=== PATIENT | female | born 1955 | race Caucasian/White ===

== ENCOUNTER → 2019-07-12 16:22 | Outpatient (CLI) | payer BC, SELFPAY ==
--- NOTE | 2019-07-12 16:28 | XR_ITS ---
PROCEDURE: XR FOOT WT BEARING RT 3V CLINICAL INDICATION: pain COMPARISON: No exams were available for comparison FINDINGS: No fracture or dislocation. No lytic or blastic change. There is normal mineralization. There is mild pes planus. Mild osteoarthritic changes are present at the 2nd and 3rd metatarsal tarsal joint. There are mild hypertrophic changes at the distal aspect of the 1st metatarsal Other findings:None. IMPRESSION: Degenerative changes with pes planus Dictated by: Nicholas Lyman MD 07/12/2019 17:45 Signed by: <Electronically signed by Nicholas Lyman MD in [place]> 07/12/2019 17:45
== END ==
PROVIDERS: PCP Internal Medicine Adolescent Medicine; Visit Provider Podiatrist
DX: M79.671 Pain in right foot (principal); B35.1 Tinea unguium
CPT/HCPCS: 73630; 87102; 87206; 87220

== ENCOUNTER → 2019-07-28 09:23 | Outpatient (CLI) | payer BC, SELFPAY ==
--- NOTE | 2019-07-28 09:30 | XR_ITS ---
PROCEDURE: XR TIBIA FIBULA RT 2V CLINICAL INDICATION: PAIN IN LOWER LEG Posttraumatic pain with bruising COMPARISON: No exams were available for comparison FINDINGS: There is a nondisplaced fracture involving the neck of the fibula. Mid distal aspect of the tib fib have an unremarkable appearance. IMPRESSION: Nondisplaced fracture neck of the fibula otherwise negative Dictated by: Nicholas Lyman MD 07/28/2019 09:59 Electronically signed by Nicholas Lyman MD in [place] 07/28/2019 09:59
== END ==
PROVIDERS: PCP Internal Medicine Adolescent Medicine; Visit Provider Internal Medicine Adolescent Medicine
DX: M79.661 Pain in right lower leg (principal)
CPT/HCPCS: 73590

== ENCOUNTER 2019-12-21 13:07 | Outpatient (CLI) | payer BC, SELFPAY ==
[2019-12-21] VITALS (7 sets, daily range): BP systolic 104–129; BP diastolic 61–82; PULSE 80–95; RESP 16–18; TEMP 36.5–36.6; O2SAT 97–99; BMI 26.6
[2019-12-21 13:40] LABS: Basophils # 0.1 K/mm3 (0-0.2); Basophils % 0.8 % (0.1-2.0); Eosinophils # 0.1 K/mm3 (0.0-0.4); Eosinophils % 0.9 % (0.1-12.0); Hematocrit 43.1 % (37.0-47.0); Hemoglobin 13.9 g/dL (12.2-16.2); Lymphocytes # 1.1 K/mm3 (0.7-4.5); Lymphocytes % 16.8 % (10-50); Mean Corpuscular HGB Conc 32.2 g/dL (31.8-35.4); Mean Corpuscular Hemoglobin 36.6 pg (27.0-31.2); Mean Corpuscular Volume 113.5 fl (81-99); Mean Platelet Volume 8.1 fl (7.4-10.4); Monocytes # 0.5 K/mm3 (0.1-1.0); Monocytes % 8.1 % (1.7-9.3); Neutrophils # 4.9 K/mm3 (1.8-7.8); Neutrophils % 73.4 % (37.0-80.0); Platelet Count 248 K/mm3 (142-424); Red Blood Count 3.79 M/mm3 (4.20-5.40); Red Cell Distribution Width 15.6 % (11.5-17.5); White Blood Count 6.6 K/mm3 (4.8-10.8)
[2019-12-21 14:22] LABS: Anion Gap 14.7 mEq/L (5-15); Blood Urea Nitrogen 13 mg/dL (7-18); Carbon Dioxide 29 mmol/L (21.0-32.0); Chloride 95 mmol/L (98-107); Creatinine Clearance Estimated 49 mL/min (50-200); Creatinine,Serum 1.31 mg/dL (0.55-1.02); Estimated Glomerular Filt Rate 41 ml/min (>60); GFR (African American) 50 ML/MIN (>60); Sodium 137 mmol/L (136-145)
[2019-12-21 14:44] LABS: Glucose 113 mg/dL (74-106)
[2019-12-21 14:50] LABS: Potassium 1.7 mmoL/L (3.5-5.1)
[2019-12-21 15:09] LABS: Calcium 8.1 mg/dL (8.5-10.1)
== END 2019-12-21 17:00 | disposition home or self-care (01) ==
PROVIDERS: PCP Internal Medicine Adolescent Medicine; Visit Provider Internal Medicine Adolescent Medicine
DX: R42 Dizziness and giddiness (principal)
CPT/HCPCS: 36415; 80048; 85025; 96360; 96361; 96366; 96367

== ENCOUNTER → 2019-12-24 08:43 | Outpatient (CLI) | payer BC, SELFPAY ==
[2019-12-24 12:12] LABS: Alanine Aminotransferase 27 U/L (12-78); Albumin Level 2.7 gm/dL (3.4-5.0); Albumin/Globulin Ratio 0.6 (1.1-1.8); Alkaline Phosphatase 78 U/L (46-116); Anion Gap 17.8 mEq/L (5-15); Aspartate Amino Transferase 33 U/L (15-37); Bilirubin,Total 0.8 mg/dL (0.2-1.0); Blood Urea Nitrogen 7 mg/dL (7-18); Calcium 8.6 mg/dL (8.5-10.1); Carbon Dioxide 25 mmol/L (21.0-32.0); Chloride 97 mmol/L (98-107); Creatinine,Serum 1.09 mg/dL (0.55-1.02); Estimated Glomerular Filt Rate 51 ml/min (>60); GFR (African American) 62 ML/MIN (>60); Globulin 4.3 gm/dl (1.3-3.2); Glucose 103 mg/dL (74-106); Magnesium 1.3 mg/dL (1.4-2.2); Sodium 137 mmol/L (136-145)
[2019-12-24 12:27] LABS: Potassium 2.8 mmoL/L (3.5-5.1)
== END ==
PROVIDERS: Visit Provider Internal Medicine Adolescent Medicine
DX: I10 Essential (primary) hypertension (principal)
CPT/HCPCS: 36415; 80053; 83735

== ENCOUNTER 2020-02-29 14:22 | Emergency (ER) | payer BC, SELFPAY ==
--- NOTE | 2020-02-29 14:44 | HMH.EDUTC ---
[facility] [place] Clinical Impression: Compression fracture Pneumonia Qualifiers: Pneumonia type: due to unspecified organism Laterality: left Lung location: unspecified part of lung Qualified Code(s): J18.9 - Pneumonia, unspecified organism Disposition: Home, Self-Care Condition on Discharge: Fair Instructions: DI for Pneumonia -- Adult, DI for Vertebral Fracture Additional Instructions: Follow up with Dr Lee office Tuesday morning Prescriptions: Lidocaine [Lidoderm 5% transdermal patch] 1 each TP Q24H 30 Days #30 adh..patch Transmission Status: Pending to [facility] Ketorolac Tromethamine [Toradol 10mg tablet] 10 mg PO Q6H PRN 5 Days #20 tab PRN Reason: pain Transmission Status: Pending to [facility] Azithromycin [Z-Reece 250mg Tab*] 250 mg PO UD DOSE PK #6 tab Transmission Status: Pending to [facility] Referrals: Gomez Ferrara MD [Primary Care Provider] - Time of Disposition: 16:19 Medical Decision Making - Johnny Inquiry Pt receiving controlled substance: No Vital Signs: 02/29/20 14:50 Pulse Rate [Right Brachial] 115 H Respiratory Rate 20 Blood Pressure [Right Arm] 130/94 H Blood Pressure Mean [Right Arm] 106 Blood Pressure Source [Right Arm] Automatic Cuff Blood Pressure Position [Right Arm] Sitting 02 Sat by Pulse Oximetry 100 Oxygen Delivery Method Room Air Orders (Tests/Meds): ED MEDICATIONS Discontinued Medications Generic Name Dose Route Start Last Admin Trade Name Freq PRN Reason Stop Dose Admin Ketorolac Tromethamine 30 mg 02/29/20 15:20 02/29/20 15:39 Toradol 30mg/Ml Vial IM 02/29/20 15:21 30 mg ONCE ONE Administration - Radiology Data #1 Image(s): Chest Image Reviewed: Yes I have reviewed radiologist's interpretation Preliminary Findings: Abnormal (Left lingula infiltrate) #2 Image(s): L-Spine Image Reviewed: Yes I reviewed the patient's radiology image Preliminary Findings: Abnormal (Compression fracture) [facility] [place] - General Stated complaint: back pain swollen legs Time Seen by Provider: 02/29/20 14:44 - History of Present Illness Provider Complaint: Patient states that she has had back pain X 1 month. Started in right flank area 1 month ago while sleeping. No injury. Now has weakness in both legs. Has swelling in both legs. Has been laying in recliner with TENS unit and has been taking ibuprofen. Has very little relief. Denies SOA except when the pain is severe. Better when she is sitting very still. Worse with any activity. Had right kidney removed years ago for cancer. Onset (ago): month(s) (1) Location: back, right Relieving factors: none Exacerbating factors: none Associated symptoms: denies other symptoms Treatments prior to arrival: NSAID - Related Data Home Medications Medication Instructions Recorded Confirmed losartan 25 mg tablet 25 mg PO DAILY 07/12/19 02/29/20 Previous Rx's Medication Instructions Recorded Azithromycin [Z-Reece 250mg Tab*] 250 mg PO UD DOSE PK #6 tab 02/29/20 Ketorolac Tromethamine [Toradol 10 mg PO Q6H PRN 5 Days #20 tab 02/29/20 10mg tablet] Lidocaine [Lidoderm 5% transdermal 1 each TP Q24H 30 Days #30 02/29/20 patch] adh..patch Allergies Allergy/AdvReac Type Severity Reaction Status Date / Time amoxicillin Allergy Verified 02/29/20 14:56 ciprofloxacin [From Cipro] Allergy Verified 12/21/19 14:32 Iodinated Contrast Media Allergy Verified 12/21/19 14:32 [Iodinated Contrast Media - Oral and] Penicillins Allergy Verified 12/21/19 14:32 Sulfa (Sulfonamide Allergy Verified 12/21/19 14:32 Antibiotics) [facility] History - Hepatitis A Screen Attestation statement:: This patient has been screened for Hepatitis A risk factors. I have reviewed the patient's past medical history: Yes Medical History: Reports:: Cancer (R kidney 2006 with chemotherapy and R nephrectomy), Hypertension Denies:: Diabetes Mellitus Ty
[2020-02-29 14:50] VITALS: BP 130/94; PULSE 115; RESP 20; O2SAT 100; BMI 27.1
--- NOTE | 2020-02-29 14:56 | XR_ITS ---
PROCEDURE: XR CHEST 2V CLINICAL HISTORY: swelling Pain and swelling COMPARISON: CXR2 XR chest AP from 01/02/2019 FINDINGS: The cardiomediastinal silhouette and pulmonary vascularity are within normal limits. Calcified granuloma is present in the left lower lobe. There are atelectatic or fibrotic changes in the left lower lobe with mild blunting of the left CP angle. There is some opacification along the left major fissure in the lingula. No acute bony abnormalities. IMPRESSION: Atelectasis and/or infiltrate within the lingula with small left effusion Dictated by: Nicholas Lyman MD 02/29/2020 16:07 Electronically signed by Nicholas Lyman MD in [place] 02/29/2020 16:07
--- NOTE | 2020-02-29 15:20 | XR_ITS ---
PROCEDURE: XR LUMBAR SPINE MIN 4V CLINICAL INDICATION: back pain, radiating into RLE Low back pain COMPARISON: No exams were available for comparison FINDINGS: Is mild upper lumbar curvature convex left. Wedge compression fracture involves the anterior superior endplate of L1 with loss of height anteriorly of approximately 30 percent. There is also wedge compression changes involving the L5 vertebral body with loss of height of approximately 30 percent. These are age indeterminate. No obvious retropulsion at L5. There is 1-2 mm anterolisthesis of L4. IMPRESSION: Compression fracture involves L1 and L5 age indeterminate. Consider MRI for further evaluation to determine the age of the fractures and to evaluate for possible retropulsion at the L1 area. Dictated by: Nicholas Lyman MD 02/29/2020 16:04 Electronically signed by Nicholas Lyman MD in [place] 02/29/2020 16:04
[2020-02-29 16:23] VITALS: BP 130/94; PULSE 115; RESP 20; TEMP 36.7; O2SAT 100
== END 2020-02-29 16:28 | disposition home or self-care (01) ==
PROVIDERS: Emergency Provider Physician Assistant; PCP Internal Medicine Adolescent Medicine
DX: M48.56XA Collapsed vertebra, not elsewhere classified, lumbar region, initial encounter for fracture (principal); J18.9 Pneumonia, unspecified organism; I10 Essential (primary) hypertension; D64.9 Anemia, unspecified; Z88.0 Allergy status to penicillin; Z88.2 Allergy status to sulfonamides; Z90.49 Acquired absence of other specified parts of digestive tract; Z90.79 Acquired absence of other genital organ(s)
CPT/HCPCS: 71046; 72110; 96372; 99202

== ENCOUNTER → 2020-03-21 15:08 | Outpatient (CLI) | payer BC, SELFPAY ==
--- NOTE | 2020-03-21 15:14 | MR_ITS ---
PROCEDURE: MR LUMBAR SPINE WO CON CLINICAL INDICATION: CLOSED COMPRESSION FX OF 1ST LUMBAR VERTEBRA Low back pain and left leg pain COMPARISON: XR LUMBAR SPINE MIN 4V from 02/29/2020 TECHNIQUE: Standard multiplanar multiecho sequences are performed without contrast. 3-D MIP and myelographic images are also rendered and reviewed FINDINGS: There is normal alignment. The spinal cord ends at the L2 level. T11-T12: Unremarkable. T12-L1: There is acute compression fracture involving the superior endplate of L1 with loss of height anteriorly of approximately 20 percent with minimal retropulsion of the posterior superior aspect of the vertebral body at 3 mm without impingement. There is some edema involving the anterior aspect of the pedicle on the right at L1 but no obvious fracture line L2-L3: Unremarkable. L3-L4: Unremarkable. L4-5: There is mild wedging involving the superior endplate of L5. There is slight increase in T2 signal involving the anterior superior aspect of L5 with some spurring at this area. L5-S1: Mild facet hypertrophic change with mild bilateral foraminal narrowing Incidental note is made of nonvisualization of the right kidney. IMPRESSION: 1. There is acute compression fracture of involving the superior endplate of L1 with loss of height anteriorly of approximately 20 percent with minimal retropulsion of the posterior superior aspect of the vertebral body at 3 mm without impingement. There is some edema involving the anterior aspect of the pedicle on the right at L1 but no obvious fracture line 2. Mild wedging of the superior endplate of L5 which may be chronic with some associated type 1 endplate changes 3. Nonvisualization of the right kidney which could be due to absence of the kidney or abnormal localization Dictated by: Nicholas Lyman MD 03/21/2020 16:23 Electronically signed by Nicholas Lyman MD in [place] 03/21/2020 16:23
== END ==
PROVIDERS: PCP Internal Medicine Adolescent Medicine; Visit Provider Internal Medicine Adolescent Medicine
DX: S32.010A Wedge compression fracture of first lumbar vertebra, initial encounter for closed fracture (principal)
CPT/HCPCS: 72148; 76376

== ENCOUNTER 2020-05-14 08:59 | Observation (INO) | payer BC, SELFPAY ==
[2020-05-14] VITALS (11 sets, daily range): BP systolic 117–136; BP diastolic 73–96; PULSE 74–125; RESP 16–20; TEMP 36.6–37.1; O2SAT 94–100; BMI 27.4; BMI 25.1
--- NOTE | 2020-05-14 09:11 | ECG_ITS ---
APPROVED REPORT Exam: Resting ECG HR:107 bpm ECG Measurements Heart Rate 107 AXES VA 138 P -19 QRSd 78 QRS -11 QT 328 T 40 QTc 437 <Conclusion> Sinus tachycardia Incomplete RBBB Abnormal ECG Electronically signed by : Albaro Blackman, 05/14/2020 17:49:52
--- NOTE | 2020-05-14 09:13 | HMH.EDGENADL ---
ED Disposition Clinical Impression: Frequent falls, Generalized weakness Anemia Qualifiers: Anemia type: unspecified type Qualified Code(s): D64.9 - Anemia, unspecified UTI (urinary tract infection) Qualifiers: Urinary tract infection type: acute cystitis Hematuria presence: with hematuria Qualified Code(s): N30.01 - Acute cystitis with hematuria Altered mental status Qualifiers: Altered mental status type: disorientation Qualified Code(s): R41.0 - Disorientation, unspecified Disposition: Admitted as Observation Condition on Discharge: Fair - Critical Care Critical Care Time: No Attestation: On 05/14/20, the high probability of a clinically significant, sudden or life threatening deterioration of the following system(s) required my full and direct attention, intervention and personal management. The time I documented below is in addition to time spent performing reported procedures but includes the following listed in this critical care notation. Medical Decision Making - Medical Records Medical records reviewed: Yes: I reviewed the patient's medical records. - Johnny Inquiry Pt receiving controlled substance: No Vital Signs: 05/14/20 09:00 05/14/20 10:14 05/14/20 10:31 Temperature 98.4 F Temperature Source Oral Pulse Rate Pulse Rate [Right] 125 H 74 74 Respiratory Rate 20 18 Blood Pressure Blood Pressure [Right Arm] 119/91 H 128/96 H 117/83 Blood Pressure Mean [Right Arm] 100 106 94 Blood Pressure Source [Right Arm] Automatic Cuff Automatic Cuff Blood Pressure Position [Right Arm] Sitting Supine 02 Sat by Pulse Oximetry 99 100 99 Oxygen Delivery Method Room Air Room Air 05/14/20 11:18 05/14/20 11:39 05/14/20 12:13 Temperature Temperature Source Pulse Rate Pulse Rate [Right] 76 80 79 Respiratory Rate 18 Blood Pressure Blood Pressure [Right Arm] 125/88 124/96 H 122/92 H Blood Pressure Mean [Right Arm] 100 105 102 Blood Pressure Source [Right Arm] Automatic Cuff Automatic Cuff Automatic Cuff Blood Pressure Position [Right Arm] Sitting Sitting Sitting 02 Sat by Pulse Oximetry 94 L 94 L 99 Oxygen Delivery Method Room Air Room Air 05/14/20 12:36 05/14/20 12:58 Temperature 98.2 F Temperature Source Pulse Rate 77 Pulse Rate [Right] 86 Respiratory Rate 16 Blood Pressure 125/84 Blood Pressure [Right Arm] 121/88 Blood Pressure Mean [Right Arm] 99 Blood Pressure Source [Right Arm] Automatic Cuff Blood Pressure Position [Right Arm] Sitting 02 Sat by Pulse Oximetry 100 Oxygen Delivery Method Room Air - Lab Data Lab results reviewed: Yes: I reviewed the patient's lab results. Lab Results 05/14/20 09:35: Sodium 136, Potassium 4.1, Chloride 110 H, Carbon Dioxide 20 L, Anion Gap 10.1, BUN 6 L, Creatinine 0.70, Estimated Creat Clear 66, Estimated GFR 85, Est GFR ( Amer) 102, Glucose 89, Calcium 8.9, Total Bilirubin 0.8, AST 36, ALT 28, Alkaline Phosphatase 97, Total Creatine Kinase < 20 L, Troponin I < 0.01, Total Protein 6.3, Albumin 2.8 L, Globulin 3.5 H, Albumin/Globulin Ratio 0.8 L 05/14/20 09:35: Lactate 1.9 05/14/20 09:35: Plasma/Serum Alcohol < 10 05/14/20 09:35: Magnesium 1.9 05/14/20 09:40: Urine Color Yellow, Urine Appearance Clear, Urine pH 6.0, Ur Specific [place] 1.020, Urine Protein Negative, Urine Glucose (UA) Negative, Urine Ketones Negative, Urine Blood Negative, Urine Nitrate Negative, Urine Bilirubin Negative, Urine Urobilinogen 0.2, Ur Leukocyte Esterase Trace, Urine RBC 10-20, Urine WBC 20-50, Ur Squamous Epith Cells 5-10, Urine Bacteria 1+ 05/14/20 09:40: Urine Opiates Screen Negative, Urine Methadone Screen Negative, Ur Barbituates Screen Negative, Ur Phencyclidine Scrn Negative, Ur Amphetamines Screen Negative, U Benzodiazepines Scrn Negative, Urine Cocaine Screen Negative, U Marijuana (THC) Screen Negative 05/14/20 10:21: WBC 4.5 L, RBC 2.83 L, Hgb 8.9 L, Hct 29.0 L, MCV 102.4 H, MCH 31.6 H, MCHC 30.8 L, RDW 20.8 H, Plt Count 371, MP
--- NOTE | 2020-05-14 09:16 | XR_ITS ---
PROCEDURE: XR CHEST PORTABLE CLINICAL HISTORY: weakness COMPARISON: CXR2 XR chest AP from 01/02/2019 XR CHEST 2V from 02/29/2020 FINDINGS: The cardiomediastinal silhouette and pulmonary vascularity are within normal limits. The lungs are clear without infiltrates, suspicious nodules, or pleural effusions. No acute bony abnormalities. IMPRESSION: No acute findings. Dictated by: Meir Rodriguez 05/14/2020 11:01 Electronically signed by Meir Rodriguez in [place] 05/14/2020 11:01
--- NOTE | 2020-05-14 09:17 | CT_ITS ---
PROCEDURE: CT HEAD/BRAIN WO CON CLINICAL INDICATION: ams COMPARISON: HEADWO CT head/brain wo con from 01/02/2019 TECHNIQUE: Axial images obtained. All CT scans at the facility use one or more dose reduction, viz: automated exposure control, ma/kV adjustment per patient size (including targeted exams where dose is matched to indication, i.e. head), or iterative reconstruction technique. FINDINGS: No midline shift, mass effect, intracranial hemorrhage, hydrocephalus, or extra-axial fluid collection is evident. The calvarium has an unremarkable appearance. No mastoid effusion. No sinus air-fluid level. IMPRESSION: No acute intracranial finding Dictated by: Meir Rodriguez 05/14/2020 10:44 Electronically signed by Meir Rodriguez in [place] 05/14/2020 10:44
--- NOTE | 2020-05-14 09:51 | PC.NURSE ---
contacted pharmacy to ask them to mix Rally pack on pt, spoke with Debbie
--- NOTE | 2020-05-14 09:51 | PC.NURSE ---
pt to RAD
[2020-05-14 09:54] LABS: Chloride 110 mmol/L (98-107); Potassium 4.1 mmoL/L (3.5-5.1); Sodium 136 mmol/L (136-145)
[2020-05-14 09:57] LABS: Alanine Aminotransferase 28 U/L (12-78); Albumin Level 2.8 g/dl (3.5-5.0); Albumin/Globulin Ratio 0.8 (1.1-1.8); Alkaline Phosphatase 97 U/L (38-126); Anion Gap 10.1 mEq/L (5-15); Aspartate Amino Transferase 36 U/L (14-36); Bilirubin,Total 0.8 mg/dl (0.2-1.3); Blood Urea Nitrogen 6 mg/dl (7-17); Calcium 8.9 mg/dl (8.4-10.2); Carbon Dioxide 20 mmol/L (22.0-30.0); Creatinine Clearance Estimated 66 mL/min (50-200); Estimated Glomerular Filt Rate 85 ml/min (>60); GFR (African American) 102 ML/MIN (>60); Globulin 3.5 g/dL (1.3-3.2); Glucose 89 mg/dl (74-100); Total Protein,Serum 6.3 g/dl (6.3-8.2)
[2020-05-14 09:58] LABS: Lactic Acid 1.9 mmol/L (0.7-2.1); Magnesium 1.9 mg/dl (1.6-2.3)
[2020-05-14 10:01] LABS: Creatine Kinase < 20 U/L (30-135); Ethyl Alcohol < 10 mg/dl (0-10)
[2020-05-14 10:03] LABS: Microscopic, Urine URINE MICROSCOPIC (MICROSCOPIC)
[2020-05-14 10:07] LABS: Appearance,Urine CLEAR (Clear); Blood, Urine Negative (Negative); Color,Urine YELLOW (Yellow); Glucose,Urine (UA) Negative (Negative); Ketones,Urine Negative (Negative); Leukocyte Esterase,Urine TRACE (Negative); Nitrate,Urine Negative (Negative); Protein,Urine Negative (Negative); Urobilinogen,Urine 0.2 EU/dl (0.2)
[2020-05-14 10:10] LABS: Troponin I < 0.01 ng/ml (0.00-0.034)
[2020-05-14 10:12] LABS: Bilirubin,Urine Negative (Negative)
[2020-05-14 10:17] LABS: Bacteria,Urine 1+ /lpf; WBC,Urine 20-50 #/hpf (0-3)
[2020-05-14 10:18] LABS: Amphetamine/Metha Screen,Urine Negative ng/ml (<1000)
[2020-05-14 10:19] LABS: Barbiturates Screen,Urine Negative ng/ml (<200); Benzodiazepines Screen,Urine Negative ng/ml (<200)
[2020-05-14 10:20] LABS: Cannabinoid Screen,Urine Negative ng/ml (<50)
[2020-05-14 10:21] LABS: Cocaine Screen,Urine Negative ng/ml (<300); Methadone Screen,Urine Negative ng/ml (<300)
--- NOTE | 2020-05-14 10:21 | PC.NURSE ---
Lab aT bedside
[2020-05-14 10:22] LABS: Opiate Screen,Urine Negative ng/ml (<300); Phencyclidine Screen,Urine Negative ng/ml (<25)
[2020-05-14 10:29] LABS: Basophils # 0.1 K/mm3 (0-0.2); Eosinophils # 0.1 K/mm3 (0.0-0.4); Eosinophils % 1.1 % (0.1-12.0); Hemoglobin 8.9 g/dL (12.2-16.2); Lymphocytes % 21.2 % (10-50); Mean Corpuscular HGB Conc 30.8 g/dL (31.8-35.4); Mean Corpuscular Hemoglobin 31.6 pg (27.0-31.2); Mean Corpuscular Volume 102.4 fl (81-99); Mean Platelet Volume 8.1 fl (7.4-10.4); Monocytes # 0.3 K/mm3 (0.1-1.0); Monocytes % 5.9 % (1.7-9.3); Neutrophils # 3.2 K/mm3 (1.8-7.8); Neutrophils % 70.7 % (37.0-80.0); Platelet Count 371 K/mm3 (142-424); Red Blood Count 2.83 M/mm3 (4.20-5.40); Red Cell Distribution Width 20.8 % (11.5-17.5); White Blood Count 4.5 K/mm3 (4.8-10.8)
--- NOTE | 2020-05-14 11:24 | PC.NURSE ---
assisted MD in rectal exam
[2020-05-14 11:41] LABS: Occult Blood,Stool Negative (Negative)
--- NOTE | 2020-05-14 11:45 | PC.NURSE ---
PT dislodged IV on accident, new IV obtained
--- NOTE | 2020-05-14 12:12 | PC.NURSE ---
consulting with Dr Sagastume
--- NOTE | 2020-05-14 12:29 | PC.NURSE ---
Pt sitting up in bed drinking a sprite at this time.
--- NOTE | 2020-05-14 12:30 | PC.NURSE ---
Called CM, house and admissions to get pt admitted, pt going to room 204.
--- NOTE | 2020-05-14 13:01 | PC.NURSE ---
Pt finished oral contrast, notified radiology and admitting nurse
--- NOTE | 2020-05-14 13:02 | CT_ITS ---
PROCEDURE: CT ABDOMEN PELVIS WO CON CLINICAL INDICATION: low HH COMPARISON: No exams were available for comparison TECHNIQUE: Axial images obtained with sagittal and coronal reformats. All CT scans at the facility use one or more dose reduction, viz: automated exposure control, ma/kV adjustment per patient size (including targeted exams where dose is matched to indication, i.e. head), or iterative reconstruction technique. FINDINGS: Infiltrates within the posterior segment of the left upper lobe, left lung base, and small left pleural effusion is noted. There is a 14.5 millimeter calcified nodule in the medial left lung base. There are a few infiltrates within the right lung base. The liver is enlarged and displays diffuse steatosis. Patient is status post cholecystectomy. The patient is status post right nephrectomy. The bilateral adrenal glands, left kidney, pancreas, and spleen is unremarkable. There are a few splenic calcifications. There are surgical sutures which may be post Mario fundoplication within the distal thoracic esophagus and gastric fundus. The aorta is unremarkable. Large bowel is unremarkable. There is some mild dilatation and mucosal thickening of a segment of mid ileum. Soft tissues and bony structures are unremarkable. CT scan of the pelvis without contrast: There is an indwelling Ott catheter and some gas within the collapsed bladder lumen. The patient is status posthysterectomy. Soft tissues and bony structures are unremarkable. IMPRESSION: Hepatomegaly and hepatic steatosis, status post right nephrectomy and cholecystectomy, loop of mid ileum displaying mild dilatation and mucosal thickening. This could be secondary to a focal enteritis or ischemia. Dictated by: Meir Rodriguez 05/14/2020 15:41 Electronically signed by Meir Rodriguez in [place] 05/14/2020 15:41
--- NOTE | 2020-05-14 14:04 | HMH.PHAVTE ---
[facility] Pharmacy VTE Monitoring - Patient Demographics Admission date: 05/14/20 Report Date: 05/14/20 Time: 14:04 Allergies/Adverse Reactions: Patient Allergies amoxicillin Allergy (Verified 02/29/20 14:56) ciprofloxacin [From Cipro] Allergy (Verified 12/21/19 14:32) Iodinated Contrast Media [Iodinated Contrast Media - Oral and] Allergy (Verified 12/21/19 14:32) Penicillins Allergy (Verified 12/21/19 14:32) Sulfa (Sulfonamide Antibiotics) Allergy (Verified 12/21/19 14:32) Height: 1.63 m Weight: 66.423 kg Patient Problems: Current Active Problems Anemia (Acute) UTI (urinary tract infection) (Acute) Altered mental status (Acute) Frequent falls (Acute) Generalized weakness (Acute) - VTE Risk Labs: VTE Related Lab Results Hgb 8.9 g/dL (12.2-16.2) L 05/14/20 10:21 Hct 29.0 % (37.0-47.0) L 05/14/20 10:21 Plt Count 371 K/mm3 (142-424) 05/14/20 10:21 BUN 6 mg/dl (7-17) L 05/14/20 09:35 Creatinine 0.70 mg/dl (0.52-1.04) 05/14/20 09:35 Estimated Creat Clear 66 mL/min (50-200) 05/14/20 09:35 Was VTE Risk Assessment Performed: Yes VTE Score: 9 VTE Risk Level: Moderate Risk Clinical Trial Participant: No - Prophylaxis VTE Prophylaxis Ordered?: Yes Types of VTE Prophylaxis: TEDS Knee High
--- NOTE | 2020-05-14 14:06 | HMH.HP ---
*Admission Date: 05/14/20 *Chief complaint: Worsening weakness/Confusion/anemia *History of present illness: 65-year-old white female with some functional decline issues who over the past week has become progressively more confused, weak and has spent most of her time in bed. She is also had some frequent falls. Her brought her to the emergency department where work-up revealed significant range and hemoglobin, down from 14 g 6 weeks ago to 8 g today. She is also extremely weak, pale, was found to have new compression fractures in her back on examination and a urinary tract infection. Patient admitted to hospital for further evaluation, treatment of her UTI, physical therapy evaluation and evaluation by pain management for compression fracture issues. [facility] History I have reviewed the patient's past medical history: Yes Medical History: Reports:: Cancer (RIGHT KIDNEY CANCER), Hypertension Denies:: Diabetes Mellitus Type 1, Diabetes Mellitus Type 2, MRSA *Have you ever received a pneumonia vaccine?: No *Have you received a flu vaccine this season?: No Other Medical History: Reports: Anemia, Arthritis (hands), Chemotherapy, HypothyroidismComment Only: Thyroid Disease (parathyroidectomy 2004) Laterality Cases: Bilateral: Tonsillectomy Other Surgeries: Yes: Cancer Surgery, Cholecystectomy, Colonoscopy, , EGD, Hysterectomy-Total (1989), Thyroidectomy Amputation: No Fractures: Yes (R tibia fracture June 2019) - *Social History Educational Level: Completed College Smoking Status: Current some day smoker Tobacco Type: cigarettes # Packs/Day (cigarettes): 1 Alcohol Intake: former Alcohol Intake Frequency:: other *Occupational Status:: employed Housing: house Household Members: spouse *Travel in the last 8 weeks: None Family Hx:: Diabetes, Heart Attack, Hypertension Review of Systems - Review of Systems Review of systems:: unable to obtain Patient is somewhat confused, is disoriented to place and time, is able to say that her pain feels better and that she is eaten some lunch which is more than she is eaten in quite a few days. Her family is not in the room which limits review of systems accuracy. - *Neurologic Reports weakness Meds Home Medications Medication Instructions Recorded Confirmed Type Cyclobenzaprine HCl [Flexeril 10mg 5 mg PO Q6H PRN 05/14/20 05/14/20 History tablet] Losartan/Hydrochlorothiazide 1 each PO DAILY 05/14/20 05/14/20 History [Losartan-Hctz 50-12.5 mg Tab] Tramadol HCl [Tramadol 50mg 50 mg PO QIDP PRN 05/14/20 05/14/20 History Tab] Allergies Allergy/AdvReac Type Severity Reaction Status Date / Time amoxicillin Allergy Verified 02/29/20 14:56 ciprofloxacin [From Cipro] Allergy Verified 12/21/19 14:32 Iodinated Contrast Media Allergy Verified 12/21/19 14:32 [Iodinated Contrast Media - Oral and] Penicillins Allergy Verified 12/21/19 14:32 Sulfa (Sulfonamide Allergy Verified 12/21/19 14:32 Antibiotics) Exam Vital signs and Labs for Last 24 Hours: Temp Pulse Resp BP Pulse Ox 97.8 F 84 17 124/73 99 05/14/20 13:13 05/14/20 13:13 05/14/20 13:13 05/14/20 13:13 05/14/20 13:13 Laboratory Results - last 24 hr 05/14/20 09:35: Sodium 136, Potassium 4.1, Chloride 110 H, Carbon Dioxide 20 L, Anion Gap 10.1, BUN 6 L, Creatinine 0.70, Estimated Creat Clear 66, Estimated GFR 85, Est GFR ( Amer) 102, Glucose 89, Calcium 8.9, Total Bilirubin 0.8, AST 36, ALT 28, Alkaline Phosphatase 97, Total Creatine Kinase < 20 L, Troponin I < 0.01, Total Protein 6.3, Albumin 2.8 L, Globulin 3.5 H, Albumin/Globulin Ratio 0.8 L 05/14/20 09:35: Lactate 1.9 05/14/20 09:35: Plasma/Serum Alcohol < 10 05/14/20 09:35: Magnesium 1.9 05/14/20 09:40: Urine Color Yellow, Urine Appearance Clear, Urine pH 6.0, Ur Specific [place] 1.020, Urine Protein Negative, Urine Glucose (UA) Negative, Urine Ketones Negative, Urine Blood Negative, Urine Nitrate Negative,
--- NOTE | 2020-05-14 14:07 | HMH.PTEV ---
Physical Therapy Evaluation Rehab PT IP Evaluation Start: 05/14/20 13:33 Freq: ONCE Status: Active Protocol: Document 05/14/20 14:02 ELAINE (Rec: 05/14/20 14:07 ELAINE [id number]) Subjective/History History History History obtained primarily from the patient's , patient had some history. states she has been a heavy drinker for several years. Because of this she has had frequent falls. She fell about 6 weeks ago and cracked vertebrae in her back . She fell again about 5 weeks ago. She has had an MRI which shows a compression fracture. He says that she has not had a drink in about 4 weeks. Despite this, she is getting progressively weaker, more confused. She is shaky and weak when she stands, therefore continues to fall. She says she has hit her head. She has bruises on her lower legs. She sleeps 18 to 19 hours/day. She is on pain medication for her back. Subjective Subjective Pt reports anxiety issues from falling Rehab PT IP Eval Objective Appearance Patient Behavior Cooperative,Anxious Patient Orientation Person,Place,Time Difficulty following instructions none Speech Pattern Clear,Appropriate Ambulation Patient Able to Ambulate Yes Ambulation Observation IP General Gait Pattern Observation No Deviations/Normal Ambulation Distance (feet) 5 Ambulation Assistive Device Rolling Walker Ambulation Ability Supervision/Stand by Balance Ability to Arise Able, uses arms to help Sitting Balance Steady, safe Standing Balance Narrow stance w/o support Dynamic Sitting Balance Ability Good Dynamic Standing Balance Ability Fair Transfers Bed Transfer Ability Independent Chair Transfer Ability Independent Sit to Stand Bed Transfer Ability Supervision/Stand by Sit to Stand Chair Transfer Ability Supervision/Stand by ROM All Extremities PT ROM Status WFL MMT All Extremities PT MMT WFL Rehab
--- NOTE | 2020-05-14 14:36 | HMH.PHAINT ---
HOME MEDICATION RECONCILIATION COMPLETED. OBTAINED LIST FROM PRIMARY CARE PROVIDERS OFFICE (DR RODAS). PT ADAMANT SHE IS ONLY TAKING LOSARTAN/HCTZ 50/12.5MG, ULTRAM AND FLEXERIL CURRENTLY.
--- NOTE | 2020-05-14 18:01 | PC.NURSE ---
PATIENT ARRIVED ON FLOOR VIA STRETCHER. THIS RN WENT OVER MEDICATIONS WITH PATIENT. SPOUSE PROVIDED SEVERAL HOME MEDICATION BOTTLES, PER PATIENT, PATIENT ONLY TAKES THE 3 MEDICATIONS LISTED ON MEDICATION SUMMARY. PATIENT COMPLAINS OF PAIN WHEN BEING TOUCHED. SEVERAL BRUISES NOTED ON BODY. PATIENT ABLE TO STAND WITH 2X ASSIST FOR A SHORT TIME, WEAKNESS IN LEGS. APPETITE GOOD. A&O X4, LUNGS DIMINSHED, PULSES EQUAL. THIS RN RETURNED ALL HOME MEDICATIONS TO PATIENT'S SPOUSE, PATIENT'S SPOUSE ASKED IF HE SHOULD DISPOSE OF HER MEDICATIONS THAT SHE DOES NOT TAKE. THIS RN STATED THAT I CAN NOT TELL YOU WHAT TO DO WITH YOUR 'S MEDICATIONS. PATIENT'S SPOUSE STATED HE WILL SPEAK TO DR. HUTTON TO FIND OUT WHAT TO DO WITH THE MEDICATIONS. NO OTHER CONCERNS AT THIS TIME.
--- NOTE | 2020-05-14 19:07 | PC.NURSE ---
report given to yoselin
[2020-05-15] VITALS (8 sets, daily range): BP systolic 95–121; BP diastolic 48–81; PULSE 74–104; RESP 16–20; TEMP 36.6–37.2; O2SAT 97–99; BMI 25.9
--- NOTE | 2020-05-15 02:48 | PC.NURSE ---
A&OX4 T/O ENTIRE SHIFT. PT HAS TOLERATED RA WELL T/O SHIFT. PT HAS BEEN IN BED MAJORITY OF SHIFT. F/C IN PLACE, DRAINING BRIGHT YELLOW URINE. AT BEGINNING OF SHIFT, PT C/O RESTLESS LEG PAIN. PT STATED, IT FEELS LIKE I HAVE WORMS CRAWLING UP MY LEGS. PT SEEMED VERY ANXIOUS AT THIS TIME. THIS NURSE TALKED WITH PT, PT STATED THAT THE LAST TIME SHE DRANK WAS 2 DAYS AGO. THIS NURSE PROVIDED PT WITH WARM BLANKET, HOT TEA, AND DIMMED LIGHTING. PT STILL REQUESTED MEDS FOR LEGS, RATING PAIN OF 8 ON 1-10 SCALE. GAVE PT X1 DOSE OF TRAMADOL AND FLEXERIL PER ACCOUNT MANAGER MD MCKNIGHT. AFTER THESE INTERVENTIONS, PT STATES THAT HER LEGS ARE STILL BOTHERING HER, BUT NOT BAD. HER ANXIETY HAS ALSO GOTTEN MUCH BETTER. PT HAS HAD NO OTHER C/O T/O THE NIGHT. VSS WILL CONTINUE TO MONITOR.
[2020-05-15 06:36] LABS: Basophils % 0.8 % (0.1-2.0); Eosinophils # 0.1 K/mm3 (0.0-0.4); Eosinophils % 1.6 % (0.1-12.0); Hematocrit 27.9 % (37.0-47.0); Hemoglobin 8.6 g/dL (12.2-16.2); Lymphocytes # 1.7 K/mm3 (0.7-4.5); Lymphocytes % 36.1 % (10-50); Mean Corpuscular HGB Conc 30.8 g/dL (31.8-35.4); Mean Corpuscular Hemoglobin 31.5 pg (27.0-31.2); Mean Corpuscular Volume 102.2 fl (81-99); Mean Platelet Volume 7.8 fl (7.4-10.4); Monocytes # 0.3 K/mm3 (0.1-1.0); Monocytes % 6.5 % (1.7-9.3); Neutrophils # 2.5 K/mm3 (1.8-7.8); Platelet Count 344 K/mm3 (142-424); Red Blood Count 2.73 M/mm3 (4.20-5.40); Red Cell Distribution Width 20.3 % (11.5-17.5); White Blood Count 4.6 K/mm3 (4.8-10.8)
--- NOTE | 2020-05-15 09:12 | HMH.ACPN2 ---
Internal Medicine - PN: Subj *Date: 05/15/20 *Time: 08:55 Interval history: Patient did well overnight. Continues to complain of feeling weak and fatigued. Is alert and oriented this morning. No acute distress on room air. Tolerating breakfast. Symptoms appear to be improving somewhat since admission Denies shortness of breath, chest pain, nausea, vomiting. Afebrile. Further interview this morning, she admits to drinking alcohol nightly to help her sleep, states may be 8 ounces but reports that it would take at most 2 days to go through a bottle of wine also drinks liquor on occasion. Suspect she is drinking far more than she admits to given these conflicting answers. Exam Vital signs and Labs for Last 24 Hours: Temp Pulse Resp BP Pulse Ox 98.6 F 104 H 18 98/54 L 99 05/15/20 07:25 05/15/20 07:26 05/15/20 07:25 05/15/20 07:25 05/15/20 07:25 Laboratory Results - last 24 hr 05/14/20 09:35: Sodium 136, Potassium 4.1, Chloride 110 H, Carbon Dioxide 20 L, Anion Gap 10.1, BUN 6 L, Creatinine 0.70, Estimated Creat Clear 66, Estimated GFR 85, Est GFR ( Amer) 102, Glucose 89, Calcium 8.9, Total Bilirubin 0.8, AST 36, ALT 28, Alkaline Phosphatase 97, Total Creatine Kinase < 20 L, Troponin I < 0.01, Total Protein 6.3, Albumin 2.8 L, Globulin 3.5 H, Albumin/Globulin Ratio 0.8 L 05/14/20 09:35: Lactate 1.9 05/14/20 09:35: Plasma/Serum Alcohol < 10 05/14/20 09:35: Magnesium 1.9 05/14/20 09:40: Urine Color Yellow, Urine Appearance Clear, Urine pH 6.0, Ur Specific [place] 1.020, Urine Protein Negative, Urine Glucose (UA) Negative, Urine Ketones Negative, Urine Blood Negative, Urine Nitrate Negative, Urine Bilirubin Negative, Urine Urobilinogen 0.2, Ur Leukocyte Esterase Trace, Urine RBC 10-20, Urine WBC 20-50, Ur Squamous Epith Cells 5-10, Urine Bacteria 1+ 05/14/20 09:40: Urine Opiates Screen Negative, Urine Methadone Screen Negative, Ur Barbituates Screen Negative, Ur Phencyclidine Scrn Negative, Ur Amphetamines Screen Negative, U Benzodiazepines Scrn Negative, Urine Cocaine Screen Negative, U Marijuana (THC) Screen Negative 05/14/20 10:21: WBC 4.5 L, RBC 2.83 L, Hgb 8.9 L, Hct 29.0 L, MCV 102.4 H, MCH 31.6 H, MCHC 30.8 L, RDW 20.8 H, Plt Count 371, MPV 8.1, Neut % (Auto) 70.7, Lymph % (Auto) 21.2, [place] % (Auto) 5.9, Eos % (Auto) 1.1, Baso % (Auto) 1.0, Neut # (Auto) 3.2, Lymph # (Auto) 1.0, [place] # (Auto) 0.3, Eos # (Auto) 0.1, Baso # (Auto) 0.1 05/14/20 11:20: Stool Occult Blood Negative 05/15/20 06:03: WBC 4.6 L, RBC 2.73 L, Hgb 8.6 L, Hct 27.9 L, MCV 102.2 H, MCH 31.5 H, MCHC 30.8 L, RDW 20.3 H, Plt Count 344, MPV 7.8, Neut % (Auto) 55.0, Lymph % (Auto) 36.1, [place] % (Auto) 6.5, Eos % (Auto) 1.6, Baso % (Auto) 0.8, Neut # (Auto) 2.5, Lymph # (Auto) 1.7, [place] # (Auto) 0.3, Eos # (Auto) 0.1, Baso # (Auto) 0.0 I & O for Last 24 hours: Intake & Output 05/12/20 05/13/20 05/14/20 05/15/20 23:59 23:59 23:59 23:59 Intake Total 1360 / 1480 360 / 360 Output Total 475 / 975 600 / 600 Balance 885 / 505 -240 / -240 Weight 66.423 kg 69.088 kg - Constitutional no acute distress, average body habitus - *Routine HEENT Exam Head: Present: normocephalic Eye: Present: EOMI, PERRL ENT: Present: mucous membranes moist - *Routine Neck Exam Present: supple. Absent: lymphadenopathy - *Routine Respiratory Exam Present: CTA bilaterally - *Routine Cardiovascular Exam Present: RRR - *Routine Abdominal Exam Present: soft, normoactive bowel sounds. Absent: tenderness - *Routine Extremities Exam Absent: cyanosis, clubbing, edema - *Routine Skin Exam Present: pallor, warm. Absent: rash - *Routine Neurological Exam Present: alert, oriented X3, normal speech. Absent: tremors, asterixis Assessment and Plan (1) Altered mental status Current visit: Yes Status: Acute Qualifiers: Altered mental status type: disorientation Qualified Code(s): R41.0 - Disorientation, unspecified Category: Medical Code(s
[2020-05-15 09:20] LABS: Chloride 109 mmol/L (98-107); Potassium 4.1 mmoL/L (3.5-5.1); Sodium 135 mmol/L (136-145)
[2020-05-15 09:22] LABS: Blood Urea Nitrogen 8 mg/dl (7-17); Creatinine Clearance Estimated 63 mL/min (50-200); Estimated Glomerular Filt Rate 72 ml/min (>60); GFR (African American) 88 ML/MIN (>60)
[2020-05-15 09:23] LABS: Alanine Aminotransferase 20 U/L (12-78); Albumin Level 2.2 g/dl (3.5-5.0); Albumin/Globulin Ratio 0.7 (1.1-1.8); Alkaline Phosphatase 75 U/L (38-126); Anion Gap 9.1 mEq/L (5-15); Aspartate Amino Transferase 32 U/L (14-36); Bilirubin,Total 0.6 mg/dl (0.2-1.3); Carbon Dioxide 21 mmol/L (22.0-30.0); Globulin 3.1 g/dL (1.3-3.2); Glucose 75 mg/dl (74-100); Lactate Dehydrogenase 233 U/L (313-618); Total Protein,Serum 5.3 g/dl (6.3-8.2)
[2020-05-15 10:06] LABS: Basophils % 0.6 % (0.1-2.0); Eosinophils # 0.1 K/mm3 (0.0-0.4); Eosinophils % 1.8 % (0.1-12.0); Hematocrit 29.2 % (37.0-47.0); Hemoglobin 8.9 g/dL (12.2-16.2); Lymphocytes # 1.2 K/mm3 (0.7-4.5); Lymphocytes % 21.8 % (10-50); Mean Corpuscular HGB Conc 30.6 g/dL (31.8-35.4); Mean Corpuscular Hemoglobin 31.8 pg (27.0-31.2); Mean Corpuscular Volume 104.2 fl (81-99); Monocytes # 0.3 K/mm3 (0.1-1.0); Neutrophils % 70.9 % (37.0-80.0); Platelet Count 385 K/mm3 (142-424); Red Blood Count 2.81 M/mm3 (4.20-5.40); Red Cell Distribution Width 20.4 % (11.5-17.5); White Blood Count 5.6 K/mm3 (4.8-10.8)
[2020-05-15 10:13] LABS: Chloride 110 mmol/L (98-107)
[2020-05-15 10:14] LABS: Potassium 4.1 mmoL/L (3.5-5.1); Sodium 135 mmol/L (136-145)
[2020-05-15 10:16] LABS: Alanine Aminotransferase 29 U/L (12-78); Alkaline Phosphatase 87 U/L (38-126); Aspartate Amino Transferase 31 U/L (14-36); Bilirubin,Total 0.5 mg/dl (0.2-1.3); Blood Urea Nitrogen 7 mg/dl (7-17); Creatinine Clearance Estimated 63 mL/min (50-200); Estimated Glomerular Filt Rate 72 ml/min (>60); GFR (African American) 88 ML/MIN (>60)
[2020-05-15 10:17] LABS: Albumin Level 2.4 g/dl (3.5-5.0); Albumin/Globulin Ratio 0.7 (1.1-1.8); Anion Gap 11.1 mEq/L (5-15); Calcium 8.1 mg/dl (8.4-10.2); Carbon Dioxide 18 mmol/L (22.0-30.0); Globulin 3.4 g/dL (1.3-3.2); Glucose 82 mg/dl (74-100); Magnesium 2.4 mg/dl (1.6-2.3); Phosphorous 4.6 mg/dl (2.5-4.5); Total Protein,Serum 5.8 g/dl (6.3-8.2)
[2020-05-15 10:28] LABS: Calcium 7.9 mg/dl (8.4-10.2)
[2020-05-15 11:29] LABS: Activated Partial Thrombo Time 23.5 seconds (23.6-34.0); INR 1.09 (0.9-1.1); Prothrombin Time 11.1 seconds (9.4-11.8)
[2020-05-15 11:39] LABS: Barbiturates Screen,Urine Negative ng/ml (<200)
[2020-05-15 11:40] LABS: Benzodiazepines Screen,Urine Negative ng/ml (<200)
[2020-05-15 11:41] LABS: Amphetamine/Metha Screen,Urine Negative ng/ml (<1000); Cocaine Screen,Urine Negative ng/ml (<300)
[2020-05-15 11:42] LABS: Methadone Screen,Urine Negative ng/ml (<300)
[2020-05-15 11:43] LABS: Cannabinoid Screen,Urine Negative ng/ml (<50); Opiate Screen,Urine Negative ng/ml (<300)
[2020-05-15 11:44] LABS: Phencyclidine Screen,Urine Negative ng/ml (<25)
--- NOTE | 2020-05-15 15:14 | HMH.PAINSOAP ---
[facility] Pain Management SOAP Note Subjective:: Patient is a pleasant 65-year-old white female who is currently inpatient at [facility]. We are being consulted for new onset mid to low back pain. Patient says she has had frequent falls over the last few months and says that she is having worsening back pain. She does have imaging that shows an acute compression fracture at L1 area. Patient says that she is having frequent falls and is unsure what is causing her falls. She reports the pain to be worse with any type of movement. Patient says she does not have much pain with sitting, however. Patient does rate her pain an 8 out of 10 with any type of movement. The patient is currently taking muscle relaxers and tramadol for pain relief. This does give her up to 50% relief at this time. Review of Systems General: No recent weight changes, no fever, no sleep disturbances Respiratory: No cough, no shortness of air, no recurring pulmonary infections Cardiovascular/peripheral vascular: No chest pain, no palpitations, no edema, no shortness of breath Gastrointestinal: No new onset incontinence, normal bowel movements reported Genitourinary: No new onset incontinence Musculoskeletal: Mid to low back pain Psychiatric: Normal mood/affect Neurological: [Denies weakness in extremities], [denies balance issues] Objective:: Physical exam General: Alert and oriented x3, no acute distress, pleasant and cooperative, [on room air] Lungs: Respirations even and unlabored, symmetrical chest expansion Eyes: PERRL Musculoskeletal: Flexion and extension of lumbar spine somewhat guarded secondary to pain, deep tendon reflexes normal, strength in upper and lower extremities [5/5], [abnormal gait noted] Neurological: Speech clear, home care provider equal, no gross sensory deficit Assessment:: Compression fracture at L1 Plan:: Patient I did discuss kyphoplasty for her acute fracture. I did discuss the patient's imaging with Dr. Murphy. He is in agreement to proceed with the procedure. The patient is not currently on any anticoagulation therapy. The patient was also given a brace today to wear with any type of movement for stabilization. We will plan to contact the patient following discharge for scheduling of kyphoplasty at L1. Patient has been instructed to contact clinic if she has any concerns before her appointment. The patient and I specifically discussed risk factors for COVID19. These risks include, but are not limited to age greater than 60, heart or lung disease, diabetes, immunosuppression, and travel. We also discussed NSAIDs may worsen COVID19 infection or symptoms. Patient should not use NSAIDs to treat COVID19 signs or symptoms. Patient was also informed that any type of corticosteroid of any form (oral or injection) will decrease the patient's immune system response and may increase the likelihood of COVID19 infection [address] symptoms[address] Dr. Murphy has reviewed this note and agrees with this plan of care. This note was dictated using voice recognition software and make contain errors or omissions. [facility] History I have reviewed the patient's past medical history: Yes Medical History: Reports:: Cancer (RIGHT KIDNEY CANCER), Hypertension Denies:: Diabetes Mellitus Type 1, Diabetes Mellitus Type 2, MRSA *Have you ever received a pneumonia vaccine?: No *Have you received a flu vaccine this season?: No Other Medical History: Reports: Anemia, Arthritis (hands), Chemotherapy, HypothyroidismComment Only: Thyroid Disease (parathyroidectomy 2004) Laterality Cases: Bilateral: Tonsillectomy Other Surgeries: Yes: Cancer Surgery, Cholecystectomy, Colonoscopy, , EGD, Hysterectomy-Total (1989), Thyroidectomy Amputation: No Fractures: Yes (R tibia fracture June 2019) - *Social History Educational Level: Completed College Smoking Status: Current some day smoker Tobacco Type: cigarettes # Packs/Day (cigarettes): 1 Alcohol Intake: former [employer]
--- NOTE | 2020-05-15 17:32 | PC.NURSE ---
PATIENT IN RECLINER EATING DINNER. PATIENT ASSISTED TO BSC WITH 2 RN-PT HAD BM. NO C/O N,V,D OR PAIN. PATIENT YANCY TRANSFER FAIR, HAS SOME DEBILITY. SAFETY MEASURES IN PLACE. FAMILY HAS VISITED PATIENT TODAY, PT ALONE NOW. NO ISSUES AT THIS TIME. WILL CONT TO MONITOR
[2020-05-16 03:49] VITALS: BP 113/69; PULSE 71; RESP 16; TEMP 36.7; O2SAT 97
[2020-05-16 05:00] VITALS: BMI 24.6
--- NOTE | 2020-05-16 05:18 | PC.NURSE ---
A&OX4. PT HAS TOLERATED ROOM AIR WELL THROUGHOUT SHIFT. RESPIRATIONS CLEAR AND UNLABORED. LUNG SOUNDS BILATERALLY CLEAR. NO COUGH NOTED. NO EDEMA NOTED. TEDS ON BLE. HAND COMPRESSOR ENGINEER EQUAL. PT WAS ASSISTED TO THE RESTROOM AT BEGINNING OF SHIFT WITH STANDBY ASSISTANCE. STEADY GAIT. PT TOLERATED WELL. WILBURN IN PLACE WITH CLEAR YELLOW URINE NOTED IN COLLECTION BAG. NO KINKS NOTED. ABDOMEN SOFT AND NONTENDER. ACTIVE BOWEL SOUNDS HEARD IN ALL 4 QUADRANTS. CIWL SCORE OF 0 THROUGHOUT SHIFT. SEIZURE PADS IN PLACE THROUGHOUT SHIFT. BED IN LOWEST POSITION. CALL LIGHT WITHIN REACH. PT IS CURRENTLY RESTING IN BED. VSS. NO CONCERNS AT THIS TIME. WILL CONTINUE TO MONITOR.
[2020-05-16 07:37] LABS: Chloride 111 mmol/L (98-107)
[2020-05-16 07:38] LABS: Potassium 4.3 mmoL/L (3.5-5.1); Sodium 136 mmol/L (136-145)
[2020-05-16 07:40] LABS: Alanine Aminotransferase 18 U/L (12-78); Alkaline Phosphatase 80 U/L (38-126); Aspartate Amino Transferase 29 U/L (14-36); Bilirubin,Total 0.6 mg/dl (0.2-1.3); Blood Urea Nitrogen 7 mg/dl (7-17); Creatinine Clearance Estimated 60 mL/min (50-200); Estimated Glomerular Filt Rate 85 ml/min (>60); GFR (African American) 102 ML/MIN (>60)
[2020-05-16 07:41] LABS: Albumin Level 2.4 g/dl (3.5-5.0); Albumin/Globulin Ratio 0.7 (1.1-1.8); Anion Gap 7.3 mEq/L (5-15); Calcium 8.3 mg/dl (8.4-10.2); Carbon Dioxide 22 mmol/L (22.0-30.0); Globulin 3.3 g/dL (1.3-3.2); Glucose 83 mg/dl (74-100); Total Protein,Serum 5.7 g/dl (6.3-8.2)
[2020-05-16 07:44] LABS: Basophils % 0.9 % (0.1-2.0); Eosinophils # 0.1 K/mm3 (0.0-0.4); Eosinophils % 2.8 % (0.1-12.0); Hematocrit 30.7 % (37.0-47.0); Hemoglobin 9.3 g/dL (12.2-16.2); Lymphocytes # 1.1 K/mm3 (0.7-4.5); Mean Corpuscular HGB Conc 30.4 g/dL (31.8-35.4); Mean Corpuscular Hemoglobin 31.2 pg (27.0-31.2); Mean Corpuscular Volume 102.7 fl (81-99); Mean Platelet Volume 8.3 fl (7.4-10.4); Monocytes # 0.2 K/mm3 (0.1-1.0); Monocytes % 5.7 % (1.7-9.3); Neutrophils # 2.4 K/mm3 (1.8-7.8); Neutrophils % 61.6 % (37.0-80.0); Platelet Count 375 K/mm3 (142-424); Red Blood Count 2.99 M/mm3 (4.20-5.40); White Blood Count 3.9 K/mm3 (4.8-10.8)
[2020-05-16 07:45] LABS: Reticulocyte % (Auto) 3.7 % (0.9-3.2)
[2020-05-16 08:00] VITALS: BP 118/79; PULSE 109; RESP 16; TEMP 36.8; O2SAT 98
--- NOTE | 2020-05-16 09:07 | HMH.DCSUM ---
General - General Admission date:: 05/14/20 Discharge date: 05/16/20 HPI HPI: 65-year-old white female with some functional decline issues who over the past week has become progressively more confused, weak and has spent most of her time in bed. She is also had some frequent falls. Her brought her to the emergency department where work-up revealed significant range and hemoglobin, down from 14 g 6 weeks ago to 8 g today. She is also extremely weak, pale, was found to have new compression fractures in her back on examination and a urinary tract infection. Patient admitted to hospital for further evaluation, treatment of her UTI, physical therapy evaluation and evaluation by pain management for compression fracture issues. Hospital Course Hospital Course: 65-year-old female admitted for confusion, weakness, anemia, metabolic disturbances. Treated with IV vitamins, fluids. Adjusted medications. Stopped blood pressure treatment. During course of hospitalization, she had gradual improvement in her mentation. Was assessed by physical therapy and found to be independent with assistive devices such as a walker but not in need of more aggressive physical therapy such as placement. Recommendation for home health PT or PT as an outpatient. Extensive discussion with patient and her about her increased alcohol consumption over the past several months to years. It was determined that this likely is the underlying etiology for her nutritional deficiencies, confusion, anemia. Plan for discontinuing all home medications. Initiating supplements as prescribed. In physical therapy to gain improved mobility and strength. Her course has been additionally complicated by her persistent back pain from compression fractures for which she has seen neurosurgery at . Pain stable during admission. Pain management was consulted, gave patient a brace. Planning for kyphoplasty in the outpatient setting. No further acute needs. Patient responded well to nutritional supplementation and vitamin therapy in the hospital. Meeting criteria for going home as she is mentating well, ambulating independently, has stable hemodynamics, afebrile, no acute needs. Discharged home in the care of her . Extensive discussion, he is comfortable with this plan. Nutrition consult during admission, recommended protein supplementation and multivitamins Day of discharge, patient had no shortness of breath, chest pain, nausea, vomiting, diarrhea, confusion, syncope. Objective Vital signs: Temp Pulse Resp BP Pulse Ox 98.3 F 109 H 16 118/79 98 05/16/20 08:00 05/16/20 08:00 05/16/20 08:00 05/16/20 08:00 05/16/20 08:00 Narrative: - Constitutional no acute distress, average body habitus - *Routine HEENT Exam Head: Present: normocephalic Eye: Present: EOMI, PERRL ENT: Present: mucous membranes moist - *Routine Neck Exam Present: supple. Absent: lymphadenopathy - *Routine Respiratory Exam Present: CTA bilaterally - *Routine Cardiovascular Exam Present: RRR - *Routine Abdominal Exam Present: soft, normoactive bowel sounds. Absent: tenderness - *Routine Extremities Exam Absent: cyanosis, clubbing, edema - *Routine Skin Exam Present: pallor, warm. Absent: rash - *Routine Neurological Exam Present: alert, oriented X3, normal speech. Absent: tremors, asterixis Results Labs on day of discharge: Labs from last 24 hours 05/16/20 05/16/20 05/16/20 07:00 07:00 07:00 WBC 3.9 L D RBC 2.99 L Hgb 9.3 L Hct 30.7 L MCV 102.7 H MCH 31.2 MCHC 30.4 L RDW 20.0 H Plt Count 375 MPV 8.3 Neut % (Auto) 61.6 Lymph % (Auto) 29.0 [place] % (Auto) 5.7 Eos % (Auto) 2.8 Baso % (Auto) 0.9 Neut # (Auto) 2.4 Lymph # (Auto) 1.1 [place] # (Auto) 0.2 Eos # (Auto) 0.1 Baso # (Auto) 0.0 Retic Count (auto) 3.7 H PT INR APTT Sodium 136 Potassium
[2020-05-16 10:12] LABS: Haptoglobin 17 mg/dL (37-355)
[2020-05-16 10:25] LABS: Ferritin 225 ng/ml (11.1-264)
[2020-05-16 10:52] LABS: Total Iron Binding Capacity 137 ug/dL (265-497)
[2020-05-16 12:34] VITALS: BMI 24.8
--- NOTE | 2020-05-16 14:18 | SW/DCPLANNER ---
Addendum entered by Ila Gan 05/16/20 15:45: Yajaira with [facility] has stated that they are not in network with this patients insurance but did verify that patient has met her deductible and has all 130 yearly visits available for home health services. [facility] I will follow up with Gilma on Tuesday regarding this patient. Patient will discharge home today. I did inform Leland with [facility] regarding patient referral. Original Note: I have received an order for home health services for this patient. Patient is agreeable to home health services at this time and has stated she does NOT have a preference as to which agency. I did speak with patients (Jose Enrique) as well and is also agreeable to services. Patient information will be faxed to Narendra at [facility]. If patient does have an out of pocket expense for services both patient and agree to return back to [facility] for outpatient PT services. I will follow up with Narnedra and patient.
--- NOTE | 2020-05-16 14:37 | DIET.NUTRFU ---
Nutritional assessment completed and counseling given. Pt with moderate protein calorie malnutrition related to ETOH abuse/inadequate intake, see note for full assessment. Protein supplements added to diet order and pt encouraged to increase intakes with small frequent meals, ask for snacks prn.
--- NOTE | 2020-05-16 14:51 | PC.NURSE ---
PT'S CALLED AND STATED HE RECEIVED NOTICE THAT PT WAS GOING TO BE DISCHARGED HOME TODAY. STATED THAT HE FEELS THAT THERE IS STILL SOMETHING OFF WITH HIS . STATED HE HAS GOT NUMEROUS MESSAGES FROM HER TODAY THAT HAS NOT MADE ANY SENSE AT ALL. PT'S STATED HE WAS NOT SURE IT WOULD BE SAFE IF PT WAS TO GO HOME AND HE STILL HAD SEVERAL QUESTIONS AND CONCERNS. CALLED OFFICE TO NOTIFY (MESSAGE LEFT.)
[2020-05-16 16:00] VITALS: BP 119/88; PULSE 92; RESP 16; TEMP 36.7; O2SAT 100
[2020-05-17 10:04] LABS: Peripheral Smear Review Scanned Result
== END 2020-05-16 18:37 | disposition home health service (06) ==
LOC: ER 09:28 → 2ND 12:32
PROVIDERS: Admitting Provider Internal Medicine Adolescent Medicine; Emergency Provider Emergency Medicine; PCP Internal Medicine Adolescent Medicine; Visit Provider Internal Medicine Adolescent Medicine
DX: N39.0 Urinary tract infection, site not specified (principal); D64.9 Anemia, unspecified; Z72.0 Tobacco use; R29.6 Repeated falls; E88.09 Other disorders of plasma-protein metabolism, not elsewhere classified; I10 Essential (primary) hypertension; Z12.11 Encounter for screening for malignant neoplasm of colon; F10.10 Alcohol abuse, uncomplicated; Y90.0 Blood alcohol level of less than 20 mg/100 ml; E46 Unspecified protein-calorie malnutrition; Z68.24 Body mass index [BMI] 24.0-24.9, adult; Z85.528 Personal history of other malignant neoplasm of kidney; S32.019A Unspecified fracture of first lumbar vertebra, initial encounter for closed fracture
CPT/HCPCS: 36415; 70450; 71045; 74176; 80053; 80305; 81001; 82272; 82550; 82728; 83010; 83550; 83605; 83615; 83735; 84100; 84484; 85025; 85044; 85610; 85730; 87040; 87086; 93005; 96365; 97116; 97162; 97530; 99285; G0328; G0378

== ENCOUNTER → 2020-05-27 11:19 | Outpatient (CLI) | payer BC, SELFPAY ==
[2020-05-27 11:37] LABS: Basophils # 0.1 K/mm3 (0-0.2); Basophils % 0.8 % (0.1-2.0); Eosinophils # 0.1 K/mm3 (0.0-0.4); Eosinophils % 1.1 % (0.1-12.0); Hematocrit 32.9 % (37.0-47.0); Hemoglobin 10.3 g/dL (12.2-16.2); Lymphocytes # 1.6 K/mm3 (0.7-4.5); Lymphocytes % 23.7 % (10-50); Mean Corpuscular HGB Conc 31.4 g/dL (31.8-35.4); Mean Corpuscular Hemoglobin 30.5 pg (27.0-31.2); Mean Platelet Volume 7.8 fl (7.4-10.4); Monocytes # 0.3 K/mm3 (0.1-1.0); Monocytes % 3.9 % (1.7-9.3); Neutrophils # 4.7 K/mm3 (1.8-7.8); Neutrophils % 70.4 % (37.0-80.0); Platelet Count 530 K/mm3 (142-424); Red Blood Count 3.39 M/mm3 (4.20-5.40); Red Cell Distribution Width 18.7 % (11.5-17.5); White Blood Count 6.6 K/mm3 (4.8-10.8)
[2020-05-27 12:40] LABS: Alanine Aminotransferase 21 U/L (12-78); Albumin Level 3.1 g/dl (3.5-5.0); Albumin/Globulin Ratio 0.8 (1.1-1.8); Alkaline Phosphatase 84 U/L (38-126); Anion Gap 13.7 mEq/L (5-15); Aspartate Amino Transferase 31 U/L (14-36); Bilirubin,Total 0.4 mg/dl (0.2-1.3); Blood Urea Nitrogen 7 mg/dl (7-17); Calcium 9.6 mg/dl (8.4-10.2); Carbon Dioxide 20 mmol/L (22.0-30.0); Chloride 107 mmol/L (98-107); Estimated Glomerular Filt Rate 85 ml/min (>60); GFR (African American) 102 ML/MIN (>60); Globulin 3.8 g/dL (1.3-3.2); Glucose 94 mg/dl (74-100); Potassium 4.7 mmoL/L (3.5-5.1); Sodium 136 mmol/L (136-145); Total Protein,Serum 6.9 g/dl (6.3-8.2)
[2020-05-28 18:29] LABS: Thyroid Stimulating Hormone 3.35 uIU/mL (0.465-4.68)
== END ==
PROVIDERS: Visit Provider Internal Medicine Adolescent Medicine
DX: D64.9 Anemia, unspecified (principal)
CPT/HCPCS: 36415; 80053; 84443; 85025

== ENCOUNTER → 2020-09-30 11:40 | Outpatient (CLI) | payer BC, SELFPAY ==
--- NOTE | 2020-09-30 11:46 | XR_ITS ---
PROCEDURE: XR LUMBAR SPINE 2-3V CLINICAL INDICATION: FX OF L1 COMPARISON: CR XR LUMBAR SPINE MIN 4V from 02/29/[address] ABDOMEN PELVIS WO CON from 05/14/2020 FINDINGS: There is generalized osteopenia. There is normal curvature and alignment. Previous CT scan abdomen and pelvis from 05/14/2020 showed mild and likely non recent compression fractures of L1 and L5. L1-L5 appear to be stable on the current study both showing approximately 20-30 percent loss of height. However there now are mild compression fractures of L2 and L3 both showing 15-20 percent loss of height. The generalized osteopenia and overlying stool bowel gas make evaluation somewhat difficult. If the patient is having significant pain or increase in pain and probably a CT scan lumbar spine would be helpful to better evaluate for possible retropulsion of 1 of the compression fractures though I would tendon doubt it based on the plain films. The SI joints appear normal. IMPRESSION: Generalized osteopenia multiple mild compression fractures lumbar spine, L2 and L3 apparently have occurred since the previous CT scan 05/14/2020 Dictated by: Dr. Riaz Marin MD 09/30/2020 12:33 Dr. Riaz Marin MD in [place] 09/30/2020 12:33
== END ==
PROVIDERS: PCP Internal Medicine Adolescent Medicine; Visit Provider Internal Medicine Adolescent Medicine
DX: S32.010A Wedge compression fracture of first lumbar vertebra, initial encounter for closed fracture (principal)
CPT/HCPCS: 72100

== ENCOUNTER → 2020-10-09 09:23 | Outpatient (POV) | payer BC, SELFPAY ==
[2020-10-09 09:55] VITALS: BP 137/95; PULSE 85; RESP 18; TEMP 36.8; O2SAT 98; BMI 24.1
--- NOTE | 2020-10-09 13:15 | HMH.PMCON ---
Assessment and Plan (1) Mid back pain Status: Chronic Category: Medical Code(s): M54.9 - Dorsalgia, unspecified (2) Low back pain Status: Chronic Category: Medical Code(s): M54.5 - Low back pain (3) Compression fracture Status: Chronic Category: Medical - Assessment and plan all Dx Assessment and Plan for all problems:: Patient I had a discussion concerning her CT scan she does have acute fractures noted to L2 and L3. Her previous fractures were at L1 and L5. Patient says she is not interested in any type of injections or surgical intervention for her fractures at this time. She says she plans to leave the state for the next month and does not want any interventional therapies. She would like to try a low-dose of medication to see if this helps. She was given oral medications prior to leaving the hospital, however, she is outside of the medication. She denied I discussed that we will give her tramadol 50 mg 1 tablet p.o. twice daily for 1 month only. She will need to return to the clinic when she is back in town following the holidays to discuss a further plan of care. I have advised her to continue using the brace that she was given upon the hospital. Patient says it causes her to have pain and she will likely not wear it. We will follow-up with her in a month to reevaluate her systems. The patient and I specifically discussed risk factors for COVID19. These risks include, but are not limited to age greater than 60, heart or lung disease, diabetes, immunosuppression, and travel. We also discussed NSAIDs may worsen COVID19 infection or symptoms. Patient should not use NSAIDs to treat COVID19 signs or symptoms. Patient was also informed that any type of corticosteroid of any form (oral or injection) will decrease the patient's immune system response and may increase the likelihood of COVID19 [address] Murphy has reviewed this note and agrees with this plan of care. This note was dictated using voice recognition software and make contain errors or omissions. HPI - Data of Consult Patient: new to practice Consult date: 10/09/20 Requesting Physician: Evelia Tristan APRN Primary Care Provider: Gomez Ferrara MD - Consult Narrative Reason for consult: Mid to low back pain History of present illness: Ms. Aiken is a 65 year old female who presents today for consultation for mid to low back pain. Patient was previously seen while she was inpatient at [facility] for a compression fracture. She was not considered a surgical candidate at that time. As a result, the patient was given a brace. She is here today with worsening low back pain. She did undergo CT scan of her lumbar spine. She is here to discuss the results and discuss a further plan of care. Patient says her pain is worse with any type of movement. She rates her pain a 10 out of 10. She says that she is not sure what has happened that her pain has gotten much worse since leaving the hospital. She says that she has not had any recent falls or any trauma that would cause her pain to worsen. She does have a history of falls, however. She had more than 3 falls over the last 6 months for which she was noted to have the L1 and L5 compression fracture with. That occurred in February 2020. Patient had been taking muscle relaxers she says that these were not beneficial for pain. She says that she is currently taking [id number] medications. She is scheduled to leave out of town and visit her family for Thanksgiving and is not interested in injective therapy at this time. Patient says she has not been wearing the brace because it causes her to have pain. CC: Evelia Tristan APRN [facility] History I have reviewed the patient's past medical history: Yes Medical History: Reports:: Hypertension Denies:: Cancer, Diabetes Mellitus Type 1, Diabetes Mellitus Type 2, MRSA *Have you ever received a pneumonia vaccine?: Yes *Have y
== END ==
PROVIDERS: PCP Internal Medicine Adolescent Medicine; Visit Provider Clinical Nurse Specialist Family Health
DX: M54.5 Low back pain (principal)
CPT/HCPCS: 99202

== ENCOUNTER → 2021-02-23 13:52 | Outpatient (CLI) | payer BC, SELFPAY ==
--- NOTE | 2021-02-23 13:57 | MM_ITS ---
PROCEDURE: MM DIG MAMM BI DX W/CAD Digital Breast Tomosynthesis Included CLINICAL INDICATION: RT BREAST LUMP There is no personal or family history breast cancer. The patient complains of a palpable lump axillary region right breast for past 2 weeks COMPARISON: MG [facility] SCREENING from 05/22/2014, outside films TECHNIQUE: Standard CC and MLO images and 3D Tomosynthesis was obtained. R2 CAD reviewed. FINDINGS: Moderate diffuse fibroglandular densities are seen in both breasts and findings are fairly symmetrical and bilateral. There is enlarged somewhat lobulated node in the right axilla the site of skin marker. However a similar appearing node was seen on the previous outside mammograms in 2013. There are no CAD markings. There is a similar appearing enlarged node or couple of matted nodes in the left axilla on the previous exam in 2013, not definitely seen on today's study but not as much of the axilla is included on the MLO image. The breasts look slightly smaller on the current exam than on the previous exam, has the patient had interval weight loss? This could possibly explain the patient noticing a ?new lump? prior to the the current exam. IMPRESSION: Fibrofatty parenchyma with no suspicious lesions seen, slightly enlarged but otherwise normal appearing node right axilla at the site of the patient's complaint, ultrasound of the right axilla could be offered though the lack of any significant change in the appearance of the noted the past 7 years would be somewhat against significant pathology. BI-RAD Category: 2 Benign Finding(s) FOLLOW-UP: 1YR 1 Year Follow-up (A letter has been sent to the patient regarding results of the study.) Dictated by: Dr. Riaz Marin MD 02/27/2021 09:14 Dr. Riaz Marin MD in [place] 02/27/2021 09:14
--- NOTE | 2021-02-23 13:59 | US_ITS ---
PROCEDURE: US BREAST RT COMPLETE CLINICAL INDICATION: RT BREAST LUMP COMPARISON: MG MM DIG MAMM BI DX W/CAD from 02/23/2021 FINDINGS: There is a smoothly marginated oval slightly hyperechoic nodule right axilla at the site of the palpable complaint. There is fine homogeneous internal echoes and well-defined interface between the lesion and the surrounding breast parenchyma. There is a 2nd smaller similar appearing oval nodule in the right axilla as well. In addition there are at least 3 normal appearing nodes. The 2 dominant hyperechoic lesions with homogeneous internal echogenicity likely represent fatty replaced nodes, there is no normal appearing internal architecture. As mention in the mammogram report the lack of significant interval change since the previous mammogram and 2014 certainly is in favor of a benign process. IMPRESSION: Probable fatty replaced nodes in addition to normal appearing nodes right axilla with no suspicious findings in the right breast on the recent mammogram of the same date, consider a six-month follow-up ultrasound right axillary region to evaluate for interval stability. Dictated by: Dr. Riaz Marin MD 03/04/2021 08:36 Dr. Riaz Marin MD in [place] 03/04/2021 08:36
== END ==
PROVIDERS: PCP Internal Medicine Adolescent Medicine; Visit Provider Internal Medicine Adolescent Medicine
DX: N63.10 Unspecified lump in the right breast, unspecified quadrant (principal)
CPT/HCPCS: 76641; 77062; 77066; G0279

== ENCOUNTER 2021-07-20 10:00 | Outpatient (RCR) | payer BC, SELFPAY ==
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
== END 2021-07-20 10:05 | disposition home or self-care (01) ==
LOC: PT 10:00
PROVIDERS: PCP Internal Medicine Adolescent Medicine; Visit Provider Internal Medicine Adolescent Medicine
DX: S32.010A Wedge compression fracture of first lumbar vertebra, initial encounter for closed fracture (principal); M79.601 Pain in right arm; M54.5 Low back pain
CPT/HCPCS: 97014; 97110; 97163; G0283

== ENCOUNTER → 2021-10-13 08:00 | Outpatient (CLI) | payer BC, SELFPAY ==
--- NOTE | 2021-10-13 08:04 | CT_ITS ---
PROCEDURE: CT MASTOID W/O CLINICAL HISTORY: poss acoustic neuroma COMPARISON: No exams were available for comparison TECHNIQUE: Axial images obtained with sagittal and coronal reformats. All CT scans at the facility use one or more dose reduction, viz: automated exposure control, ma/kV adjustment per patient size (including targeted exams where dose is matched to indication, i.e. head), or iterative reconstruction technique. FINDINGS: There is complete opacification of the left mastoid sinus with near complete opacification of the right mastoid sinus. There is bilateral middle ear opacification. No scutal erosion evident. The acoustic foramina are symmetric. Small intracanicular lesions may not be seen with this technique. MRI would be more sensitive for small acoustic neuromas.. No large CP angle mass evident. The lack mole glands are enlarged bilaterally. There are few scattered small lymph nodes in the neck on both sides. There is moderate to severe leftward nasal septal deviation with narrowing of the left nasal canal. The adenoids are prominent. There are scattered small bilateral parotid nodules which are along the peripheral aspect of the parotid glands possibly due to small nodes. IMPRESSION: 1. Symmetric acoustic foramen without obvious mass. More definitive evaluation could be obtained with MRI without and with contrast. Small lesions and intra canalicular lesions may not be seen with unenhanced CT technique. 2. Opacified bilateral mastoid sinuses and middle ears consistent with underlying infectious or inflammatory changes. 3. Prominent bilateral lacrimal glands. Differential diagnosis would include lymphoid hyperplasia, lymphoma, sarcoidosis, Sjogren's syndrome or other inflammatory changes. Ophthalmology consult may be in order. 4. Prominent adenoids. 5. Small bilateral parotid nodules which could be due to small lymph nodes. Scattered small nodes are present in the neck. Dictated by: Nicholas Lyman MD 10/14/2021 08:57 Nicholas Lyman MD in [place] 10/14/2021 08:57
== END ==
PROVIDERS: PCP Internal Medicine Adolescent Medicine; Visit Provider Otolaryngology
DX: R51.9 Headache, unspecified (principal); H91.93 Unspecified hearing loss, bilateral
CPT/HCPCS: 70480; 70486

== ENCOUNTER → 2021-10-22 08:10 | Outpatient (CLI) | payer BC, SELFPAY ==
[2021-10-22 09:51] LABS: Blood Urea Nitrogen 15 mg/dl (7-17); Estimated Glomerular Filt Rate 63 ml/min (>60); GFR (African American) 76 ML/MIN (>60)
== END ==
PROVIDERS: Visit Provider Otolaryngology
DX: Z01.812 Encounter for preprocedural laboratory examination (principal)
CPT/HCPCS: 36415; 82565; 84520

== ENCOUNTER → 2021-10-23 08:07 | Outpatient (CLI) | payer BC, SELFPAY ==
--- NOTE | 2021-10-23 08:08 | MR_ITS ---
PROCEDURE: MR HEAD/BRAIN WO/W CON CLINICAL INDICATION: hearing loss Recent dental surgery COMPARISON: No exams were available for comparison TECHNIQUE: Routine multiplanar multi echo sequences are performed without and with gadolinium enhancement. FINDINGS: No midline shift, mass effect, intracranial hemorrhage, or hydrocephalus. The cerebellopontine angles, cerebellum, brainstem and mid brain have an unremarkable appearance. No evidence of acute infarction. Small T2 white matter hyperintensity in the right temporal lobe superiorly nonspecific. This could even represent partial volume averaging from the lowe-white matter junction not reproduced on the coronal FLAIR images. No enhancement. Thin section images are obtained through the cerebellopontine angle and are unremarkable. Axial and coronal thin section pre and post enhanced images also obtained through the CP angle showing no evidence of CP angle mass mass. There is a questionable small area of enhancement involving the inferior aspect of the suad on the right best detected on the coronal post enhanced image 8 series 13 and axial image 7 series 14.. No other abnormal areas of enhancement detected. The pituitary, optic chiasm, corpus callosum, and craniocervical junction have an unremarkable appearance. There is complete opacification of the mastoid sinuses on both sides as well as opacification of the middle ear canals on both sides. There is mild mucosal thickening of the ethmoid sinuses and moderate leftward nasal septal deviation. IMPRESSION: 1. Complete bilateral mastoid and middle ear opacification. 2. Small area of contrast enhancement involving the inferior aspect of the suad on the right at approximately 3 mm. This is of uncertain clinical significance. Three month follow-up exam with same protocol as today's exam suggested. Dictated by: Nicholas Lyman MD 10/26/2021 08:22 Nicholas Lyman MD in [place] 10/26/2021 08:22
== END ==
PROVIDERS: PCP Internal Medicine Adolescent Medicine; Visit Provider Otolaryngology
DX: H91.93 Unspecified hearing loss, bilateral (principal)
CPT/HCPCS: 70553; A9576

== ENCOUNTER → 2022-01-30 08:13 | Outpatient (CLI) | payer BC, SELFPAY ==
[2022-01-30 08:57] LABS: Basophils # 0.1 K/mm3 (0-0.2); Basophils % 1.2 % (0.1-2.0); Eosinophils # 0.2 K/mm3 (0.0-0.4); Eosinophils % 2.2 % (0.1-12.0); Hematocrit 33.7 % (37.0-47.0); Hemoglobin 10.6 g/dL (12.2-16.2); Lymphocytes # 3.2 K/mm3 (0.7-4.5); Mean Corpuscular HGB Conc 31.4 g/dL (31.8-35.4); Mean Corpuscular Hemoglobin 22.5 pg (27.0-31.2); Mean Corpuscular Volume 71.5 fl (81-99); Mean Platelet Volume 7.9 fl (7.4-10.4); Monocytes # 0.3 K/mm3 (0.1-1.0); Monocytes % 4.7 % (1.7-9.3); Neutrophils # 3.5 K/mm3 (1.8-7.8); Neutrophils % 47.9 % (37.0-80.0); Platelet Count 452 K/mm3 (142-424); Red Blood Count 4.72 M/mm3 (4.20-5.40); Red Cell Distribution Width 18.1 % (11.5-17.5); White Blood Count 7.2 K/mm3 (4.8-10.8)
[2022-01-30 09:02] LABS: INR 0.93 (0.9-1.1); Prothrombin Time 10.6 seconds (10.1-12.5)
[2022-01-30 09:25] LABS: Anion Gap 13.2 mEq/L (5-15); Blood Urea Nitrogen 17 mg/dl (7-17); Calcium 9.6 mg/dl (8.4-10.2); Carbon Dioxide 25 mmol/L (22.0-30.0); Chloride 103 mmol/L (98-107); Estimated Glomerular Filt Rate 72 ml/min (>60); GFR (African American) 87 ML/MIN (>60); Glucose 92 mg/dl (74-100); Potassium 5.2 mmoL/L (3.5-5.1); Sodium 136 mmol/L (136-145)
== END ==
PROVIDERS: Visit Provider Otolaryngology
DX: Z01.812 Encounter for preprocedural laboratory examination (principal); Z11.52 Encounter for screening for COVID-19
CPT/HCPCS: 36415; 80048; 85025; 85610; C9803; U0003; U0005

== ENCOUNTER 2022-02-02 07:55 | Day surgery (SDC) | payer BC, SELFPAY ==
[2022-01-28 14:00] VITALS: BMI 28.3
[2022-02-02] VITALS (10 sets, daily range): BP systolic 108–139; BP diastolic 65–94; PULSE 64–86; RESP 16–20; TEMP 36.3–37.1; O2SAT 94–98
--- NOTE | 2022-02-02 08:21 | ECG_ITS ---
APPROVED REPORT Exam: Resting ECG HR:87 bpm ECG Measurements Heart Rate 87 AXES WI 172 P -4 QRSd 94 QRS -25 QT 358 T 38 QTc 402 Conclusion SINUS RHYTHM POSSIBLE ANTERIOR MYOCARDIAL INFARCTION , OF INDETERMINATE AGE [30 ms Q WAVE IN V3/V4, OR R < 0.2 mV IN V4] ABNORMAL ECG UNCONFIRMED REPORT Electronically signed by : Saarn Sagastume MD 02/02/2022 14:03:40
--- NOTE | 2022-02-02 09:06 | P.PN_ITS ---
[facility] Anesthesia Checklist - Patient Identification Patient Identification: Arm Band, Verbal (Name & ) - Structural Data Admitted From: Home Planned Operative Procedure/s: BMT Consent for Planned Operative Procedure(s) Verified: Yes Verified Documents: Surgical Consent - NPO Status Verified Time NPO: 17:00 - Chart Verification Results Verified: CBC, BMP - Additional verifications Anesthesia Reactions: No Hx Blood Transfusions: No Blood Transfusion Reaction: No - Airway Assessment C-Spine Mobility Assessed: Yes TMJ Mobility Assessed: Yes Dentition: Good Dentition - Neurological Assessment Level of Consciousness: Awake, Alert, Appropriate - Anesthesia Plan Anesthesia Risk discussed: Yes ASA Class: II Anesthesia Type: General w/block [facility] History I have reviewed the patient's past medical history: Yes Medical History: Reports:: Cancer (kidney cancer), Hypertension Denies:: Diabetes Mellitus Type 1, Diabetes Mellitus Type 2, Internal Pacemaker, MRSA, Seizures *Have you ever received a pneumonia vaccine?: No *Have you received a flu vaccine this season?: No Other Medical History: Reports: Anemia, Arthritis, Chemotherapy, Hypothyroidism. Denies: Blood Transfusion Reaction. Comment Only: Thyroid Disease (parathyroidectomy 2004) Anesthesia experience/problems:: none Laterality Cases: Bilateral: Tonsillectomy Other Surgeries: Yes: Cancer Surgery, Cholecystectomy, Colonoscopy, , EGD, Hysterectomy-Total, Thyroidectomy. No: Pacemaker Amputation: No Fractures: Yes (R tibia fracture June 2019) - *Social History Last grade of school completed: Advanced degree Smoking Status: Former smoker Tobacco Type: cigarettes # Packs/Day (cigarettes): 1 #Yrs smoked (if former smoker): 10 Smoking End Date: 2004 Alcohol Intake: never Alcohol Intake Frequency:: other Substance Use Type: denies use *Occupational Status:: retired Housing: house Household Members: spouse *Travel in the last 8 weeks: None Family Hx:: Diabetes, Other
--- NOTE | 2022-02-02 09:21 | SUR.PREOP ---
Anesthesia made aware of pt's potassium. EKG @ bedside, anesthesia did review.
--- NOTE | 2022-02-02 11:26 | P.PN_ITS ---
[facility] Anesthesia Record Part I Intake, IV Amount: 1,300 Estimated blood loss (mL): 5 Urine output (mL): 0 Blood Pressure: 139/88 SaO2: 94 Pulse Rate: 86 Respiratory Rate: 16 Temperature: 98.2 F Patient is:: Drowsy, Stable Stable to PACU at:: 11:25
--- NOTE | 2022-02-02 11:28 | HMH.OPNOTE ---
Date of procedure: 02/02/22 Pre-op Diagnosis:: Chronic serous otitis media, nasopharynx mass Post-op Diagnosis:: Serous otitis media, nasopharynx mass Procedure performed:: Bilateral tympanostomy and tube placement, adenoidectomy Surgeon:: Rizwan Robertson MD MEDICAL RECORDS ADMINISTRATOR:: Mikey Bush Anesthesia: GETDar Estimated blood loss (mL): 25 Operative findings:: Mucoid middle ear effusion bilaterally, benign adenoid hypertrophy Operative note:: P The patient was brought to the operating room and after adequate general anesthesia the ears were draped in the usual sterile fashion and operating microscope employed to visualize tympanic membranes anterior inferior quadrant tympanostomies were made and suction employed to clear the middle ear space effusion and this was done bilaterally and then Rosen T tubes placed bilaterally and Ciprodex drops applied. The mouth was then draped in the usual sterile fashion and a McIvor mouthgag placed. The soft palate was inspected and no anatomic abnormalities were seen. The soft palate was retracted and the nasopharynx was visualized with a mirror. The soft tissue mass was consistent with adenoid hypertrophy. Adenoidectomy was performed using a microdebrider and then hemostasis established with suction Bovie and the procedure concluded. All counts correct and blood loss was less than 25 mL and patient was sent recovery in stable condition Condition: stable Disposition: PACU Complications:: none Condition: stable Disposition: PACU Complications:: none
--- NOTE | 2022-02-02 11:59 | SUR.PHASEI ---
1154- detailed report called to emir guerrero in post op. 1156- pt left in stable condition with emir guerrero in post op at this time.
--- NOTE | 2022-02-02 12:41 | P.PN_ITS ---
[facility] Anesthesia Record Part II Discharge Time: 11:55 Destination: Surgical Day Care (OP Surgery) PACU nurse assessment reviewed?: Yes Patient Condition:: Good Anesthesia Complications:: None Swallowing reflex intact?: Yes Cyanosis?: No Blood Pressure: 123/65 Pulse Rate: 73 Temperature: 98 F Mental Status: Alert & Oriented Pain level:: 0 Nausea and/or vomitting:: None Intake, IV Amount: 0
== END 2022-02-02 12:26 | disposition home or self-care (01) ==
LOC: OR 07:56
PROVIDERS: PCP Internal Medicine Adolescent Medicine; Visit Provider Otolaryngology
PROC: (CPT 69436; principal; 2022-02-02 09:45)
DX: H65.93 Unspecified nonsuppurative otitis media, bilateral (principal); J35.2 Hypertrophy of adenoids; I10 Essential (primary) hypertension; Z85.528 Personal history of other malignant neoplasm of kidney; Z87.891 Personal history of nicotine dependence; Z83.3 Family history of diabetes mellitus; Z88.2 Allergy status to sulfonamides; Z91.041 Radiographic dye allergy status; Z79.899 Other long term (current) drug therapy
CPT/HCPCS: 69436; 42831; 93005; J2405; J2710

== ENCOUNTER → 2022-02-25 08:32 | Outpatient (CLI) | payer BC, SELFPAY ==
--- NOTE | 2022-02-25 08:35 | CT_ITS ---
FINAL REPORT TECHNIQUE: Axial images were obtained from the lung apex to the mid abdomen by computed tomography. Coronal reformatted images were obtained. This study was performed with techniques to keep radiation doses as low as reasonably achievable, (ALARA). Individualized dose reduction techniques using automated exposure control or adjustment of mA and/or kV according to the patient''s size were employed. CLINICAL HISTORY: DYSPNEA FINDINGS: There is bilateral axillary adenopathy with the largest lymph node on the right measuring 18 mm and the largest on the left measuring 29 mm. There is mediastinal and hilar adenopathy. Soft tissue surrounds the left and right main bronchi and the bronchi involving the medial thorax bilaterally. Heart size is normal. There is no pericardial or pleural effusion. Limited images of the upper abdomen demonstrate postoperative changes in the stomach and postoperative changes from cholecystectomy. There is a left adrenal nodule which is likely an adenoma. There is splenomegaly with the spleen measuring about 13 cm. No suspicious infiltrate or nodule is identified. There are postoperative changes in the right humerus. IMPRESSION: Soft tissue surrounds the left and right main bronchi and the bronchi involving the medial thorax bilaterally. Differential diagnosis includes sarcoidosis or other inflammatory process. Neoplasm is less likely but not excluded. Reviewed, Interpreted and Dictated by Lance Francois III, MD Transcribed by yKra Farmer Authenticated by Lance Francois III, MD on 02/25/2022 10:26:18 AM [facility]
--- NOTE | 2022-02-25 08:35 | CT_ITS ---
FINAL REPORT CLINICAL HISTORY: DRY EYE,SWELLING OF LACRIMAL DUCT COMPARISON: 10/13/2021 FINDINGS: Axial images through the orbits were obtained by computed tomography. Sagittal coronal reformatted images were obtained and reviewed. Low-dose technique was performed. Bilateral exophthalmos is noted. The globes are intact. The external ocular muscles are intact. The optic nerves are normal. There is marked enlargement of the bilateral lacrimal glands measuring approximately 30 mm in AP dimension. This appears visually stable. Differential diagnosis would include Sjogren's syndrome, sarcoidosis, or less likely lymphoma. IMPRESSION: Stable enlargement of the bilateral lacrimal glands with differential diagnosis as above. Reviewed, Interpreted and Dictated by Lance Francois III, MD Transcribed by Nelli Melo Authenticated by Lance Francois III, MD on 02/25/2022 09:50:52 AM [facility]
== END ==
PROVIDERS: PCP Internal Medicine Adolescent Medicine; Visit Provider Internal Medicine Adolescent Medicine
DX: R06.09 Other forms of dyspnea (principal); H04.129 Dry eye syndrome of unspecified lacrimal gland; H04.89 Other disorders of lacrimal system
CPT/HCPCS: 70480; 71250

== ENCOUNTER → 2022-03-25 15:38 | Outpatient (CLI) | payer BC, SELFPAY ==
[2022-03-25 16:07] LABS: Basophils # 0.1 K/mm3 (0-0.2); Basophils % 0.9 % (0.1-2.0); Eosinophils % 0.3 % (0.1-12.0); Hemoglobin 10.9 g/dL (12.2-16.2); Lymphocytes # 2.3 K/mm3 (0.7-4.5); Lymphocytes % 23.4 % (10-50); Mean Corpuscular HGB Conc 31.2 g/dL (31.8-35.4); Mean Corpuscular Hemoglobin 21.9 pg (27.0-31.2); Mean Corpuscular Volume 70.2 fl (81-99); Mean Platelet Volume 7.5 fl (7.4-10.4); Monocytes # 0.3 K/mm3 (0.1-1.0); Monocytes % 2.7 % (1.7-9.3); Neutrophils # 7.2 K/mm3 (1.8-7.8); Neutrophils % 72.8 % (37.0-80.0); Platelet Count 481 K/mm3 (142-424); Red Blood Count 4.99 M/mm3 (4.20-5.40); Red Cell Distribution Width 18.4 % (11.5-17.5); White Blood Count 9.9 K/mm3 (4.8-10.8)
[2022-03-25 16:15] LABS: INR 0.92 (0.9-1.1); Prothrombin Time 10.5 seconds (10.1-12.5)
[2022-03-25 17:29] LABS: Lactate Dehydrogenase 150 U/L (313-618)
[2022-03-29 15:45] LABS: Angiotensin Converting Enzyme 32 U/L (14-82)
[2022-03-30 16:14] LABS: Histoplasma Gal'mannan Ag Ur <0.5 (<0.5 ng/mL)
[2022-04-01 12:17] LABS: Fungitell(Beta D-Glucan) Serum <31 pg/mL (<80)
[2022-04-01 20:10] LABS: Aspergillus flavus Negative (Neg:<1:1); Aspergillus fumigatus Negative (Neg:<1:1); Aspergillus niger Negative (Neg:<1:1); Blastomyces Antibody Negative (Neg:<1:1)
[2022-04-09 02:09] LABS: D001-IgE D pteronyssinus <0.10 kU/L (Class 0); D002-IgE D farinae <0.10 kU/L (Class 0); E001-IgE Cat Dander <0.10 kU/L (Class 0); E005-IgE Dog Dander <0.10 kU/L (Class 0); E072-IgE Mouse Urine <0.10 kU/L (Class 0); G002-IgE Bermuda Grass <0.10 kU/L (Class 0); G006-IgE Timothy Grass <0.10 kU/L (Class 0); I006-IgE Cockroach, German <0.10 kU/L (Class 0); Immunoglobulin E, Total 16 IU/mL (6-495); M001-IgE Penicillium chrysogen <0.10 kU/L (Class 0); M002-IgE Cladosporium herbarum <0.10 kU/L (Class 0); M003-IgE Aspergillus fumigatus <0.10 kU/L (Class 0); M006-IgE Alternaria alternata <0.10 kU/L (Class 0); T001-IgE Maple/Box Elder <0.10 kU/L (Class 0); T003-IgE Common Silver Birch <0.10 kU/L (Class 0); T006-IgE Cedar, Mountain <0.10 kU/L (Class 0); T007-IgE Oak, White <0.10 kU/L (Class 0); T008-IgE Elm, American <0.10 kU/L (Class 0); T010-IgE Walnut <0.10 kU/L (Class 0); T011-IgE Maple Leaf Sycamore <0.10 kU/L (Class 0); T014-IgE Cottonwood <0.10 kU/L (Class 0); T015-IgE Ash, White <0.10 kU/L (Class 0); T022-IgE Pecan, Hickory <0.10 kU/L (Class 0); T070-IgE White Mulberry <0.10 kU/L (Class 0); W001-IgE Ragweed, Short <0.10 kU/L (Class 0); W011-IgE Thistle, Russian <0.10 kU/L (Class 0); W014-IgE Pigweed, Common <0.10 kU/L (Class 0); W018-IgE Sheep Sorrel <0.10 kU/L (Class 0)
== END ==
PROVIDERS: Visit Provider Internal Medicine Pulmonary Disease
DX: R06.00 Dyspnea, unspecified (principal); J84.10 Pulmonary fibrosis, unspecified; J45.909 Unspecified asthma, uncomplicated; Z79.52 Long term (current) use of systemic steroids
CPT/HCPCS: 82164; 82785; 83615; 85025; 85610; 86003; 86140; 86606; 86612; 87385; 87449

== ENCOUNTER 2022-04-09 10:13 | Day surgery (SDC) | payer BC, MEDICARE, SELFPAY ==
[2022-04-07 14:00] VITALS: BMI 26.6
[2022-04-09] VITALS (8 sets, daily range): BP systolic 110–127; BP diastolic 51–94; PULSE 72–95; RESP 12–18; TEMP 36.6–37.1; O2SAT 92–98
[2022-04-09 12:23] LABS: Coronavirus 19, PCR Not Detected (NotDetected); Influenza A, PCR Not Detected (NotDetected); Influenza B, PCR Not Detected (NotDetected)
--- NOTE | 2022-04-09 13:08 | HMH.ANESCL ---
[facility] Anesthesia Checklist - Structural Data Admitted From: Home Planned Operative Procedure/s: bronchoscopy Consent for Planned Operative Procedure(s) Verified: Yes - Additional verifications Anesthesia Reactions: No Hx Blood Transfusions: No Blood Transfusion Reaction: No - Airway Assessment C-Spine Mobility Assessed: Yes TMJ Mobility Assessed: Yes Dentition: Good Dentition - Neurological Assessment Level of Consciousness: Awake, Alert, Appropriate - Anesthesia Plan Anesthesia Risk discussed: Yes Anesthesia Plan: Verified ASA Class: III Anesthesia Type: General [facility] History I have reviewed the patient's past medical history: Yes Medical History: Reports:: Hypertension Denies:: Cancer, Diabetes Mellitus Type 1, Diabetes Mellitus Type 2, Internal Pacemaker, MRSA, Seizures *Have you ever received a pneumonia vaccine?: No *Have you received a flu vaccine this season?: No Other Medical History: Reports: Anemia, Arthritis, Chemotherapy, Hypothyroidism. Denies: Blood Transfusion Reaction. Comment Only: Thyroid Disease (parathyroidectomy 2004) Anesthesia experience/problems:: none Laterality Cases: Bilateral: Tonsillectomy Other Surgeries: Yes: Cancer Surgery, Cholecystectomy, Colonoscopy, , EGD, Hysterectomy-Total, Thyroidectomy. No: Pacemaker Amputation: No Fractures: Yes (R tibia fracture June 2019) - *Social History Last grade of school completed: Advanced degree Smoking Status: Former smoker Tobacco Type: cigarettes # Packs/Day (cigarettes): 1 #Yrs smoked (if former smoker): 10 Alcohol Intake: never Alcohol Intake Frequency:: other Substance Use Type: denies use *Occupational Status:: retired Housing: house Household Members: spouse *Travel in the last 8 weeks: None Family Hx:: Diabetes
--- NOTE | 2022-04-09 14:33 | XR_ITS ---
FINAL REPORT CLINICAL HISTORY: BRONCH IN OR FT: 1:24 FINDINGS: FLUOROSCOPY IN THE OR HISTORY: Bronchoscopy. FINDINGS: Fluoroscopic assistance was provided by the radiology department to Dr. Carrillo. A single intraoperative spot image was obtained during bronchoscopy. FLUOROSCOPY TIME: 1 minute 24 seconds. IMPRESSION: Fluoroscopic assistance provided as detailed above. Please see the report of Dr. Carrillo for full details of the findings. Reviewed, Interpreted and Dictated by Monique Shelton MD Transcribed by Janee Driver PA-C Authenticated by Monique Shelton MD on 04/12/2022 12:10:44 PM [facility]
--- NOTE | 2022-04-09 14:34 | HMH.BRONCH ---
- Procedure: Date: 04/09/22 Patient Date of :: 1955 Procedure Performed:: Bronchoscopy with airway examination, endobronchial biopsy, transbronchial biopsy, bronchoalveolar lavage and endobronchial ultrasound guided fine-needle aspiration Indications:: Lymphadenopathy Performing Provider:: Delvis Carrillo MD Referring Provider:: Dr. Jamey Rios Sedation:: General anesthesia Procedure:: Bronchoscopy with airway examination, endobronchial biopsy, transbronchial biopsy, bronchoalveolar lavage and endobronchial ultrasound guided fine-needle aspiration: Clean Diagnostic bronchoscopy advanced the ET tube and airways were examined up to subsegmental bronchi. Diffuse right upper lobe airway edema with more than 50% luminal narrowing noted. Multiple man pedunculated endobronchial regions noted predominantly in the main trachea and in left mainstem extending into the left lower lobe bronchi. No obvious evidence of hemoptysis or mucous plugging noted. Diagnostic bronchoscopy was retracted and EBUS bronchoscopy was advanced Lymph node surveillance was performed and FNA was performed at stations 10 L, 7 and 10R. Fine-needle aspiration samples along with CytoLyt, were also sent in RPMI for flow cytometry along with normal saline specimens cups for bacterial AFB fungal stain and cultures. Special request was made to evaluate for granulomatous organisms as concerning for sarcoid along with other differentials include malignancy, Squamous papillamatous disease and SCLC at this point. EBUS bronchoscopy was retracted and diagnostic bronchoscopy was advanced. Bronchoalveolar lavage was performed in the right upper lobe anterior segment with a total of instillation of 60 cc. None 30 cc back. Alveolar lavage specimen was sent for bacterial AFB fungal stains along with culture. Transbronchial biopsy was also performed the right upper lobe anterior segment with a total of 7 biopsies performed. 5 biopsies were sent in formalin for cytopathological examination. Remaining 2 biopsies, one each were sent in each in normal saline specimen cups for bacterial AFB fungal stain along with culture. Endobronchial biopsies were also performed in the left lower lobe bronchi and a total of 5 biopsy specimens were sent in formalin for cytological examination Patient tolerated the procedure well. No immediate complications noted. Follow in clinic in 7 days. Findings:: See the procedure note Recommendations:: Please see the procedure note. Follow in pulmonary clinic in 7 days. Next Complications:: None Estimated blood obtained (mL): 10
--- NOTE | 2022-04-09 14:37 | HMH.ANESI ---
[facility] Anesthesia Record Part I Intake, IV Amount: 1,200 Estimated blood loss (mL): 0 Urine output (mL): 0 Blood Pressure: 118/67 SaO2: 96 Pulse Rate: 91 Respiratory Rate: 12 Temperature: 97.8 F Patient is:: Awake, Stable Stable to PACU at:: 14:35
--- NOTE | 2022-04-12 12:56 | HMH.ANESII ---
[facility] Anesthesia Record Part II Discharge Time: 15:05 Destination: [facility] PACU nurse assessment reviewed?: Yes Patient Condition:: Good Anesthesia Complications:: None Swallowing reflex intact?: Yes Cyanosis?: No Blood Pressure: 119/62 Pulse Rate: 78 Temperature: 98.4 F Mental Status: Alert & Oriented Pain level:: 0 Nausea and/or vomitting:: None Intake, IV Amount: 1,000
[2022-04-12 12:57] VITALS: BP 119/62; PULSE 78; TEMP 36.9
== END 2022-04-09 15:35 | disposition home or self-care (01) ==
LOC: OR 10:17
PROVIDERS: PCP Internal Medicine Adolescent Medicine; Visit Provider Internal Medicine Pulmonary Disease
PROC: (CPT 31653; principal; 2022-04-09 12:00)
DX: C85.22 Mediastinal (thymic) large B-cell lymphoma, intrathoracic lymph nodes (principal); R59.0 Localized enlarged lymph nodes; C85.12 Unspecified B-cell lymphoma, intrathoracic lymph nodes; Z20.822 Contact with and (suspected) exposure to COVID-19
CPT/HCPCS: 31653; 31624; 71045; 87070; 87102; 87116; 87186; 87205; 87206; 89051; C9803; J2405; J2710; U0003; U0005

== ENCOUNTER → 2022-04-16 13:05 | Outpatient (CLI) | payer BC, MEDICARE, SELFPAY ==
[2022-04-16 13:37] LABS: Basophils # 0.2 K/mm3 (0-0.2); Basophils % 2.3 % (0.1-2.0); Eosinophils # 0.1 K/mm3 (0.0-0.4); Eosinophils % 1.6 % (0.1-12.0); Hematocrit 32.4 % (37.0-47.0); Hemoglobin 10.6 g/dL (12.2-16.2); Lymphocytes # 2.9 K/mm3 (0.7-4.5); Lymphocytes % 36.9 % (10-50); Mean Corpuscular HGB Conc 32.9 g/dL (31.8-35.4); Mean Corpuscular Volume 69.9 fl (81-99); Monocytes # 0.4 K/mm3 (0.1-1.0); Monocytes % 4.9 % (1.7-9.3); Neutrophils # 4.2 K/mm3 (1.8-7.8); Neutrophils % 54.3 % (37.0-80.0); Platelet Count 442 K/mm3 (142-424); Red Blood Count 4.63 M/mm3 (4.20-5.40); Red Cell Distribution Width 18.8 % (11.5-17.5); White Blood Count 7.8 K/mm3 (4.8-10.8)
[2022-04-16 14:18] LABS: Alanine Aminotransferase 15 U/L (12-78); Albumin Level 4.1 g/dl (3.5-5.0); Albumin/Globulin Ratio 0.7 (1.1-1.8); Alkaline Phosphatase 87 U/L (38-126); Anion Gap 13.3 mEq/L (5-15); Aspartate Amino Transferase 19 U/L (14-36); Blood Urea Nitrogen 17 mg/dl (7-17); Carbon Dioxide 26 mmol/L (22.0-30.0); Chloride 103 mmol/L (98-107); Estimated Glomerular Filt Rate 72 ml/min (>60); GFR (African American) 87 ML/MIN (>60); Globulin 5.7 g/dL (1.3-3.2); Glucose 103 mg/dl (74-100); Lactate Dehydrogenase 197 U/L (313-618); Potassium 4.3 mmoL/L (3.5-5.1); Sodium 138 mmol/L (136-145); Total Protein,Serum 9.8 g/dl (6.3-8.2); Uric Acid 4.9 mg/dl (2.5-6.2)
[2022-04-16 14:19] LABS: Bilirubin,Total < 0.1 mg/dl (0.2-1.3)
[2022-04-16 15:01] LABS: Iron 27 ug/dL (37-170)
[2022-04-16 15:11] LABS: Total Iron Binding Capacity 397 ug/dL (265-497)
[2022-04-16 15:38] LABS: Ferritin 5.79 ng/ml (11.1-264)
[2022-04-18 10:17] LABS: Immunoglobulin A, Qn 107 mg/dL (87-352); Immunoglobulin G, Qn 737 mg/dL (586-1602); Immunoglobulin M, Qn 4084 mg/dL (26-217)
[2022-04-20 12:11] LABS: Immunoglobulin A, Qn 112 mg/dL (87-352); Immunoglobulin G, Qn 749 mg/dL (586-1602); Immunoglobulin M, Qn 4141 mg/dL (26-217)
[2022-04-20 13:17] LABS: Albumin 3.4 g/dL (2.9-4.4); Alpha-1-Globulin 0.3 g/dL (0.0-0.4); Alpha-2-Globulin 0.8 g/dL (0.4-1.0); Gamma Globulin 3.4 g/dL (0.4-1.8); Protein, Total 9.1 g/dL (6.0-8.5)
[2022-04-24 20:49] LABS: Free Kappa Lt Chains 26.9; Hep A Ab, IgM NEGATIVE; Hepatitis B Core Antibody IgM NEGATIVE; Hepatitis B Surface Antigen NEGATIVE; Hepatitis C Antibody <0.1
[2022-04-24 20:50] LABS: Free Lambda Lt Chains 16.2
== END ==
PROVIDERS: Visit Provider Internal Medicine Medical Oncology
DX: C85.10 Unspecified B-cell lymphoma, unspecified site (principal); R53.1 Weakness
CPT/HCPCS: 36415; 80053; 80074; 82728; 82784; 83540; 83550; 83615; 83883; 84155; 84165; 84550; 85025; 86334

== ENCOUNTER → 2022-04-24 08:43 | Outpatient (CLI) | payer BC, MEDICARE, SELFPAY ==
[2022-04-24 09:26] LABS: Basophils # 0.1 K/mm3 (0-0.2); Basophils % 1.3 % (0.1-2.0); Eosinophils # 0.1 K/mm3 (0.0-0.4); Eosinophils % 1.6 % (0.1-12.0); Hematocrit 33.9 % (37.0-47.0); Hemoglobin 10.9 g/dL (12.2-16.2); Lymphocytes # 2.4 K/mm3 (0.7-4.5); Lymphocytes % 37.5 % (10-50); Mean Corpuscular HGB Conc 32.2 g/dL (31.8-35.4); Mean Corpuscular Hemoglobin 22.8 pg (27.0-31.2); Mean Corpuscular Volume 70.8 fl (81-99); Monocytes # 0.3 K/mm3 (0.1-1.0); Monocytes % 5.3 % (1.7-9.3); Neutrophils # 3.4 K/mm3 (1.8-7.8); Neutrophils % 54.3 % (37.0-80.0); Platelet Count 429 K/mm3 (142-424); Red Blood Count 4.79 M/mm3 (4.20-5.40); Red Cell Distribution Width 18.8 % (11.5-17.5); White Blood Count 6.3 K/mm3 (4.8-10.8)
[2022-04-24 10:11] LABS: Chloride 105 mmol/L (98-107); Potassium 4.7 mmoL/L (3.5-5.1); Sodium 138 mmol/L (136-145)
[2022-04-24 10:14] LABS: Anion Gap 14.7 mEq/L (5-15); Blood Urea Nitrogen 15 mg/dl (7-17); Calcium 10.3 mg/dl (8.4-10.2); Carbon Dioxide 23 mmol/L (22.0-30.0); Estimated Glomerular Filt Rate 72 ml/min (>60); GFR (African American) 87 ML/MIN (>60); Glucose 98 mg/dl (74-100)
== END ==
PROVIDERS: PCP Internal Medicine Adolescent Medicine; Visit Provider Surgery
DX: Z01.812 Encounter for preprocedural laboratory examination (principal); Z20.822 Contact with and (suspected) exposure to COVID-19; C85.90 Non-Hodgkin lymphoma, unspecified, unspecified site; F07.81 Postconcussional syndrome
CPT/HCPCS: 36415; 80048; 85025; C9803; U0003; U0005

== ENCOUNTER 2022-04-26 08:40 | Day surgery (SDC) | payer BC, MEDICARE, SELFPAY ==
[2022-04-23 11:57] VITALS: BMI 28.3
[2022-04-26 08:53] VITALS: BP 136/82; PULSE 96; RESP 18; TEMP 36.3; O2SAT 95
--- NOTE | 2022-04-26 10:03 | FL_ITS ---
FINAL REPORT CLINICAL HISTORY: portacath placement FINDINGS: FLUORO TIME PROCEDURE: Port-A-Cath placement. FINDINGS: Fluoroscopy time was provided by the radiology department for the clinical service. Two films were obtained. Fluoroscopy exposure time: 0:24 minute IMPRESSION: See above Reviewed, Interpreted and Dictated by Lance Francois III, MD Transcribed by Kyra Farmer Authenticated and [facility]
[2022-04-26 10:05] VITALS: BP 110/55; PULSE 90; RESP 18; TEMP 36.1; O2SAT 91
--- NOTE | 2022-04-26 10:05 | P.OP_ITS ---
Date of procedure: 04/26/22 Pre-op Diagnosis:: Lymphoma, need for semipermanent venous access Post-op Diagnosis:: Same Procedure performed:: Placement of 8 Indonesian open-ended catheter venous access device and left subclavian vein with implantable venous access port (PowerPort) Surgeon:: Lance Burks MD CATH LAB MANAGER:: Other Anesthesia: MAC, local Estimated blood loss (mL): 15 Clinical Note:: Patient is a pleasant 67-year-old female referred by Dr. Romano for port placement. Patient has recently had some periorbital swelling for several months. She had undergone CT scan of the chest in February which revealed bilateral axillary adenopathy with mediastinal and hilar adenopathy. She had been on steroids but reportedly did not tolerate this well. She had undergone endoscopic bronchoscopy with ultrasound on 04/09/2022. 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 Patient has had some night sweats. She has had some shortness of breath. Of note, she has a prior history of renal cell cancer status post nephrectomy. She has a PET scan ordered for radiographic staging. Apprently plan is to initiate treatment with bendamustine/rituxan later this week. Operative findings:: Seemingly normal venous anatomy Operative note:: Patient was taken to the operating room. She was given preoperative intravenous antibiotics. In the operating room she was placed in a supine position. Ad equate intravenous sedation was achieved. Bilateral upper chest and neck were prepped and draped in the standard surgical fashion. Patient was positioned in Trendelenburg position. Local anesthetic was infiltrated inferior to the left clavicle near the deltopectoral groove. 18-gauge needles inserted and left subclavian vein was cannulated. Guidewire was inserted. Fluoroscopy was used to confirm appropriate cannulation of vein and position. Subcutaneous tissues were dilated with the dilator with breakaway sheath. Guidewire and dilator were removed. Open-ended catheter was inserted through the breakaway sheath. Sheath was then removed. Fluoroscopy was used to confirm appropriate position of the tip of the catheter near the atriocaval junction. Skin was then marked with a skin marker for planned tunneling and subcutaneous pocket. Local anesthetic was infiltrated. Skin incision was made for subcutaneous pocket and inferior subcutaneous pocket was created with electrocautery. Catheter was tunneled. It was cut to the appropriate length. The catheter was secured to the reservoir port. Port was then secured into the pocket with a couple of 2-0 PDS sutures. Port aspirated and flushed without difficulty and was flushed with injectable saline. There was good hemostasis. Subdermal tissues were then closed with a running 2-0 Vicryl. Incisions were closed with 4-0 Monocryl in a subcuticular fashion. Clean dry sterile dressing was applied. The completion the port was accessed and able to be flushed with heparinized saline. Condition: stable Disposition: PACU Complications:: None immediately apparent
[2022-04-26 10:15] VITALS: BP 110/68; PULSE 85; RESP 18; O2SAT 93
[2022-04-26 10:25] VITALS: BP 98/72; PULSE 83; RESP 18; O2SAT 94
--- NOTE | 2022-04-26 10:28 | XR_ITS ---
FINAL REPORT TECHNIQUE: Single view chest CLINICAL HISTORY: port a cath placement COMPARISON: Exam performed earlier today FINDINGS: A single view of the chest was obtained. There has been interval placement of a left subclavian chest port the tip in the mid SVC. The heart and mediastinum are within normal limits. There is mild pulmonary vascular congestion. Mild atelectasis is seen. There is no pneumothorax. Osseous structures are unremarkable. IMPRESSION: Left subclavian chest port with the tip in the mid SVC. Mild atelectasis. No pneumothorax. Reviewed, Interpreted and Dictated by Lance Francois III, MD Transcribed by Sayra Lang Authenticated and [facility]
[2022-04-26 10:35] VITALS: BP 109/68; BP 112/72; PULSE 81; RESP 18; O2SAT 94; O2SAT 95
--- NOTE | 2022-04-26 12:00 | SUR.PHASEII ---
Pt waited in post op for results of CXR.Port in correct location, no pnuemothorax.
== END 2022-04-26 12:00 | disposition home or self-care (01) ==
LOC: OR 08:41
PROVIDERS: PCP Internal Medicine Adolescent Medicine; Visit Provider Surgery
PROC: (CPT 36561; principal; 2022-04-26 10:15)
DX: C85.90 Non-Hodgkin lymphoma, unspecified, unspecified site (principal); I10 Essential (primary) hypertension; D64.9 Anemia, unspecified; E03.9 Hypothyroidism, unspecified; Z88.2 Allergy status to sulfonamides; Z88.8 Allergy status to other drugs, medicaments and biological substances; Z79.899 Other long term (current) drug therapy
CPT/HCPCS: 36561; 71045; 76000; 96374; C1788; J1642; J2405

== ENCOUNTER 2022-04-29 08:16 | Outpatient (CLI) | payer BC, MEDICARE, SELFPAY ==
[2022-04-29 10:15] VITALS: BP 142/85; PULSE 61; RESP 18; O2SAT 99
[2022-04-29 10:56] VITALS: BP 139/84; PULSE 62; RESP 18; O2SAT 99
[2022-04-29 11:26] VITALS: BP 134/83; PULSE 65; RESP 18; O2SAT 98
[2022-04-29 11:56] VITALS: BP 135/79; PULSE 67; RESP 18; O2SAT 98
[2022-04-29 12:15] VITALS: BP 132/77; PULSE 68; RESP 18; O2SAT 99
== END 2022-04-29 12:15 | disposition home or self-care (01) ==
LOC: INF 08:19
PROVIDERS: PCP Internal Medicine Adolescent Medicine; Visit Provider Internal Medicine Medical Oncology
DX: Z51.11 Encounter for antineoplastic chemotherapy (principal); C85.90 Non-Hodgkin lymphoma, unspecified, unspecified site
CPT/HCPCS: 96413; J1642; J2469; J9034

== ENCOUNTER 2022-04-30 08:31 | Outpatient (CLI) | payer BC, MEDICARE, SELFPAY ==
[2022-04-30 09:35] VITALS: BP 130/86; PULSE 76; RESP 18; TEMP 36.4; O2SAT 100
[2022-04-30 10:00] VITALS: BP 143/80; PULSE 67; RESP 17; TEMP 36.3; O2SAT 99
[2022-04-30 10:30] VITALS: BP 157/92; PULSE 67; RESP 17; TEMP 36.3; O2SAT 99
[2022-04-30 10:40] VITALS: BP 156/91; PULSE 63; RESP 18; TEMP 36.4; O2SAT 100
[2022-04-30 10:47] VITALS: BP 169/98; PULSE 71; RESP 18; TEMP 36.4; O2SAT 100
== END 2022-04-30 10:47 | disposition home or self-care (01) ==
LOC: INF 08:35
PROVIDERS: PCP Internal Medicine Adolescent Medicine; Visit Provider Internal Medicine Medical Oncology
DX: C83.00 Small cell B-cell lymphoma, unspecified site (principal); Z51.11 Encounter for antineoplastic chemotherapy
CPT/HCPCS: 96413; J1642; J9034

== ENCOUNTER 2022-05-03 10:11 | Outpatient (CLI) | payer BC, MEDICARE, SELFPAY ==
[2022-05-03 10:18] VITALS: BMI 26.6
[2022-05-03 10:55] LABS: Chloride 105 mmol/L (98-107); Potassium 3.8 mmoL/L (3.5-5.1); Sodium 138 mmol/L (136-145)
[2022-05-03 10:57] LABS: Blood Urea Nitrogen 14 mg/dl (7-17); Creatinine Clearance Estimated 64 mL/min (50-200); Estimated Glomerular Filt Rate 56 ml/min (>60); GFR (African American) 67 ML/MIN (>60)
[2022-05-03 10:58] LABS: Alanine Aminotransferase 17 U/L (12-78); Albumin Level 4.1 g/dl (3.5-5.0); Albumin/Globulin Ratio 0.8 (1.1-1.8); Alkaline Phosphatase 78 U/L (38-126); Anion Gap 11.8 mEq/L (5-15); Aspartate Amino Transferase 24 U/L (14-36); Bilirubin,Total 0.4 mg/dl (0.2-1.3); Calcium 9.6 mg/dl (8.4-10.2); Carbon Dioxide 25 mmol/L (22.0-30.0); Globulin 5.1 g/dL (1.3-3.2); Glucose 113 mg/dl (74-100); Lactate Dehydrogenase 172 U/L (313-618); Total Protein,Serum 9.2 g/dl (6.3-8.2)
[2022-05-03 11:01] LABS: Basophils % 0.7 % (0.1-2.0); Eosinophils # 0.4 K/mm3 (0.0-0.4); Hematocrit 30.6 % (37.0-47.0); Hemoglobin 9.9 g/dL (12.2-16.2); Lymphocytes # 0.4 K/mm3 (0.7-4.5); Lymphocytes % 8.2 % (10-50); Mean Corpuscular HGB Conc 32.2 g/dL (31.8-35.4); Mean Corpuscular Hemoglobin 22.3 pg (27.0-31.2); Mean Platelet Volume 6.6 fl (7.4-10.4); Monocytes # 0.3 K/mm3 (0.1-1.0); Monocytes % 6.5 % (1.7-9.3); Neutrophils # 3.6 K/mm3 (1.8-7.8); Neutrophils % 75.7 % (37.0-80.0); Platelet Count 342 K/mm3 (142-424); Red Blood Count 4.43 M/mm3 (4.20-5.40); Red Cell Distribution Width 16.9 % (11.5-17.5); White Blood Count 4.8 K/mm3 (4.8-10.8)
[2022-05-03 11:07] LABS: Uric Acid 4.3 mg/dl (2.5-6.2)
[2022-05-03 11:29] VITALS: BP 111/57; PULSE 77; RESP 16; TEMP 36.6; O2SAT 97
== END 2022-05-03 12:27 | disposition home health service (06) ==
LOC: INF 10:14
PROVIDERS: PCP Internal Medicine Adolescent Medicine; Visit Provider Internal Medicine Medical Oncology
DX: C83.00 Small cell B-cell lymphoma, unspecified site (principal); Z45.2 Encounter for adjustment and management of vascular access device
CPT/HCPCS: 36591; 80053; 83615; 84550; 85025; 96360; J1642

== ENCOUNTER 2022-05-06 09:37 | Outpatient (CLI) | payer BC, MEDICARE, SELFPAY ==
[2022-05-06 09:38] VITALS: BMI 30.2
[2022-05-06 09:50] VITALS: BP 131/82; PULSE 75; RESP 18; O2SAT 97
[2022-05-06 09:58] LABS: Basophils % 0.6 % (0.1-2.0); Eosinophils # 0.7 K/mm3 (0.0-0.4); Eosinophils % 11.1 % (0.1-12.0); Hemoglobin 10.1 g/dL (12.2-16.2); Lymphocytes # 0.4 K/mm3 (0.7-4.5); Lymphocytes % 6.1 % (10-50); Mean Corpuscular HGB Conc 33.8 g/dL (31.8-35.4); Mean Corpuscular Volume 68.1 fl (81-99); Mean Platelet Volume 7.2 fl (7.4-10.4); Monocytes # 0.4 K/mm3 (0.1-1.0); Monocytes % 5.6 % (1.7-9.3); Neutrophils # 4.7 K/mm3 (1.8-7.8); Neutrophils % 76.6 % (37.0-80.0); Platelet Count 313 K/mm3 (142-424); Red Cell Distribution Width 19.2 % (11.5-17.5); White Blood Count 6.2 K/mm3 (4.8-10.8)
[2022-05-06 10:01] LABS: Chloride 106 mmol/L (98-107); Sodium 136 mmol/L (136-145)
[2022-05-06 10:03] LABS: Alanine Aminotransferase 15 U/L (12-78); Aspartate Amino Transferase 21 U/L (14-36); Blood Urea Nitrogen 10 mg/dl (7-17); Creatinine Clearance Estimated 73 mL/min (50-200); Estimated Glomerular Filt Rate 72 ml/min (>60); GFR (African American) 87 ML/MIN (>60)
[2022-05-06 10:04] LABS: Albumin Level 4.1 g/dl (3.5-5.0); Albumin/Globulin Ratio 0.8 (1.1-1.8); Alkaline Phosphatase 76 U/L (38-126); Bilirubin,Total 0.4 mg/dl (0.2-1.3); Calcium 9.6 mg/dl (8.4-10.2); Carbon Dioxide 24 mmol/L (22.0-30.0); Glucose 112 mg/dl (74-100); Lactate Dehydrogenase 171 U/L (313-618); Total Protein,Serum 9.1 g/dl (6.3-8.2)
[2022-05-06 10:11] LABS: Uric Acid 4.3 mg/dl (2.5-6.2)
[2022-05-06 10:53] VITALS: BP 152/79; PULSE 66; RESP 18
--- NOTE | 2022-05-12 10:56 | DIET.NUTRFU ---
left message with contact information for any dietary concerns during chemo tx
== END 2022-05-06 10:53 | disposition home or self-care (01) ==
LOC: INF 09:37
PROVIDERS: PCP Internal Medicine Adolescent Medicine; Visit Provider Internal Medicine Medical Oncology
DX: C83.00 Small cell B-cell lymphoma, unspecified site (principal); E86.0 Dehydration
CPT/HCPCS: 80053; 83615; 84550; 85025; 96360; J1642

== ENCOUNTER 2022-05-13 10:50 | Outpatient (CLI) | payer BC, MEDICARE, SELFPAY ==
[2022-05-13 10:56] VITALS: BMI 29.9
[2022-05-13 11:20] LABS: Basophils % 0.5 % (0.1-2.0); Eosinophils # 0.3 K/mm3 (0.0-0.4); Eosinophils % 4.2 % (0.1-12.0); Hematocrit 30.1 % (37.0-47.0); Hemoglobin 9.8 g/dL (12.2-16.2); Lymphocytes # 0.9 K/mm3 (0.7-4.5); Lymphocytes % 14.1 % (10-50); Mean Corpuscular HGB Conc 32.5 g/dL (31.8-35.4); Mean Corpuscular Hemoglobin 22.1 pg (27.0-31.2); Mean Corpuscular Volume 68.2 fl (81-99); Mean Platelet Volume 6.9 fl (7.4-10.4); Monocytes # 0.3 K/mm3 (0.1-1.0); Monocytes % 5.3 % (1.7-9.3); Neutrophils # 4.6 K/mm3 (1.8-7.8); Neutrophils % 75.9 % (37.0-80.0); Platelet Count 380 K/mm3 (142-424); Red Blood Count 4.41 M/mm3 (4.20-5.40); White Blood Count 6.1 K/mm3 (4.8-10.8)
[2022-05-13 11:29] LABS: Alanine Aminotransferase 19 U/L (12-78); Albumin Level 3.9 g/dl (3.5-5.0); Albumin/Globulin Ratio 0.8 (1.1-1.8); Alkaline Phosphatase 68 U/L (38-126); Anion Gap 8.5 mEq/L (5-15); Aspartate Amino Transferase 22 U/L (14-36); Blood Urea Nitrogen 16 mg/dl (7-17); Calcium 9.6 mg/dl (8.4-10.2); Carbon Dioxide 25 mmol/L (22.0-30.0); Chloride 105 mmol/L (98-107); Creatinine Clearance Estimated 72 mL/min (50-200); Estimated Glomerular Filt Rate 72 ml/min (>60); GFR (African American) 87 ML/MIN (>60); Globulin 4.8 g/dL (1.3-3.2); Glucose 105 mg/dl (74-100); Lactate Dehydrogenase 164 U/L (313-618); Potassium 4.5 mmoL/L (3.5-5.1); Sodium 134 mmol/L (136-145); Total Protein,Serum 8.7 g/dl (6.3-8.2)
[2022-05-13 11:31] LABS: Bilirubin,Total < 0.1 mg/dl (0.2-1.3)
[2022-05-13 13:15] VITALS: BP 129/101; PULSE 82; RESP 18; O2SAT 99
[2022-05-13 13:45] VITALS: BP 145/99; PULSE 82; RESP 18; TEMP 36.6; O2SAT 100
== END 2022-05-13 13:45 | disposition home or self-care (01) ==
LOC: INF 10:51
PROVIDERS: PCP Internal Medicine Adolescent Medicine; Visit Provider Internal Medicine Medical Oncology
DX: E86.0 Dehydration (principal)
CPT/HCPCS: 80053; 83615; 84550; 85025; 96365; J1439; J1642

== ENCOUNTER 2022-05-20 09:46 | Outpatient (CLI) | payer BC, MEDICARE, SELFPAY ==
[2022-05-20 10:11] VITALS: BP 147/90; PULSE 75; RESP 18; TEMP 36.3; O2SAT 99
[2022-05-20 10:35] VITALS: BP 140/79; PULSE 78; RESP 16; O2SAT 98
[2022-05-20 11:04] VITALS: BP 135/82; PULSE 82; RESP 16; TEMP 36.4; O2SAT 99
== END 2022-05-20 11:10 | disposition home or self-care (01) ==
LOC: INF 09:48
PROVIDERS: PCP Internal Medicine Adolescent Medicine; Visit Provider Internal Medicine Medical Oncology
DX: C91.10 Chronic lymphocytic leukemia of B-cell type not having achieved remission (principal)
CPT/HCPCS: 96365; J1439; J1642

== ENCOUNTER 2022-05-27 08:45 | Outpatient (CLI) | payer BC, MEDICARE, SELFPAY ==
[2022-05-27] VITALS (14 sets, daily range): BP systolic 116–142; BP diastolic 64–94; PULSE 70–90; RESP 18–19; TEMP 36.6–37.1; O2SAT 93–97; BMI 28.3
[2022-05-27 09:11] LABS: Chloride 108 mmol/L (98-107)
[2022-05-27 09:12] LABS: Basophils # 0.1 K/mm3 (0-0.2); Basophils % 1.1 % (0.1-2.0); Eosinophils # 0.4 K/mm3 (0.0-0.4); Hematocrit 33.3 % (37.0-47.0); Hemoglobin 10.9 g/dL (12.2-16.2); Lymphocytes # 0.8 K/mm3 (0.7-4.5); Lymphocytes % 18.4 % (10-50); Mean Corpuscular HGB Conc 32.8 g/dL (31.8-35.4); Mean Corpuscular Hemoglobin 24.2 pg (27.0-31.2); Mean Corpuscular Volume 73.7 fl (81-99); Mean Platelet Volume 7.2 fl (7.4-10.4); Monocytes # 0.3 K/mm3 (0.1-1.0); Monocytes % 8.2 % (1.7-9.3); Neutrophils # 2.6 K/mm3 (1.8-7.8); Neutrophils % 62.3 % (37.0-80.0); Platelet Count 202 K/mm3 (142-424); Potassium 4.5 mmoL/L (3.5-5.1); Red Blood Count 4.52 M/mm3 (4.20-5.40); Red Cell Distribution Width 23.8 % (11.5-17.5); Sodium 138 mmol/L (136-145); White Blood Count 4.2 K/mm3 (4.8-10.8)
[2022-05-27 09:14] LABS: Alanine Aminotransferase 19 U/L (12-78); Aspartate Amino Transferase 31 U/L (14-36); Blood Urea Nitrogen 10 mg/dl (7-17); Creatinine Clearance Estimated 68 mL/min (50-200); Estimated Glomerular Filt Rate 84 ml/min (>60); GFR (African American) 102 ML/MIN (>60)
[2022-05-27 09:15] LABS: Albumin Level 4.1 g/dl (3.5-5.0); Alkaline Phosphatase 64 U/L (38-126); Bilirubin,Total 0.5 mg/dl (0.2-1.3); Calcium 9.4 mg/dl (8.4-10.2); Globulin 4.2 g/dL (1.3-3.2); Glucose 99 mg/dl (74-100); Total Protein,Serum 8.3 g/dl (6.3-8.2)
[2022-05-27 09:31] LABS: Anion Gap 10.5 mEq/L (5-15); Carbon Dioxide 24 mmol/L (22.0-30.0)
== END 2022-05-27 16:08 | disposition home or self-care (01) ==
LOC: INF 08:48
PROVIDERS: PCP Internal Medicine Adolescent Medicine; Visit Provider Internal Medicine Medical Oncology
DX: Z51.11 Encounter for antineoplastic chemotherapy (principal); C83.00 Small cell B-cell lymphoma, unspecified site
CPT/HCPCS: 80053; 85025; 96413; 96415; 96417; J1642; J2469; J9034; J9312

== ENCOUNTER 2022-05-28 09:10 | Outpatient (CLI) | payer BC, MEDICARE, SELFPAY | END 2022-05-28 09:15 | disposition home or self-care (01) | LOC: INF 09:11 | PROVIDERS: PCP Internal Medicine Adolescent Medicine; Visit Provider Internal Medicine Medical Oncology | DX: Z45.2 Encounter for adjustment and management of vascular access device (principal); C83.30 Diffuse large B-cell lymphoma, unspecified site | CPT/HCPCS: 96523; J1642 ==

== ENCOUNTER → 2022-06-03 10:08 | Outpatient (CLI) | payer BC, MEDICARE, SELFPAY ==
[2022-06-03 10:40] LABS: Basophils % 0.8 % (0.1-2.0); Eosinophils % 19.4 % (0.1-12.0); Hematocrit 42.5 % (37.0-47.0); Hemoglobin 13.1 g/dL (12.2-16.2); Lymphocytes # 0.4 K/mm3 (0.7-4.5); Lymphocytes % 8.5 % (10-50); Mean Corpuscular HGB Conc 30.9 g/dL (31.8-35.4); Mean Corpuscular Hemoglobin 25.4 pg (27.0-31.2); Monocytes # 0.4 K/mm3 (0.1-1.0); Monocytes % 7.2 % (1.7-9.3); Neutrophils # 3.3 K/mm3 (1.8-7.8); Neutrophils % 64.1 % (37.0-80.0); Platelet Count 252 K/mm3 (142-424); Red Blood Count 5.18 M/mm3 (4.20-5.40); White Blood Count 5.2 K/mm3 (4.8-10.8)
[2022-06-03 10:42] LABS: Red Cell Distribution Width 27.5 % (11.5-17.5)
[2022-06-03 10:52] LABS: Alanine Aminotransferase 70 U/L (12-78); Albumin Level 4.1 g/dl (3.5-5.0); Alkaline Phosphatase 74 U/L (38-126); Anion Gap 12.4 mEq/L (5-15); Aspartate Amino Transferase 38 U/L (14-36); Bilirubin,Total 0.2 mg/dl (0.2-1.3); Blood Urea Nitrogen 12 mg/dl (7-17); Calcium 9.7 mg/dl (8.4-10.2); Carbon Dioxide 25 mmol/L (22.0-30.0); Chloride 106 mmol/L (98-107); Estimated Glomerular Filt Rate 72 ml/min (>60); GFR (African American) 87 ML/MIN (>60); Glucose 106 mg/dl (74-100); Lactate Dehydrogenase 174 U/L (313-618); Potassium 4.4 mmoL/L (3.5-5.1); Sodium 139 mmol/L (136-145); Total Protein,Serum 8.1 g/dl (6.3-8.2); Uric Acid 3.8 mg/dl (2.5-6.2)
== END ==
PROVIDERS: PCP Internal Medicine Adolescent Medicine; Visit Provider Internal Medicine Medical Oncology
DX: C85.90 Non-Hodgkin lymphoma, unspecified, unspecified site (principal)
CPT/HCPCS: 36415; 80053; 83615; 84550; 85025

== ENCOUNTER 2022-06-24 09:00 | Outpatient (CLI) | payer BC, MEDICARE, SELFPAY ==
[2022-06-24] VITALS (8 sets, daily range): BP systolic 120–147; BP diastolic 74–93; PULSE 56–86; RESP 18–21; TEMP 36.1–36.5; O2SAT 100; BMI 29.9
[2022-06-24 10:17] LABS: Basophils # 0.1 K/mm3 (0-0.2); Basophils % 1.5 % (0.1-2.0); Eosinophils # 0.4 K/mm3 (0.0-0.4); Eosinophils % 10.5 % (0.1-12.0); Hematocrit 41.5 % (37.0-47.0); Hemoglobin 13.1 g/dL (12.2-16.2); Lymphocytes # 0.4 K/mm3 (0.7-4.5); Lymphocytes % 10.4 % (10-50); Mean Corpuscular HGB Conc 31.7 g/dL (31.8-35.4); Mean Corpuscular Hemoglobin 27.3 pg (27.0-31.2); Mean Corpuscular Volume 86.3 fl (81-99); Mean Platelet Volume 8.1 fl (7.4-10.4); Monocytes # 0.3 K/mm3 (0.1-1.0); Monocytes % 8.6 % (1.7-9.3); Neutrophils # 2.7 K/mm3 (1.8-7.8); Platelet Count 316 K/mm3 (142-424); Red Blood Count 4.81 M/mm3 (4.20-5.40); White Blood Count 3.9 K/mm3 (4.8-10.8)
[2022-06-24 10:21] LABS: Chloride 109 mmol/L (98-107)
[2022-06-24 10:22] LABS: Potassium 4.3 mmoL/L (3.5-5.1); Sodium 138 mmol/L (136-145)
[2022-06-24 10:24] LABS: Alanine Aminotransferase 22 U/L (12-78); Alkaline Phosphatase 106 U/L (38-126); Anion Gap 9.3 mEq/L (5-15); Aspartate Amino Transferase 24 U/L (14-36); Bilirubin,Total 0.2 mg/dl (0.2-1.3); Blood Urea Nitrogen 14 mg/dl (7-17); Carbon Dioxide 24 mmol/L (22.0-30.0); Creatinine Clearance Estimated 72 mL/min (50-200); Estimated Glomerular Filt Rate 72 ml/min (>60); GFR (African American) 87 ML/MIN (>60)
[2022-06-24 10:25] LABS: Albumin Level 4.3 g/dl (3.5-5.0); Albumin/Globulin Ratio 1.3 (1.1-1.8); Calcium 9.9 mg/dl (8.4-10.2); Globulin 3.4 g/dL (1.3-3.2); Glucose 105 mg/dl (74-100); Total Protein,Serum 7.7 g/dl (6.3-8.2)
[2022-06-24 10:42] LABS: Microscopic, Urine URINE MICROSCOPIC (MICROSCOPIC)
[2022-06-24 10:54] LABS: Appearance,Urine CLEAR (Clear); Bilirubin,Urine Negative (Negative); Blood, Urine Negative (Negative); Color,Urine YELLOW (Yellow); Glucose,Urine (UA) Negative (Negative); Ketones,Urine Negative (Negative); Leukocyte Esterase,Urine Negative (Negative); Nitrate,Urine Negative (Negative); PH,Urine 5.5 (5.0-8.5); Protein,Urine Negative (Negative); Specific Gravity, Urine >= 1.030 (1.005-1.030); Urobilinogen,Urine 0.2 EU/dl (0.2)
[2022-06-24 11:17] LABS: WBC,Urine Occasional #/hpf (0-3)
[2022-06-24 13:52] LABS: Lactate Dehydrogenase 154 U/L (313-618); Uric Acid 3.4 mg/dl (2.5-6.2)
== END 2022-06-24 14:22 | disposition home or self-care (01) ==
LOC: INF 09:02
PROVIDERS: PCP Internal Medicine Adolescent Medicine; Visit Provider Internal Medicine Medical Oncology
DX: Z51.11 Encounter for antineoplastic chemotherapy (principal); C85.94 Non-Hodgkin lymphoma, unspecified, lymph nodes of axilla and upper limb
CPT/HCPCS: 80053; 81001; 83615; 84550; 85025; 87086; 96413; 96415; J1642; J9312

== ENCOUNTER 2022-07-01 08:35 | Outpatient (CLI) | payer BC, MEDICARE, SELFPAY ==
[2022-07-01] VITALS (8 sets, daily range): BP systolic 128–152; BP diastolic 75–96; PULSE 62–69; RESP 18–19; TEMP 36.4; O2SAT 99–100; BMI 29.9
[2022-07-01 09:09] LABS: Basophils # 0.1 K/mm3 (0-0.2); Basophils % 1.7 % (0.1-2.0); Eosinophils # 0.3 K/mm3 (0.0-0.4); Eosinophils % 7.7 % (0.1-12.0); Hematocrit 42.5 % (37.0-47.0); Hemoglobin 13.4 g/dL (12.2-16.2); Lymphocytes # 0.5 K/mm3 (0.7-4.5); Lymphocytes % 12.1 % (10-50); Mean Corpuscular HGB Conc 31.6 g/dL (31.8-35.4); Mean Corpuscular Hemoglobin 27.8 pg (27.0-31.2); Monocytes # 0.4 K/mm3 (0.1-1.0); Monocytes % 8.8 % (1.7-9.3); Neutrophils # 3.1 K/mm3 (1.8-7.8); Neutrophils % 69.7 % (37.0-80.0); Platelet Count 283 K/mm3 (142-424); Red Blood Count 4.83 M/mm3 (4.20-5.40); Red Cell Distribution Width 25.8 % (11.5-17.5); White Blood Count 4.4 K/mm3 (4.8-10.8)
[2022-07-01 09:13] LABS: Chloride 112 mmol/L (98-107); Potassium 4.2 mmoL/L (3.5-5.1); Sodium 139 mmol/L (136-145)
[2022-07-01 09:15] LABS: Alanine Aminotransferase 16 U/L (12-78); Aspartate Amino Transferase 24 U/L (14-36); Blood Urea Nitrogen 13 mg/dl (7-17); Creatinine Clearance Estimated 72 mL/min (50-200); Estimated Glomerular Filt Rate 84 ml/min (>60); GFR (African American) 102 ML/MIN (>60)
[2022-07-01 09:16] LABS: Albumin Level 4.1 g/dl (3.5-5.0); Albumin/Globulin Ratio 1.2 (1.1-1.8); Alkaline Phosphatase 93 U/L (38-126); Anion Gap 7.2 mEq/L (5-15); Carbon Dioxide 24 mmol/L (22.0-30.0); Globulin 3.4 g/dL (1.3-3.2); Glucose 92 mg/dl (74-100); Total Protein,Serum 7.5 g/dl (6.3-8.2)
[2022-07-01 09:17] LABS: Bilirubin,Total < 0.1 mg/dl (0.2-1.3)
[2022-07-01 09:56] LABS: Lactate Dehydrogenase 135 U/L (313-618)
== END 2022-07-01 13:12 | disposition home or self-care (01) ==
LOC: INF 08:36
PROVIDERS: PCP Internal Medicine Adolescent Medicine; Visit Provider Internal Medicine Medical Oncology
DX: Z51.11 Encounter for antineoplastic chemotherapy (principal); C85.94 Non-Hodgkin lymphoma, unspecified, lymph nodes of axilla and upper limb; C83.00 Small cell B-cell lymphoma, unspecified site
CPT/HCPCS: 80053; 83615; 84550; 85025; 96413; 96415; J1642; J9312

== ENCOUNTER 2022-07-08 08:40 | Outpatient (CLI) | payer BC, MEDICARE, SELFPAY ==
[2022-07-08] VITALS (9 sets, daily range): BP systolic 108–122; BP diastolic 67–78; PULSE 58–70; RESP 17–19; TEMP 36.3–36.4; O2SAT 97–99; BMI 29.7
[2022-07-08 09:16] LABS: Basophils # 0.1 K/mm3 (0-0.2); Basophils % 1.2 % (0.1-2.0); Eosinophils # 0.3 K/mm3 (0.0-0.4); Eosinophils % 5.3 % (0.1-12.0); Hematocrit 42.6 % (37.0-47.0); Hemoglobin 13.6 g/dL (12.2-16.2); Lymphocytes # 0.4 K/mm3 (0.7-4.5); Mean Corpuscular Hemoglobin 28.6 pg (27.0-31.2); Mean Corpuscular Volume 89.4 fl (81-99); Mean Platelet Volume 8.6 fl (7.4-10.4); Monocytes # 0.4 K/mm3 (0.1-1.0); Monocytes % 6.6 % (1.7-9.3); Neutrophils # 4.5 K/mm3 (1.8-7.8); Neutrophils % 79.8 % (37.0-80.0); Platelet Count 285 K/mm3 (142-424); Red Blood Count 4.77 M/mm3 (4.20-5.40); White Blood Count 5.7 K/mm3 (4.8-10.8)
[2022-07-08 09:17] LABS: Red Cell Distribution Width 25.2 % (11.5-17.5)
[2022-07-08 09:18] LABS: Chloride 110 mmol/L (98-107); Sodium 139 mmol/L (136-145)
[2022-07-08 09:19] LABS: Potassium 4.2 mmoL/L (3.5-5.1)
[2022-07-08 09:21] LABS: Alanine Aminotransferase 17 U/L (12-78); Albumin Level 4.1 g/dl (3.5-5.0); Albumin/Globulin Ratio 1.3 (1.1-1.8); Alkaline Phosphatase 84 U/L (38-126); Anion Gap 10.2 mEq/L (5-15); Aspartate Amino Transferase 21 U/L (14-36); Blood Urea Nitrogen 11 mg/dl (7-17); Carbon Dioxide 23 mmol/L (22.0-30.0); Creatinine Clearance Estimated 72 mL/min (50-200); Estimated Glomerular Filt Rate 56 ml/min (>60); GFR (African American) 67 ML/MIN (>60); Globulin 3.1 g/dL (1.3-3.2); Total Protein,Serum 7.2 g/dl (6.3-8.2)
[2022-07-08 09:22] LABS: Bilirubin,Total < 0.1 mg/dl (0.2-1.3); Calcium 10.1 mg/dl (8.4-10.2); Glucose 99 mg/dl (74-100)
== END 2022-07-08 13:47 | disposition home or self-care (01) ==
LOC: INF 08:44
PROVIDERS: PCP Internal Medicine Adolescent Medicine; Visit Provider Internal Medicine Medical Oncology
DX: Z51.11 Encounter for antineoplastic chemotherapy (principal); C85.94 Non-Hodgkin lymphoma, unspecified, lymph nodes of axilla and upper limb
CPT/HCPCS: 80053; 85025; 96413; 96415; J1642; J9312

== ENCOUNTER 2022-07-15 07:56 | Outpatient (CLI) | payer BC, MEDICARE, SELFPAY ==
[2022-07-15 08:13] VITALS: BMI 29.7
[2022-07-15 08:31] LABS: Basophils # 0.1 K/mm3 (0-0.2); Basophils % 1.4 % (0.1-2.0); Eosinophils # 0.4 K/mm3 (0.0-0.4); Eosinophils % 7.8 % (0.1-12.0); Hemoglobin 13.3 g/dL (12.2-16.2); Lymphocytes # 0.3 K/mm3 (0.7-4.5); Lymphocytes % 6.8 % (10-50); Mean Corpuscular HGB Conc 31.7 g/dL (31.8-35.4); Mean Corpuscular Hemoglobin 28.5 pg (27.0-31.2); Mean Platelet Volume 8.2 fl (7.4-10.4); Monocytes # 0.3 K/mm3 (0.1-1.0); Monocytes % 6.8 % (1.7-9.3); Neutrophils # 3.8 K/mm3 (1.8-7.8); Platelet Count 325 K/mm3 (142-424); Red Blood Count 4.66 M/mm3 (4.20-5.40); Red Cell Distribution Width 24.6 % (11.5-17.5); White Blood Count 4.9 K/mm3 (4.8-10.8)
[2022-07-15 08:39] LABS: Alanine Aminotransferase 18 U/L (12-78); Albumin Level 3.8 g/dl (3.5-5.0); Albumin/Globulin Ratio 1.3 (1.1-1.8); Alkaline Phosphatase 100 U/L (38-126); Anion Gap 8.9 mEq/L (5-15); Aspartate Amino Transferase 20 U/L (14-36); Blood Urea Nitrogen 12 mg/dl (7-17); Calcium 9.5 mg/dl (8.4-10.2); Carbon Dioxide 25 mmol/L (22.0-30.0); Chloride 110 mmol/L (98-107); Creatinine Clearance Estimated 72 mL/min (50-200); Estimated Glomerular Filt Rate 84 ml/min (>60); GFR (African American) 102 ML/MIN (>60); Glucose 94 mg/dl (74-100); Potassium 3.9 mmoL/L (3.5-5.1); Sodium 140 mmol/L (136-145); Total Protein,Serum 6.8 g/dl (6.3-8.2); Uric Acid 3.4 mg/dl (2.5-6.2)
[2022-07-15 08:40] LABS: Bilirubin,Total 0.1 mg/dl (0.2-1.3)
[2022-07-15 08:53] LABS: Lactate Dehydrogenase 142 U/L (313-618)
== END 2022-07-15 09:23 | disposition home or self-care (01) ==
LOC: INF 07:59
PROVIDERS: PCP Internal Medicine Adolescent Medicine; Visit Provider Internal Medicine Medical Oncology
DX: C85.94 Non-Hodgkin lymphoma, unspecified, lymph nodes of axilla and upper limb (principal); C83.00 Small cell B-cell lymphoma, unspecified site
CPT/HCPCS: 36592; 80053; 83615; 84550; 85025; J1642

== ENCOUNTER → 2022-07-27 09:09 | Outpatient (CLI) | payer BC, MEDICARE, SELFPAY ==
--- NOTE | 2022-07-27 09:20 | CT_ITS ---
FINAL REPORT CLINICAL HISTORY: LYMPHOMA h/o renal cancer COMPARISON: May 14, 2020 FINDINGS: Axial CT images of the abdomen and pelvis were obtained without intravenous contrast. Oral contrast was administered. Coronal reformatted images were also obtained.This study was performed with techniques to keep radiation doses as low as reasonably achievable (ALARA). Individualized dose reduction techniques using automated exposure control or adjustment of mA and/or kV according to the patient's size were employed. Abdomen: There are postoperative changes of the stomach, from cholecystectomy and from right nephrectomy. There is no evidence of renal stone or hydronephrosis. There is mild left adrenal gland enlargement favoring an adenoma. There has been interval improvement in the fatty liver. The spleen and pancreas have an unremarkable, unenhanced appearance. There is a 14 mm para aortic lymph node at the level of left renal hilum which was 15 mm. Pelvis: The appendix is normal. There are postoperative changes from hysterectomy. Images of the pelvis reveal no evidence of ureteral dilation or ureteral stone.No mass or abnormal fluid collection is identified. There is a lower para-aortic lymph node at the iliac crest measuring 10 mm and was 13 mm. There is a partially improved medial external iliac lymph nodes. There is partially improved inguinal adenopathy. There is a persistent left inguinal lymph node measuring 20 mm and was 20 mm. There are multiple chronic lumbar spine compression fractures which are worse since the prior exam. There are interval changes of kyphoplasty of L3 and L5. IMPRESSION: Interval improvement in the fatty liver. Improved para-aortic lymph nodes. Partially improved medial external iliac lymph nodes and partially improved inguinal adenopathy. Persistent left inguinal lymph node. Reviewed, Interpreted and Dictated by Lance Francois III, MD Transcribed by Kyra Farmer Authenticated and [facility]
--- NOTE | 2022-07-27 09:20 | CT_ITS ---
FINAL REPORT TECHNIQUE: Thin section axial CT images with coronal and sagittal reformats were performed through the neck. This study was performed with techniques to keep radiation doses as low as reasonably achievable (ALARA). Individualized dose reduction techniques using automated exposure control or adjustment of mA and/or kV according to the patient's size were employed. CLINICAL HISTORY: LYMPHOMA h/o renal cancer COMPARISON: January 02, 2019 FINDINGS: The nasopharynx, oropharynx, hypopharynx and larynx are unremarkable. The thyroid is unremarkable. There are multiple small bilateral neck lymph nodes but without evidence of adenopathy. No soft tissue mass or abnormal fluid collection is seen. Postoperative change is noted at the right base of the neck. IMPRESSION: Multiple small bilateral neck lymph nodes without evidence of adenopathy. No soft tissue mass or abnormal fluid collection is seen. Reviewed, Interpreted and Dictated by Lance Francois III, MD Transcribed by Kyra Farmer Authenticated and [facility]
--- NOTE | 2022-07-27 09:20 | CT_ITS ---
FINAL REPORT TECHNIQUE: Axial images were obtained from the lung apex to the mid abdomen by computed tomography. Coronal reformatted images were obtained. This study was performed with techniques to keep radiation doses as low as reasonably achievable, (ALARA). Individualized dose reduction techniques using automated exposure control or adjustment of mA and/or kV according to the patient''s size were employed. CLINICAL HISTORY: LYMPHOMA COMPARISON: February 25, 2022 FINDINGS: There has been interval improvement in bilateral hilar adenopathy. The largest left axillary lymph node is 14 mm and was 29 mm. The other axillary lymph nodes are similarly improved. There as been interval improvement in the multiple mildly enlarged mediastinal lymph nodes. A right paratracheal left on measures 7 mm and was 14 mm, stable. There is no hilar adenopathy. Heart size is normal. There is 4.5 cm ascending aortic aneurysm which is stable. The soft tissue surrounding the main bronchi bilaterally has resolved. There is no pericardial or pleural effusion. There is a large calcified granuloma in the left lower lobe. There is mild pulmonary scarring. There is a 2 mm medial right upper lobe nodule which is stable. No new mass or nodule is identified. IMPRESSION: Stable 4.5 cm ascending aortic aneurysm. Soft tissue surrounding the main bronchi bilaterally has resolved. Interval improvement in bilateral hilar adenopathy and in multiple mildly enlarged mediastinal lymph nodes. No new mass or nodule is identified. Reviewed, Interpreted and Dictated by Lance Francois III, MD Transcribed by Kyra Farmer Authenticated and [facility]
== END ==
PROVIDERS: PCP Internal Medicine Adolescent Medicine; Visit Provider Internal Medicine Medical Oncology
DX: Z03.89 Encounter for observation for other suspected diseases and conditions ruled out (principal); C85.90 Non-Hodgkin lymphoma, unspecified, unspecified site
CPT/HCPCS: 70490; 71250; 74176

== ENCOUNTER 2022-07-29 09:05 | Outpatient (CLI) | payer BC, MEDICARE, SELFPAY ==
[2022-07-29 09:10] VITALS: BMI 32.1
[2022-07-29 09:39] LABS: Chloride 109 mmol/L (98-107); Potassium 4.5 mmoL/L (3.5-5.1); Sodium 141 mmol/L (136-145)
[2022-07-29 09:41] LABS: Alanine Aminotransferase 14 U/L (12-78); Aspartate Amino Transferase 21 U/L (14-36); Blood Urea Nitrogen 14 mg/dl (7-17); Creatinine Clearance Estimated 78 mL/min (50-200); Estimated Glomerular Filt Rate 72 ml/min (>60); GFR (African American) 87 ML/MIN (>60)
[2022-07-29 09:42] LABS: Albumin Level 4.3 g/dl (3.5-5.0); Albumin/Globulin Ratio 1.4 (1.1-1.8); Alkaline Phosphatase 78 U/L (38-126); Anion Gap 13.5 mEq/L (5-15); Bilirubin,Total 0.2 mg/dl (0.2-1.3); Calcium 8.8 mg/dl (8.4-10.2); Carbon Dioxide 23 mmol/L (22.0-30.0); Globulin 3.1 g/dL (1.3-3.2); Glucose 90 mg/dl (74-100); Total Protein,Serum 7.4 g/dl (6.3-8.2)
[2022-07-29 09:45] LABS: Basophils # 0.1 K/mm3 (0-0.2); Basophils % 1.5 % (0.1-2.0); Eosinophils # 0.4 K/mm3 (0.0-0.4); Eosinophils % 8.1 % (0.1-12.0); Hematocrit 43.2 % (37.0-47.0); Hemoglobin 13.6 g/dL (12.2-16.2); Lymphocytes # 0.7 K/mm3 (0.7-4.5); Lymphocytes % 13.9 % (10-50); Mean Corpuscular HGB Conc 31.4 g/dL (31.8-35.4); Mean Corpuscular Hemoglobin 28.7 pg (27.0-31.2); Mean Corpuscular Volume 91.2 fl (81-99); Monocytes # 0.6 K/mm3 (0.1-1.0); Monocytes % 11.6 % (1.7-9.3); Neutrophils # 3.1 K/mm3 (1.8-7.8); Neutrophils % 64.9 % (37.0-80.0); Platelet Count 251 K/mm3 (142-424); Red Blood Count 4.74 M/mm3 (4.20-5.40); White Blood Count 4.7 K/mm3 (4.8-10.8)
== END 2022-07-29 09:25 | disposition home or self-care (01) ==
LOC: INF 09:06
PROVIDERS: PCP Internal Medicine Adolescent Medicine; Visit Provider Internal Medicine Medical Oncology
DX: C83.00 Small cell B-cell lymphoma, unspecified site (principal); Z45.2 Encounter for adjustment and management of vascular access device
CPT/HCPCS: 36415; 80053; 85025

== ENCOUNTER 2022-08-13 09:04 | Outpatient (CLI) | payer BC, MEDICARE, SELFPAY ==
[2022-08-13 09:07] VITALS: BMI 30.2
[2022-08-13 09:29] LABS: Basophils # 0.1 K/mm3 (0-0.2); Basophils % 2.3 % (0.1-2.0); Eosinophils # 0.3 K/mm3 (0.0-0.4); Eosinophils % 4.4 % (0.1-12.0); Hematocrit 44.9 % (37.0-47.0); Hemoglobin 14.3 g/dL (12.2-16.2); Lymphocytes # 0.8 K/mm3 (0.7-4.5); Lymphocytes % 14.1 % (10-50); Mean Corpuscular Hemoglobin 29.7 pg (27.0-31.2); Mean Corpuscular Volume 92.9 fl (81-99); Mean Platelet Volume 8.6 fl (7.4-10.4); Monocytes # 0.5 K/mm3 (0.1-1.0); Monocytes % 8.9 % (1.7-9.3); Neutrophils % 70.3 % (37.0-80.0); Platelet Count 351 K/mm3 (142-424); Red Blood Count 4.83 M/mm3 (4.20-5.40); Red Cell Distribution Width 21.2 % (11.5-17.5); White Blood Count 5.6 K/mm3 (4.8-10.8)
[2022-08-13 09:38] LABS: Chloride 107 mmol/L (98-107); Potassium 4.3 mmoL/L (3.5-5.1); Sodium 142 mmol/L (136-145)
[2022-08-13 09:41] LABS: Alanine Aminotransferase 18 U/L (12-78); Albumin Level 4.5 g/dl (3.5-5.0); Albumin/Globulin Ratio 1.5 (1.1-1.8); Alkaline Phosphatase 92 U/L (38-126); Anion Gap 16.3 mEq/L (5-15); Aspartate Amino Transferase 24 U/L (14-36); Bilirubin,Total 0.4 mg/dl (0.2-1.3); Blood Urea Nitrogen 16 mg/dl (7-17); Carbon Dioxide 23 mmol/L (22.0-30.0); Creatinine Clearance Estimated 73 mL/min (50-200); Estimated Glomerular Filt Rate 72 ml/min (>60); GFR (African American) 87 ML/MIN (>60); Globulin 3.1 g/dL (1.3-3.2); Glucose 95 mg/dl (74-100); Total Protein,Serum 7.6 g/dl (6.3-8.2)
--- NOTE | 2022-08-13 09:46 | PC.NURSE ---
0915 - BLOOD DRAWN WITH BUTTERFLY NEEDLE TO CHECK LABS PRIOR TO DR ABDALLA APPT.
[2022-08-13 09:54] LABS: Uric Acid 3.4 mg/dl (2.5-6.2)
[2022-08-14 10:12] LABS: Immunoglobulin M, Qn 1025 mg/dL (26-217)
== END 2022-08-13 09:20 | disposition home or self-care (01) ==
LOC: INF 09:06
PROVIDERS: PCP Internal Medicine Adolescent Medicine; Visit Provider Internal Medicine Medical Oncology
DX: C83.00 Small cell B-cell lymphoma, unspecified site (principal)
CPT/HCPCS: 36415; 80053; 82784; 84550; 85025

== ENCOUNTER 2022-08-19 11:52 | Outpatient (CLI) | payer BC, MEDICARE, SELFPAY ==
[2022-08-19 11:55] VITALS: BMI 29.9
--- NOTE | 2022-08-19 11:55 | PC.NURSE ---
1155-pt here to give urine sample for blood in urine; ua sent to lab;pt to hold [employer] until further notice;will notify with ua results.
[2022-08-19 12:05] LABS: Microscopic, Urine URINE MICROSCOPIC (MICROSCOPIC)
[2022-08-19 12:06] LABS: Appearance,Urine TURBID (Clear); Bilirubin,Urine Negative (Negative); Blood, Urine 3+ (Negative); Color,Urine DK YELLOW (Yellow); Glucose,Urine (UA) Negative (Negative); Ketones,Urine Negative (Negative); Leukocyte Esterase,Urine 2+ (Negative); Nitrate,Urine POSITIVE (Negative); Protein,Urine 2+ (Negative); Specific Gravity, Urine >= 1.030 (1.005-1.030); Urobilinogen,Urine 0.2 EU/dl (0.2)
[2022-08-19 12:20] LABS: Bacteria,Urine Trace /lpf; RBC,Urine TNTC #/hpf (0-3); WBC,Urine TNTC #/hpf (0-3)
== END 2022-08-19 12:00 | disposition home or self-care (01) ==
LOC: INF 11:53
PROVIDERS: PCP Internal Medicine Adolescent Medicine; Visit Provider Internal Medicine Medical Oncology
DX: C83.00 Small cell B-cell lymphoma, unspecified site (principal); B96.29 Other Escherichia coli [E. coli] as the cause of diseases classified elsewhere
CPT/HCPCS: 81001; 87086; 87088; 87186; G0463

== ENCOUNTER 2022-09-02 09:52 | Outpatient (CLI) | payer BC, MEDICARE, SELFPAY ==
[2022-09-02 09:57] VITALS: BMI 29.4
--- NOTE | 2022-09-02 10:08 | PC.NURSE ---
pt here prior to md appt with dr. kessler, pt to have blood drawn for labs as ordered. pt requests venipuncture for blood draw. venipuncture performed per Shanthi Fuchs RN using butterfly needle x 1 stick. site secured with 2x2 gauze and coban.
[2022-09-02 10:12] LABS: Basophils # 0.1 K/mm3 (0-0.2); Basophils % 1.2 % (0.1-2.0); Eosinophils # 0.3 K/mm3 (0.0-0.4); Eosinophils % 4.2 % (0.1-12.0); Hematocrit 41.3 % (37.0-47.0); Lymphocytes # 0.6 K/mm3 (0.7-4.5); Lymphocytes % 8.8 % (10-50); Mean Corpuscular HGB Conc 31.6 g/dL (31.8-35.4); Mean Corpuscular Hemoglobin 30.9 pg (27.0-31.2); Mean Corpuscular Volume 97.8 fl (81-99); Mean Platelet Volume 8.1 fl (7.4-10.4); Monocytes # 0.3 K/mm3 (0.1-1.0); Monocytes % 4.9 % (1.7-9.3); Neutrophils # 5.1 K/mm3 (1.8-7.8); Neutrophils % 80.9 % (37.0-80.0); Platelet Count 266 K/mm3 (142-424); Red Blood Count 4.22 M/mm3 (4.20-5.40); Red Cell Distribution Width 18.1 % (11.5-17.5); White Blood Count 6.3 K/mm3 (4.8-10.8)
[2022-09-02 10:19] LABS: Chloride 103 mmol/L (98-107); Potassium 4.6 mmoL/L (3.5-5.1); Sodium 141 mmol/L (136-145)
[2022-09-02 10:22] LABS: Alanine Aminotransferase 17 U/L (12-78); Albumin Level 4.2 g/dl (3.5-5.0); Albumin/Globulin Ratio 1.4 (1.1-1.8); Alkaline Phosphatase 82 U/L (38-126); Anion Gap 14.6 mEq/L (5-15); Aspartate Amino Transferase 23 U/L (14-36); Bilirubin,Total 0.4 mg/dl (0.2-1.3); Blood Urea Nitrogen 17 mg/dl (7-17); Calcium 9.5 mg/dl (8.4-10.2); Carbon Dioxide 28 mmol/L (22.0-30.0); Creatinine Clearance Estimated 71 mL/min (50-200); Estimated Glomerular Filt Rate 63 ml/min (>60); GFR (African American) 76 ML/MIN (>60); Globulin 2.9 g/dL (1.3-3.2); Glucose 92 mg/dl (74-100); Total Protein,Serum 7.1 g/dl (6.3-8.2)
== END 2022-09-02 10:34 | disposition home or self-care (01) ==
LOC: INF 09:52
PROVIDERS: PCP Internal Medicine Adolescent Medicine; Visit Provider Internal Medicine Medical Oncology
DX: C83.00 Small cell B-cell lymphoma, unspecified site (principal)
CPT/HCPCS: 36415; 80053; 85025

== ENCOUNTER 2022-09-20 12:03 | Outpatient (CLI) | payer BC, MEDICARE, SELFPAY ==
[2022-09-20 12:13] VITALS: BMI 29.9
--- NOTE | 2022-09-20 12:15 | PC.NURSE ---
1215-collected labs via peripheral stick pt will wait for results
[2022-09-20 12:24] LABS: Basophils % 0.7 % (0.1-2.0); Eosinophils # 0.2 K/mm3 (0.0-0.4); Eosinophils % 4.4 % (0.1-12.0); Hemoglobin 12.8 g/dL (12.2-16.2); Lymphocytes # 0.5 K/mm3 (0.7-4.5); Lymphocytes % 9.2 % (10-50); Mean Corpuscular HGB Conc 32.8 g/dL (31.8-35.4); Mean Corpuscular Hemoglobin 33.6 pg (27.0-31.2); Mean Corpuscular Volume 102.5 fl (81-99); Mean Platelet Volume 7.9 fl (7.4-10.4); Monocytes # 0.4 K/mm3 (0.1-1.0); Monocytes % 7.8 % (1.7-9.3); Neutrophils # 4.2 K/mm3 (1.8-7.8); Platelet Count 274 K/mm3 (142-424); Red Cell Distribution Width 16.3 % (11.5-17.5); White Blood Count 5.4 K/mm3 (4.8-10.8)
--- NOTE | 2022-09-20 12:35 | PC.NURSE ---
1235-notified with plt 274 level, pt ok to go home just notify if bruising gets worse.
== END 2022-09-20 12:38 | disposition home or self-care (01) ==
LOC: INF 12:06
PROVIDERS: PCP Internal Medicine Adolescent Medicine; Visit Provider Internal Medicine Medical Oncology
DX: R23.3 Spontaneous ecchymoses (principal)
CPT/HCPCS: 36415; 85025

== ENCOUNTER 2022-10-08 08:31 | Outpatient (CLI) | payer BC, MEDICARE, SELFPAY ==
[2022-10-08] VITALS (10 sets, daily range): BP systolic 123–148; BP diastolic 72–84; PULSE 61–79; RESP 18; TEMP 36.3; O2SAT 97–100; BMI 30.4
[2022-10-08 09:04] LABS: Basophils # 0.1 K/mm3 (0-0.2); Basophils % 1.3 % (0.1-2.0); Eosinophils # 0.2 K/mm3 (0.0-0.4); Eosinophils % 4.5 % (0.1-12.0); Hemoglobin 13.2 g/dL (12.2-16.2); Lymphocytes # 0.5 K/mm3 (0.7-4.5); Mean Corpuscular HGB Conc 31.5 g/dL (31.8-35.4); Mean Corpuscular Hemoglobin 33.1 pg (27.0-31.2); Mean Corpuscular Volume 105.1 fl (81-99); Mean Platelet Volume 8.3 fl (7.4-10.4); Monocytes # 0.3 K/mm3 (0.1-1.0); Monocytes % 7.4 % (1.7-9.3); Neutrophils # 3.4 K/mm3 (1.8-7.8); Neutrophils % 75.8 % (37.0-80.0); Platelet Count 298 K/mm3 (142-424); Red Cell Distribution Width 15.3 % (11.5-17.5); White Blood Count 4.5 K/mm3 (4.8-10.8)
[2022-10-08 09:09] LABS: Alanine Aminotransferase 14 U/L (12-78); Albumin Level 4.2 g/dl (3.5-5.0); Albumin/Globulin Ratio 1.4 (1.1-1.8); Alkaline Phosphatase 114 U/L (38-126); Anion Gap 14.3 mEq/L (5-15); Aspartate Amino Transferase 20 U/L (14-36); Bilirubin,Total 0.5 mg/dl (0.2-1.3); Blood Urea Nitrogen 16 mg/dl (7-17); Calcium 9.8 mg/dl (8.4-10.2); Carbon Dioxide 27 mmol/L (22.0-30.0); Chloride 102 mmol/L (98-107); Creatinine Clearance Estimated 76 mL/min (50-200); Estimated Glomerular Filt Rate 63 ml/min (>60); GFR (African American) 76 ML/MIN (>60); Globulin 2.9 g/dL (1.3-3.2); Glucose 85 mg/dl (74-100); Potassium 4.3 mmoL/L (3.5-5.1); Sodium 139 mmol/L (136-145); Total Protein,Serum 7.1 g/dl (6.3-8.2)
== END 2022-10-08 13:40 | disposition home or self-care (01) ==
LOC: INF 08:33
PROVIDERS: PCP Internal Medicine Adolescent Medicine; Visit Provider Internal Medicine Medical Oncology
DX: Z51.12 Encounter for antineoplastic immunotherapy (principal); C85.94 Non-Hodgkin lymphoma, unspecified, lymph nodes of axilla and upper limb; C83.00 Small cell B-cell lymphoma, unspecified site; L27.0 Generalized skin eruption due to drugs and medicaments taken internally; T45.1X5A Adverse effect of antineoplastic and immunosuppressive drugs, initial encounter
CPT/HCPCS: 80053; 85025; 96413; 96415; J1642; J9312

== ENCOUNTER → 2022-10-21 08:33 | Outpatient (CLI) | payer BC, MEDICARE, SELFPAY ==
[2022-10-21] VITALS (9 sets, daily range): BP systolic 89–155; BP diastolic 65–92; PULSE 61–80; RESP 18; TEMP 36.3; O2SAT 97–99; BMI 29.9
[2022-10-21 09:01] LABS: Basophils # 0.1 K/mm3 (0-0.2); Basophils % 1.2 % (0.1-2.0); Eosinophils # 0.2 K/mm3 (0.0-0.4); Eosinophils % 3.6 % (0.1-12.0); Hematocrit 45.4 % (37.0-47.0); Lymphocytes # 0.6 K/mm3 (0.7-4.5); Lymphocytes % 10.7 % (10-50); Mean Corpuscular HGB Conc 30.9 g/dL (31.8-35.4); Mean Corpuscular Hemoglobin 33.3 pg (27.0-31.2); Mean Corpuscular Volume 107.8 fl (81-99); Mean Platelet Volume 9.4 fl (7.4-10.4); Monocytes # 0.4 K/mm3 (0.1-1.0); Monocytes % 6.8 % (1.7-9.3); Neutrophils # 4.2 K/mm3 (1.8-7.8); Neutrophils % 77.6 % (37.0-80.0); Platelet Count 277 K/mm3 (142-424); Red Blood Count 4.21 M/mm3 (4.20-5.40); Red Cell Distribution Width 14.4 % (11.5-17.5); White Blood Count 5.4 K/mm3 (4.8-10.8)
[2022-10-21 09:04] LABS: Chloride 108 mmol/L (98-107); Potassium 3.8 mmoL/L (3.5-5.1); Sodium 138 mmol/L (136-145)
[2022-10-21 09:07] LABS: Alanine Aminotransferase 16 U/L (12-78); Albumin Level 4.2 g/dl (3.5-5.0); Albumin/Globulin Ratio 1.6 (1.1-1.8); Alkaline Phosphatase 100 U/L (38-126); Anion Gap 9.8 mEq/L (5-15); Aspartate Amino Transferase 22 U/L (14-36); Bilirubin,Total 0.5 mg/dl (0.2-1.3); Blood Urea Nitrogen 15 mg/dl (7-17); Carbon Dioxide 24 mmol/L (22.0-30.0); Creatinine Clearance Estimated 72 mL/min (50-200); Estimated Glomerular Filt Rate 72 ml/min (>60); GFR (African American) 87 ML/MIN (>60); Globulin 2.7 g/dL (1.3-3.2); Glucose 89 mg/dl (74-100); Total Protein,Serum 6.9 g/dl (6.3-8.2)
[2022-10-21 09:47] LABS: Uric Acid 5.4 mg/dl (2.5-6.2)
== END ==
PROVIDERS: PCP Internal Medicine Adolescent Medicine; Visit Provider Internal Medicine Medical Oncology
DX: C83.00 Small cell B-cell lymphoma, unspecified site (principal)
CPT/HCPCS: 80053; 84550; 85025; 96413; 96415; J1642; J9312

== ENCOUNTER 2022-10-28 09:46 | Outpatient (CLI) | payer BC, MEDICARE, SELFPAY ==
[2022-10-28] VITALS (12 sets, daily range): BP systolic 117–158; BP diastolic 60–93; PULSE 59–76; RESP 18; TEMP 35.9–36; O2SAT 99; BMI 30.1
[2022-10-28 10:08] LABS: Basophils # 0.1 K/mm3 (0-0.2); Basophils % 1.1 % (0.1-2.0); Eosinophils # 0.3 K/mm3 (0.0-0.4); Hematocrit 43.5 % (37.0-47.0); Hemoglobin 13.7 g/dL (12.2-16.2); Lymphocytes # 0.7 K/mm3 (0.7-4.5); Lymphocytes % 11.2 % (10-50); Mean Corpuscular HGB Conc 31.5 g/dL (31.8-35.4); Mean Corpuscular Hemoglobin 32.8 pg (27.0-31.2); Mean Corpuscular Volume 104.1 fl (81-99); Mean Platelet Volume 9.1 fl (7.4-10.4); Monocytes # 0.6 K/mm3 (0.1-1.0); Monocytes % 9.6 % (1.7-9.3); Neutrophils # 4.7 K/mm3 (1.8-7.8); Neutrophils % 74.1 % (37.0-80.0); Platelet Count 254 K/mm3 (142-424); Red Blood Count 4.18 M/mm3 (4.20-5.40); Red Cell Distribution Width 13.9 % (11.5-17.5); White Blood Count 6.4 K/mm3 (4.8-10.8)
[2022-10-28 10:16] LABS: Chloride 108 mmol/L (98-107); Potassium 3.8 mmoL/L (3.5-5.1); Sodium 139 mmol/L (136-145)
[2022-10-28 10:18] LABS: Blood Urea Nitrogen 15 mg/dl (7-17); Creatinine Clearance Estimated 73 mL/min (50-200); Estimated Glomerular Filt Rate 72 ml/min (>60); GFR (African American) 87 ML/MIN (>60)
[2022-10-28 10:19] LABS: Alanine Aminotransferase 19 U/L (12-78); Albumin Level 3.9 g/dl (3.5-5.0); Albumin/Globulin Ratio 1.5 (1.1-1.8); Alkaline Phosphatase 81 U/L (38-126); Anion Gap 10.8 mEq/L (5-15); Aspartate Amino Transferase 23 U/L (14-36); Bilirubin,Total 0.4 mg/dl (0.2-1.3); Calcium 9.8 mg/dl (8.4-10.2); Carbon Dioxide 24 mmol/L (22.0-30.0); Globulin 2.6 g/dL (1.3-3.2); Glucose 67 mg/dl (74-100); Total Protein,Serum 6.5 g/dl (6.3-8.2)
== END 2022-10-28 15:00 | disposition home or self-care (01) ==
LOC: INF 09:47
PROVIDERS: PCP Internal Medicine Adolescent Medicine; Visit Provider Internal Medicine Medical Oncology
DX: Z51.11 Encounter for antineoplastic chemotherapy (principal); C83.00 Small cell B-cell lymphoma, unspecified site
CPT/HCPCS: 80053; 85025; 96413; 96415; J1642; J9312

== ENCOUNTER 2022-11-04 08:49 | Outpatient (CLI) | payer BC, MEDICARE, SELFPAY ==
[2022-11-04] VITALS (11 sets, daily range): BP systolic 126–162; BP diastolic 76–96; PULSE 64–88; RESP 18; TEMP 35.9–36; O2SAT 99
== END 2022-11-04 12:37 | disposition home or self-care (01) ==
LOC: INF 08:50
PROVIDERS: PCP Internal Medicine Adolescent Medicine; Visit Provider Internal Medicine Medical Oncology
DX: C83.00 Small cell B-cell lymphoma, unspecified site (principal); Z51.11 Encounter for antineoplastic chemotherapy; C85.94 Non-Hodgkin lymphoma, unspecified, lymph nodes of axilla and upper limb
CPT/HCPCS: 96413; 96415; J1642; J9312

== ENCOUNTER → 2022-12-01 11:38 | Outpatient (CLI) | payer BC, MEDICARE, SELFPAY ==
[2022-12-01 14:01] LABS: Blood Urea Nitrogen 19 mg/dl (7-17); Estimated Glomerular Filt Rate 72 ml/min (>60); GFR (African American) 87 ML/MIN (>60)
== END ==
PROVIDERS: PCP Nurse Practitioner Family; Visit Provider Internal Medicine Medical Oncology
DX: Z01.812 Encounter for preprocedural laboratory examination (principal)
CPT/HCPCS: 36415; 82565; 84520

== ENCOUNTER → 2022-12-02 09:04 | Outpatient (CLI) | payer BC, MEDICARE, SELFPAY ==
--- NOTE | 2022-12-02 09:25 | CT_ITS ---
FINAL REPORT CLINICAL HISTORY: LYMPHOMA follow-up COMPARISON: July 27, 2022 FINDINGS: Axial CT images of the abdomen and pelvis were obtained without intravenous contrast. Coronal reformatted images were also obtained.This study was performed with techniques to keep radiation doses as low as reasonably achievable (ALARA). Individualized dose reduction techniques using automated exposure control or adjustment of mA and/or kV according to the patient's size were employed. Abdomen: There is no evidence of renal stone or hydronephrosis. There are postoperative changes from right nephrectomy. There are postoperative changes from cholecystectomy. The liver, spleen and pancreas have an unremarkable, unenhanced appearance. There is a left adrenal nodule which is stable and likely an adenoma. There are postoperative changes of the stomach. No inflammatory process is identified. There are mild vascular calcifications. There are postoperative changes from kyphoplasty at several levels in the lumbar spine. Pelvis: The appendix is normal. There is no evidence of ureteral dilation or ureteral stone.No mass or abnormal fluid collection is identified. There are postoperative changes from hysterectomy. There is a slightly improved mildly enlarged left inguinal lymph node measuring 25 mm and was 28 mm. Several other borderline size inguinal lymph nodes are stable. Borderline external iliac lymph nodes are stable. No new mass or adenopathy is identified. IMPRESSION: No new mass or adenopathy identified. Slightly improved left inguinal lymph node with other stable borderline size inguinal lymph nodes and external iliac lymph nodes. Reviewed, Interpreted and Dictated by Lance Francois III, MD Transcribed by Kyra Farmer Authenticated and [facility]
--- NOTE | 2022-12-02 09:25 | CT_ITS ---
FINAL REPORT TECHNIQUE: Thin section axial CT images with coronal and sagittal reformats were performed through the neck. This study was performed with techniques to keep radiation doses as low as reasonably achievable (ALARA). Individualized dose reduction techniques using automated exposure control or adjustment of mA and/or kV according to the patient''s size were employed. CLINICAL HISTORY: LYMPHOMA follow-up COMPARISON: 07/27/2022 FINDINGS: There are postoperative changes at the base of the right neck. Again seen are multiple small bilateral neck lymph nodes. No mass or adenopathy is present. A left subclavian port is in place.. Salivary glands are normal. Larynx is unremarkable. Thyroid gland is unremarkable. IMPRESSION: Stable, small bilateral neck lymph nodes. Reviewed, Interpreted and Dictated by Lance Francois III, MD Transcribed by Sayra Lang Authenticated and [facility]
--- NOTE | 2022-12-02 09:25 | CT_ITS ---
FINAL REPORT TECHNIQUE: Axial images were obtained from the lung apex to the mid abdomen by computed tomography. Coronal reformatted images were obtained. This study was performed with techniques to keep radiation doses as low as reasonably achievable, (ALARA). Individualized dose reduction techniques using automated exposure control or adjustment of mA and/or kV according to the patient''s size were employed. CLINICAL HISTORY: LYMPHOMA follow-up COMPARISON: July 27, 2022 FINDINGS: There are small axillary lymph nodes. There are small mediastinal lymph nodes, stable. There is no hilar adenopathy. Heart size is normal. There is no pericardial or pleural effusion. There is a stable 4.5 cm ascending aortic aneurysm. There is mild pulmonary scarring. There is a calcified granuloma in the left lower lobe. No new nodule or adenopathy is identified. IMPRESSION: Stable 4.5 cm ascending aortic aneurysm. No new mass or adenopathy identified. Reviewed, Interpreted and Dictated by Lance Francois III, MD Transcribed by Kyra Farmer Authenticated and [facility]
== END ==
PROVIDERS: PCP Nurse Practitioner Family; Visit Provider Internal Medicine Medical Oncology
DX: C83.00 Small cell B-cell lymphoma, unspecified site (principal)
CPT/HCPCS: 70490; 71250; 74176

== ENCOUNTER 2022-12-13 10:20 | Outpatient (CLI) | payer BC, MEDICARE, SELFPAY ==
[2022-12-13 10:43] VITALS: BMI 31.1
[2022-12-13 10:49] LABS: Basophils # 0.1 K/mm3 (0-0.2); Basophils % 1.7 % (0.1-2.0); Eosinophils # 0.2 K/mm3 (0.0-0.4); Eosinophils % 3.8 % (0.1-12.0); Hematocrit 41.5 % (37.0-47.0); Hemoglobin 13.7 g/dL (12.2-16.2); Lymphocytes # 0.6 K/mm3 (0.7-4.5); Lymphocytes % 11.4 % (10-50); Mean Corpuscular Hemoglobin 32.7 pg (27.0-31.2); Mean Platelet Volume 9.1 fl (7.4-10.4); Monocytes # 0.3 K/mm3 (0.1-1.0); Monocytes % 5.9 % (1.7-9.3); Neutrophils # 4.4 K/mm3 (1.8-7.8); Neutrophils % 77.1 % (37.0-80.0); Platelet Count 300 K/mm3 (142-424); Red Blood Count 4.19 M/mm3 (4.20-5.40); Red Cell Distribution Width 14.1 % (11.5-17.5); White Blood Count 5.7 K/mm3 (4.8-10.8)
[2022-12-13 10:53] LABS: Chloride 108 mmol/L (98-107); Sodium 138 mmol/L (136-145)
[2022-12-13 10:54] LABS: Potassium 4.4 mmoL/L (3.5-5.1)
[2022-12-13 10:56] LABS: Alanine Aminotransferase 17 U/L (12-78); Alkaline Phosphatase 75 U/L (38-126); Anion Gap 9.4 mEq/L (5-15); Aspartate Amino Transferase 21 U/L (14-36); Bilirubin,Total 0.9 mg/dl (0.2-1.3); Blood Urea Nitrogen 14 mg/dl (7-17); Carbon Dioxide 25 mmol/L (22.0-30.0); Creatinine Clearance Estimated 75 mL/min (50-200); Estimated Glomerular Filt Rate 72 ml/min (>60); GFR (African American) 87 ML/MIN (>60)
[2022-12-13 10:57] LABS: Albumin Level 3.9 g/dl (3.5-5.0); Albumin/Globulin Ratio 1.4 (1.1-1.8); Calcium 8.6 mg/dl (8.4-10.2); Globulin 2.8 g/dL (1.3-3.2); Glucose 95 mg/dl (74-100); Total Protein,Serum 6.7 g/dl (6.3-8.2)
== END 2022-12-13 10:36 | disposition home or self-care (01) ==
LOC: INF 10:21
PROVIDERS: PCP Internal Medicine Adolescent Medicine; Visit Provider Internal Medicine Medical Oncology
DX: C83.00 Small cell B-cell lymphoma, unspecified site (principal); Z45.2 Encounter for adjustment and management of vascular access device
CPT/HCPCS: 36591; 80053; 85025; J1642

== ENCOUNTER 2023-01-27 09:02 | Outpatient (CLI) | payer BC, MEDICARE, SELFPAY ==
[2023-01-27 09:08] VITALS: BMI 31.1
[2023-01-27 09:26] LABS: Basophils # 0.1 K/mm3 (0-0.2); Eosinophils # 0.2 K/mm3 (0.0-0.4); Eosinophils % 4.1 % (0.1-12.0); Hematocrit 44.2 % (37.0-47.0); Hemoglobin 14.4 g/dL (12.2-16.2); Lymphocytes # 0.6 K/mm3 (0.7-4.5); Lymphocytes % 13.5 % (10-50); Mean Corpuscular HGB Conc 32.5 g/dL (31.8-35.4); Mean Corpuscular Hemoglobin 31.5 pg (27.0-31.2); Mean Corpuscular Volume 96.9 fl (81-99); Mean Platelet Volume 8.9 fl (7.4-10.4); Monocytes # 0.3 K/mm3 (0.1-1.0); Monocytes % 8.3 % (1.7-9.3); Neutrophils # 2.9 K/mm3 (1.8-7.8); Neutrophils % 72.1 % (37.0-80.0); Platelet Count 261 K/mm3 (142-424); Red Blood Count 4.56 M/mm3 (4.20-5.40); Red Cell Distribution Width 13.7 % (11.5-17.5); White Blood Count 4.1 K/mm3 (4.8-10.8)
[2023-01-27 09:35] LABS: Alanine Aminotransferase 17 U/L (12-78); Albumin Level 4.1 g/dl (3.5-5.0); Albumin/Globulin Ratio 1.6 (1.1-1.8); Alkaline Phosphatase 55 U/L (38-126); Anion Gap 10.2 mEq/L (5-15); Aspartate Amino Transferase 19 U/L (14-36); Bilirubin,Total 0.3 mg/dl (0.2-1.3); Blood Urea Nitrogen 10 mg/dl (7-17); Calcium 8.7 mg/dl (8.4-10.2); Carbon Dioxide 26 mmol/L (22.0-30.0); Chloride 108 mmol/L (98-107); Creatinine Clearance Estimated 75 mL/min (50-200); Estimated Glomerular Filt Rate 72 ml/min (>60); GFR (African American) 87 ML/MIN (>60); Globulin 2.6 g/dL (1.3-3.2); Glucose 63 mg/dl (74-100); Potassium 4.2 mmoL/L (3.5-5.1); Sodium 140 mmol/L (136-145); Total Protein,Serum 6.7 g/dl (6.3-8.2)
== END 2023-01-27 09:15 | disposition home or self-care (01) ==
LOC: INF 09:03
PROVIDERS: PCP Internal Medicine Adolescent Medicine; Visit Provider Internal Medicine Medical Oncology
DX: C83.00 Small cell B-cell lymphoma, unspecified site (principal); Z45.2 Encounter for adjustment and management of vascular access device
CPT/HCPCS: 36591; 80053; 85025; J1642

== ENCOUNTER → 2023-03-02 12:02 | Outpatient (CLI) | payer BC, MEDICARE, SELFPAY ==
[2023-03-02 12:37] LABS: Basophils # 0.1 K/mm3 (0-0.2); Eosinophils # 0.2 K/mm3 (0.0-0.4); Eosinophils % 2.5 % (0.1-12.0); Hematocrit 47.7 % (37.0-47.0); Hemoglobin 15.2 g/dL (12.2-16.2); Lymphocytes # 0.9 K/mm3 (0.7-4.5); Mean Corpuscular HGB Conc 31.9 g/dL (31.8-35.4); Mean Corpuscular Volume 94.1 fl (81-99); Mean Platelet Volume 9.2 fl (7.4-10.4); Monocytes # 0.4 K/mm3 (0.1-1.0); Monocytes % 6.8 % (1.7-9.3); Neutrophils # 4.7 K/mm3 (1.8-7.8); Neutrophils % 75.6 % (37.0-80.0); Platelet Count 265 K/mm3 (142-424); Red Blood Count 5.07 M/mm3 (4.20-5.40); Red Cell Distribution Width 13.1 % (11.5-17.5); White Blood Count 6.2 K/mm3 (4.8-10.8)
[2023-03-02 13:37] LABS: Alanine Aminotransferase 12 U/L (12-78); Albumin Level 4.2 g/dl (3.5-5.0); Albumin/Globulin Ratio 1.6 (1.1-1.8); Alkaline Phosphatase 65 U/L (38-126); Anion Gap 9.1 mEq/L (5-15); Aspartate Amino Transferase 17 U/L (14-36); Bilirubin,Total 0.7 mg/dl (0.2-1.3); Blood Urea Nitrogen 12 mg/dl (7-17); Calcium 9.5 mg/dl (8.4-10.2); Carbon Dioxide 24 mmol/L (22.0-30.0); Chloride 105 mmol/L (98-107); Estimated Glomerular Filt Rate 72 ml/min (>60); GFR (African American) 87 ML/MIN (>60); Globulin 2.7 g/dL (1.3-3.2); Glucose 84 mg/dl (74-100); Potassium 4.1 mmoL/L (3.5-5.1); Sodium 134 mmol/L (136-145); Total Protein,Serum 6.9 g/dl (6.3-8.2)
== END ==
PROVIDERS: PCP Internal Medicine Adolescent Medicine; Visit Provider Internal Medicine Medical Oncology
DX: C83.00 Small cell B-cell lymphoma, unspecified site (principal)
CPT/HCPCS: 36415; 80053; 85025

== ENCOUNTER → 2023-03-03 08:07 | Outpatient (CLI) | payer BC, MEDICARE, SELFPAY ==
--- NOTE | 2023-03-03 08:17 | CT_ITS ---
FINAL REPORT TECHNIQUE: Thin section axial CT images were obtained through the neck after intravenous contrast administration. Coronal and sagittal reformats were also obtained. This study was performed with techniques to keep radiation doses as low as reasonably achievable (ALARA). Individualized dose reduction techniques using automated exposure control or adjustment of mA and/or kV according to the patient''s size were employed. CLINICAL HISTORY: Lymphoma follow-up COMPARISON: 12/02/2022 FINDINGS: The nasopharynx, oropharynx, hypopharynx and larynx are unremarkable. The thyroid gland is unremarkable. There is mild mucoperiosteal thickening in the maxillary sinuses. There are postoperative changes at the right base of the neck. There are multiple small bilateral neck nodes which are stable. No new mass or adenopathy. Left subclavian deep line is noted. No acute osseous abnormalities. IMPRESSION: Stable small bilateral neck nodes. Reviewed, Interpreted and Dictated by Lance Francois III, MD Transcribed by Yajaira Bridges Authenticated and [facility]
--- NOTE | 2023-03-03 08:17 | CT_ITS ---
FINAL REPORT CLINICAL HISTORY: LYMPHOMA COMPARISON: 12/02/2022 FINDINGS: CT CHEST W/CONTRAST Axial CT images of the chest were obtained with contrast. Coronal reformatted images were also obtained. This study was performed with techniques to keep radiation doses as low as reasonably achievable, (ALARA). Individualized dose reduction techniques using automated exposure control or adjustment of mA and/or KV according to the patient's size were employed. There is no evidence of hilar mass or adenopathy. No axillary mass or adenopathy is identified. Small mediastinal lymph nodes are stable. On lung window images, no pulmonary mass or dominant pulmonary nodule is identified. There is mild pulmonary scarring. There is a calcified granuloma in the left lung base. No dissection is identified. No localized pulmonary inflammatory process is identified. There is stable 4.5 cm ascending aortic aneurysm. There are postoperative changes of the right humerus. IMPRESSION: Stable 4.5 cm ascending aortic aneurysm. Small mediastinal lymph nodes, stable. No new pulmonary mass or adenopathy is identified. Reviewed, Interpreted and Dictated by Lance Francois III, MD Transcribed by Kyra Farmer Authenticated and [facility]
--- NOTE | 2023-03-03 08:17 | CT_ITS ---
FINAL REPORT CLINICAL HISTORY: LYMPHOMA COMPARISON: 12/02/2022 FINDINGS: Technique: The patient was injected with intravenous contrast. Oral contrast was administered. Axial images through the abdomen and pelvis were performed. This study was performed with techniques to keep radiation doses as low as reasonably achievable (ALARA). Individualized dose reduction techniques using automated exposure control or adjustment of mA and/or kV according to the patient's size were employed. Abdomen: There are postoperative changes the GE junction. The liver is normal in size and attenuation. The gallbladder is surgically absent. The spleen is unremarkable. The adrenals are normal. The pancreas is unremarkable. There are postoperative changes from right nephrectomy. There are small left renal cysts. The aorta is normal in caliber. There are mild vascular calcifications. There is no new mass or adenopathy identified. Pelvis: The appendix is normal. There are postoperative changes from hysterectomy. The urinary bladder is unremarkable. There is a 20 mm left inguinal node which is stable. There are several other borderline size inguinal nodes which are stable. No new mass or adenopathy is identified. There are postoperative changes from kyphoplasty at L3 and L5, stable. There are multiple chronic compression fractures. IMPRESSION: Stable 20 mm left inguinal node with several other borderline size inguinal nodes, stable. No new mass or adenopathy identified. Postoperative changes as detailed above. Reviewed, Interpreted and Dictated by Lance Francois III, MD Transcribed by Kyra Farmer Authenticated and . [facility]
== END ==
PROVIDERS: PCP Internal Medicine Adolescent Medicine; Visit Provider Internal Medicine Medical Oncology
DX: C83.01 Small cell B-cell lymphoma, lymph nodes of head, face, and neck (principal)
CPT/HCPCS: 70491; 71260; 74177; Q9967

== ENCOUNTER 2023-03-29 18:03 | Emergency (ER) | payer BC, MEDICARE, SELFPAY ==
[2023-03-29 18:03] VITALS: BP 125/62; PULSE 77; RESP 20; TEMP 36.9; O2SAT 97; BMI 28.3
--- NOTE | 2023-03-29 18:04 | ECG_ITS ---
APPROVED REPORT Exam: Resting ECG HR:77 bpm ECG Measurements Heart Rate 77 AXES PA 140 P -30 QRSd 98 QRS 18 QT 401 T 206 QTc 433 Conclusion SINUS RHYTHM INDETERMINATE AXIS INFERIOR MYOCARDIAL INFARCTION , OF INDETERMINATE AGE [40+ ms Q WAVE AND/OR ST/T ABNORMALITY IN II/aVF] ABNORMAL ECG UNCONFIRMED REPORT Electronically signed by : Saran Sagastume MD 03/30/2023 21:17:20
--- NOTE | 2023-03-29 18:09 | XR_ITS ---
PROCEDURE INFORMATION: Exam: XR Chest Exam date and time: 03/29/2023 7:09 PM Age: 68 years old Clinical indication: Pain; Other: Chest tightness TECHNIQUE: Imaging protocol: Radiologic exam of the chest. Views: 1 view. COMPARISON: CT CHEST W CON 03/03/2023 8:32 AM FINDINGS: Tubes, catheters and devices: Left-sided MediPort is present. Lungs: No consolidation. Pleural spaces: No pneumothorax. Heart/Mediastinum: Borderline cardiomegaly. Bones/joints: Postsurgical changes to the right shoulder. IMPRESSION: Chronic changes without acute process.
--- NOTE | 2023-03-29 18:18 | CT_ITS ---
PROCEDURE INFORMATION: Exam: CT Cervical Spine Without Contrast Exam date and time: 03/29/2023 7:01 PM Age: 68 years old Clinical indication: Neck pain; Additional info: H/o lymphoma, new severe chest, back pain down leg TECHNIQUE: Imaging protocol: Computed tomography of the cervical spine without contrast. Radiation optimization: All CT scans at this facility use at least one of these dose optimization techniques: automated exposure control; mA and/or kV adjustment per patient size (includes targeted exams where dose is matched to clinical indication); or iterative reconstruction. REPORTING DATA: Count of CT and Cardiac NM exams in prior 12 months: This patient has received 9 known CTs and 0 known cardiac nuclear medicine studies in the 12 months prior to the current study. COMPARISON: [facility] CT cervical spine wo con 01/02/2019 8:58 PM FINDINGS: Bones/joints: Mild degenerative changes most prominent at C5-C6. Mild curvature on AP projection No acute fracture. Lungs: Lung apices are normal. Soft tissues: No soft tissue swelling. IMPRESSION: No acute findings.
--- NOTE | 2023-03-29 18:18 | CT_ITS ---
PROCEDURE INFORMATION: Exam: CTA Abdomen and Pelvis With Contrast Exam date and time: 03/29/2023 7:15 PM Age: 68 years old Clinical indication: Abdominal pain; Generalized; Additional info: H/o lymphoma, new severe chest, back pain down leg TECHNIQUE: Imaging protocol: Computed tomographic angiography of the abdomen and pelvis with contrast. 3D rendering (Not supervised by radiologist): MIP and/or 3D reconstructed images were created by the technologist. Radiation optimization: All CT scans at this facility use at least one of these dose optimization techniques: automated exposure control; mA and/or kV adjustment per patient size (includes targeted exams where dose is matched to clinical indication); or iterative reconstruction. Contrast material: ISOVUE 370; Contrast volume: 100 ml; Contrast route: INTRAVENOUS (IV); REPORTING DATA: Count of CT and Cardiac NM exams in prior 12 months: This patient has received 9 known CTs and 0 known cardiac nuclear medicine studies in the 12 months prior to the current study. COMPARISON: CT ABDOMEN PELVIS W CON 03/03/2023 8:32 AM FINDINGS: Aorta: Aortic dissection extending from the thoracic to abdominal aorta to the aortic bifurcation where there is occlusion of the left common iliac artery. Celiac trunk and mesenteric arteries: No occlusion or significant stenosis. Renal arteries: Absent right kidney. High-grade stenosis at the origin of the left renal artery with normal flow distally. Right iliac arteries: No occlusion or significant stenosis. Left iliac arteries: Absent flow within the left common iliac artery. See above. Liver: No mass. Gallbladder and bile ducts: Status post cholecystectomy. Pancreas: Unremarkable. No mass. No ductal dilation. Spleen: Unremarkable. No splenomegaly. Adrenal glands: Unremarkable. No mass. Kidneys and ureters: Absent right kidney. Normal left kidney. Stomach and bowel: Postsurgical changes to the stomach. Appendix: No evidence of appendicitis. Intraperitoneal space: Unremarkable. No free air. No significant fluid collection. Lymph nodes: Unremarkable. No enlarged lymph nodes. Urinary bladder: Unremarkable. No mass. Reproductive: Unremarkable as visualized. Bones/joints: No acute fracture. Soft tissues: Unremarkable. IMPRESSION: Aortic dissection extending from the thoracic to abdominal aorta to the aortic bifurcation with high-grade stenosis at the origin of the left renal artery occlusion of the left common iliac artery. CTA chest dictated separately. THIS REPORT CONTAINS FINDINGS THAT MAY BE CRITICAL TO PATIENT CARE. Conference call was conducted with Roxanna Mansfield at 8:22 PM EDT on 03/29/2023. The findings were acknowledged and understood.
--- NOTE | 2023-03-29 18:18 | CT_ITS ---
PROCEDURE INFORMATION: Exam: CTA Chest With Contrast Exam date and time: 03/29/2023 7:15 PM Age: 68 years old Clinical indication: Pain; Chest pressure; Additional info: H/o lymphoma, new severe chest, back pain down leg TECHNIQUE: Imaging protocol: Computed tomographic angiography of the chest with contrast. 3D rendering (Not supervised by radiologist): MIP and/or 3D reconstructed images were created by the technologist. Radiation optimization: All CT scans at this facility use at least one of these dose optimization techniques: automated exposure control; mA and/or kV adjustment per patient size (includes targeted exams where dose is matched to clinical indication); or iterative reconstruction. Contrast material: ISOVUE 370; Contrast volume: 100 ml; Contrast route: INTRAVENOUS (IV); REPORTING DATA: Count of CT and Cardiac NM exams in prior 12 months: This patient has received 9 known CTs and 0 known cardiac nuclear medicine studies in the 12 months prior to the current study. COMPARISON: CT CHEST W CON 03/03/2023 8:32 AM FINDINGS: Tubes, catheters and devices: Left-sided MediPort. Pulmonary arteries: Normal. No pulmonary emboli. Aorta: Aortic dissection beginning at the aortic root and extending throughout the thoracic aorta into the abdomen and pelvis. Lungs: 16 mm calcified granuloma within the left lower lobe. Pleural spaces: No pneumothorax. No pleural effusion. Heart: No cardiomegaly. No pericardial effusion. Lymph nodes: No enlarged lymph nodes. Bones/joints: No acute fracture. Soft tissues: No significant swelling. IMPRESSION: Aortic dissection beginning at the aortic root and extending throughout the thoracic aorta into the abdomen and pelvis. CTA abdomen and pelvis dictated separately. THIS REPORT CONTAINS FINDINGS THAT MAY BE CRITICAL TO PATIENT CARE. Conference call was conducted with Roxanna Mansfield at 8:22 PM EDT on 03/29/2023. The findings were acknowledged and understood.
--- NOTE | 2023-03-29 18:18 | CT_ITS ---
PROCEDURE INFORMATION: Exam: CT Thoracic Spine Without Contrast Exam date and time: 03/29/2023 7:06 PM Age: 68 years old Clinical indication: Pain in thoracic spine; Other: Back pain; Additional info: H/o lymphoma, new severe chest, back pain down leg TECHNIQUE: Imaging protocol: Computed tomography of the thoracic spine without contrast. Radiation optimization: All CT scans at this facility use at least one of these dose optimization techniques: automated exposure control; mA and/or kV adjustment per patient size (includes targeted exams where dose is matched to clinical indication); or iterative reconstruction. REPORTING DATA: Count of CT and Cardiac NM exams in prior 12 months: This patient has received 9 known CTs and 0 known cardiac nuclear medicine studies in the 12 months prior to the current study. COMPARISON: CT abdomen and pelvis 03/03/2023 FINDINGS: Tubes, catheters and devices: Partially visualized left subclavian central venous catheter. Bones/joints: Moderate vertebral body height loss at L1 and L2 which appear stable compared to prior examination scoliosis. 5 mm sclerotic focus within the posteroinferior aspect of T6 with well-defined margins. No acute fracture or dislocation. Soft tissues: 16 mm calcified granuloma within the medial left lower lobe. Aortic calcifications which are displaced within the lumen. IMPRESSION: 1. Aortic calcifications which are displaced within the lumen which are not well evaluated however raise concern for aortic dissection. 2. Vertebral compression deformities which appears stable compared to prior examination
--- NOTE | 2023-03-29 18:18 | CT_ITS ---
PROCEDURE INFORMATION: Exam: CT Lumbar Spine Without Contrast Exam date and time: 03/29/2023 7:10 PM Age: 68 years old Clinical indication: Low back pain; Additional info: H/o lymphoma, new severe chest, back pain down leg TECHNIQUE: Imaging protocol: Computed tomography of the lumbar spine without contrast. Radiation optimization: All CT scans at this facility use at least one of these dose optimization techniques: automated exposure control; mA and/or kV adjustment per patient size (includes targeted exams where dose is matched to clinical indication); or iterative reconstruction. REPORTING DATA: Count of CT and Cardiac NM exams in prior 12 months: This patient has received 9 known CTs and 0 known cardiac nuclear medicine studies in the 12 months prior to the current study. COMPARISON: MR LUMBAR SPINE WO CON 03/21/2020 3:27 PM FINDINGS: Bones/joints: Compression deformities which are mild at L2, L3, and L4 and moderately severe at L1 and L5. Post kyphoplasty change at L3 and L5. Stomach and bowel: Postsurgical changes to the stomach. Vasculature: Aortic calcifications which are displaced within the medial lumen. Soft tissues: Unremarkable. IMPRESSION: 1. Aortic calcifications which are displaced within the medial lumen which is nonspecific but raises concern for potential aortic dissection. 2. Compression deformities with post kyphoplasty change which are age indeterminate but potentially chronic. Correlation with point tenderness is recommended.
[2023-03-29 18:22] LABS: Chloride 102 mmol/L (98-107); Potassium 3.9 mmoL/L (3.5-5.1); Sodium 136 mmol/L (136-145)
[2023-03-29 18:25] LABS: Alanine Aminotransferase 29 U/L (12-78); Albumin Level 4.1 g/dl (3.5-5.0); Albumin/Globulin Ratio 1.6 (1.1-1.8); Alkaline Phosphatase 68 U/L (38-126); Anion Gap 17.9 mEq/L (5-15); Aspartate Amino Transferase 29 U/L (14-36); Bilirubin,Total 0.5 mg/dl (0.2-1.3); Blood Urea Nitrogen 17 mg/dl (7-17); Carbon Dioxide 20 mmol/L (22.0-30.0); Creatinine Clearance Estimated 61 mL/min (50-200); Estimated Glomerular Filt Rate 50 ml/min (>60); GFR (African American) 60 ML/MIN (>60); Globulin 2.5 g/dL (1.3-3.2); Total Protein,Serum 6.6 g/dl (6.3-8.2)
[2023-03-29 18:26] LABS: Calcium 8.8 mg/dl (8.4-10.2); Glucose 116 mg/dl (74-100)
[2023-03-29 18:28] LABS: Basophils # 0.1 K/mm3 (0-0.2); Basophils % 0.4 % (0.1-2.0); Eosinophils # 0.2 K/mm3 (0.0-0.4); Eosinophils % 1.6 % (0.1-12.0); Hematocrit 43.1 % (37.0-47.0); Hemoglobin 13.6 g/dL (12.2-16.2); Lymphocytes # 1.2 K/mm3 (0.7-4.5); Lymphocytes % 10.2 % (10-50); Mean Corpuscular HGB Conc 31.7 g/dL (31.8-35.4); Mean Corpuscular Hemoglobin 29.9 pg (27.0-31.2); Mean Corpuscular Volume 94.5 fl (81-99); Mean Platelet Volume 9.5 fl (7.4-10.4); Monocytes # 0.7 K/mm3 (0.1-1.0); Monocytes % 5.8 % (1.7-9.3); Neutrophils # 9.5 K/mm3 (1.8-7.8); Platelet Count 270 K/mm3 (142-424); Red Blood Count 4.56 M/mm3 (4.20-5.40); Red Cell Distribution Width 13.6 % (11.5-17.5); White Blood Count 11.6 K/mm3 (4.8-10.8)
[2023-03-29 18:31] VITALS: BP 92/60; PULSE 75; O2SAT 100
[2023-03-29 18:39] LABS: Troponin I < 0.01 ng/ml (0.00-0.034)
--- NOTE | 2023-03-29 19:16 | HMH.EDGENADL ---
Discharge Plan Disposition Patient Disposition: Xfer Short-Term Hosp Condition: Fair Prescriptions Prescriptions: No Action duloxetine 60 mg capsule,delayed release(DR/EC) 60 mg PO DAILY losartan 25 mg tablet 25 mg PO DAILY venlafaxine 37.5 mg capsule,extended release 24hr 37.5 mg PO DAILY valacyclovir 500 mg tablet 500 mg PO DAILY lidocaine-prilocaine 2.5-2.5 % cream 2.5 gm TP ONCE PRN (Reason: Port access) Imbruvica 420 mg tablet 420 mg PO DAILY ergocalciferol (vitamin D2) 1,250 MCG capsule 1,250 mcg PO DAILY multivitamin with folic acid 1 EACH tablet 1 each PO DAILY ondansetron 4 MG tablet,disintegrating 4 mg PO BIDP PRN (Reason: Nausea And Vomiting) 3 Days Qty: 6 0RF albuterol sulfate [Ventolin HFA] 90 mcg/actuation HFA aerosol inhaler 2 inh INHALATION Q6H PRN (Reason: Breathing Problems) Referrals Follow up/Referrals: Saran Sagastume MD [Primary Care Provider] - See instructions Clinical Impressions Clinical Impression: Ascending aortic dissection, Left renal artery stenosis, Iliac artery occlusion, left, ANCELMO (acute kidney injury) Stand Alone Forms Stand Alone Forms: Transfer Record - ED Discharge ED Provider: Roxanna Mansfield General Adult HPI General Chief complaint: PAIN Stated complaint: leg pain causing chest tightness Time Seen by Provider: 03/29/23 18:17 Mode of Arrival: EMS Source of Information: Patient and EMS Limitations: No Limitations Description of Symptoms (Recalled from ER Triage Doc. by RN): 68 F coming from home via EMS for severe right leg pain that radiates up to her low back. This pain has been so severe that she is having chest tightness. Patient is on long-term PO chemotherapy medication for non-hodgkins lymphoma. Patient reports several surgeries in the past on her back with cement placed. Patient 12-lead in route was negative without ectopy. History of Present Illness HPI narrative: This patient is a 68-year-old female with a history of non-Hodgkin's lymphoma currently on chemotherapy presented to the emergency department for evaluation with concern for severe chest pain, back pain, and right leg pain. She feels like the pain starts in her right leg and radiates up to her back. She denies experiencing anything like this in the past. No recent traumatic injuries. She denies any numbness, tingling, saddle anesthesia, or other concerns. Related Data Home Medications Medication Instructions Recorded Confirmed duloxetine 60 mg capsule,delayed 60 mg PO DAILY Depression 10/01/21 03/29/23 release losartan 25 mg tablet 25 mg PO DAILY High blood pressure 10/01/21 03/29/23 ergocalciferol (vitamin D2) 1,250 1,250 mcg PO DAILY Supplement 01/28/22 03/29/23 mcg (50,000 unit) capsule multivitamin with folic acid 400 1 each PO DAILY Supplement 01/28/22 03/29/23 mcg tablet venlafaxine 37.5 mg 37.5 mg PO DAILY Depression 03/04/22 03/29/23 capsule,extended release 24 hr lidocaine-prilocaine 2.5 %-2.5 % 2.5 gm topical ONCE PRN Port access 05/27/22 03/29/23 topical cream valacyclovir 500 mg tablet 500 mg PO DAILY Nonhodgkins 05/27/22 03/29/23 lymphoma ibrutinib 420 mg tablet (Imbruvica) 420 mg PO DAILY Nonhodgkins 06/24/22 03/29/23 lymphoma albuterol sulfate 90 mcg/actuation 2 inh inhalation Q6H PRN Breathing 03/29/23 03/29/23 aerosol inhaler (Ventolin HFA) Problems Previous Rx's Medication Instructions Recorded ondansetron 4 mg disintegrating 4 mg PO BIDP PRN Nausea And 02/02/22 tablet Vomiting 3 days #6 tabs Allergies Allergy/AdvReac Type Severity Reaction Status Date / Time Iodinated Contrast Media Allergy Unknown Verified 03/10/23 10:14 [Iodinated Contrast Media - allergy Oral and] reaction Sulfa (Sulfonamide Allergy Unknown Verified 03/10/23 10:14 Antibiotics) allergy reaction PFSH [facility] Disclaimer: The information contained in this section may have been updated after
[2023-03-29 19:30] VITALS: BP 96/56; PULSE 68; RESP 15; O2SAT 97
[2023-03-29 20:00] VITALS: BP 88/51; PULSE 72; RESP 11; O2SAT 96
--- NOTE | 2023-03-29 20:26 | PC.NURSE ---
on the phone with [facility] MD's at this time.
--- NOTE | 2023-03-29 20:27 | PC.NURSE ---
on phone with pt's giving pt updated
--- NOTE | 2023-03-29 20:30 | PC.NURSE ---
on the phone with at this time.
--- NOTE | 2023-03-29 20:51 | PC.NURSE ---
Called . is being paged at this time.
--- NOTE | 2023-03-29 21:00 | PC.NURSE ---
on the phone with at this time.
--- NOTE | 2023-03-29 21:04 | PC.NURSE ---
Called [facility] and about power shared images. they still have not received them as of this time.
--- NOTE | 2023-03-29 21:17 | PC.NURSE ---
Attempted to call report. Nurse not available to take report. Call back number left.
--- NOTE | 2023-03-29 21:22 | PC.NURSE ---
[facility] accepts transfer. ETA 19 min
--- NOTE | 2023-03-29 21:34 | PC.NURSE ---
Report to HAYDEN Garcia at [facility]
[2023-03-29 22:03] VITALS: BP 105/61; PULSE 68; RESP 17; TEMP 36.8; O2SAT 96
== END 2023-03-29 22:03 | disposition short-term general hospital (02) ==
PROVIDERS: Emergency Provider Emergency Medicine; PCP Internal Medicine Adolescent Medicine
DX: I71.010 Dissection of ascending aorta (principal); I70.1 Atherosclerosis of renal artery; N17.9 Acute kidney failure, unspecified
CPT/HCPCS: 71045; 71275; 72125; 72128; 72131; 74174; 80053; 84484; 85025; 86850; 93005; 96361; 96374; 96375; 99291; J2405; Q9967

== ENCOUNTER 2023-04-12 05:28 | Emergency (ER) | payer BC, MEDICARE, SELFPAY ==
[2023-04-12] VITALS (9 sets, daily range): BP systolic 143–174; BP diastolic 66–89; PULSE 71–85; RESP 20–22; TEMP 36.8; O2SAT 92–97; BMI 32.5; BMI 33.5
[2023-04-12 05:46] LABS: Basophils % 0.4 % (0.1-2.0); Eosinophils # 0.7 K/mm3 (0.0-0.4); Eosinophils % 7.4 % (0.1-12.0); Hematocrit 34.1 % (37.0-47.0); Hemoglobin 11.1 g/dL (12.2-16.2); Lymphocytes # 0.5 K/mm3 (0.7-4.5); Lymphocytes % 4.7 % (10-50); Mean Corpuscular HGB Conc 32.5 g/dL (31.8-35.4); Mean Corpuscular Hemoglobin 29.6 pg (27.0-31.2); Monocytes # 0.4 K/mm3 (0.1-1.0); Monocytes % 3.8 % (1.7-9.3); Neutrophils # 7.9 K/mm3 (1.8-7.8); Neutrophils % 83.6 % (37.0-80.0); Platelet Count 546 K/mm3 (142-424); Red Blood Count 3.75 M/mm3 (4.20-5.40); Red Cell Distribution Width 15.2 % (11.5-17.5); White Blood Count 9.5 K/mm3 (4.8-10.8)
[2023-04-12 05:59] LABS: Alanine Aminotransferase 18 U/L (12-78); Albumin Level 3.7 g/dl (3.5-5.0); Albumin/Globulin Ratio 1.4 (1.1-1.8); Alkaline Phosphatase 60 U/L (38-126); Anion Gap 18.7 mEq/L (5-15); Aspartate Amino Transferase 22 U/L (14-36); Bilirubin,Total 0.7 mg/dl (0.2-1.3); Blood Urea Nitrogen 11 mg/dl (7-17); Carbon Dioxide 28 mmol/L (22.0-30.0); Chloride 99 mmol/L (98-107); Creatinine Clearance Estimated 77 mL/min (50-200); Estimated Glomerular Filt Rate 84 ml/min (>60); GFR (African American) 101 ML/MIN (>60); Globulin 2.7 g/dL (1.3-3.2); Glucose 91 mg/dl (74-100); Potassium 3.7 mmoL/L (3.5-5.1); Sodium 142 mmol/L (136-145); Total Protein,Serum 6.4 g/dl (6.3-8.2)
--- NOTE | 2023-04-12 06:01 | PC.NURSE ---
called [facility] and s/w Arely to confirm Benadryl dosing, as pt took 50 mg PO @ approx 0345. States ok to give Benadryl 25 mg IVP.
--- NOTE | 2023-04-12 06:03 | PC.NURSE ---
Pt is reporting a decrease in her SOA and feeling a little better .
[2023-04-12 06:04] LABS: C-Reactive Protein 59.6 mg/L (0-4)
--- NOTE | 2023-04-12 06:05 | PC.NURSE ---
Placed pt on 2LPM NC d/t sat consistently staying 91%.
[2023-04-12 06:11] LABS: Erythrocyte Sedimentation Rate 43 mm/hr (0-30)
[2023-04-12 06:18] LABS: Procalcitonin 0.054 ng/mL (0.0-2.0)
--- NOTE | 2023-04-12 06:19 | PC.NURSE ---
pt assisted to the bathroom and tolerated well
--- NOTE | 2023-04-12 06:42 | XR_ITS ---
FINAL REPORT CLINICAL HISTORY: ALLERGIC REACTION COMPARISON: 03/29/2023 FINDINGS: TWO-VIEW CHEST Cardiomegaly is present. There has been an interval median sternotomy. A left subclavian port is present. There are worsening bibasilar opacities, may represent atelectasis or pneumonia. Small pleural effusions are present. Mild pulmonary vascular congestion is present. Postoperative changes remain present in the right humerus. There is no pneumothorax. IMPRESSION: Worsening bibasilar atelectasis or pneumonia with small pleural effusions. Reviewed, Interpreted and Dictated by Lance Francois III, MD Transcribed by Nelli Melo Authenticated and . [facility]
--- NOTE | 2023-04-12 07:03 | PC.NURSE ---
shift report given to Dar Eckert RN, Yolie Streeter RN, and Mariela Castro RN.
--- NOTE | 2023-04-12 07:09 | HMH.EDALLER ---
Discharge Plan Disposition Patient Disposition: Home, Self-Care Prescriptions Prescriptions: New prednisone [prednisone] 20 mg tablet 20 mg PO BID Qty: 10 0RF No Action duloxetine 60 mg capsule,delayed release(DR/EC) 60 mg PO DAILY ergocalciferol (vitamin D2) 1,250 MCG capsule 1,250 mcg PO DAILY multivitamin with folic acid 1 EACH tablet 1 each PO DAILY atorvastatin 40 mg Tablet 40 mg PO DAILY hydrocodone-acetaminophen 5-325 mg Tablet 2 tab PO DAILY aspirin [Aspirin Childrens] 81 mg Tablet,Chewable 81 mg PO DAILY cholecalciferol (vitamin D3) 25 mcg (1,000 unit) Capsule 25 mcg PO DAILY metoprolol tartrate 25 mg Tablet 12.5 mg PO DAILY Referrals Follow up/Referrals: Saran Sagastume MD [Primary Care Provider] - See instructions Clinical Impressions Clinical Impression: Allergic reaction, Urticaria Instructions Patient Instructions: DI for General Allergic Reactions Discharge ED Provider: Keven (ED)Eulalio Allergic React/Insect Bite HPI General Chief complaint: Allergic Reaction Stated complaint: Alergic reaction to something, hives,eyes swollen Time Seen by Provider: 04/12/23 07:00 Mode of Arrival - ED Triage: Family Vehicle Source of Information: Patient and Medical Record Limitations: No Limitations History of Present Illness HPI narrative: upper ext hives yesterday and now swollen face - MD complaint: hives and facial swelling Onset (ago): hour(s) Exposure: unknown Symptoms: rash, itching and facial swelling Treatment prior to arrival: benadryl Allergies Allergy/AdvReac Type Severity Reaction Status Date / Time Iodinated Contrast Media Allergy Unknown Verified 03/10/23 10:14 [Iodinated Contrast Media - allergy Oral and] reaction Sulfa (Sulfonamide Allergy Unknown Verified 03/10/23 10:14 Antibiotics) allergy reaction Previous Allergic Reaction History: none Severity: moderate Related Data Home Medications Medication Instructions Recorded Confirmed duloxetine 60 mg capsule,delayed 60 mg PO DAILY Depression 10/01/21 04/12/23 release ergocalciferol (vitamin D2) 1,250 1,250 mcg PO DAILY Supplement 01/28/22 04/12/23 mcg (50,000 unit) capsule multivitamin with folic acid 400 1 each PO DAILY Supplement 01/28/22 04/12/23 mcg tablet aspirin 81 mg chewable tablet 81 mg PO DAILY . 04/12/23 04/12/23 (Aspirin Childrens) atorvastatin 40 mg tablet 40 mg PO DAILY . 04/12/23 04/12/23 cholecalciferol (vitamin D3) 25 25 mcg PO DAILY . 04/12/23 04/12/23 mcg (1,000 unit) capsule hydrocodone 5 mg-acetaminophen 325 2 tab PO DAILY Pain 04/12/23 04/12/23 mg tablet metoprolol tartrate 25 mg tablet 12.5 mg PO DAILY . 04/12/23 04/12/23 Previous Rx's Medication Instructions Recorded prednisone 20 mg tablet 20 mg PO BID #10 tabs 04/12/23 [facility] Disclaimer: The information contained in this section may have been updated after the patient was seen, as this information can be updated by other users. Medical History Anemia Arthritis History of chemotherapy History of hypothyroidism History of thyroid disease Hypertension Lymphoma Surgical History History of tonsillectomy Family History Other Diabetes Social History Smoking Status: Unknown if ever smoked second hand exposure: Yes alcohol intake: current substance use type: denies use current occupational status: retired Travel in the last 8 weeks: None household members: spouse housing: house current occupational exposures/hazards: No caffeine: No ROS Obtained: Yes All systems reviewed & no additional complaints except as documented Physical Exam General General appearance: alert Head Head exam: normocep
--- NOTE | 2023-04-12 07:26 | PC.NURSE ---
at the bedside
--- NOTE | 2023-04-12 07:31 | PC.NURSE ---
pt sitting in wheelchair watching TV, pt states that it feels better to sit in the wheelchair than the bed, at bs
--- NOTE | 2023-04-12 07:55 | PC.NURSE ---
dr watkins speaking with dr obregon
== END 2023-04-12 08:28 | disposition home or self-care (01) ==
PROVIDERS: Emergency Provider Emergency Medicine; PCP Internal Medicine Adolescent Medicine
DX: R22.0 Localized swelling, mass and lump, head (principal); L50.9 Urticaria, unspecified; T78.40XA Allergy, unspecified, initial encounter
CPT/HCPCS: 71046; 80053; 84145; 85025; 85651; 86140; 96361; 96374; 96375; 99284; 99285

== ENCOUNTER 2023-04-14 10:24 | Outpatient (CLI) | payer BC, MEDICARE, SELFPAY ==
[2023-04-14 10:30] VITALS: BMI 30.4
[2023-04-14 10:49] LABS: Basophils % 0.1 % (0.1-2.0); Eosinophils % 0.2 % (0.1-12.0); Hematocrit 32.4 % (37.0-47.0); Hemoglobin 10.2 g/dL (12.2-16.2); Lymphocytes # 0.2 K/mm3 (0.7-4.5); Lymphocytes % 1.5 % (10-50); Mean Corpuscular HGB Conc 31.4 g/dL (31.8-35.4); Mean Corpuscular Hemoglobin 29.1 pg (27.0-31.2); Mean Corpuscular Volume 92.5 fl (81-99); Mean Platelet Volume 7.9 fl (7.4-10.4); Monocytes # 0.4 K/mm3 (0.1-1.0); Monocytes % 2.5 % (1.7-9.3); Neutrophils # 13.1 K/mm3 (1.8-7.8); Neutrophils % 95.7 % (37.0-80.0); Platelet Count 544 K/mm3 (142-424); Red Blood Count 3.51 M/mm3 (4.20-5.40); Red Cell Distribution Width 15.5 % (11.5-17.5); White Blood Count 13.7 K/mm3 (4.8-10.8)
[2023-04-14 10:53] LABS: Chloride 101 mmol/L (98-107); Potassium 3.8 mmoL/L (3.5-5.1); Sodium 138 mmol/L (136-145)
[2023-04-14 10:55] LABS: Blood Urea Nitrogen 18 mg/dl (7-17); Creatinine Clearance Estimated 75 mL/min (50-200); Estimated Glomerular Filt Rate 72 ml/min (>60); GFR (African American) 87 ML/MIN (>60)
[2023-04-14 10:56] LABS: Alanine Aminotransferase 21 U/L (12-78); Albumin Level 3.7 g/dl (3.5-5.0); Albumin/Globulin Ratio 1.5 (1.1-1.8); Alkaline Phosphatase 57 U/L (38-126); Anion Gap 13.8 mEq/L (5-15); Aspartate Amino Transferase 23 U/L (14-36); Bilirubin,Total 0.5 mg/dl (0.2-1.3); Calcium 9.6 mg/dl (8.4-10.2); Carbon Dioxide 27 mmol/L (22.0-30.0); Globulin 2.5 g/dL (1.3-3.2); Glucose 101 mg/dl (74-100); MANUAL DIFFERENTIAL MANUAL DIFFERENTIAL (MANUAL DIFF); Total Protein,Serum 6.2 g/dl (6.3-8.2)
[2023-04-14 12:37] LABS: Lymphocytes % 3 % (10-50); Monocytes % 1 % (2-9); Neutrophils % 96 % (42-76); Platelet Estimate Moderate Increase; RBC Morphology Normal; Total Cells Counted 100
== END 2023-04-14 10:40 | disposition home or self-care (01) ==
LOC: INF 10:25
PROVIDERS: PCP Internal Medicine Adolescent Medicine; Visit Provider Internal Medicine Medical Oncology
DX: Z45.2 Encounter for adjustment and management of vascular access device (principal); C83.00 Small cell B-cell lymphoma, unspecified site
CPT/HCPCS: 36591; 80053; 85007; 85025; J1642

== ENCOUNTER 2023-05-13 09:05 | Outpatient (CLI) | payer BC, MEDICARE, SELFPAY ==
[2023-05-13 09:10] VITALS: BMI 26.6
--- NOTE | 2023-05-13 09:28 | PC.NURSE ---
0918 Patient here for labs prior to appointment this am with Dr. Romano. CBC/CMP obtained via R AC x1 stick with butterfly needle.
[2023-05-13 09:39] LABS: Basophils % 0.3 % (0.1-2.0); Eosinophils # 0.3 K/mm3 (0.0-0.4); Eosinophils % 4.6 % (0.1-12.0); Hematocrit 39.6 % (37.0-47.0); Hemoglobin 12.4 g/dL (12.2-16.2); Lymphocytes # 0.5 K/mm3 (0.7-4.5); Lymphocytes % 9.2 % (10-50); Mean Corpuscular HGB Conc 31.3 g/dL (31.8-35.4); Mean Corpuscular Hemoglobin 26.4 pg (27.0-31.2); Mean Corpuscular Volume 84.4 fl (81-99); Mean Platelet Volume 8.3 fl (7.4-10.4); Monocytes # 0.5 K/mm3 (0.1-1.0); Monocytes % 7.9 % (1.7-9.3); Neutrophils # 4.5 K/mm3 (1.8-7.8); Neutrophils % 77.9 % (37.0-80.0); Platelet Count 365 K/mm3 (142-424); Red Blood Count 4.69 M/mm3 (4.20-5.40); Red Cell Distribution Width 15.9 % (11.5-17.5); White Blood Count 5.8 K/mm3 (4.8-10.8)
[2023-05-13 09:48] LABS: Alanine Aminotransferase 18 U/L (12-78); Albumin Level 4.1 g/dl (3.5-5.0); Albumin/Globulin Ratio 1.4 (1.1-1.8); Alkaline Phosphatase 117 U/L (38-126); Anion Gap 16.4 mEq/L (5-15); Aspartate Amino Transferase 21 U/L (14-36); Bilirubin,Total 0.7 mg/dl (0.2-1.3); Blood Urea Nitrogen 7 mg/dl (7-17); Calcium 9.6 mg/dl (8.4-10.2); Carbon Dioxide 26 mmol/L (22.0-30.0); Chloride 102 mmol/L (98-107); Creatinine Clearance Estimated 63 mL/min (50-200); Estimated Glomerular Filt Rate 84 ml/min (>60); GFR (African American) 101 ML/MIN (>60); Glucose 107 mg/dl (74-100); Potassium 4.4 mmoL/L (3.5-5.1); Sodium 140 mmol/L (136-145); Total Protein,Serum 7.1 g/dl (6.3-8.2)
--- NOTE | 2023-05-13 11:19 | CT_ITS ---
FINAL REPORT TECHNIQUE: The patient was injected with IV contrast. Axial images were obtained through the chest in a PE protocol. 3-D reconstruction images were also performed. Individualized dose reduction techniques using automated exposure control or adjustment of the MA and/or KV according to patient's size were employed. CLINICAL HISTORY: EMBOLISM HX OF OPEN HEART SURG 2 WEEKS AGO FOR ANEURYSM COMPARISON: CT chest 03/29/2023 FINDINGS: There is slightly suboptimal opacification of the pulmonary artery, however no definite filling defects are identified in the pulmonary vasculature. Since the prior CT of the chest in March there has been interval repair of an ascending aortic aneurysm. An intimal flap remains present in the aortic arch extending into the abdominal aorta. There is marked compression of the true lumen in the descending thoracic aorta which significantly compromised, unchanged since the prior exam. There is a new moderate sized right pleural effusion and right lower lobe consolidation since the prior chest CT. There is no axillary adenopathy. There is no hilar or mediastinal adenopathy. The heart size is normal. Limited images of the upper abdomen are unremarkable other than absence of the gallbladder noted on the previous exam. IMPRESSION: Suboptimal opacification of the pulmonary artery, however no filling defects are identified in the pulmonary vasculature to suggest pulmonary embolus. The patient is status post repair of an ascending aortic aneurysm noted on the previous CT of 03/29/2023. The marked compression of the true lumen in the descending thoracic aorta remains present. The dissection extends into the abdominal aorta, also unchanged. New moderate right size pleural effusion and right lower lobe consolidation since the CT examination of March 2023. Reviewed, Interpreted and Dictated by Asa Conley MD Transcribed by Kelsi Parrish Authenticated and [facility]
[2023-05-13 13:05] VITALS: BP 132/71; PULSE 76; RESP 16; TEMP 36.4; O2SAT 96
--- NOTE | 2023-05-13 15:36 | PC.NURSE ---
1305 Patient was instructed per HAYDEN Quesada for Dr. Romano to present to [facility] ER care of Dr. Luz for evaluation of R pleural effusion/lung consolidation shown on CTA today 05/13/23 performed for patient complaints of right sided chest/right side pain. Patient and patient's verbalize understanding of all instruction. Left port flushed with NS 10ml/Heparin 500 units prior to deaccessing for discharge.
--- NOTE | 2023-05-13 15:42 | PC.NURSE ---
1055 Patient premedicated for CTA with Benadryl 50mg IV and Dexamethasone 20mg IV. Patient tolerated well
== END 2023-05-13 13:15 | disposition home or self-care (01) ==
PROVIDERS: PCP Internal Medicine Adolescent Medicine; Visit Provider Internal Medicine Medical Oncology
DX: C83.01 Small cell B-cell lymphoma, lymph nodes of head, face, and neck (principal); I26.01 Septic pulmonary embolism with acute cor pulmonale
CPT/HCPCS: 36415; 71275; 80053; 85025; 96375; J1642; Q9967

== ENCOUNTER 2023-05-26 09:49 | Outpatient (RCR) | payer BC, MEDICARE, SELFPAY | END 2023-07-15 14:00 | disposition home or self-care (01) | LOC: PT 09:49 | PROVIDERS: Visit Provider Thoracic Surgery (Cardiothoracic Vascular Surgery) | DX: I25.10 Atherosclerotic heart disease of native coronary artery without angina pectoris (principal); Z95.4 Presence of other heart-valve replacement | CPT/HCPCS: 93798 ==

== ENCOUNTER → 2023-06-13 11:54 | Outpatient (CLI) | payer BC, MEDICARE, SELFPAY ==
[2023-06-13 12:15] LABS: Basophils # 0.1 K/mm3 (0-0.2); Basophils % 0.9 % (0.1-2.0); Eosinophils # 0.3 K/mm3 (0.0-0.4); Eosinophils % 5.7 % (0.1-12.0); Hematocrit 41.8 % (37.0-47.0); Hemoglobin 13.1 g/dL (12.2-16.2); Lymphocytes # 0.8 K/mm3 (0.7-4.5); Lymphocytes % 13.7 % (10-50); Mean Corpuscular HGB Conc 31.4 g/dL (31.8-35.4); Mean Corpuscular Hemoglobin 27.5 pg (27.0-31.2); Mean Corpuscular Volume 87.5 fl (81-99); Mean Platelet Volume 8.3 fl (7.4-10.4); Monocytes # 0.3 K/mm3 (0.1-1.0); Monocytes % 5.5 % (1.7-9.3); Neutrophils # 4.1 K/mm3 (1.8-7.8); Neutrophils % 74.2 % (37.0-80.0); Platelet Count 304 K/mm3 (142-424); Red Blood Count 4.78 M/mm3 (4.20-5.40); Red Cell Distribution Width 20.3 % (11.5-17.5); White Blood Count 5.5 K/mm3 (4.8-10.8)
[2023-06-13 12:41] LABS: Chloride 103 mmol/L (98-107); Potassium 4.6 mmoL/L (3.5-5.1); Sodium 137 mmol/L (136-145)
[2023-06-13 12:44] LABS: Alanine Aminotransferase 26 U/L (12-78); Albumin Level 4.3 g/dl (3.5-5.0); Alkaline Phosphatase 106 U/L (38-126); Anion Gap 10.6 mEq/L (5-15); Aspartate Amino Transferase 23 U/L (14-36); Bilirubin,Direct 0.2 mg/dl (0.0-0.4); Bilirubin,Indirect 0.5 mg/dL (0.0-0.9); Bilirubin,Total 0.7 mg/dl (0.2-1.3); Bilirubin,Unconjugated 0.5 mg/dL (0.0-1.1); Blood Urea Nitrogen 16 mg/dl (7-17); Calcium 9.9 mg/dl (8.4-10.2); Carbon Dioxide 28 mmol/L (22.0-30.0); Cholesterol 166 mg/dl (140-200); Estimated Glomerular Filt Rate 84 ml/min (>60); GFR (African American) 101 ML/MIN (>60); Glucose 104 mg/dl (74-100); Total Protein,Serum 6.9 g/dl (6.3-8.2); Triglycerides 124 mg/dl (30-150); VLDL Cholesterol 25 mg/dL (0-40)
[2023-06-13 12:45] LABS: Chol/HDL Ratio 2.2 (1-3.5); HDL Cholesterol 77 mg/dl (40-60); Magnesium 1.9 mg/dl (1.6-2.3)
[2023-06-13 12:56] LABS: Direct LDL Cholesterol 69.95 mg/dL (100-129)
== END ==
PROVIDERS: PCP Internal Medicine Adolescent Medicine; Visit Provider Nurse Practitioner
DX: I25.10 Atherosclerotic heart disease of native coronary artery without angina pectoris (principal); I10 Essential (primary) hypertension; I70.1 Atherosclerosis of renal artery; I71.010 Dissection of ascending aorta; E78.5 Hyperlipidemia, unspecified
CPT/HCPCS: 36415; 80048; 80061; 80076; 83735; 85025

== ENCOUNTER 2023-06-16 08:48 | Outpatient (CLI) | payer BC, MEDICARE, SELFPAY ==
[2023-06-16 08:55] VITALS: BMI 26.6
[2023-06-16 09:15] LABS: Eosinophils # 0.2 K/mm3 (0.0-0.4); Eosinophils % 5.1 % (0.1-12.0); Hemoglobin 12.8 g/dL (12.2-16.2); Lymphocytes # 0.9 K/mm3 (0.7-4.5); Lymphocytes % 21.3 % (10-50); Mean Corpuscular HGB Conc 31.3 g/dL (31.8-35.4); Mean Corpuscular Hemoglobin 27.5 pg (27.0-31.2); Mean Platelet Volume 7.9 fl (7.4-10.4); Monocytes # 0.3 K/mm3 (0.1-1.0); Neutrophils # 2.8 K/mm3 (1.8-7.8); Neutrophils % 64.7 % (37.0-80.0); Platelet Count 283 K/mm3 (142-424); Red Blood Count 4.66 M/mm3 (4.20-5.40); Red Cell Distribution Width 20.6 % (11.5-17.5); White Blood Count 4.3 K/mm3 (4.8-10.8)
[2023-06-16 09:23] LABS: Alanine Aminotransferase 21 U/L (12-78); Albumin Level 4.2 g/dl (3.5-5.0); Albumin/Globulin Ratio 1.5 (1.1-1.8); Alkaline Phosphatase 91 U/L (38-126); Anion Gap 11.4 mEq/L (5-15); Aspartate Amino Transferase 24 U/L (14-36); Bilirubin,Total 0.6 mg/dl (0.2-1.3); Blood Urea Nitrogen 17 mg/dl (7-17); Calcium 9.2 mg/dl (8.4-10.2); Carbon Dioxide 26 mmol/L (22.0-30.0); Chloride 105 mmol/L (98-107); Creatinine Clearance Estimated 63 mL/min (50-200); Estimated Glomerular Filt Rate 72 ml/min (>60); GFR (African American) 87 ML/MIN (>60); Globulin 2.8 g/dL (1.3-3.2); Glucose 104 mg/dl (74-100); Potassium 4.4 mmoL/L (3.5-5.1); Sodium 138 mmol/L (136-145)
== END 2023-06-16 09:05 | disposition home or self-care (01) ==
LOC: INF 08:49
PROVIDERS: PCP Internal Medicine Adolescent Medicine; Visit Provider Internal Medicine Medical Oncology
DX: I26.01 Septic pulmonary embolism with acute cor pulmonale (principal)
CPT/HCPCS: 36591; 80053; 85025; J1642

== ENCOUNTER → 2023-06-30 07:58 | Outpatient (CLI) | payer BC, MEDICARE, SELFPAY ==
--- NOTE | 2023-06-30 08:01 | CA_ITS ---
FINAL REPORT TECHNIQUE: Grayscale, color Doppler and duplex Doppler ultrasound of the kidneys, aorta and renal arteries was performed. Multiple velocities were measured. CLINICAL HISTORY: renal artery stenosis per CTA 03/29/23 @ [facility], 8 weeks post op ascending aortic dissection repair & CABG. Ex smoker with solitary lt kidney due to Right RCC post removal of rgiht kidney. FINDINGS: Aorta velocity: 152 cm/sec An aortic dissection is noted. The right kidney is absent. Left Kidney: 11.4 cm. No evidence of hydronephrosis or mass. Left intrarenal RI: 0.67 Left renal artery velocity: 242 cm/sec. Left RAR (Renal Artery-Aortic Ratio): 1.6 IMPRESSION: Less than 60% left renal artery stenosis. CT angiogram or postcontrast MR angiogram would be more sensitive for evaluation of possible renal artery stenosis. Reviewed, Interpreted and Dictated by Lance Francois III, MD Transcribed by Nelli Melo Authenticated and [facility]
--- NOTE | 2023-06-30 08:02 | US_ITS ---
FINAL REPORT CLINICAL HISTORY: REST PAIN,CLAUDICATION,EXSMOKER,HTN,S/P AORTIC DISSECTION WITH REPAIR 8 WEEKS AGO FINDINGS: ANKLE-BRACHIAL PRESSURE INDICES Pressure indices are as follows: RIGHT LOWER EXTREMITY: Ankle-brachial pressure index: 1.09 Comments: Normal LEFT LOWER EXTREMITY: Ankle-brachial pressure index: 1.16 Comments: Normal IMPRESSION: No evidence of significant obstructive peripheral vascular disease of the lower extremities Reviewed, Interpreted and Dictated by Lance Francois III, MD Transcribed by Sayra Lang Authenticated and [facility]
--- NOTE | 2023-06-30 09:01 | US_ITS ---
FINAL REPORT TECHNIQUE: Ultrasound images of the kidneys and bladder were obtained. CLINICAL HISTORY: .rt kidney absent due to renal cell FINDINGS: The right kidney is absent. The left kidney measures 10.8 cm in length. It is normal in echogenicity. There is no hydronephrosis. The spleen is unremarkable. IMPRESSION: Status post right nephrectomy, otherwise unremarkable exam. Reviewed, Interpreted and Dictated by Lance Francois III, MD Transcribed by Nelli Melo Authenticated and . [facility]
== END ==
PROVIDERS: PCP Internal Medicine Adolescent Medicine; Visit Provider Nurse Practitioner
DX: I70.1 Atherosclerosis of renal artery (principal); I74.5 Embolism and thrombosis of iliac artery; N17.9 Acute kidney failure, unspecified
CPT/HCPCS: 76770; 93923; 93976

== ENCOUNTER 2023-07-12 12:25 | Outpatient (CLI) | payer BC, MEDICARE, SELFPAY ==
[2023-07-12 12:32] VITALS: BMI 28.4
[2023-07-12 12:59] LABS: Eosinophils # 0.2 K/mm3 (0.0-0.4); Eosinophils % 4.9 % (0.1-12.0); Hematocrit 43.7 % (37.0-47.0); Hemoglobin 14.3 g/dL (12.2-16.2); Lymphocytes # 0.8 K/mm3 (0.7-4.5); Lymphocytes % 19.2 % (10-50); Mean Corpuscular HGB Conc 32.6 g/dL (31.8-35.4); Mean Corpuscular Hemoglobin 29.2 pg (27.0-31.2); Mean Corpuscular Volume 89.5 fl (81-99); Mean Platelet Volume 8.2 fl (7.4-10.4); Monocytes # 0.2 K/mm3 (0.1-1.0); Monocytes % 5.6 % (1.7-9.3); Neutrophils # 2.7 K/mm3 (1.8-7.8); Neutrophils % 69.3 % (37.0-80.0); Platelet Count 207 K/mm3 (142-424); Red Blood Count 4.88 M/mm3 (4.20-5.40); Red Cell Distribution Width 20.7 % (11.5-17.5); White Blood Count 3.9 K/mm3 (4.8-10.8)
[2023-07-12 13:14] LABS: Alanine Aminotransferase 31 U/L (12-78); Albumin Level 4.4 g/dl (3.5-5.0); Albumin/Globulin Ratio 1.4 (1.1-1.8); Alkaline Phosphatase 124 U/L (38-126); Anion Gap 17.2 mEq/L (5-15); Aspartate Amino Transferase 24 U/L (14-36); Bilirubin,Total 0.7 mg/dl (0.2-1.3); Blood Urea Nitrogen 16 mg/dl (7-17); Calcium 9.5 mg/dl (8.4-10.2); Carbon Dioxide 24 mmol/L (22.0-30.0); Chloride 102 mmol/L (98-107); Creatinine Clearance Estimated 68 mL/min (50-200); Estimated Glomerular Filt Rate 72 ml/min (>60); GFR (African American) 87 ML/MIN (>60); Globulin 3.1 g/dL (1.3-3.2); Glucose 115 mg/dl (74-100); Potassium 4.2 mmoL/L (3.5-5.1); Sodium 139 mmol/L (136-145); Total Protein,Serum 7.5 g/dl (6.3-8.2)
[2023-07-13 08:20] LABS: Immunoglobulin M, Qn 764 mg/dL (26-217)
== END 2023-07-12 12:59 | disposition home or self-care (01) ==
LOC: INF 12:26
PROVIDERS: PCP Internal Medicine Adolescent Medicine; Visit Provider Internal Medicine Medical Oncology
DX: C83.00 Small cell B-cell lymphoma, unspecified site (principal); Z45.2 Encounter for adjustment and management of vascular access device
CPT/HCPCS: 36591; 80053; 82784; 85025; J1642

== ENCOUNTER → 2023-08-02 08:50 | Outpatient (CLI) | payer BC, MEDICARE, SELFPAY ==
--- NOTE | 2023-08-02 08:56 | CT_ITS ---
FINAL REPORT TECHNIQUE: Thin section axial CT images with coronal and sagittal reformats were performed through the neck. This study was performed with techniques to keep radiation doses as low as reasonably achievable (ALARA). Individualized dose reduction techniques using automated exposure control or adjustment of mA and/or kV according to the patient's size were employed. CLINICAL HISTORY: CANCER COMPARISON: 03/03/2023 FINDINGS: The hypopharynx, nasopharynx, and oropharynx are unremarkable in appearance. Salivary glands are normal. Larynx is unremarkable. Thyroid gland is unremarkable. There are a few small bilateral cervical nodes which have been noted on previous exams that are unchanged since that time. Overall the appearance is stable since the prior CT of February. IMPRESSION: No acute process, appearance is stable since the prior CT of February 2023. Reviewed, Interpreted and Dictated by Lance Francois III, MD Transcribed by Kelsi Parrish Authenticated and . [facility]
--- NOTE | 2023-08-02 08:57 | CT_ITS ---
FINAL REPORT CLINICAL HISTORY: CANCER COMPARISON: 03/03/2023 FINDINGS: Axial CT images of the abdomen and pelvis were obtained without intravenous contrast. Coronal and sagittal reformatted images were also obtained.This study was performed with techniques to keep radiation doses as low as reasonably achievable (ALARA). Individualized dose reduction techniques using automated exposure control or adjustment of mA and/or kV according to the patient's size were employed. Abdomen:The lung bases are clear. The patient has undergone a previous gastric bypass, cholecystectomy, and right nephrectomy. There are displaced internal calcifications in the abdominal aorta, consistent with a history of an aortic dissection. There is stable enlargement of the left adrenal gland again noted, favor adenoma. There is no evidence of renal stone or hydronephrosis.The liver, spleen and pancreas have an unremarkable, unenhanced appearance. No mass or adenopathy is seen. No inflammatory process is identified. Pelvis: Images of the pelvis reveal no evidence of ureteral dilation or ureteral stone.No mass or abnormal fluid collection is identified. The uterus has been surgically removed, and there has been kyphoplasty performed at several levels in the thoracolumbar spine. There are mildly enlarged bilateral inguinal nodes, stable, favor reactive. IMPRESSION: Displaced internal calcifications in the abdominal aorta, consistent with the history of dissection. Prior nephrectomy on the right, cholecystectomy, gastric bypass, and hysterectomy. No mass or adenopathy are noted. Reviewed, Interpreted and Dictated by Lance Francois III, MD Transcribed by Kelsi Parrish Authenticated and [facility]
--- NOTE | 2023-08-02 08:57 | CT_ITS ---
FINAL REPORT TECHNIQUE: Axial images were obtained from the lung apex to the mid abdomen by computed tomography. Coronal and sagittal reformatted images were obtained. This study was performed with techniques to keep radiation doses as low as reasonably achievable, (ALARA). Individualized dose reduction techniques using automated exposure control or adjustment of mA and/or kV according to the patient's size were employed. CLINICAL HISTORY: CANCER COMPARISON: 05/13/2023 FINDINGS: The patient has undergone a median sternotomy and has postoperative change involving the ascending aorta. A left subclavian port is once again identified. The ascending and descending thoracic aorta cannot be adequately evaluated for dissection without intravenous contrast, but there are displaced calcifications in the thoracic aorta consistent with a dissection as seen on the prior CT of April. There is no axillary adenopathy. There is no hilar or mediastinal adenopathy. Heart size is normal. There has been interval resolution of the right pleural effusion and right lower lobe atelectasis since the prior exam. There are multiple subacute right lateral rib fractures present, and a calcified granuloma is once again identified in the left lower lung field. IMPRESSION: There are postoperative changes in the ascending aorta, not accurately evaluated for dissection without use of intravenous contrast but there are displaced calcifications in the descending thoracic aorta, consistent with dissection as seen on the prior CT of April 2023. There has been interval resolution of the right lower lobe atelectasis and/or infiltrate and right pleural effusion since the prior CT. Reviewed, Interpreted and Dictated by Lance Francois III, MD Transcribed by Kelsi Parrish Authenticated and [facility]
== END ==
PROVIDERS: PCP Internal Medicine Adolescent Medicine; Visit Provider Internal Medicine Medical Oncology
DX: C83.01 Small cell B-cell lymphoma, lymph nodes of head, face, and neck (principal)
CPT/HCPCS: 70490; 71250; 74176

== ENCOUNTER 2023-08-09 10:02 | Outpatient (CLI) | payer BC, MEDICARE, SELFPAY ==
[2023-08-09 10:06] VITALS: BMI 28.1
[2023-08-09 10:22] LABS: Basophils # 0.1 K/mm3 (0-0.2); Basophils % 1.5 % (0.1-2.0); Eosinophils # 0.2 K/mm3 (0.0-0.4); Eosinophils % 5.8 % (0.1-12.0); Hematocrit 44.4 % (37.0-47.0); Hemoglobin 13.9 g/dL (12.2-16.2); Lymphocytes # 0.5 K/mm3 (0.7-4.5); Lymphocytes % 16.7 % (10-50); Mean Corpuscular HGB Conc 31.4 g/dL (31.8-35.4); Mean Corpuscular Hemoglobin 29.5 pg (27.0-31.2); Mean Platelet Volume 8.4 fl (7.4-10.4); Monocytes # 0.2 K/mm3 (0.1-1.0); Monocytes % 6.7 % (1.7-9.3); Neutrophils # 2.2 K/mm3 (1.8-7.8); Neutrophils % 69.3 % (37.0-80.0); Platelet Count 275 K/mm3 (142-424); Red Blood Count 4.72 M/mm3 (4.20-5.40); Red Cell Distribution Width 19.6 % (11.5-17.5); White Blood Count 3.2 K/mm3 (4.8-10.8)
[2023-08-09 10:37] LABS: Alanine Aminotransferase 22 U/L (12-78); Albumin Level 4.3 g/dl (3.5-5.0); Albumin/Globulin Ratio 1.4 (1.1-1.8); Alkaline Phosphatase 80 U/L (38-126); Anion Gap 14.3 mEq/L (5-15); Aspartate Amino Transferase 22 U/L (14-36); Bilirubin,Total 0.2 mg/dl (0.2-1.3); Blood Urea Nitrogen 13 mg/dl (7-17); Calcium 9.3 mg/dl (8.4-10.2); Carbon Dioxide 23 mmol/L (22.0-30.0); Chloride 108 mmol/L (98-107); Creatinine Clearance Estimated 67 mL/min (50-200); Estimated Glomerular Filt Rate 72 ml/min (>60); GFR (African American) 87 ML/MIN (>60); Glucose 81 mg/dl (74-100); Potassium 4.3 mmoL/L (3.5-5.1); Sodium 141 mmol/L (136-145); Total Protein,Serum 7.3 g/dl (6.3-8.2)
== END 2023-08-09 10:27 | disposition home or self-care (01) ==
LOC: INF 10:04
PROVIDERS: PCP Internal Medicine Adolescent Medicine; Visit Provider Internal Medicine Medical Oncology
DX: C83.00 Small cell B-cell lymphoma, unspecified site (principal); Z45.2 Encounter for adjustment and management of vascular access device
CPT/HCPCS: 36591; 80053; 85025; J1642

== ENCOUNTER → 2023-09-22 09:39 | Outpatient (CLI) | payer BC, MEDICARE, SELFPAY ==
[2023-09-22 09:45] VITALS: BMI 27.8
[2023-09-22 14:50] LABS: Basophils % 0.7 % (0.1-2.0); Eosinophils # 0.2 K/mm3 (0.0-0.4); Eosinophils % 4.5 % (0.1-12.0); Hematocrit 40.1 % (37.0-47.0); Hemoglobin 13.9 g/dL (12.2-16.2); Lymphocytes # 0.9 K/mm3 (0.7-4.5); Lymphocytes % 26.2 % (10-50); Mean Corpuscular HGB Conc 34.6 g/dL (31.8-35.4); Mean Corpuscular Volume 98.2 fl (81-99); Mean Platelet Volume 8.3 fl (7.4-10.4); Monocytes # 0.2 K/mm3 (0.1-1.0); Monocytes % 6.9 % (1.7-9.3); Neutrophils # 2.1 K/mm3 (1.8-7.8); Neutrophils % 61.7 % (37.0-80.0); Platelet Count 221 K/mm3 (142-424); Red Blood Count 4.08 M/mm3 (4.20-5.40); Red Cell Distribution Width 16.2 % (11.5-17.5); White Blood Count 3.4 K/mm3 (4.8-10.8)
[2023-09-22 15:02] LABS: Chloride 103 mmol/L (98-107); Potassium 4.8 mmoL/L (3.5-5.1); Sodium 135 mmol/L (136-145)
[2023-09-22 15:05] LABS: Alanine Aminotransferase 27 U/L (12-78); Albumin Level 4.2 g/dl (3.5-5.0); Albumin/Globulin Ratio 1.6 (1.1-1.8); Alkaline Phosphatase 80 U/L (38-126); Anion Gap 11.8 mEq/L (5-15); Aspartate Amino Transferase 37 U/L (14-36); Bilirubin,Total 0.5 mg/dl (0.2-1.3); Blood Urea Nitrogen 18 mg/dl (7-17); Carbon Dioxide 25 mmol/L (22.0-30.0); Creatinine Clearance Estimated 66 mL/min (50-200); Estimated Glomerular Filt Rate 55 ml/min (>60); GFR (African American) 67 ML/MIN (>60); Globulin 2.7 g/dL (1.3-3.2); Total Protein,Serum 6.9 g/dl (6.3-8.2)
[2023-09-22 15:06] LABS: Calcium 8.7 mg/dl (8.4-10.2); Glucose 91 mg/dl (74-100)
[2023-09-22 15:47] LABS: Lactate Dehydrogenase 176 U/L (313-618)
[2023-09-24 08:22] LABS: Immunoglobulin M, Qn 716 mg/dL (26-217)
[2023-09-26 13:09] LABS: Immunoglobulin A, Qn 78 mg/dL (87-352); Immunoglobulin G, Qn 700 mg/dL (586-1602); Immunoglobulin M, Qn 706 mg/dL (26-217)
[2023-09-26 14:10] LABS: Albumin 3.6 g/dL (2.9-4.4); Alpha-1-Globulin 0.2 g/dL (0.0-0.4); Alpha-2-Globulin 0.7 g/dL (0.4-1.0); Gamma Globulin 1.2 g/dL (0.4-1.8); Protein, Total 6.5 g/dL (6.0-8.5)
== END ==
LOC: LAB 09:40 → INF 09:48
PROVIDERS: PCP Internal Medicine Adolescent Medicine; Visit Provider Internal Medicine Medical Oncology
DX: C83.00 Small cell B-cell lymphoma, unspecified site; I25.10 Atherosclerotic heart disease of native coronary artery without angina pectoris; Z45.2 Encounter for adjustment and management of vascular access device
CPT/HCPCS: 36591; 80053; 82784; 83615; 84155; 84165; 85025; 86334; J1642

== ENCOUNTER → 2023-11-01 12:20 | Outpatient (CLI) | payer BC, MEDICARE, SELFPAY ==
--- NOTE | 2023-11-01 12:45 | CA_ITS ---
APPROVED REPORT EXAM: Comprehensive 2D, Doppler, and color-flow Echocardiogram Video Production Specialist: Giovana Hernandez RT(R) Ht: 5 ft 5 in Wt: 175lbs BSA: 1.87 BP: 126/65 mmHg Indications: HTN, fatigue, hyperlipidemia, hx of chemo, CAD, CABG, AAA reoair 03/2023. 2D Dimensions EF AP4 45.80 % GL Strain -13.7 % M-Mode Dimensions RVDd 3.26 cm (0.9-2.6) LA Diam 4.56 cm (1.9-4.0) LVDd 3.98 cm (3.5-5.7) LVDs 3.01 cm (3.5-5.7) IVSd 1.06 cm (0.6-1.1) PWd 0.76 cm (0.6-1.1) EF (Teich) 49.00% FS 24.40% EDV (Teich) 69.20 mL ESV (Teich) 35.30 mL LV Diastology E Decel Time 233 (160-240 msec) E/A Ratio 0.8 Mitral Valve MV E Max Don. 75.0 (40-130 cm/s) MV A Velocity 95.0 (40-130 cm/s) E/A Ratio 0.79 MV PHT 68.0 ms Tricuspid Valve TR P. Velocity 245.00 cm/s RAP Estimate 10.00 mmHg RVSP 34.10 mmHg Left Ventricle The left ventricle is normal size. The left ventricular systolic function is normal. The left ventricular ejection fraction is within the normal range. There is increased LV wall thickness. There is normal LV segmental wall motion. Transmitral Doppler flow pattern suggests impaired LV relaxation. LVEF is 60%. Right Ventricle The right ventricle is normal size. The right ventricular systolic function is normal. Atria The left atrium size is normal. The right atrium size is normal. There is no Doppler evidence of interatrial shunt. Aortic Valve The aortic valve is mildly thickened. There is no aortic valvular stenosis. Mild aortic regurgitation. Mitral Valve The mitral valve is mildly thickened. No evidence of mitral valve stenosis. Trace mitral regurgitation. Tricuspid Valve The tricuspid valve leaflets are not well-visualized. Mild tricuspid regurgitation. RVSP is 24 mmHg + RA pressure. Pulmonic Valve The pulmonic valve is not well-visualized. Great Vessels The aortic root is normal in size. The ascending aorta is not well-visualized. The IVC is not well-visualized. Pericardium There is no pericardial effusion. Other Information Study Quality: Technically Difficult Conclusion Technically difficult study due to poor acoustic windows. Normal biventricular systolic function. Mild AI. Mild TR. Electronically signed by : Jenny Membreno MD 11/07/2023 10:13:19
== END ==
PROVIDERS: PCP Internal Medicine Adolescent Medicine; Visit Provider Nurse Practitioner
DX: I11.9 Hypertensive heart disease without heart failure (principal); I25.10 Atherosclerotic heart disease of native coronary artery without angina pectoris; I70.1 Atherosclerosis of renal artery; I71.010 Dissection of ascending aorta; I74.5 Embolism and thrombosis of iliac artery; E78.5 Hyperlipidemia, unspecified; H53.9 Unspecified visual disturbance; C83.00 Small cell B-cell lymphoma, unspecified site; N17.9 Acute kidney failure, unspecified; Z92.21 Personal history of antineoplastic chemotherapy
CPT/HCPCS: 93306

== ENCOUNTER 2023-11-07 06:30 | Outpatient (CLI) | payer BC, MEDICARE, SELFPAY ==
--- NOTE | 2023-11-07 08:04 | CT_ITS ---
FINAL REPORT TECHNIQUE: thin section axial CT with and without IV contrast supplemented with multiplanar 3-D reconstruction of the head. This study was performed with techniques to keep radiation doses as low as reasonably achievable, (ALARA)individualized dose reduction techniques using automated exposure control or adjustment of mA and/or kV according to the patient's size were employed. CLINICAL HISTORY: HTN, hx of non hodgkin's lymphoma COMPARISON: None FINDINGS: HEAD CT: The ventricles are normal in size. There is no evidence of hemorrhage. No masses are identified. No extra-axial fluid is seen. The sinuses are normal. There is lobular mucoperiosteal thickening present in the paranasal sinuses consistent with chronic sinusitis. CTA: The cranial circulation is unremarkable. There is no significant stenosis, aneurysm or occlusion. IMPRESSION: No acute process. Reviewed, Interpreted and Dictated by Asa Conley MD Transcribed by Kelsi Parrish Authenticated and [facility]
--- NOTE | 2023-11-07 08:04 | CT_ITS ---
FINAL REPORT TECHNIQUE: NASCET technique utilized for stenosis evaluation. CLINICAL HISTORY: HTN, hx of non hodgkin's lymphoma COMPARISON: CT chest 03/29/2023 FINDINGS: Since the prior chest CT of March 2023 the patient has undergone a midline sternotomy. The patient has a known aortic dissection involving the ascending aorta, aortic arch, extending into the abdomen. There has been interval repair of the ascending aortic component of the dissection. The remainder of the dissection remains stable. There is a small component of dissection which extends into the right brachiocephalic artery. The false lumen extends into the proximal descending aorta. RIGHT CAROTID: No significant stenosis is seen of the cervical common or internal carotid artery. LEFT CAROTID: No significant stenosis seen of the cervical common or internal carotid artery. VERTEBRALS: The vertebrals are patent, with the vertebral arteries codominant. No significant stenosis is present. IMPRESSION: No significant arterial abnormality in the cervical vessels. Known aortic dissection as described, with interval repair of the ascending aortic component of the dissection since the prior chest CT of March 29. Reviewed, Interpreted and Dictated by Asa Conley MD Transcribed by Kelsi Parrish Authenticated and [facility]
[2023-11-07 08:24] VITALS: BMI 29.2
[2023-11-07 08:46] LABS: Blood Urea Nitrogen 15 mg/dl (7-17); Creatinine Clearance Estimated 70 mL/min (50-200); Estimated Glomerular Filt Rate 63 ml/min (>60); GFR (African American) 76 ML/MIN (>60)
== END 2023-11-07 10:10 | disposition home or self-care (01) ==
PROVIDERS: PCP Internal Medicine Adolescent Medicine; Visit Provider Nurse Practitioner
DX: C83.00 Small cell B-cell lymphoma, unspecified site (principal); E78.5 Hyperlipidemia, unspecified; H53.9 Unspecified visual disturbance; I10 Essential (primary) hypertension; I25.10 Atherosclerotic heart disease of native coronary artery without angina pectoris; I70.1 Atherosclerosis of renal artery; I71.010 Dissection of ascending aorta; I74.5 Embolism and thrombosis of iliac artery; N17.9 Acute kidney failure, unspecified; Z92.21 Personal history of antineoplastic chemotherapy
CPT/HCPCS: 36591; 70496; 70498; 82565; 84520; J1642; Q9967

== ENCOUNTER 2023-12-06 08:36 | Outpatient (CLI) | payer BC, MEDICARE, SELFPAY ==
--- NOTE | 2023-12-06 08:50 | CT_ITS ---
FINAL REPORT TECHNIQUE: Before and after the administration of intravenous contrast, axial images through the chest were performed by computed tomography. This study was performed with techniques to keep radiation doses as low as reasonably achievable, (ALARA). Individualized dose reduction techniques using automated exposure control or adjustment of mA and/or kV according to the patient's size were employed. CLINICAL HISTORY: lymphoma COMPARISON: 08/02/2023 FINDINGS: CT CHEST WITH AND WITHOUT CONTRAST: The patient has undergone prior midline sternotomy. Postoperative changes of ascending aortic dissection involving the arch and descending aorta are stable since the prior exam of April 26, 2023. Postoperative changes are also present at the gastroesophageal junction, also stable. There is linear atelectasis versus scar present in the right lung base. There is a calcified granuloma present in the left hemithorax posteriorly. There are also postoperative changes of the right humerus. There are multiple subacute right lateral rib fractures once again identified, also stable. A left subclavian port is once again identified. No new mass or adenopathy is present. No new infiltrates or effusions are identified. IMPRESSION: Stable postoperative changes of the ascending aorta and dissection involving the aortic arch and descending thoracic aorta No new mass or adenopathy is identified. Reviewed, Interpreted and Dictated by Lance Francois III, MD Transcribed by Kelsi Parrish Authenticated and [facility]
--- NOTE | 2023-12-06 08:50 | CT_ITS ---
FINAL REPORT TECHNIQUE: Axial CT images of the abdomen and pelvis were obtained before and after the administration of IV contrast. Oral contrast was administered.This study was performed with techniques to keep radiation doses as low as reasonably achievable (ALARA). Individualized dose reduction techniques using automated exposure control or adjustment of mA and/or kV according to the patient's size were employed. CLINICAL HISTORY: LYMPHOMA COMPARISON: 08/02/2023 FINDINGS: Abdomen: The lung bases are clear. The heart is normal in size. Postoperative changes are once again identified at the gastroesophageal junction. The liver has an unremarkable appearance, without evidence of mass. Mild biliary ductal dilatation is present, likely secondary to prior cholecystectomy. The gallbladder has been surgically resected.. The spleen is unremarkable. A left adrenal nodule is present, stable since the prior CT. The pancreas has an unremarkable appearance. The right kidney has been resected, and the left kidney is unremarkable in appearance. The aortic dissection noted on the prior exam remains present, with a slight increase in size of the true lumen when compared to the prior exam of 03/29/2023. This dissection extends into the proximal left renal artery, which is also stable. There is no free fluid or adenopathy. No mass or abnormal fluid collection is seen. Pelvis: The appendix is not well visualized. The urinary bladder is unremarkable. There are several bilateral inguinal nodes identified, stable since the prior exam. Postoperative changes from kyphoplasty at the L3 and L5 levels are again noted. No inflammatory process is seen. There is no evidence of new mass or adenopathy. There is no evidence of bowel obstruction. IMPRESSION: Aortic dissection noted on prior examinations remains present, extending into the proximal left renal artery, stable. The size of the true lumen is slightly increased when compared to the prior exam of March 29, 2023. Left adrenal nodule, stable. No new mass or adenopathy is identified. Reviewed, Interpreted and Dictated by Lance Francois III, MD Transcribed by Kelsi Parrish Authenticated and [facility]
[2023-12-06] MEDS: METHYLPREDNISOLONE SOD SUCC 125MG VIAL 125 MG (09:49)
[2023-12-06] MEDS: IOPAMIDOL-370 (76%);100ML BOTTLE 75 ML IV (10:31)
[2023-12-06] MEDS: BARIUM SULFATE(READI-CAT2);450ML BOTTLE 450 ML PO (10:32)
== END 2023-12-06 23:59 ==
LOC: RAD 08:37
PROVIDERS: PCP Internal Medicine Adolescent Medicine; Visit Provider Internal Medicine Medical Oncology
DX: C83.00 Small cell B-cell lymphoma, unspecified site (principal)
CPT/HCPCS: 71270; 74178; Q9967

== ENCOUNTER 2023-12-14 10:12 | Outpatient (CLI) | payer BC, MEDICARE, SELFPAY ==
[2023-12-14 10:18] VITALS: BMI 28.5
[2023-12-14] MEDS: SODIUM CHLORIDE 0.9% 10ML FLUSH SYRINGE 10 ML IV (10:31)
[2023-12-14 10:44] LABS: Basophils # 0.1 K/mm3 (0-0.2); Basophils % 0.5 % (0.1-2.0); Eosinophils # 0.2 K/mm3 (0.0-0.4); Eosinophils % 2.1 % (0.1-12.0); Hemoglobin 14.9 g/dL (12.2-16.2); Lymphocytes # 0.3 K/mm3 (0.7-4.5); Lymphocytes % 2.9 % (10-50); Mean Corpuscular HGB Conc 34.7 g/dL (31.8-35.4); Mean Corpuscular Hemoglobin 35.9 pg (27.0-31.2); Mean Corpuscular Volume 103.4 fl (81-99); Monocytes # 0.3 K/mm3 (0.1-1.0); Monocytes % 3.8 % (1.7-9.3); Neutrophils # 7.9 K/mm3 (1.8-7.8); Neutrophils % 90.7 % (37.0-80.0); Platelet Count 133 K/mm3 (142-424); Red Blood Count 4.16 M/mm3 (4.20-5.40); White Blood Count 8.7 K/mm3 (4.8-10.8)
[2023-12-14 10:47] LABS: MANUAL DIFFERENTIAL MANUAL DIFFERENTIAL (MANUAL DIFF)
[2023-12-14 10:51] LABS: Chloride 100 mmol/L (98-107); Potassium 3.9 mmoL/L (3.5-5.1); Sodium 132 mmol/L (136-145)
[2023-12-14 10:53] LABS: Alanine Aminotransferase 29 U/L (12-78); Alkaline Phosphatase 152 U/L (38-126); Anion Gap 14.9 mEq/L (5-15); Aspartate Amino Transferase 31 U/L (14-36); Bilirubin,Total 1.5 mg/dl (0.2-1.3); Blood Urea Nitrogen 9 mg/dl (7-17); Carbon Dioxide 21 mmol/L (22.0-30.0); Creatinine Clearance Estimated 68 mL/min (50-200); Estimated Glomerular Filt Rate 55 ml/min (>60); GFR (African American) 67 ML/MIN (>60)
[2023-12-14 10:54] LABS: Albumin/Globulin Ratio 1.3 (1.1-1.8); Calcium 8.3 mg/dl (8.4-10.2); Globulin 3.1 g/dL (1.3-3.2); Glucose 116 mg/dl (74-100); Total Protein,Serum 7.1 g/dl (6.3-8.2)
[2023-12-14 12:11] LABS: Lymphocytes % 5 % (10-50); Macrocytosis 1+; Monocytes % 6 % (2-9); Neutrophils % 89 % (42-76); Ovalocytes 1+; Platelet Estimate Slight Decrease; Total Cells Counted 100
[2023-12-14 13:04] LABS: Lactate Dehydrogenase 233 U/L (313-618)
[2023-12-14 15:13] LABS: Bilirubin,Direct 0.7 mg/dl (0.0-0.4)
[2023-12-14 15:41] LABS: Bilirubin,Indirect 0.8 mg/dL (0.0-0.9)
== END 2023-12-14 10:55 | disposition home or self-care (01) ==
LOC: INF 10:15
PROVIDERS: PCP Internal Medicine Adolescent Medicine; Visit Provider Internal Medicine Medical Oncology
DX: Z45.2 Encounter for adjustment and management of vascular access device (principal); C83.00 Small cell B-cell lymphoma, unspecified site
CPT/HCPCS: 36591; 80053; 82248; 83615; 85007; 85025; J1642

== ENCOUNTER 2024-04-09 07:36 | Outpatient (CLI) | payer BC, MEDICARE, SELFPAY ==
--- NOTE | 2024-04-09 07:40 | CT_ITS ---
FINAL REPORT CLINICAL HISTORY: CONTUSION OF FACE COMPARISON: Neck CT dated 11/07 2023 FINDINGS: No fracture is identified. There is minimal mucoperiosteal thickening in the right maxillary sinus. There are no air-fluid levels. Along the lateral aspect of the left mandible is a lobular rounded mass measuring 4.4 cm in diameter. There is adjacent soft tissue swelling. This focus demonstrates a mean attenuation value of 13 Hounsfield units. There is a secondary component in the left submandibular region measuring approximately 3.8 x 2.2 cm. A third lesion in the submental region on the left measures 1.8 x 1.4 cm. IMPRESSION: Three separate low-attenuation lesions, the largest of which is in the lateral aspect of the left mandible. These are new compared to the prior exam and could represent hematomas, abscesses, or neoplasia. Careful clinical correlation is recommended. An infused neck CT may be of value. Reviewed, Interpreted and Dictated by Asa Conley MD Transcribed by Tammie Elam Authenticated and [facility]
== END 2024-04-09 23:59 | disposition home or self-care (01) ==
LOC: RAD 07:37
PROVIDERS: PCP Internal Medicine Adolescent Medicine; Visit Provider Internal Medicine Adolescent Medicine
DX: G50.1 Atypical facial pain (principal); S00.83XD Contusion of other part of head, subsequent encounter; W19.XXXA Unspecified fall, initial encounter
CPT/HCPCS: 70486

== ENCOUNTER 2024-05-14 08:46 | Outpatient (CLI) | payer BC, MEDICARE, SELFPAY ==
--- NOTE | 2024-05-14 08:52 | CT_ITS ---
FINAL REPORT CLINICAL HISTORY: MANDIBULAR MASS COMPARISON: None FINDINGS: Mild atrophy and chronic ischemic white matter changes are noted. No cortical edema is present. There is no mass or hemorrhage. Ventricles are normal. Bone windows show no skull fracture or obvious obstructive lesion. IMPRESSION: 1. No acute intracranial abnormality or obvious mass. 2. Mild atrophy and chronic ischemic white matter changes as above. Reviewed, Interpreted and Dictated by Augusto Coe MD Transcribed by Kelsi Parrish Authenticated and [facility]
--- NOTE | 2024-05-14 08:53 | CT_ITS ---
FINAL REPORT TECHNIQUE: Thin section axial CT with coronal reconstruction without IV contrast CLINICAL HISTORY: MANDIBULAR MASS COMPARISON: 04/09/2024 FINDINGS: The salivary glands are unremarkable in appearance. The previously noted masses in the left submandibular and left submental regions have resolved. There is an abnormal soft tissue density during 23 x 14 mm in size anterior to the left parotid, was previously 33 x 44 mm in size. No abnormal densities are noted within the parotid gland. There is bilateral maxillary sinusitis and mild soft tissue thickening in the ethmoid air cells, new since the prior exam. The orbits are unremarkable in appearance. IMPRESSION: Left submandibular and left submental masses have resolved since the prior exam. The abnormal soft tissue density anterior to the left parotid is significantly smaller, likely either secondary to treatment or resolved fluid collection or hematoma. New bilateral maxillary sinusitis and ethmoid soft tissue thickening. Reviewed, Interpreted and Dictated by Augusto Coe MD Transcribed by Kelsi Parrish Authenticated and [facility]
== END 2024-05-14 23:59 | disposition home or self-care (01) ==
LOC: RAD 08:46
PROVIDERS: PCP Nurse Practitioner Family; Visit Provider Nurse Practitioner Family
DX: R41.0 Disorientation, unspecified (principal); R29.6 Repeated falls; R22.0 Localized swelling, mass and lump, head; S00.83XD Contusion of other part of head, subsequent encounter
CPT/HCPCS: 70450; 70486

== ENCOUNTER 2024-06-08 12:33 | Outpatient (CLI) | payer MEDICARE, BC, SELFPAY ==
[2024-06-08 13:17] LABS: Basophils % 0.2 % (0.1-2.0); Eosinophils # 0.1 K/mm3 (0.0-0.4); Eosinophils % 0.5 % (0.1-12.0); Hematocrit 31.3 % (37.0-47.0); Hemoglobin 10.1 g/dL (12.2-16.2); Lymphocytes # 0.1 K/mm3 (0.7-4.5); Lymphocytes % 0.7 % (10-50); Mean Corpuscular HGB Conc 32.3 g/dL (31.8-35.4); Mean Corpuscular Hemoglobin 32.9 pg (27.0-31.2); Mean Platelet Volume 8.7 fl (7.4-10.4); Monocytes # 0.4 K/mm3 (0.1-1.0); Monocytes % 2.3 % (1.7-9.3); Neutrophils # 15.7 K/mm3 (1.8-7.8); Neutrophils % 96.2 % (37.0-80.0); Platelet Count 493 K/mm3 (142-424); Red Blood Count 3.07 M/mm3 (4.20-5.40); Red Cell Distribution Width 21.8 % (11.5-17.5); White Blood Count 16.3 K/mm3 (4.8-10.8)
[2024-06-08 13:20] LABS: MANUAL DIFFERENTIAL MANUAL DIFFERENTIAL (MANUAL DIFF)
[2024-06-08 13:36] LABS: Alanine Aminotransferase 45 U/L (12-78); Albumin Level 2.5 g/dl (3.5-5.0); Albumin/Globulin Ratio 1.1 (1.1-1.8); Alkaline Phosphatase 128 U/L (38-126); Anion Gap 14.5 mEq/L (5-15); Aspartate Amino Transferase 34 U/L (14-36); Bilirubin,Total 1.5 mg/dl (0.2-1.3); Blood Urea Nitrogen 25 mg/dl (7-17); Calcium 8.3 mg/dl (8.4-10.2); Carbon Dioxide 18 mmol/L (22.0-30.0); Chloride 97 mmol/L (98-107); Estimated Glomerular Filt Rate 45 ml/min (>60); GFR (African American) 54 ML/MIN (>60); Globulin 2.2 g/dL (1.3-3.2); Glucose 97 mg/dl (74-100); Magnesium 1.7 mg/dl (1.6-2.3); Potassium 3.5 mmoL/L (3.5-5.1); Sodium 126 mmol/L (136-145); Total Protein,Serum 4.7 g/dl (6.3-8.2)
[2024-06-08 13:43] LABS: C-Reactive Protein 76.4 mg/L (0-4)
[2024-06-08 13:54] LABS: 25-OH Vitamin D, Total 30.8 ng/mL (30-100)
[2024-06-08 14:08] LABS: Thyroid Stimulating Hormone 2.29 uIU/mL (0.465-4.68)
[2024-06-08 14:26] LABS: Anisocytosis 1+; Monocytes % 2 % (2-9); Neutrophils % 98 % (42-76); Platelet Estimate Normal; Total Cells Counted 100
[2024-06-08 14:44] LABS: Vitamin B12 733 pg/mL (239-931)
[2024-06-08 14:52] LABS: Folate 3.47 ng/mL
[2024-06-08 15:33] LABS: Iron 27 ug/dL (37-170)
[2024-06-08 15:41] LABS: Hemoglobin A1C 4.3 % (4.0-6.0)
[2024-06-08 15:43] LABS: Total Iron Binding Capacity 183 ug/dL (265-497)
[2024-06-08 16:09] LABS: Ferritin 250 ng/ml (11.1-264)
== END 2024-06-08 23:59 | disposition home or self-care (01) ==
LOC: LAB 12:34
PROVIDERS: PCP Internal Medicine Adolescent Medicine; Visit Provider Physician Assistant
DX: R53.83 Other fatigue (principal); Z79.899 Other long term (current) drug therapy; D64.9 Anemia, unspecified; C83.00 Small cell B-cell lymphoma, unspecified site
CPT/HCPCS: 36415; 80053; 82306; 82607; 82728; 82746; 83036; 83540; 83550; 83735; 84443; 85007; 85025; 86140

== ENCOUNTER 2024-06-08 17:29 | Inpatient (IN) | payer BC, MEDICARE, SELFPAY ==
[2024-06-08] VITALS (7 sets, daily range): BP systolic 89–96; BP diastolic 47–58; PULSE 82–91; RESP 17–20; TEMP 36.3–36.9; O2SAT 98–100; BMI 24.1; BMI 24.2
--- NOTE | 2024-06-08 17:51 | XR_ITS ---
PROCEDURE INFORMATION: Exam: XR Chest Exam date and time: 06/08/2024 5:58 PM Age: 69 years old Clinical indication: Shortness of breath; Additional info: Dyspnea TECHNIQUE: Imaging protocol: Radiologic exam of the chest. Views: 1 view. COMPARISON: CT CHEST WO/W CON 12/06/2023 9:45 AM FINDINGS: Tubes, catheters and devices: Left chest wall port catheter with tip terminating over the mid SVC. Lungs: Mild right lateral lung opacities. Pleural spaces: No pleural effusion. No pneumothorax. Heart/Mediastinum: No cardiomegaly. Calcified left hilar lymph node. Calcified left lower lung granuloma. Bones/joints: Right anterolateral 7th rib fracture. Median sternotomy. Right proximal humerus plate and screw fixation. Soft tissues: Multiple right upper chest surgical clips. IMPRESSION: Right anterolateral 7th rib fracture. Mild adjacent right lateral lung opacities which may represent contusion in the setting of trauma.
--- NOTE | 2024-06-08 17:51 | CT_ITS ---
PROCEDURE INFORMATION: Exam: CT Head Without Contrast Exam date and time: 06/08/2024 6:08 PM Age: 69 years old Clinical indication: Injury or trauma; Fall; Blunt trauma (contusions or hematomas); Additional info: Fall, injury TECHNIQUE: Imaging protocol: Computed tomography of the head without contrast. Radiation optimization: All CT scans at this facility use at least one of these dose optimization techniques: automated exposure control; mA and/or kV adjustment per patient size (includes targeted exams where dose is matched to clinical indication); or iterative reconstruction. COMPARISON: CT HEAD/BRAIN WO CON 05/14/2024 9:04 AM FINDINGS: Brain: No acute intracranial hemorrhage, midline shift or mass effect. Diffuse brain parenchymal volume loss. Mild hypodensities within the cerebral white matter most consistent with chronic small-vessel ischemic changes. Cerebral ventricles: No ventriculomegaly. Paranasal sinuses: Visualized sinuses are unremarkable. No fluid levels. Mastoid air cells: Visualized mastoid air cells are well aerated. Bones: Unremarkable. No acute fracture. Soft tissues: Unremarkable. IMPRESSION: No acute intracranial findings.
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
[2024-06-08 17:54] LABS: VBG Base Excess -12.7 mmol/L (-2.4-2.3); VBG HCO3 13.4 mmol/L (23-30); VBG Oxygen Saturation 53.8 % (50-70); VBG PCO2 26.7 mmol/L (35-51); VBG PH 7.32 mmol/L (7.31-7.41); VBG PO2 33.2 mmol/L (28-40); VBG Total CO2 14.2 mmol/L (23-27)
[2024-06-08 17:57] LABS: Lactate Venous 7.1 mmol/L (0.4-2.0)
--- NOTE | 2024-06-08 17:57 | PC.NURSE ---
pt to ct
[2024-06-08 18:02] LABS: Basophils # 0.1 K/mm3 (0-0.2); Basophils % 0.2 % (0.1-2.0); Eosinophils # 0.1 K/mm3 (0.0-0.4); Eosinophils % 0.2 % (0.1-12.0); Hematocrit 32.5 % (37.0-47.0); Hemoglobin 10.3 g/dL (12.2-16.2); Lymphocytes # 0.2 K/mm3 (0.7-4.5); Lymphocytes % 0.8 % (10-50); Mean Corpuscular HGB Conc 31.7 g/dL (31.8-35.4); Mean Corpuscular Hemoglobin 33.2 pg (27.0-31.2); Mean Corpuscular Volume 104.6 fl (81-99); Mean Platelet Volume 8.9 fl (7.4-10.4); Monocytes # 0.7 K/mm3 (0.1-1.0); Monocytes % 2.8 % (1.7-9.3); Neutrophils # 21.9 K/mm3 (1.8-7.8); Neutrophils % 95.9 % (37.0-80.0); Platelet Count 492 K/mm3 (142-424); White Blood Count 22.8 K/mm3 (4.8-10.8)
[2024-06-08 18:06] LABS: Chloride 97 mmol/L (98-107); Sodium 127 mmol/L (136-145)
[2024-06-08 18:07] LABS: Potassium 4.2 mmoL/L (3.5-5.1)
[2024-06-08 18:09] LABS: Albumin Level 2.8 g/dl (3.5-5.0); Alkaline Phosphatase 117 U/L (38-126); Anion Gap 20.2 mEq/L (5-15); Bilirubin,Total 1.5 mg/dl (0.2-1.3); Blood Urea Nitrogen 25 mg/dl (7-17); Calcium 8.3 mg/dl (8.4-10.2); Carbon Dioxide 14 mmol/L (22.0-30.0); Creatine Kinase 51 U/L (30-135); Creatinine Clearance Estimated 38 mL/min (50-200); Estimated Glomerular Filt Rate 35 ml/min (>60); GFR (African American) 42 ML/MIN (>60); Globulin 2.7 g/dL (1.3-3.2); Glucose 108 mg/dl (74-100); Total Protein,Serum 5.5 g/dl (6.3-8.2)
--- NOTE | 2024-06-08 18:10 | PC.NURSE ---
PT RETURNED FROM CT
[2024-06-08 18:15] LABS: Alanine Aminotransferase 77 U/L (12-78)
[2024-06-08 18:16] LABS: Aspartate Amino Transferase 67 U/L (14-36)
[2024-06-08 18:18] LABS: NT Pro Brain Natriuretic Pep. 4740 pg/mL (0-125)
[2024-06-08] MEDS: LACTATED RINGERS 1000ML 1,000 ML 855 ML IV (18:19)
--- NOTE | 2024-06-08 18:23 | ECG_ITS ---
APPROVED REPORT Exam: Resting ECG HR:86 bpm ECG Measurements Heart Rate 86 AXES SD 175 P 30 QRSd 92 QRS 48 QT 386 T 61 QTc 430 Conclusion SINUS RHYTHM NORMAL ECG UNCONFIRMED REPORT Electronically signed by : Gomez Sood, 06/08/2024 23:17:11
[2024-06-08 18:29] LABS: Ethyl Alcohol < 10 mg/dl (0-10); Troponin I < 0.01 ng/ml (0.00-0.034)
[2024-06-08 18:40] LABS: INR 0.92 (0.9-1.1); Prothrombin Time 10.4 seconds (10.1-12.5)
--- NOTE | 2024-06-08 19:01 | CT_ITS ---
PROCEDURE INFORMATION: Exam: CT Chest Without Contrast; Diagnostic Exam date and time: 06/08/2024 7:11 PM Age: 69 years old Clinical indication: Other: Weakness; Additional info: F/u abnormal cxr TECHNIQUE: Imaging protocol: Diagnostic computed tomography of the chest without contrast. Radiation optimization: All CT scans at this facility use at least one of these dose optimization techniques: automated exposure control; mA and/or kV adjustment per patient size (includes targeted exams where dose is matched to clinical indication); or iterative reconstruction. COMPARISON: CT CHEST WO/W CON 12/06/2023 9:45 AM FINDINGS: Tubes, catheters and devices: Left chest wall port catheter with tip terminating within the SVC. Lungs: Mild subsegmental atelectasis and/or scarring. No consolidation. No masses. Stable calcified left lower lobe granulomas. Pleural spaces: No pneumothorax. No pleural effusion. Heart: Mild cardiomegaly. No pericardial effusion. Lymph nodes: Calcified left hilar lymph node. Vasculature: Stable postsurgical changes of ascending thoracic aortic repair. Chronic aortic dissection involving the arch and descending thoracic aorta. Diaphragm: Small hiatal hernia. Liver: Hepatic steatosis Gallbladder and biliary ducts: Cholecystectomy. Spleen: Splenic calcified granulomas. Stomach: Gastric bypass surgery. Bones/joints: Median sternotomy. Right proximal humerus ORIF. Subacute healing right anterolateral 5th-9th rib fractures with persistent fracture lucency. Subacute healing nondisplaced left anterolateral 5th rib fracture. Old healed right 3rd-6th rib fractures. Soft tissues: Unremarkable. IMPRESSION: 1. No acute intrathoracic findings. 2. Subacute healing right anterolateral 5th-9th rib fractures with persistent fracture lucency. Subacute healing nondisplaced left anterolateral 5th rib fracture. Old healed right 3rd-6th rib fractures. 3. Stable postsurgical changes of ascending thoracic aortic repair and chronic dissection involving the aortic arch and descending thoracic aorta.
--- NOTE | 2024-06-08 19:25 | PC.NURSE ---
Dr. Sood is s/w the hospitalist for admission
--- NOTE | 2024-06-08 19:29 | PC.NURSE ---
elementary supervisor notified of admission- hyponatremia to the hospitalist
--- NOTE | 2024-06-08 19:30 | PC.NURSE ---
Dr. Sood is aware that pt triggers SIRS criteria, however he does not believe she is septic d/t no documented source of infection
--- NOTE | 2024-06-08 19:47 | PC.NURSE ---
Attempted to call report, nurse is not available. Will try again
--- NOTE | 2024-06-08 20:07 | PC.NURSE ---
report called to orquidea BLAKE at this time
--- NOTE | 2024-06-08 20:16 | PC.NURSE ---
MD Sood aware of pts BP 92/47
--- NOTE | 2024-06-08 20:41 | PC.NURSE ---
pt arrived to floor via stretcher @20:29
--- NOTE | 2024-06-08 21:20 | P.HP_ITS ---
History of Present Illness *Admission Date: 06/08/24 *Reason for visit:: Abnormal labs, generalized weakness *History of present illness: Adrienne Aiken is a 69-year-old female past medical history significant for renal cell carcinoma status post nephrectomy, CAD, HTN, HLD, lymphoma, alcohol abuse who presents emergency room tonight after being seen at her primary care physician's office today for low sodium and generalized weakness. Ms. Aiken states that she has been feeling weak over the last couple of weeks. Does report that she has diarrhea that has been ongoing for the last couple weeks. Patient is a bit of a poor historian and appears sometimes inconsistent with her information. Tells me that she has been drinking a lot of water because of her diarrhea. Also tells me that she had a drink of wine within the last week, unable to tell me how much wine she drank. She tells me that her often times calls her drunk . States that she thinks she might of antibiotics a couple weeks ago but cannot remember what for. Last had chemo a few months ago for her lymphoma. States that the last PET scan she had done did not show cancer anywhere from her renal cell carcinoma. Does have a port in her left chest. Does tell me that she has had multiple falls over the last couple of days, denies any syncopal events resulted in falls. No neck or back pain noted, no LOC noted. Denies any fever, chills, muscle aches. No chest pain, shortness of breath, no productive cough, abdominal pain, bowel or bladder dysfunction. No dysuria, hematuria, no melena noted. No focal neurodeficits. Denies tobacco use, illicit drug use. Has had a history of alcohol abuse in the past, tells me her last drink was this week. Does not take any blood thinners. No recent weight gain or weight loss. Pt tells me that she was at [facility] for open heart surgery approximately 2 months ago. Workup in the ER showed elevated white count of 22,000, H&H chronically low but stable at 10.3 and 32. Sodium at 127, anion gap elevated at 20.2, BUN 25, creatinine 1.5. Baseline creatinine is typically around 1. ALT and AST still elevated at 7767, BNP elevated at 4740. No source of infection identified. Chest x-ray showed some old rib fractures, CT of the chest confirmed medial rib fractures, no pneumonia noted. Urine and stool PCR pending at this time. Blood cultures pending. Patient has no abdominal pain, denies any fever. She will be noted to the hospitalist service for ANCELMO and hyponatremia. [facility] Disclaimer: The information contained in this section may have been updated after the patient was seen, as this information can be updated by other users. Medical History Anemia Arthritis Blood in left ear canal Chronic eustachian tube dysfunction History of chemotherapy History of hypothyroidism History of thyroid disease Hypertension Lymphoma Spontaneous rupture of tympanic membrane of left ear concurrent with and due to acute suppurative otitis media Surgical History History of tonsillectomy Family History Other Diabetes Social History (Updated 06/08/24 @ 21:08 by Evette Freeman RN) Smoking Status: Never smoker second hand exposure: Yes alcohol intake: former substance use type: denies use current occupational status: retired Travel in the last 8 weeks: None household members: spouse housing: house current occupational exposures/hazards: No caffeine: No Review of Systems Review of Systems Review of systems:: pertinent systems reviewed and negative unless documented below *Gastrointestinal Gastrointestinal: Reports diarrhea *Musculoskeletal Musculoskeletal: Reports muscle weakness Meds Home Medications and Allergies Home Medications Medication Instructions Recorded Confirmed Type duloxetine 60 mg capsule,delayed 60 mg PO BID Depression 06/13/23 06/08/24 History release metoprolol tartrate 50 mg tablet 50 mg PO BID 06/13/23 06/08/24 History ibuprofen 600 mg tablet 600 mg PO TID PRN Joint pain 12/14/23 06/08/24 History New Prescriptions to Start Prescriptions: Allergies Allergy/AdvReac Type Severity Reaction Status Date / Time Iodinated Contrast Media Allergy Intermediate Hives Verified 06/08/24 18:02 [Iodinated Contrast Media - Oral and] Sulfa (Sulfonamide Allergy Unknown Verified 06/08/24 18:02 Antibiotics) allergy reaction Exam Data for Last 24 hours Vital signs and Labs for Last 24 Hours: Temp Pulse Resp BP Pulse Ox O2 Del Method 98.3 F 85 20 89/57 L 100 Room Air 06/08/24 20:09 06/08/24 20:11 06/08/24 20:09 06/08/24 20:11 06/08/24 20:11 06/08/24 20:09 Laboratory Results - last 24 hr 06/08/24 17:39: WBC 22.8 H* D, RBC 3.10 L, Hgb 10.3 L, Hct 32.5 L, MCV 104.6 H, MCH 33.2 H, MCHC 31.7 L, RDW 22.0 H, Plt Count 492 H, MPV 8.9, Neut % (Auto) 95.9 H, Lymph % (Auto) 0.8 L, [place] % (Auto) 2.8, Eos % (Auto) 0.2, Baso % (Auto) 0.2, Neut # (Auto) 21.9 H, Lymph # (Auto) 0.2 L, [place] # (Auto) 0.7, Eos # (Auto) 0.1, Baso # (Auto) 0.1, PT 10.4, INR 0.92, Sodium 127 L, Potassium 4.2, Chloride 97 L, Carbon Dioxide 14 L, Anion Gap 20.2 H, BUN 25 H, Creatinine 1.50 H D, Estimated Creat Clear 38, Estimated GFR 35 L, Est GFR ( Amer) 42 L D, Glucose 108 H, Calcium 8.3 L, Total Bilirubin 1.5 H, AST 67 H D, ALT 77 D, Alkaline Phosphatase 117, Total Creatine Kinase 51, Troponin I < 0.01, NT-Pro-B Natriuret Pep 4740 H, Total Protein 5.5 L, Albumin 2.8 L D, Globulin 2.7, Albumin/Globulin Ratio 1.0 L, TSH 1.90, Plasma/Serum Alcohol < 10 06/08/24 17:43: VBG pH 7.32, VBG pCO2 26.7 L, VBG pO2 33.2, VBG HCO3 13.4 L, VBG Total CO2 14.2 L, VBG O2 Saturation 53.8, VBG Base Excess -12.7 L, VBG Lactic Acid 7.1 H I & O for Last 24 hours: Intake & Output 06/05/24 06/06/24 06/07/24 06/08/24 23:59 23:59 23:59 23:59 Weight 65.771 kg *Routine HEENT Exam Head: Present normocephalic and atraumatic Eye: Present EOMI and PERRL ENT: Present mucous membranes moist *Routine Neck Exam Neck: Present supple and full ROM *Routine Respiratory Exam Respiratory: Present CTA bilaterally *Routine Cardiovascular Exam Cardiovascular: Present RRR, Normal S1 and Normal S2 *Routine Abdominal Exam Abdominal: Present soft and normoactive bowel sounds *Routine Rectal Exam Rectal:: deferred *Routine Genitalia Exam Genitalia:: deferred *Routine Extremities Exam Extremities: Present pulses intact and normal capillary refill *Routine Skin Exam Skin: Present intact and ecchymosis Comments: generalized bruising on face, extremities, *Routine Neurological Exam Neurological: Present alert and oriented X3 Assessment and Plan *Assessment and plan (1) ANCELMO (acute kidney injury): Status: Acute Category: Medical Code(s): N17.9 - Acute kidney failure, unspecified (2) Hyponatremia: Status: Acute Category: Medical Code(s): E87.1 - Hypo-osmolality and hyponatremia (3) Hypertension: Status: Acute Qualifiers: Hypertension type: unspecified Qualified Code(s): I10 - Essential (primary) hypertension Category: Medical Code(s): I10 - Essential (primary) hypertension (4) Hyperlipidemia: Status: Acute Qualifiers: Hyperlipidemia type: unspecified Qualified Code(s): E78.5 - Hyperlipidemia, unspecified Category: Medical Code(s): E78.5 - Hyperlipidemia, unspecified (5) CAD (coronary artery disease): Status: Acute Qualifiers: Associated angina: without angina Coronary Disease-Associated Artery/Lesion type: [place] artery [place] vs. transplanted heart: [place] heart Qualified Code(s): I25.10 - Atherosclerotic heart disease of [place] coronary artery without angina pectoris Category: Medical Code(s): I25.10 - Atherosclerotic heart disease of [place] coronary artery without angina pectoris (6) Frequent falls: Status: Acute Category: Medical Code(s): R29.6 - Repeated falls (7) Generalized weakness: Status: Acute Category: Medical Code(s): R53.1 - Weakness Plan Assessment: This is a 69-year-old female being admitted for ANCELMO and hyponatremia. On my exam, patient is lying in bed in no acute distress. No complaints at this time. Plan: Admit to inpatient- [place] ANCELMO -baseline creatinine is around 1.0 -avoid nephrotoxic medications -monitor serum BUN/Creatinine -Patient did receive a 1L IVF bolus in the ER, with elevated BNP, will hold off on additional IVF at this time Hyponatremia -from pt self reported excessive PO water intake, vs loss from diarrhea vs SIADH? Pt also has a history of alcohol abuse -urine studies ordered -pt received a liter of fluids in the ER, does have an elevated BNP so will monitor fluid status closely -monitor sodium levels Leukocytosis Elevated anion gap -Pt not acidotic, no source of infection noted at this time -Does have a history of RCC as well as lymphoma -Will monitor WBC count, will continue to seek out potential source of infection -With holding antibiotics at this time due to no evidence of infection Chronic diarrhea -stool PCR pending HTN -continue lopressor CAD s/p CABG s/p aortic dissection -Requesting records from [facility], Prior notes states she had a CABG and an aortic dissection and that was repaired in March 2023 -Does not appear to be on any blood thinners Renal cell Carcinoma Lymphoblastic lymphoma -sees Dr. Peace -s/p nephrectomy -not on chemo at this time, last CT scan in Nov did not show any active disease H/O alcohol abuse -Pt states she last drank some wine 3-4 days ago, unable to quantify how much, states she doesn't drink everyday -Monitor for alcohol withdrawal DVT prophylaxis: Heparin Code status: Full code Surrogate decision maker: Osman [phone] Skin: Low risk Rounded on patient after nurse practitioner. Personally examined and interviewed patient. Agree with exam findings and care plan as documented.
[2024-06-08 21:24] LABS: Troponin I < 0.01 ng/ml (0.00-0.034)
[2024-06-08 21:54] LABS: Reflex Lactic Add Lactic Reflex
[2024-06-08 22:14] LABS: Lactic Acid 1.6 mmol/L (0.7-2.1)
[2024-06-09] VITALS (28 sets, daily range): BP systolic 87–111; BP diastolic 46–59; PULSE 72–93; RESP 16–24; TEMP 36.6–36.9; O2SAT 88–98; BMI 24.3
[2024-06-09] MEDS: MELATONIN 5MG TABLET 5 MG PO (00:22)
[2024-06-09] MEDS: ACETAMINOPHEN 325MG TAB 650 MG PO (00:22)
[2024-06-09 00:38] LABS: Troponin I < 0.01 ng/ml (0.00-0.034)
[2024-06-09] MEDS: diphenhydrAMINE 25MG CAPSULE 25 MG PO (02:15)
[2024-06-09 03:44] LABS: Microscopic, Urine URINE MICROSCOPIC (MICROSCOPIC)
[2024-06-09 03:46] LABS: Blood, Urine 2+ (Negative); Color,Urine YELLOW (Yellow); Glucose,Urine (UA) Negative (Negative); Ketones,Urine TRACE (Negative); Leukocyte Esterase,Urine 2+ (Negative); Nitrate,Urine Negative (Negative); Protein,Urine Negative (Negative); Urobilinogen,Urine 0.2 EU/dl (0.2)
[2024-06-09 03:50] LABS: Appearance,Urine Slightly Cloudy (Clear); Bilirubin,Urine 1+ (Negative)
[2024-06-09 03:56] LABS: Bacteria,Urine 3+ /lpf
--- NOTE | 2024-06-09 04:09 | PC.NURSE ---
Patient has been alert and oriented x4 throughout shift. Tolerating room air well. Patient has not rested much this shift. She states she has had alot of pain in her legs. Sha Herrera APRN made aware and patient has been treated per orders in [facility] with no relief of leg pain. Lung sounds clear upon auscultation. Bowel sounds active with last bowel movement 06-08-24 upon admission to the floor. Patient states she has frequent diarrhea, but has been ongoing for years. Blood pressures have been running soft this shift. Hospitalist made aware and new orders received/administered per [facility]. Will continue to monitor blood pressure and alert hospitalist if no improvement. Call light within reach.
[2024-06-09] MEDS: RINGERS SOLUTION,LACTATED 500 ML 999 ML IV (04:25)
[2024-06-09] MEDS: CEFTRIAXONE SODIUM 2 GM in 0.9 % SODIUM CHLORIDE 100 ML IV (05:03)
--- NOTE | 2024-06-09 05:05 | PC.NURSE ---
Patients blood pressure still low after bolus administration per [facility]AN. Notified TELEHEALTH NURSE EDUCATOR and was given orders for norepinephrine and to transfer to ICU. Charge nurse made aware.
[2024-06-09] MEDS: NOREPINEPHRINE BITARTRATE/D5W 8 MG/250 ML PLAST..BAG 3.75 MG IV (05:30)
--- NOTE | 2024-06-09 05:30 | PC.NURSE ---
Report given to Misty Metz RN
--- NOTE | 2024-06-09 05:45 | PC.NURSE ---
Took over patient's care at 0530 as she transitioned to ICU status.
[2024-06-09 07:17] LABS: Anion Gap 9.8 mEq/L (5-15); Blood Urea Nitrogen 24 mg/dl (7-17); Calcium 7.8 mg/dl (8.4-10.2); Carbon Dioxide 22 mmol/L (22.0-30.0); Chloride 99 mmol/L (98-107); Creatinine Clearance Estimated 57 mL/min (50-200); Estimated Glomerular Filt Rate 55 ml/min (>60); GFR (African American) 67 ML/MIN (>60); Glucose 71 mg/dl (74-100); Sodium 128 mmol/L (136-145)
[2024-06-09 07:20] LABS: Potassium 2.8 mmoL/L (3.5-5.1)
[2024-06-09 07:20] LABS: Basophils % 0.1 % (0.1-2.0); Eosinophils % 0.1 % (0.1-12.0); Lymphocytes # 0.4 K/mm3 (0.7-4.5); Mean Platelet Volume 8.3 fl (7.4-10.4); Monocytes # 0.6 K/mm3 (0.1-1.0); Neutrophils # 15.2 K/mm3 (1.8-7.8); Platelet Count 415 K/mm3 (142-424); White Blood Count 16.2 K/mm3 (4.8-10.8)
[2024-06-09 07:28] LABS: Hematocrit 27.7 % (37.0-47.0); Lymphocytes % 2.3 % (10-50); Mean Corpuscular HGB Conc 32.2 g/dL (31.8-35.4); Mean Corpuscular Hemoglobin 32.6 pg (27.0-31.2); Mean Corpuscular Volume 101.3 fl (81-99); Monocytes % 3.4 % (1.7-9.3); Neutrophils % 94.1 % (37.0-80.0); Red Blood Count 2.73 M/mm3 (4.20-5.40); Red Cell Distribution Width 22.2 % (11.5-17.5)
[2024-06-09 07:30] LABS: Hemoglobin 8.9 g/dL (12.2-16.2)
[2024-06-09 07:32] LABS: MANUAL DIFFERENTIAL MANUAL DIFFERENTIAL (MANUAL DIFF)
[2024-06-09 08:00] LABS: Eosinophils % 1 % (0-3); Lymphocytes % 3 % (10-50); Macrocytosis 1+; Monocytes % 3 % (2-9); Neutrophils % 93 % (42-76); Ovalocytes 1+; Platelet Estimate Slight Increase; Total Cells Counted 100
--- NOTE | 2024-06-09 08:02 | EXP.ACUTE.PN ---
Subjective *Date: 06/09/24 *Time: 09:01 Interval history: Patient alert and oriented x 3 this morning. On room air. Does not seem to have good insight however to her situation. On questioning, does admit to regular alcohol consumption. Prefers wine. I have known this patient for many years, previously drank hard liquor as well. States she is drinking at least 5 L of wine a week. Concerned that this is more as she has not been completely honest with different providers as they are asking about her intake. Strong concern her alcoholism underlies her current condition. On room air. Afebrile. No nausea or vomiting. Did have loose stool overnight x 2. Tolerating p.o. intake. Agreeable to supplementation. Medical Exam Vital signs and Labs for Last 24 Hours: Vital Signs Temp Pulse Pulse Resp BP BP Pulse Ox 06/09/24 07:36 98.4 F 06/09/24 06:59 81 18 97/48 L 98 06/09/24 06:59 06/09/24 06:30 92 H 18 100/46 L 96 06/09/24 06:00 77 18 93/49 L 95 06/09/24 05:30 87 18 88/47 L 97 06/09/24 05:00 06/09/24 04:00 98.1 F 82 16 87/50 L 97 06/09/24 03:00 06/09/24 00:58 06/08/24 23:00 06/08/24 21:00 06/08/24 20:35 98.4 F 91 H 17 89/57 L 100 06/08/24 20:11 85 89/57 L 100 06/08/24 20:09 88 92/47 L 100 06/08/24 20:09 98.3 F 89 20 92/47 L 06/08/24 20:00 100 06/08/24 18:30 82 99 06/08/24 18:00 90 96/58 L 98 06/08/24 17:44 97.3 F L 88 18 96/55 L 100 O2 Del Method 06/09/24 07:36 06/09/24 06:59 Room Air 06/09/24 06:59 Room Air 06/09/24 06:30 Room Air 06/09/24 06:00 Room Air 06/09/24 05:30 Room Air 06/09/24 05:00 Room Air 07/20/24 04:00 Room Air 06/09/24 03:00 Room Air 06/09/24 00:58 Room Air 06/08/24 23:00 Room Air 06/08/24 21:00 Room Air 06/08/24 20:35 Room Air 06/08/24 20:11 06/08/24 20:09 06/08/24 20:09 Room Air 06/08/24 20:00 Room Air 06/08/24 18:30 Room Air 06/08/24 18:00 Room Air 06/08/24 17:44 Room Air Intake and Output 06/08/24 06/09/24 06/09/24 23:59 07:59 15:59 Intake Total 503.75 / 503.75 Output Total 0 / 0 0 / 0 Balance 0 / 0 503.75 / 503.75 Intake: Intake, Total IV Amount 503.75 / 503.75 Ringers Solution,Lactated 500 500 / 500 ml @ 999 mls/hr IV .Q31M ONE Rx #:[id number] Output: Output, Urine Amount 0 / 0 0 / 0 Other: Number of Unmeasured Voids 1 1 Number of Bowel Movements 1 Weight 65.862 kg 66.361 kg Patient Weight 06/09/24 23:59 Weight 66.361 kg Laboratory Results - last 24 hr 06/08/24 17:39: WBC 22.8 H* D, RBC 3.10 L, Hgb 10.3 L, Hct 32.5 L, MCV 104.6 H, MCH 33.2 H, MCHC 31.7 L, RDW 22.0 H, Plt Count 492 H, MPV 8.9, Neut % (Auto) 95.9 H, Lymph % (Auto) 0.8 L, [place] % (Auto) 2.8, Eos % (Auto) 0.2, Baso % (Auto) 0.2, Neut # (Auto) 21.9 H, Lymph # (Auto) 0.2 L, [place] # (Auto) 0.7, Eos # (Auto) 0.1, Baso # (Auto) 0.1, PT 10.4, INR 0.92, Sodium 127 L, Potassium 4.2, Chloride 97 L, Carbon Dioxide 14 L, Anion Gap 20.2 H, BUN 25 H, Creatinine 1.50 H D, Estimated Creat Clear 38, Estimated GFR 35 L, Est GFR ( Amer) 42 L D, Glucose 108 H, Calcium 8.3 L, Total Bilirubin 1.5 H, AST 67 H D, ALT 77 D, Alkaline Phosphatase 117, Total Creatine Kinase 51, Troponin I < 0.01, NT-Pro-B Natriuret Pep 4740 H, Total Protein 5.5 L, Albumin 2.8 L D, Globulin 2.7, Albumin/Globulin Ratio 1.0 L, TSH 1.90, Plasma/Serum Alcohol < 10 06/08/24 17:43: VBG pH 7.32, VBG pCO2 26.7 L, VBG pO2 33.2, VBG HCO3 13.4 L, VBG Total CO2 14.2 L, VBG O2 Saturation 53.8, VBG Base Excess -12.7 L, VBG Lactic Acid 7.1 H 06/08/24 20:48: Troponin I < 0.01 06/08/24 21:36: Lactate 1.6 06/09/24 00:09: Troponin I < 0.01 06/09/24 03:35: Urine Color Yellow, Urine Appearance Slightly cloudy, Urine pH 6.0, Ur Specific [place] 1.010, Urine Protein Negative, Urine Glucose (UA) Negative, Urine Ketones Trace, Urine Blood 2+, Urine Nitrate Negative, Urine Bilirubin 1+ A, Urine Urobilinogen 0.2, Ur Leukocyte Esterase 2+ A, Urine RBC 10-20, Urine WBC 10-20, Ur Squamous Epith Cells 3-5, Urine Bacteria 3+ 06/09/24 06:25: Sodium 128 L, Potassium 2.8 L* D, Chloride 99, Carbon Dioxide 22, Anion Gap 9.8, BUN 24 H, Creatinine 1.00 D, Estimated Creat Clear 57, Estimated GFR 55 L, Est GFR ( Amer) 67 D, Glucose 71 L D, Calcium 7.8 L 06/09/24 06:40: WBC 16.2 H D, RBC 2.73 L, Hgb 8.9 L D, Hct 27.7 L, MCV 101.3 H, MCH 32.6 H, MCHC 32.2, RDW 22.2 H, Plt Count 415, MPV 8.3, Neut % (Auto) 94.1 H, Lymph % (Auto) 2.3 L, [place] % (Auto) 3.4, Eos % (Auto) 0.1, Baso % (Auto) 0.1, Neut # (Auto) 15.2 H, Lymph # (Auto) 0.4 L, [place] # (Auto) 0.6, Eos # (Auto) 0.0, Baso # (Auto) 0.0, Total Counted 100, Neutrophils % (Manual) 93 H, Lymphocytes % (Manual) 3 L, Monocytes % (Manual) 3, Eosinophils % (Manual) 1, Platelet Estimate Slight increase, Macrocytosis 1+, Ovalocytes 1+ I & O for Labs for Last 24 Hours: Intake & Output 06/06/24 06/07/24 06/08/24 06/09/24 23:59 23:59 23:59 23:59 Intake Total 503.75 / 503.75 Output Total 0 / 0 0 / 0 Balance 0 / 0 503.75 / 503.75 Weight 65.862 kg 66.361 kg Constitutional: Present no acute distress, average body habitus, chronically ill appearing and disheveled Head: Present atraumatic ENT: Present normal exam Respiratory: Present rhonchi and normal respiratory effort; Absent wheezes or crackles Cardiac: Present Reg Rate and Rhythm and Audible Murmur GI: Present soft and normal bowel sounds; Absent distention or tenderness Rectal (female): Present deferred (female): Present deferred Extremities: Present normal inspection, full ROM, tenderness and edema (Trace bilateral lower extremity) Comment:: Bruising bilateral lower extremities and on feet. States she is falling at home. Skin: Present intact; Absent erythema Neuro: Present Grossly Intact, alert, awake, oriented x 3 and moves all extremities Assessment and Plan *Assessment and plan (1) ANCELMO (acute kidney injury): Status: Acute Category: Medical Code(s): N17.9 - Acute kidney failure, unspecified (2) Hyponatremia: Status: Acute Category: Medical Code(s): E87.1 - Hypo-osmolality and hyponatremia (3) Hypertension: Status: Acute Qualifiers: Hypertension type: unspecified Qualified Code(s): I10 - Essential (primary) hypertension Category: Medical Code(s): I10 - Essential (primary) hypertension (4) Hyperlipidemia: Status: Acute Qualifiers: Hyperlipidemia type: unspecified Qualified Code(s): E78.5 - Hyperlipidemia, unspecified Category: Medical Code(s): E78.5 - Hyperlipidemia, unspecified (5) CAD (coronary artery disease): Status: Acute Qualifiers: Coronary Disease-Associated Artery/Lesion type: [place] artery [place] vs. transplanted heart: [place] heart Associated angina: without angina Qualified Code(s): I25.10 - Atherosclerotic heart disease of [place] coronary artery without angina pectoris Category: Medical Code(s): I25.10 - Atherosclerotic heart disease of [place] coronary artery without angina pectoris (6) Frequent falls: Status: Acute Category: Medical Code(s): R29.6 - Repeated falls (7) Generalized weakness: Status: Acute Category: Medical Code(s): R53.1 - Weakness Plan Assessment: This is a 69-year-old female being admitted for ANCELMO and hyponatremia. On my exam, patient is lying in bed in no acute distress. No complaints at this time. Admitted to medicine for further management. Patient states she is feeling little better this morning. Has worsening electrolyte disturbances however. Noted to have persistent cough that she states is from chronic drainage. Will obtain respiratory panel. Tolerating p.o. intake. States that she drinks a 5 L box of wine weekly, sometimes more if she has company. Poor p.o. intake. Agreeable to supplementation with meals. Continues to require inpatient management. Problems addressed as follows: Hypotension: Became hypotensive overnight with maps less than 60. Started on Levophed. Currently on 4 mcg. Monitor for improvement today with nutritional and electrolyte replacement. Wean as tolerated. Unclear if this is due to medication side effect from her metoprolol versus nutritional deficiency versus sepsis. Necessitating ICU level care due to drip. ANCELMO -Kidney function at baseline this morning with BUN 24, creatinine 1.0. Making adequate urine. Hyponatremia Hypokalemia -from pt self reported excessive PO water intake, vs loss from diarrhea vs SIADH? Pt also has a history of alcohol abuse -urine studies ordered -Sodium remains low this morning at 128. Monitor for improvement with nutritional supplementation. -Sodium level every 8 hours pending improvement. Repeat potassium ordered for this afternoon. -Potassium level 2.8 this morning. Magnesium 1.7 on admission. Will give 2 g magnesium IV and start potassium replacement with 20 mg orally 3 times a day and 30 mEq IV today. -Repeat CBC, CMP, magnesium ordered for the morning. Leukocytosis Elevated anion gap -Pt not acidotic, no source of infection noted at this time -Does have a history of RCC as well as lymphoma -Will monitor WBC count, will continue to seek out potential source of infection -Urine grossly abnormal, received ceftriaxone 1 g. Urine culture pending. Will also obtain respiratory swab given patient's cough. Chronic diarrhea: Likely nutritional however cannot rule out infection. Stool PCR pending HTN: In light of hypotension, started on Levophed overnight, will hold blood pressure medications. CAD s/p CABG s/p aortic dissection -Requesting records from 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 Buys from [employer], 1 to 2 boxes when she goes. Monitoring for alcohol withdrawal. -Continue nutritional supplementation with vitamins per alcohol withdrawal protocol -Protein low with albumin 2.8 on admission. Will add boost/Ensure with meals DVT prophylaxis: Heparin Code status: Full code Surrogate decision maker: Osman [phone] Skin: Low risk ICU/Critical care attestation This patient is critically ill with 35 minutes devoted solely to this patient managing life/organ supporting interventions that required physician assessment. This includes time spent making adjustments in ventilator settings, IV fluid administration, titration of pressors, adjustments of medications, discussion of patient with consultants and other care providers as well as updating patient and/or family (if patient by virtue of his/her condition is unable to participate in decision making). This does not include time spent performing separately billed procedures. Time is not concurrent with that of other providers.
[2024-06-09] MEDS: FOLIC ACID 1MG TABLET 1 MG PO (09:39)
[2024-06-09] MEDS: THIAMINE 100MG TABLET 100 MG PO (09:40)
[2024-06-09] MEDS: POTASSIUM CHLORIDE 20MEQ TAB 40 MEQ PO ×3 (09:40→20:26)
[2024-06-09] MEDS: DULOXETINE 30MG CAPSULE.DR 60 MG PO ×2 (09:40→20:26)
[2024-06-09] MEDS: MAGNESIUM SULFATE IN WATER 2 GM/50 ML PIGGYBACK IV (09:41)
[2024-06-09 09:56] LABS: Adenovirus,PCR Not Detected (NotDetected); Bordetella Pertussis Not Detected (NotDetected); Chlamydophila Pneumoniae, PCR Not Detected (NotDetected); Coronavirus 19, PCR Not Detected (NotDetected); Coronavirus 229E Not Detected (NotDetected); Coronavirus NL63 Not Detected (NotDetected); Coronavirus OC43 Not Detected (NotDetected); Coronovirus HKU1,PCR Not Detected (NotDetected); Human Metapneumovirus Not Detected (NotDetected); Influenza A, PCR Not Detected (NotDetected); Influenza AH1, 2009 Not Detected (NotDetected); Influenza AH1, PCR Not Detected (NotDetected); Influenza AH3,PCR Not Detected (NotDetected); Influenza B, PCR Not Detected (NotDetected); Mycoplasma Pneumoniae, PCR Not Detected (NotDetected); Parainfluenza 1, PCR Not Detected (NotDetected); Parainfluenza 2, PCR Not Detected (NotDetected); Parainfluenza 3, PCR Not Detected (NotDetected); Parainfluenza 4, PCR Not Detected (NotDetected); Respiratory Syncytial Virus Not Detected (NotDetected); Rhinovirus/Enterovirus Not Detected (NotDetected)
[2024-06-09] MEDS: POTASSIUM CHLORIDE 10 MEQ, LIDOCAINE HCL/PF 3 ML in 0.9 % SODIUM CHLORIDE 100 ML 108 MEQ IV ×3 (10:44→13:27)
[2024-06-09 14:03] LABS: Chloride 100 mmol/L (98-107); Potassium 3.6 mmoL/L (3.5-5.1); Sodium 126 mmol/L (136-145)
[2024-06-09 14:06] LABS: Anion Gap 10.6 mEq/L (5-15); Blood Urea Nitrogen 24 mg/dl (7-17); Calcium 7.7 mg/dl (8.4-10.2); Carbon Dioxide 19 mmol/L (22.0-30.0); Creatinine Clearance Estimated 44 mL/min (50-200); Estimated Glomerular Filt Rate 41 ml/min (>60); GFR (African American) 49 ML/MIN (>60); Glucose 105 mg/dl (74-100)
[2024-06-09] MEDS: LACTATED RINGERS 1000ML 1,000 ML 100 ML IV (14:43)
[2024-06-09] MEDS: ROPINIROLE HCL 0.25 MG TABLET PO ×2 (15:23→20:27)
[2024-06-09] MEDS: ENOXAPARIN 40MG/0.4ML SYRINGE 40 MG SQ (15:23)
[2024-06-09] MEDS: MULTIVITAMIN TABLET 1 EACH PO (17:08)
--- NOTE | 2024-06-09 18:00 | PC.NURSE ---
Addendum entered by Bailee Wynn RN 06/09/24 18:05: notified that pt tends to desat to 88-89 when asleep. Original Note: pt has rested in room this shift. at the start of the shift pt attempted to get up and ambulate to the bathroom with assistance from staff with a walker. pt became anxious and stated that she just felt terrible and felt she was unable to stand up to clean up following using the bathroom. pt also insisted that she was not able to walk back to the bed. pt was able to be coaxed into ambulation to the bed as well as cleaning up. throughout the shift the pt has needed frequent reminders about not bending the arm that the iv is located in, as it prevents the infusion of medication. pt appears to possibly have issue with short term recall, as pt has been unable to recall several conversations with staff from throughout the day. pt safety device has remained in place. pt lung sounds remain clear, bowel sounds are active. pt has only had 1 liquid bm this shift. pt remains on levophed drip at 4mcg, dr gonzales states that he will order midodrine and for staff to attempt to wean levophed drip as long as map remains above 60.
[2024-06-09] MEDS: SODIUM CHLORIDE 0.9% 10ML VIAL 10 ML IV (20:26)
[2024-06-09] MEDS: PANTOPRAZOLE 40MG VIAL 40 MG IV (20:26)
[2024-06-09] MEDS: MIDODRINE HCL 5 MG TABLET PO (20:26)
--- NOTE | 2024-06-09 21:11 | PC.NURSE ---
Patient assisted to BSC and had bowel movement; liquid form. Diarrhea panel ordered but unable to collect at this time due to patient accidentally dropping toilet paper in hat with bowel movement.
[2024-06-09 22:15] LABS: Chloride 103 mmol/L (98-107); Potassium 4.3 mmoL/L (3.5-5.1); Sodium 128 mmol/L (136-145)
[2024-06-09 22:18] LABS: Blood Urea Nitrogen 24 mg/dl (7-17); Creatinine Clearance Estimated 52 mL/min (50-200); Estimated Glomerular Filt Rate 50 ml/min (>60); GFR (African American) 60 ML/MIN (>60)
[2024-06-09 22:19] LABS: Anion Gap 8.3 mEq/L (5-15); Calcium 7.9 mg/dl (8.4-10.2); Carbon Dioxide 21 mmol/L (22.0-30.0); Glucose 95 mg/dl (74-100)
[2024-06-09 22:57] LABS: Adenovirus F 40/41, stool Not Detected (NotDetected); Astrovirus Not Detected (NotDetected); Campylobacter Not Detected (NotDetected); Cryptosporidium Not Detected (NotDetected); Cyclospora Cayetanesis Not Detected (NotDetected); Entamoeba histolytica Not Detected (NotDetected); Enteroaggregative E coli Not Detected (NotDetected); Enteropathogenic E coli Not Detected (NotDetected); Enterotoxigenic E coli Not Detected (NotDetected); Giardia lamblia Not Detected (NotDetected); Norovirus Not Detected (NotDetected); Plesimonas Shigalloides, PCR Not Detected (NotDetected); Rotavirus A Not Detected (NotDetected); Salmonella, PCR Not Detected (NotDetected); Sapovirus Not Detected (NotDetected); Shiga-like toxin E coli Not Detected (NotDetected); Shigella Enterovasive E coli Not Detected (NotDetected); Vibrio Cholerae Not Detected (NotDetected); Vibrio, PCR Not Detected (NotDetected); Yersinia Entercolitica, PCR Not Detected (NotDetected)
[2024-06-10] VITALS (26 sets, daily range): BP systolic 84–135; BP diastolic 44–62; PULSE 63–104; RESP 16–21; TEMP 36.4–36.9; O2SAT 91–98; BMI 24.3
[2024-06-10 03:09] LABS: Clostridium Difficile A/B, PCR Detected (NotDetected)
[2024-06-10] MEDS: VANCOMYCIN HCL 50MG/ML 150ML KIT 125 MG PO ×5 (05:31→20:15)
[2024-06-10] MEDS: CEFTRIAXONE SODIUM 2 GM in 0.9 % SODIUM CHLORIDE 100 ML IV (05:31)
[2024-06-10 07:10] LABS: Chloride 105 mmol/L (98-107); Potassium 5.4 mmoL/L (3.5-5.1); Sodium 131 mmol/L (136-145)
[2024-06-10 07:13] LABS: Alanine Aminotransferase 26 U/L (12-78); Albumin Level 2.2 g/dl (3.5-5.0); Albumin/Globulin Ratio 0.8 (1.1-1.8); Alkaline Phosphatase 122 U/L (38-126); Anion Gap 8.4 mEq/L (5-15); Aspartate Amino Transferase 20 U/L (14-36); Bilirubin,Total 0.3 mg/dl (0.2-1.3); Blood Urea Nitrogen 25 mg/dl (7-17); Calcium 8.2 mg/dl (8.4-10.2); Carbon Dioxide 23 mmol/L (22.0-30.0); Creatinine Clearance Estimated 57 mL/min (50-200); Estimated Glomerular Filt Rate 55 ml/min (>60); GFR (African American) 67 ML/MIN (>60); Globulin 2.6 g/dL (1.3-3.2); Glucose 88 mg/dl (74-100); Total Protein,Serum 4.8 g/dl (6.3-8.2)
[2024-06-10 07:14] LABS: Magnesium 2.4 mg/dl (1.6-2.3)
[2024-06-10 07:15] LABS: Basophils % 0.1 % (0.1-2.0); Eosinophils # 0.1 K/mm3 (0.0-0.4); Eosinophils % 0.4 % (0.1-12.0); Hematocrit 27.8 % (37.0-47.0); Hemoglobin 8.8 g/dL (12.2-16.2); Lymphocytes # 0.4 K/mm3 (0.7-4.5); Lymphocytes % 2.2 % (10-50); Mean Corpuscular HGB Conc 31.6 g/dL (31.8-35.4); Mean Corpuscular Hemoglobin 32.9 pg (27.0-31.2); Mean Platelet Volume 8.8 fl (7.4-10.4); Monocytes # 0.6 K/mm3 (0.1-1.0); Monocytes % 3.6 % (1.7-9.3); Neutrophils # 16.5 K/mm3 (1.8-7.8); Neutrophils % 93.8 % (37.0-80.0); Platelet Count 454 K/mm3 (142-424); Red Blood Count 2.67 M/mm3 (4.20-5.40); Red Cell Distribution Width 21.7 % (11.5-17.5); White Blood Count 17.6 K/mm3 (4.8-10.8)
[2024-06-10 07:20] LABS: MANUAL DIFFERENTIAL MANUAL DIFFERENTIAL (MANUAL DIFF)
[2024-06-10 07:56] LABS: Lymphocytes % 3 % (10-50); Monocytes % 1 % (2-9); Neutrophils % 96 % (42-76); Total Cells Counted 100
[2024-06-10 07:57] LABS: Anisocytosis 1+; Macrocytosis 1+; Platelet Estimate Slight Increase
[2024-06-10] MEDS: ENOXAPARIN 40MG/0.4ML SYRINGE 40 MG SQ (08:35)
[2024-06-10] MEDS: DULOXETINE 30MG CAPSULE.DR 60 MG PO ×2 (08:35→20:14)
[2024-06-10] MEDS: ROPINIROLE HCL 0.25 MG TABLET PO ×3 (08:36→20:14)
[2024-06-10] MEDS: FOLIC ACID 1MG TABLET 1 MG PO (08:36)
[2024-06-10] MEDS: THIAMINE 100MG TABLET 100 MG PO (08:36)
[2024-06-10] MEDS: MIDODRINE HCL 5 MG TABLET PO ×3 (08:36→20:14)
[2024-06-10] MEDS: LACTATED RINGERS 1000ML 1,000 ML 250 ML IV (10:55)
--- NOTE | 2024-06-10 12:24 | EXP.ACUTE.PN ---
Subjective *Date: 06/10/24 *Time: 17:18 Interval history: Patient denies any chest pain, nausea, vomiting. Mild shortness of breath overnight. On 2 L nasal cannula oxygen. Denies any fever. Tolerating p.o. intake. Having numerous loose bowel movements. Medical Exam Vital signs and Labs for Last 24 Hours: Vital Signs Temp Pulse Pulse Resp BP Pulse Ox O2 Del Method 06/10/24 10:55 Room Air 06/10/24 10:42 80 18 135/57 L 92 L Room Air 06/10/24 10:30 68 20 91/50 L 96 Nasal Cannula 06/10/24 10:00 70 18 89/53 L 94 L Nasal Cannula 06/10/24 09:00 78 18 101/56 L 97 Nasal Cannula 06/10/24 08:55 Nasal Cannula 06/10/24 08:48 74 97 Nasal Cannula 06/10/24 08:00 70 06/10/24 08:00 97.6 F 06/10/24 07:36 72 18 95/55 L 96 Nasal Cannula 06/10/24 07:00 104 H 21 119/61 94 L Nasal Cannula 06/10/24 07:00 Nasal Cannula 06/10/24 06:00 71 20 99/56 L 96 Nasal Cannula 06/10/24 05:00 Nasal Cannula 06/10/24 05:00 72 18 95/54 L 92 L Nasal Cannula 06/10/24 04:00 Nasal Cannula 06/10/24 04:00 73 19 98/54 L 98 Nasal Cannula 06/10/24 04:00 74 06/10/24 03:00 Nasal Cannula 06/10/24 03:00 71 18 102/58 L 97 Nasal Cannula 06/10/24 02:00 68 20 85/47 L 96 Nasal Cannula 06/10/24 01:00 Nasal Cannula 06/10/24 01:00 69 18 90/52 L 95 Nasal Cannula 06/10/24 00:05 98.0 F 06/10/24 00:00 Nasal Cannula 06/10/24 00:00 71 06/09/24 23:00 82 19 98/58 L 93 L Nasal Cannula 06/09/24 23:00 Nasal Cannula 06/09/24 22:00 72 20 99/53 L 93 L Nasal Cannula 06/09/24 21:00 75 21 100/59 L 95 Nasal Cannula 06/09/24 21:00 Nasal Cannula 06/09/24 20:00 77 06/09/24 20:00 98 F 79 18 95/50 L 95 Nasal Cannula 06/09/24 19:51 Nasal Cannula 06/09/24 19:40 94 L Nasal Cannula 06/09/24 19:30 88 L Room Air 06/09/24 19:00 76 20 93/48 L 90 L Room Air 06/09/24 18:36 Room Air 06/09/24 18:00 79 22 95/47 L 92 L Room Air 06/09/24 17:30 Room Air 06/09/24 17:00 74 18 94/47 L 91 L Room Air 06/09/24 16:15 74 18 93/52 L 90 L Room Air 06/09/24 16:00 98.1 F 06/09/24 16:00 80 06/09/24 15:25 75 90 L Room Air 06/09/24 15:23 Room Air 06/09/24 15:00 79 16 105/52 L 91 L Room Air 06/09/24 14:00 87 24 99/46 L 92 L Room Air 06/09/24 13:00 Room Air 06/09/24 13:00 86 22 104/54 L 93 L Room Air O2 Flow Rate 06/10/24 10:55 06/10/24 10:42 06/10/24 10:30 2 06/10/24 10:00 2 06/10/24 09:00 2 06/10/24 08:55 2 06/10/24 08:48 2 06/10/24 08:00 06/10/24 08:00 06/10/24 07:36 2 06/10/24 07:00 2 06/10/24 07:00 2 06/10/24 06:00 2 06/10/24 05:00 2 06/10/24 05:00 2 06/10/24 04:00 2 06/10/24 04:00 2 06/10/24 04:00 06/10/24 03:00 2 06/10/24 03:00 2 06/10/24 02:00 2 06/10/24 01:00 2 06/10/24 01:00 2 06/10/24 00:05 06/10/24 00:00 2 06/10/24 00:00 06/09/24 23:00 2 06/09/24 23:00 2 06/09/24 22:00 2 06/09/24 21:00 2 06/09/24 21:00 2 06/09/24 20:00 06/09/24 20:00 2 06/09/24 19:51 2 06/09/24 19:40 2 06/09/24 19:30 06/09/24 19:00 06/09/24 18:36 06/09/24 18:00 06/09/24 17:30 06/09/24 17:00 06/09/24 16:15 06/09/24 16:00 06/09/24 16:00 06/09/24 15:25 06/09/24 15:23 06/09/24 15:00 06/09/24 14:00 06/09/24 13:00 06/09/24 13:00 Intake and Output 06/09/24 06/10/24 06/10/24 23:59 07:59 15:59 Intake Total 864.750 / 2134.500 920.625 / 1050.000 129.375 / 1050.000 Output Total 0 / 300 300 / 300 Balance 864.750 / 2134.500 920.625 / 750.000 -170.625 / 750.000 Intake: Intake, Oral Amount 150 / 690 120 / 120 Intake, Total IV Amount 714.750 / 1444.500 920.625 / 930.000 9.375 / 930.000 Lactated Ringers 1000ML 1,000 291 / 463 872 / 872 ml @ 100 mls/hr IV .Q10H LINO Rx #:[id number] Magnesium Sulfate in Water 2 gm 50 / 50 In 50 ml @ 50 mls/hr IV ONCE ONE Rx#:[id number] Potassium Chloride 10 meq 300 / 300 Lidocaine HCl/Pf 3 ml In 0.9 % Sodium Chloride 100 ml @ 108 mls/hr IV Q1H LINO Rx#:[id number] Output: Output, Urine Amount 0 / 300 300 / 300 Other: Number of Unmeasured Voids 1 Number of Bowel Movements 1 1 Weight 66.361 kg Patient Weight 06/10/24 23:59 Weight 66.361 kg Laboratory Results - last 24 hr 06/09/24 06:25: Cortisol 17.2 06/09/24 13:45: Sodium 126 L, Potassium 3.6 D, Chloride 100, Carbon Dioxide 19 L, Anion Gap 10.6, BUN 24 H, Creatinine 1.30 H D, Estimated Creat Clear 44, Estimated GFR 41 L, Est GFR ( Amer) 49 L D, Glucose 105 H D, Calcium 7.7 L 06/09/24 22:00: Sodium 128 L, Potassium 4.3, Chloride 103, Carbon Dioxide 21 L, Anion Gap 8.3, BUN 24 H, Creatinine 1.10 H, Estimated Creat Clear 52, Estimated GFR 50 L, Est GFR ( Amer) 60 D, Glucose 95, Calcium 7.9 L 06/09/24 22:50: Stl Aeromonas (PCR) Not detected, Stl C. cayetanensis PCR Not detected, Stool Rotavirus (PCR) Not detected, Stl Adenov F 40/41 PCR Not detected, Stool Astrovirus (PCR) Not detected, Stool Campylobacter PCR Not detected, Stl C.difficile Tox PCR Detected A, Stool Cryptosporidium PCR Not detected, Stl E.coli Shiga Tox PCR Not detected, Stool E coli O157 PCR Not detected, Stl Enterotoxigenic E PCR Not detected, Stool EPEC (PCR) Not detected, Stool EAEC (PCR) Not detected, Stl E. histolytica PCR Not detected, Stool Giardia Lamblia PCR Not detected, Stool Salmonella PCR Not detected, Stool Sapovirus (PCR) Not detected, Stl P. shigelloides PCR Not detected, Stl Shigella/EIEC PCR Not detected, St Y.enterocolitica PCR Not detected, Stool Vibrio (PCR) Not detected, Stl Vibrio cholerae PCR Not detected, Stl Norovirus GI/GII PCR Not detected 06/10/24 06:30: WBC 17.6 H, RBC 2.67 L, Hgb 8.8 L, Hct 27.8 L, MCV 104.0 H, MCH 32.9 H, MCHC 31.6 L, RDW 21.7 H, Plt Count 454 H, MPV 8.8, Neut % (Auto) 93.8 H, Lymph % (Auto) 2.2 L, [place] % (Auto) 3.6, Eos % (Auto) 0.4, Baso % (Auto) 0.1, Neut # (Auto) 16.5 H, Lymph # (Auto) 0.4 L, [place] # (Auto) 0.6, Eos # (Auto) 0.1, Baso # (Auto) 0.0, Total Counted 100, Neutrophils % (Manual) 96 H, Lymphocytes % (Manual) 3 L, Monocytes % (Manual) 1 L, Platelet Estimate Slight increase, Anisocytosis 1+, Macrocytosis 1+, Sodium 131 L, Potassium 5.4 H D, Chloride 105, Carbon Dioxide 23, Anion Gap 8.4, BUN 25 H, Creatinine 1.00, Estimated Creat Clear 57, Estimated GFR 55 L, Est GFR ( Amer) 67, Glucose 88, Calcium 8.2 L, Magnesium 2.4 H D, Total Bilirubin 0.3, AST 20 D, ALT 26 D, Alkaline Phosphatase 122, Total Protein 4.8 L, Albumin 2.2 L, Globulin 2.6, Albumin/Globulin Ratio 0.8 L I & O for Labs for Last 24 Hours: Intake & Output 06/07/24 06/08/24 06/09/24 06/10/24 23:59 23:59 23:59 23:59 Intake Total 1962.500 / 2134.500 1050.000 / 1050.000 Output Total 0 / 0 0 / 0 300 / 300 Balance 0 / 0 1962.500 / 2134.500 750.000 / 750.000 Weight 65.862 kg 66.361 kg 66.361 kg Microbiology Reports for the Last 24 Hours: Microbiology 06/09/24 03:35 Urine,Clean Catch Urine Culture - Preliminary 06/08/24 18:00 Blood Blood Culture - Preliminary NO GROWTH AFTER 24 HOURS 06/08/24 17:45 Blood Blood Culture - Preliminary NO GROWTH AFTER 24 HOURS Constitutional: Present no acute distress, average body habitus, chronically ill appearing and disheveled Head: Present atraumatic ENT: Present normal exam Respiratory: Present rhonchi and normal respiratory effort; Absent wheezes or crackles Cardiac: Present Reg Rate and Rhythm and Audible Murmur GI: Present soft, tenderness (Nonfocal) and hyperactive bowel sounds; Absent distention Rectal (female): Present deferred (female): Present deferred Extremities: Present normal inspection, full ROM, tenderness and edema (Trace bilateral lower extremity) Comment:: Bruising bilateral lower extremities and on feet. States she is falling at home. Skin: Present intact; Absent erythema Neuro: Present Grossly Intact, alert, awake, oriented x 3 and moves all extremities Assessment and Plan *Assessment and plan (1) C. difficile colitis: Status: Acute Category: Medical Code(s): A04.72 - Enterocolitis due to Clostridium difficile, not specified as recurrent (2) ANCELMO (acute kidney injury): Status: Acute Category: Medical Code(s): N17.9 - Acute kidney failure, unspecified (3) Hyponatremia: Status: Acute Category: Medical Code(s): E87.1 - Hypo-osmolality and hyponatremia (4) Hypertension: Status: Acute Qualifiers: Hypertension type: unspecified Qualified Code(s): I10 - Essential (primary) hypertension Category: Medical Code(s): I10 - Essential (primary) hypertension (5) Hyperlipidemia: Status: Acute Qualifiers: Hyperlipidemia type: unspecified Qualified Code(s): E78.5 - Hyperlipidemia, unspecified Category: Medical Code(s): E78.5 - Hyperlipidemia, unspecified (6) CAD (coronary artery disease): Status: Acute Qualifiers: Coronary Disease-Associated Artery/Lesion type: [place] artery [place] vs. transplanted heart: [place] heart Associated angina: without angina Qualified Code(s): I25.10 - Atherosclerotic heart disease of [place] coronary artery without angina pectoris Category: Medical Code(s): I25.10 - Atherosclerotic heart disease of [place] coronary artery without angina pectoris (7) Frequent falls: Status: Acute Category: Medical Code(s): R29.6 - Repeated falls (8) Generalized weakness: Status: Acute Category: Medical Code(s): R53.1 - Weakness Plan Assessment: This is a 69-year-old female being admitted for ANCELMO and hyponatremia. On my exam, patient is lying in bed in no acute distress. No complaints at this time. Admitted to medicine for further management. Patient states she is feeling little better this morning. Has worsening electrolyte disturbances however. Noted to have persistent cough that she states is from chronic drainage. Respiratory panel negative. Found to be positive for C. difficile colitis. Continues to require inpatient management. Problems addressed as follows: C. difficile colitis -Stool panel positive. Initiated on vancomycin 125 mg 4 times a day. Will complete 10 days of therapy. -Hypotension improving. Tolerating midodrine. Off Levophed for almost 12 hours. -White cell count improved from 22-17. Still having diarrhea. -Repeat CBC, CMP, magnesium ordered for the morning ANCELMO, improving -Kidney function at baseline this morning with BUN 25, creatinine 1.0. Making adequate urine. Hyponatremia Hypokalemia -Sodium improving at 131. Chloride 105. Potassium 5.4. Magnesium 2.4. Holding magnesium supplementation. -Repeat sodium level in the morning with CMP, CBC, magnesium HTN: In light of hypotension, started on Levophed overnight, will hold blood pressure medications. 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 Buys from [employer], 1 to 2 boxes when she goes. Monitoring for alcohol withdrawal. -Continue nutritional supplementation with vitamins per alcohol withdrawal protocol -Protein low with albumin 2.2 this morning. Continue boost/Ensure with meals DVT prophylaxis: Heparin Code status: Full code Surrogate decision maker: Osman [phone] Skin: Low risk
[2024-06-10] MEDS: MULTIVITAMIN TABLET 1 EACH PO (16:39)
--- NOTE | 2024-06-10 16:55 | PC.NURSE ---
pt has remained in bed this shift. when pt is assisted up to the bedside for a bm she c/o of varied symptoms including dizziness, weakness and feeling as though she cant stand on her own legs. pt is noted to be standing without any visible tremors and is able to support her own weight. when cleaning pt up following bm, she is noted to tell the staff that she is unable to stand, but then ambulates to the bedside with only standby assist. pt is noted to make contradicting statements of symptoms/feelings at the same time. pt makes statements that potentially imply impaired short term memory issues. lungs remain intact, bowel sounds are hyperactive. nad noted. bed safety is placed on pt as actions and statements are impulsive.
[2024-06-10] MEDS: MELATONIN 5MG TABLET 5 MG PO (20:14)
[2024-06-10] MEDS: PANTOPRAZOLE 40MG VIAL 40 MG IV (20:14)
[2024-06-11] VITALS (7 sets, daily range): BP systolic 86–103; BP diastolic 46–56; PULSE 62–89; RESP 14–20; TEMP 36.6–37; O2SAT 93–98; BMI 24.3
[2024-06-11] MEDS: CEFTRIAXONE SODIUM 2 GM in 0.9 % SODIUM CHLORIDE 100 ML IV (04:29)
[2024-06-11 06:34] LABS: Basophils % 0.1 % (0.1-2.0); Eosinophils # 0.1 K/mm3 (0.0-0.4); Eosinophils % 1.2 % (0.1-12.0); Hematocrit 26.5 % (37.0-47.0); Hemoglobin 8.3 g/dL (12.2-16.2); Lymphocytes # 0.3 K/mm3 (0.7-4.5); Lymphocytes % 3.2 % (10-50); Mean Corpuscular HGB Conc 31.4 g/dL (31.8-35.4); Mean Corpuscular Hemoglobin 33.5 pg (27.0-31.2); Mean Corpuscular Volume 106.7 fl (81-99); Mean Platelet Volume 8.9 fl (7.4-10.4); Monocytes # 0.5 K/mm3 (0.1-1.0); Monocytes % 4.6 % (1.7-9.3); Neutrophils # 9.3 K/mm3 (1.8-7.8); Neutrophils % 90.9 % (37.0-80.0); Platelet Count 360 K/mm3 (142-424); Red Blood Count 2.48 M/mm3 (4.20-5.40); Red Cell Distribution Width 21.1 % (11.5-17.5); White Blood Count 10.2 K/mm3 (4.8-10.8)
[2024-06-11 06:37] LABS: Chloride 107 mmol/L (98-107)
[2024-06-11 06:38] LABS: Potassium 4.3 mmoL/L (3.5-5.1); Sodium 129 mmol/L (136-145)
[2024-06-11 06:40] LABS: Alanine Aminotransferase 18 U/L (12-78); Aspartate Amino Transferase 18 U/L (14-36); Blood Urea Nitrogen 20 mg/dl (7-17); Creatinine Clearance Estimated 57 mL/min (50-200); Estimated Glomerular Filt Rate 72 ml/min (>60); GFR (African American) 87 ML/MIN (>60)
[2024-06-11 06:41] LABS: Albumin Level 1.9 g/dl (3.5-5.0); Albumin/Globulin Ratio 0.8 (1.1-1.8); Alkaline Phosphatase 101 U/L (38-126); Anion Gap 4.3 mEq/L (5-15); Carbon Dioxide 22 mmol/L (22.0-30.0); Globulin 2.3 g/dL (1.3-3.2); Glucose 59 mg/dl (74-100); MANUAL DIFFERENTIAL MANUAL DIFFERENTIAL (MANUAL DIFF); Total Protein,Serum 4.2 g/dl (6.3-8.2)
[2024-06-11 06:46] LABS: Bilirubin,Total < 0.1 mg/dl (0.2-1.3)
[2024-06-11 07:14] LABS: Magnesium 2.1 mg/dl (1.6-2.3)
--- NOTE | 2024-06-11 07:52 | HMH.PTEV ---
Physical Therapy Evaluation Rehab PT IP Evaluation Start: 06/10/24 08:00 Freq: ONCE Status: Active Protocol: Document 06/11/24 07:48 CHARLEY (Rec: 06/11/24 07:52 CHARLEY [email or web address]) Subjective/History History History Per H&P: Booker Aiken is a 69-year- old female past medical history significant for renal cell carcinoma status post nephrectomy, CAD, HTN, HLD, lymphoma, alcohol abuse who presents emergency room tonight after being seen at her primary care physician's office today for low sodium and generalized weakness. Ms. Aiken states that she has been feeling weak over the last couple of weeks... Subjective Subjective PLOF per pt report: Lives with in a single story home with 2 steps inside and 0 DIDI home. Used a RW for IND ambulation. is not home during the day. Driving prior to admission. Pt demo'd safe ambulation using RW to/from bathroom. New diagnosis of cancer in past 12 No months? Rehab PT IP Eval Objective Appearance Patient Behavior Appropriate,Cooperative Patient Orientation Person,Situation Difficulty following instructions none Speech Pattern Clear Ambulation Patient Able to Ambulate Yes Ambulation Observation IP General Gait Pattern Observation Wide Based Gait Ambulation Distance (feet) 15 Ambulation Assistive Device Rolling Walker Ambulation Ability Contact Guard/Hand Hold Balance Ability to Arise Able, uses arms to help Sitting Balance Steady, safe Standing Balance Steady, wide stance Transfers Bed Transfer Ability Supervision/Stand by Sit to Stand Bed Transfer Ability Supervision/Stand by Rehab PT IP prob,goals,plan Problems Date of Evaluation: 06/11/24 PT IP Problems Bed Mobility,Transfers,Gait, Balance,Safety Rehab Potential Rehab Potential Good Equipment Needs Assistive Devices Rolling / Wheeled Walker Plan PT Intervention Plan Bed Mobility,Transfers,Gait, Balance,Safety,Therapeutic Exercise Other Intervention Plan 1-2 times PT Plan Frequency Daily Duration LOS Discharge Goals Bed Transfer Ability Independent Sit to Stand Chair Transfer Ability Independent Ambulation Assistive Device Rolling Walker Ambulation Distance (feet) 20 Discharge Plan PT Discharge Plan Initial physical therapy evaluation performed. Patient presents below baseline at this time in functional mobility, transfers, gait, and strength. Pt would benefit from skilled PT while at [facility] to prevent further functional decline and maximize safety with mobility. Pt safe to d/c home when deemed medically necessary d/t current level of mobility, home set-up, and family support. PT recommending home health PT services to address deficits. Eval Complexity Eval Charge Codes 19504 - Moderate Complexity PHYSICIAN CERTIFICATION: I certify the specified therapy services for Booker Aiken are required, authorized, and reviewed every 30 days.
[2024-06-11] MEDS: MIDODRINE HCL 5 MG TABLET PO (08:16)
[2024-06-11] MEDS: DULOXETINE 30MG CAPSULE.DR 60 MG PO ×2 (08:16→20:23)
[2024-06-11] MEDS: FOLIC ACID 1MG TABLET 1 MG PO (08:17)
[2024-06-11] MEDS: THIAMINE 100MG TABLET 100 MG PO (08:17)
[2024-06-11] MEDS: ROPINIROLE HCL 0.25 MG TABLET PO ×3 (08:17→20:23)
[2024-06-11] MEDS: VANCOMYCIN HCL 50MG/ML 150ML KIT 125 MG PO ×4 (08:20→20:23)
--- NOTE | 2024-06-11 08:51 | SW/DCPLANNER ---
I spoke w/ this patient regarding plans once medically stable for discharge. PT evaluated patient and recommended home health services at time of discharge. Patient is NOT agreeable to home health services at this time stating I can do all that stuff myself at home . I will continue to follow up w/ this patient until medically stable for discharge. Discharge date is unknown at this time.
[2024-06-11 09:02] LABS: POC Glucose,Bedside 77 (70-110)
[2024-06-11 09:20] LABS: Eosinophils % 1 % (0-3); Lymphocytes % 5 % (10-50); Macrocytosis 2+; Monocytes % 4 % (2-9); Neutrophils % 90 % (42-76); Platelet Estimate Normal; Total Cells Counted 100
[2024-06-11] MEDS: Dextrose 5 % and 0.9 % NaCl 1,000 ML 250 ML IV (10:42)
[2024-06-11] MEDS: MIDODRINE HCL 5 MG TABLET 10 MG PO ×2 (13:29→20:23)
--- NOTE | 2024-06-11 15:27 | P.PN_ITS ---
Subjective *Date: 06/11/24 *Time: 18:08 Interval history: Stable on room air. Blood pressure remains soft but MAP above 60. Continues to have multiple loose stools. White cell count improving. No fever overnight. No nausea or vomiting. Poor p.o. intake. Fatigue, not wanting to get out of bed. Encouraged to get out of bed, encouraged her to get to the bedside chair for meals. Medical Exam Vital signs and Labs for Last 24 Hours: Vital Signs Temp Pulse Pulse Resp BP Pulse Ox O2 Del Method 06/11/24 15:15 Room Air 06/11/24 13:00 Room Air 06/11/24 12:00 80 06/11/24 12:00 98 F 72 16 87/48 L 98 06/11/24 10:49 Room Air 06/11/24 08:58 70 18 86/46 L 06/11/24 08:33 Room Air 06/11/24 08:00 70 06/11/24 08:00 97.8 F 72 17 87/47 L 93 L 06/11/24 04:00 98.6 F 70 14 96/51 L Room Air, Nasal Cannula 06/11/24 04:00 89 06/11/24 00:00 62 06/11/24 00:00 98.2 F 68 18 94/53 L 93 L Nasal Cannula 06/10/24 20:08 73 06/10/24 19:43 98.4 F 70 16 90/50 L 94 L Nasal Cannula 06/10/24 18:42 Nasal Cannula 06/10/24 17:00 Nasal Cannula 06/10/24 16:40 63 94 L Nasal Cannula 06/10/24 16:00 65 06/10/24 16:00 67 19 88/51 L 93 L Nasal Cannula 06/10/24 15:30 Nasal Cannula O2 Flow Rate 06/11/24 15:15 06/11/24 13:00 06/11/24 12:00 06/11/24 12:00 06/11/24 10:49 06/11/24 08:58 06/11/24 08:33 06/11/24 08:00 06/11/24 08:00 06/11/24 04:00 06/11/24 04:00 06/11/24 00:00 06/11/24 00:00 2 06/10/24 20:08 06/10/24 19:43 2 06/10/24 18:42 2 06/10/24 17:00 2 06/10/24 16:40 2 06/10/24 16:00 06/10/24 16:00 2 06/10/24 15:30 2 Intake and Output 06/10/24 06/11/24 06/11/24 23:59 07:59 15:59 Intake Total 120 / 2290.000 750 / 750 Output Total 0 / 300 0 / 0 Balance 120 / 1990.000 0 / 750 750 / 750 Intake: Intake, Oral Amount 120 / 360 750 / 750 Output: Output, Urine Amount 0 / 300 0 / 0 Other: Number of Unmeasured Voids 1 1 Number of Bowel Movements 1 1 Weight 66.361 kg 66.36 kg Patient Weight 06/11/24 23:59 Weight 66.36 kg Laboratory Results - last 24 hr 06/09/24 03:35: Urine Color Yellow, Urine Appearance Slightly cloudy, Urine pH 6.0, Ur Specific [place] 1.010, Urine Protein Negative, Urine Glucose (UA) Negative, Urine Ketones Trace, Urine Blood 2+, Urine Nitrate Negative, Urine Bilirubin 1+ A, Urine Urobilinogen 0.2, Ur Leukocyte Esterase 2+ A, Urine RBC 10-20, Urine WBC 10-20, Ur Squamous Epith Cells 3-5, Urine Bacteria 3+ 06/11/24 05:14: WBC 10.2 D, RBC 2.48 L, Hgb 8.3 L, Hct 26.5 L, MCV 106.7 H, MCH 33.5 H, MCHC 31.4 L, RDW 21.1 H, Plt Count 360, MPV 8.9, Neut % (Auto) 90.9 H, Lymph % (Auto) 3.2 L, [place] % (Auto) 4.6, Eos % (Auto) 1.2, Baso % (Auto) 0.1, Neut # (Auto) 9.3 H, Lymph # (Auto) 0.3 L, [place] # (Auto) 0.5, Eos # (Auto) 0.1, Baso # (Auto) 0.0, Total Counted 100, Neutrophils % (Manual) 90 H, Lymphocytes % (Manual) 5 L, Monocytes % (Manual) 4, Eosinophils % (Manual) 1, Platelet Estimate Normal, Macrocytosis 2+, Sodium 129 L, Potassium 4.3 D, Chloride 107, Carbon Dioxide 22, Anion Gap 4.3 L, BUN 20 H, Creatinine 0.80, Estimated Creat Clear 57, Estimated GFR 72, Est GFR ( Amer) 87 D, Glucose 59 L D, Calcium 8.0 L, Magnesium 2.1 D, Total Bilirubin < 0.1 L, AST 18, ALT 18 D, Alkaline Phosphatase 101, Total Protein 4.2 L, Albumin 1.9 L D, Globulin 2.3, Albumin/Globulin Ratio 0.8 L 06/11/24 08:54: POC Glucose 77 I & O for Labs for Last 24 Hours: Intake & Output 06/08/24 06/09/24 06/10/24 06/11/24 23:59 23:59 23:59 23:59 Intake Total 1962.500 / 2134.500 2290.000 / 2290.000 750 / 750 Output Total 0 / 0 0 / 0 300 / 300 0 / 0 Balance 0 / 0 1962.500 / 2134.500 1990.000 / 1990.000 750 / 750 Weight 65.862 kg 66.361 kg 66.361 kg 66.36 kg Microbiology Reports for the Last 24 Hours: Microbiology 06/09/24 03:35 Urine,Clean Catch Urine Culture - Preliminary Gram Negative Rods Gram Negative Rods#2 06/08/24 18:00 Blood Blood Culture - Preliminary NO GROWTH AFTER 48 HOURS 06/08/24 17:45 Blood Blood Culture - Preliminary NO GROWTH AFTER 48 HOURS Constitutional: Present no acute distress, average body habitus, chronically ill appearing and disheveled Head: Present atraumatic ENT: Present normal exam Respiratory: Present rhonchi and normal respiratory effort; Absent wheezes or crackles Cardiac: Present Reg Rate and Rhythm and Audible Murmur GI: Present soft, tenderness (Nonfocal) and hyperactive bowel sounds; Absent distention Rectal (female): Present deferred (female): Present deferred Extremities: Present normal inspection, full ROM, tenderness and edema (Trace bilateral lower extremity) Comment:: Bruising bilateral lower extremities and on feet. Skin: Present intact; Absent erythema Neuro: Present Grossly Intact, alert, awake, oriented x 3 and moves all extremities Assessment and Plan *Assessment and plan (1) C. difficile colitis: Status: Acute Category: Medical Code(s): A04.72 - Enterocolitis due to Clostridium difficile, not specified as recurrent (2) ANCELMO (acute kidney injury): Status: Acute Category: Medical Code(s): N17.9 - Acute kidney failure, unspecified (3) Hyponatremia: Status: Acute Category: Medical Code(s): E87.1 - Hypo-osmolality and hyponatremia (4) Hypertension: Status: Acute Qualifiers: Hypertension type: unspecified Qualified Code(s): I10 - Essential (primary) hypertension Category: Medical Code(s): I10 - Essential (primary) hypertension (5) Hyperlipidemia: Status: Acute Qualifiers: Hyperlipidemia type: unspecified Qualified Code(s): E78.5 - Hyperlipidemia, unspecified Category: Medical Code(s): E78.5 - Hyperlipidemia, unspecified (6) CAD (coronary artery disease): Status: Acute Qualifiers: Coronary Disease-Associated Artery/Lesion type: [place] artery [place] vs. transplanted heart: [place] heart Associated angina: without angina Qualified Code(s): I25.10 - Atherosclerotic heart disease of [place] coronary artery without angina pectoris Category: Medical Code(s): I25.10 - Atherosclerotic heart disease of [place] coronary artery without angina pectoris (7) Frequent falls: Status: Acute Category: Medical Code(s): R29.6 - Repeated falls (8) Generalized weakness: Status: Acute Category: Medical Code(s): R53.1 - Weakness Plan Assessment: This is a 69-year-old female being admitted for ANCELMO and hyponatremia. On my exam, patient is lying in bed in no acute distress. No complaints at this time. Admitted to medicine for further management. Patient states she is feeling poor this morning. Electrolytes stable. Still having loose stools. No urine output since last night. Blood pressure soft. Stable on room air. Continues to require inpatient management. Problems addressed as follows: C. difficile colitis -Stool panel positive. Continue vancomycin 125 mg 4 times a day. Will complete 10 days of therapy. -Hypotension stable. MAP above 60. Increase midodrine to 10 mg 3 times a day -Still having diarrhea. White cell count improved to 10. -Repeat CBC, CMP, magnesium ordered for the morning ANCELMO, improving -Kidney function at baseline this morning with BUN 20, creatinine 0.8. Hyponatremia Hypokalemia -Sodium 129, chloride 107, potassium 4.3, magnesium 2.1, albumin 1.9. Holding supplementation today. Continue with meal supplementation. -Repeat sodium level in the morning with CMP, CBC, magnesium CAD s/p CABG s/p aortic dissection -Requesting records from [facility], Prior notes states she had a CABG and an aortic dissection and that was repaired in March 2023 -Does not appear to be on any blood thinners Renal cell Carcinoma Lymphoblastic lymphoma -sees Dr. Peace; s/p nephrectomy -not on chemo at this time, last CT scan in Nov did not show any active disease H/O alcohol abuse -Pt states she last drank some wine 3-4 days ago, further questioning, goes to the store at least once a week. Buys from [employer], 1 to 2 boxes when she goes. Monitoring for alcohol withdrawal. -Continue nutritional supplementation with vitamins per alcohol withdrawal protocol -Protein low with albumin 1.9 this morning. Continue boost/Ensure with meals DVT prophylaxis: Heparin Code status: Full code Surrogate decision maker: Osman [phone] Skin: Low risk
[2024-06-11] MEDS: MULTIVITAMIN TABLET 1 EACH PO (16:07)
[2024-06-11 16:26] LABS: POC Glucose,Bedside 82 (70-110)
[2024-06-11] MEDS: Dextrose 5 % and 0.9 % NaCl 1,000 ML 500 ML IV (17:00)
--- NOTE | 2024-06-11 17:58 | PC.NURSE ---
Patient able to void on bedside commode 275. VS stable. Patient remained on room air. Able to sit in chair to eat dinner. No bowl movements noted this shift.
[2024-06-11] MEDS: MELATONIN 5MG TABLET 5 MG PO (20:23)
[2024-06-11] MEDS: PANTOPRAZOLE 40MG VIAL 40 MG IV (20:23)
[2024-06-11 20:56] LABS: POC Glucose,Bedside 78 (70-110)
[2024-06-11 23:36] LABS: POC Glucose,Bedside 87 (70-110)
[2024-06-12] VITALS: BP 88/46; PULSE 60; PULSE 67; RESP 18; TEMP 36.8; O2SAT 93
[2024-06-12 04:00] VITALS: PULSE 70; BMI 24.3
[2024-06-12] MEDS: CEFTRIAXONE SODIUM 2 GM in 0.9 % SODIUM CHLORIDE 100 ML IV (04:54)
--- NOTE | 2024-06-12 05:40 | PC.NURSE ---
Pt is currently asleep and has remained A&OX4. At around 1999 pt began satting in upper 80s and was placed on 2L nasal canula. She has remained in the mid 90's. At the beginning of the shift pt stated she needed to urinate, but was unable to after sitting on the bedside commode. Bladder scanned revealed 322 ml. We continued to monitor, and after multiple attempts she was eventually able to void 300 ml. Pt has no complaints at this time, call light within reach.
[2024-06-12 06:03] LABS: Basophils % 0.4 % (0.1-2.0); Eosinophils # 0.2 K/mm3 (0.0-0.4); Eosinophils % 2.3 % (0.1-12.0); Hematocrit 25.8 % (37.0-47.0); Hemoglobin 7.7 g/dL (12.2-16.2); Lymphocytes # 0.4 K/mm3 (0.7-4.5); Lymphocytes % 5.4 % (10-50); Mean Corpuscular HGB Conc 29.9 g/dL (31.8-35.4); Mean Corpuscular Hemoglobin 31.9 pg (27.0-31.2); Mean Corpuscular Volume 106.7 fl (81-99); Monocytes # 0.4 K/mm3 (0.1-1.0); Monocytes % 5.5 % (1.7-9.3); Neutrophils # 6.3 K/mm3 (1.8-7.8); Neutrophils % 86.5 % (37.0-80.0); Platelet Count 339 K/mm3 (142-424); Red Blood Count 2.42 M/mm3 (4.20-5.40); Red Cell Distribution Width 20.7 % (11.5-17.5); White Blood Count 7.2 K/mm3 (4.8-10.8)
[2024-06-12 06:04] LABS: MANUAL DIFFERENTIAL MANUAL DIFFERENTIAL (MANUAL DIFF)
[2024-06-12 06:15] LABS: Alanine Aminotransferase 16 U/L (12-78); Albumin Level 1.9 g/dl (3.5-5.0); Alkaline Phosphatase 97 U/L (38-126); Aspartate Amino Transferase 17 U/L (14-36); Blood Urea Nitrogen 11 mg/dl (7-17); Carbon Dioxide 19 mmol/L (22.0-30.0); Chloride 109 mmol/L (98-107); Creatinine Clearance Estimated 57 mL/min (50-200); Estimated Glomerular Filt Rate 100 ml/min (>60); GFR (African American) 121 ML/MIN (>60); Glucose 73 mg/dl (74-100); Sodium 131 mmol/L (136-145); Total Protein,Serum 3.9 g/dl (6.3-8.2)
[2024-06-12 06:33] LABS: Bilirubin,Total 0.1 mg/dl (0.2-1.3)
--- NOTE | 2024-06-12 07:36 | EXP.PHA.PN ---
Subjective *Date: 06/12/24 *Time: 07:36 Medical Exam Vital signs and Labs for Last 24 Hours: Vital Signs Temp Pulse Pulse Resp BP Pulse Ox O2 Del Method 06/12/24 06:43 Nasal Cannula 06/12/24 05:00 Nasal Cannula 06/12/24 04:00 70 06/12/24 03:00 Nasal Cannula 06/12/24 00:49 Nasal Cannula 06/12/24 00:00 60 06/12/24 00:00 98.2 F 67 18 88/46 L 93 L Nasal Cannula 06/11/24 22:56 Nasal Cannula 06/11/24 21:00 Nasal Cannula 06/11/24 20:00 70 06/11/24 20:00 97.8 F 85 20 103/56 L 96 06/11/24 20:00 Nasal Cannula 06/11/24 18:41 Room Air 06/11/24 16:55 Room Air 06/11/24 16:00 70 06/11/24 16:00 97.9 F 66 19 93/48 L 96 Room Air 06/11/24 15:15 Room Air 06/11/24 13:00 Room Air 06/11/24 12:00 80 06/11/24 12:00 98 F 72 16 87/48 L 98 06/11/24 10:49 Room Air 06/11/24 08:58 70 18 86/46 L 06/11/24 08:33 Room Air 06/11/24 08:00 70 06/11/24 08:00 97.8 F 72 17 87/47 L 93 L O2 Flow Rate 06/12/24 06:43 2 06/12/24 05:00 2 06/12/24 04:00 06/12/24 03:00 2 06/12/24 00:49 2 06/12/24 00:00 06/12/24 00:00 2 06/11/24 22:56 2 06/11/24 21:00 2 06/11/24 20:00 06/11/24 20:00 2 06/11/24 20:00 2 06/11/24 18:41 06/11/24 16:55 06/11/24 16:00 06/11/24 16:00 06/11/24 15:15 06/11/24 13:00 06/11/24 12:00 06/11/24 12:00 06/11/24 10:49 06/11/24 08:58 06/11/24 08:33 06/11/24 08:00 06/11/24 08:00 Intake and Output 06/11/24 06/11/24 06/12/24 15:59 23:59 07:59 Intake Total 750 / 2090 1340 / 2090 100 / 100 Output Total 275 / 275 480 / 480 Balance 750 / 1815 1065 / 1815 -380 / -380 Intake: Intake, Oral Amount 750 / 1090 340 / 1090 Intake, Total IV Amount 1000 / 1000 100 / 100 Ceftriaxone Sodium 2 gm In 0.9 100 / 100 % Sodium Chloride 100 ml @ 200 mls/hr IV Q24H LINO Rx#:[id number] Dextrose 5 % and 0.9 % NaCl 1, 1000 / 1000 000 ml @ 250 mls/hr IV .Q4H LINO Rx#:[id number] Output: Output, Urine Amount 275 / 275 480 / 480 Output, Urine Amount (Catheter) 0 / 0 Ott 0 / 0 Other: Number of Unmeasured Voids 1 Weight 66.36 kg 66.36 kg Patient Weight 06/12/24 23:59 Weight 66.36 kg Laboratory Results - last 24 hr 06/11/24 05:14: Total Counted 100, Neutrophils % (Manual) 90 H, Lymphocytes % (Manual) 5 L, Monocytes % (Manual) 4, Eosinophils % (Manual) 1, Platelet Estimate Normal, Macrocytosis 2+ 06/11/24 08:54: POC Glucose 77 06/11/24 16:19: POC Glucose 82 06/11/24 20:45: POC Glucose 78 06/11/24 23:28: POC Glucose 87 06/12/24 05:23: WBC 7.2 D, RBC 2.42 L, Hgb 7.7 L, Hct 25.8 L, MCV 106.7 H, MCH 31.9 H, MCHC 29.9 L, RDW 20.7 H, Plt Count 339, MPV 8.0, Neut % (Auto) 86.5 H, Lymph % (Auto) 5.4 L, [place] % (Auto) 5.5, Eos % (Auto) 2.3, Baso % (Auto) 0.4, Neut # (Auto) 6.3, Lymph # (Auto) 0.4 L, [place] # (Auto) 0.4, Eos # (Auto) 0.2, Baso # (Auto) 0.0, Sodium 131 L, Potassium 4.0, Chloride 109 H, Carbon Dioxide 19 L, Anion Gap 7.0, BUN 11 D, Creatinine 0.60 D, Estimated Creat Clear 57, Estimated GFR 100, Est GFR ( Amer) 121 D, Glucose 73 L, Calcium 8.0 L, Total Bilirubin 0.1 L, AST 17, ALT 16, Alkaline Phosphatase 97, Total Protein 3.9 L, Albumin 1.9 L, Globulin 2.0, Albumin/Globulin Ratio 1.0 L I & O for Labs for Last 24 Hours: Intake & Output 06/09/24 06/10/24 06/11/24 06/12/24 23:59 23:59 23:59 23:59 Intake Total 2.500 / 2134.500 2290.000 / 2290.000 2090 / 2090 100 / 100 Output Total 0 / 0 300 / 300 275 / 275 480 / 480 Balance 1961.500 / 2134.500 1990.000 / 5417.505 0969 / 1815 -380 / -380 Weight 66.361 kg 66.361 kg 66.36 kg 66.36 kg Microbiology Reports for the Last 24 Hours: Microbiology 06/09/24 03:35 Urine,Clean Catch Urine Culture - Preliminary Gram Negative Rods Gram Negative Rods#2 The patient's infection will respond to the chosen ABx?: Yes Is the patient receiving the right drug, dose, and route?: Yes Could a more targeted ABx be ordered?: No (BLOOD CX NG AND URINE GRAM NEGATIVE RODS)
[2024-06-12 07:49] LABS: Magnesium 1.8 mg/dl (1.6-2.3)
[2024-06-12 07:58] LABS: Eosinophils % 1 % (0-3); Lymphocytes % 3 % (10-50); Monocytes % 4 % (2-9); Neutrophils % 87 % (42-76); Total Cells Counted 100
[2024-06-12 08:00] VITALS: BP 87/48; PULSE 70; PULSE 77; RESP 18; TEMP 36.6; O2SAT 95
[2024-06-12 08:05] LABS: Macrocytosis 2+; Platelet Estimate Normal
[2024-06-12 08:06] LABS: Anisocytosis 2+
[2024-06-12] MEDS: THIAMINE 100MG TABLET 100 MG PO (08:18)
[2024-06-12] MEDS: MIDODRINE HCL 5 MG TABLET 10 MG PO ×2 (08:18→13:06)
[2024-06-12] MEDS: ROPINIROLE HCL 0.25 MG TABLET PO ×2 (08:18→13:06)
[2024-06-12] MEDS: FOLIC ACID 1MG TABLET 1 MG PO (08:18)
[2024-06-12] MEDS: DULOXETINE 30MG CAPSULE.DR 60 MG PO (08:19)
[2024-06-12] MEDS: VANCOMYCIN HCL 50MG/ML 150ML KIT 125 MG PO ×3 (08:21→16:50)
--- NOTE | 2024-06-12 09:12 | PC.NURSE ---
TECH NOTE; NURSE NOTIFIED OF BLOOD PRESSURE FOR 0800 VITAL SIGNS Mariela CONTRERAS, SRNA
[2024-06-12] MEDS: VITAMIN B-12 1,000 MCG 1ML VIAL 1000 MCG IM (09:43)
--- NOTE | 2024-06-12 11:36 | EXP.DC.SUM ---
General Admission date:: 06/08/24 Discharge date: 06/12/24 HPI HPI HPI: Booker Aiken is a 69-year-old female past medical history significant for renal cell carcinoma status post nephrectomy, CAD, HTN, HLD, lymphoma, alcohol abuse who presents emergency room tonight after being seen at her primary care physician's office today for low sodium and generalized weakness. Ms. Aiken states that she has been feeling weak over the last couple of weeks. Does report that she has diarrhea that has been ongoing for the last couple weeks. Patient is a bit of a poor historian and appears sometimes inconsistent with her information. Tells me that she has been drinking a lot of water because of her diarrhea. Also tells me that she had a drink of wine within the last week, unable to tell me how much wine she drank. She tells me that her often times calls her drunk . States that she thinks she might of antibiotics a couple weeks ago but cannot remember what for. Last had chemo a few months ago for her lymphoma. States that the last PET scan she had done did not show cancer anywhere from her renal cell carcinoma. Does have a port in her left chest. Does tell me that she has had multiple falls over the last couple of days, denies any syncopal events resulted in falls. No neck or back pain noted, no LOC noted. Denies any fever, chills, muscle aches. No chest pain, shortness of breath, no productive cough, abdominal pain, bowel or bladder dysfunction. No dysuria, hematuria, no melena noted. No focal neurodeficits. Denies tobacco use, illicit drug use. Has had a history of alcohol abuse in the past, tells me her last drink was this week. Does not take any blood thinners. No recent weight gain or weight loss. Pt tells me that she was at [facility] for open heart surgery approximately 2 months ago. Workup in the ER showed elevated white count of 22,000, H&H chronically low but stable at 10.3 and 32. Sodium at 127, anion gap elevated at 20.2, BUN 25, creatinine 1.5. Baseline creatinine is typically around 1. ALT and AST still elevated at 7767, BNP elevated at 4740. No source of infection identified. Chest x-ray showed some old rib fractures, CT of the chest confirmed medial rib fractures, no pneumonia noted. Urine and stool PCR pending at this time. Blood cultures pending. Patient has no abdominal pain, denies any fever. She will be noted to the hospitalist service for ANCELMO and hyponatremia. Hospital Course Hospital Course Hospital Course: Assessment: This is a 69-year-old female being admitted for ANCELMO and hyponatremia. Found to be C. difficile positive. Extensive discussion with patient and , he helps to point out she has very poor nutritional intake and drinks heavily. Goes through a box of wine every 2 to 3 days with the addition of a bottle of vodka every 2 to 3 days. Concerned that she is malnourished secondary to alcoholism. Patient has poor insight into this condition. At this time she is responding to antibiotics for her C. difficile. Less than 2 bowel movements a day. Imaging on day of discharge of abdomen showing no concern for significant colon inflammation, distention, toxic megacolon. Tolerating p.o. intake. Stable to discharge home to complete oral vancomycin course. Problems addressed as follows: C. difficile colitis -Having diarrhea when she came in. There is some chronicity to it per her report however increased in volume recently. Stool panel positive for C. difficile. Initiated on vancomycin 125 mg 4 times a day. Plan to complete 10-day course. Patient initially was afebrile but hypotensive, required Levophed. Able to wean off Levophed. Maintaining blood pressure on midodrine. Continuing to encourage p.o. nutrition and hydration. Stable blood pressure, holding her blood pressure meds. White cell count improved to 8 by day of discharge. Was elevated at 22 on admission. Given her low albumin, elevated white count, C. difficile positive, patient was meeting concern for severe C. difficile. White cell count normalized however, tolerating p.o. intake, afebrile, imaging with no colonic abnormalities. No blood in stool. Recommend continuing midodrine 10 mg 3 times a day for the next 2 weeks and reevaluate when follows up with primary care. Complete vancomycin. P.o. intake as tolerated. Encouraging nutritional supplementation with protein shakes. ANCELMO, resolved -Creatinine 1.5 at admission due to severity of her illness, dehydration, prerenal state. Showed improvement with fluids and medication adjustments. Normalized by day of discharge with creatinine 0.6, BUN 11 on day of discharge. Hyponatremia Hypokalemia -Sodium 126 on admission, improved to 131 by day of discharge. Due to nutritional intake, diarrhea, alcoholism, multifactorial. Recommend liberal diet, no sodium restriction. Potassium improving as well. 4.0 on day of discharge. Albumin also low during admission. 1.9 on day of discharge. Directly related to her nutritional deficiencies from her alcoholism. Needs repeat labs at follow-up in 1 to 2 weeks. CAD s/p CABG s/p aortic dissection Does not appear to be on any blood thinners, asymptomatic. Holding any blood thinners due to her falling, risk outweighs benefit at this time. 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 not on chemo at this time, last CT scan in Nov did not show any active disease Alcohol abuse/dependence Protein calorie malnutrition -Pt states she last drank some wine 3-4 days prior to admission. Initially on questioning she reports going to the store at least once a week and buying a box of franzia and going through 1 box a week, 2 if she has company over. Denies any liquor or hard alcohol. Further discussion with her at bedside during admission, he reports she drinks a box of wine every 2-1/2 days and a bottle of vodka every 2 to 3 days. She did not disagree with his comments. Appears that she has poor nutritional intake due to her consumption. He often finds her at home having fallen, being intoxicated, or confused from her addiction. Patient at this time does not appear to have acceptance of her problem. Of note, she denied drinking alcohol to the ER in the past 3 to 4 months. Would benefit from consideration of naltrexone or Vivitrol and substance counseling. Patient was not receptive at the time of discharge. -Continue nutritional supplementation with daily multivitamin - Continue boost/Ensure with meals Total time spent on discharge 44 minutes in counseling, documentation, chart review, and direct care with patient. Exam Data for Last 24 hours Vital signs and Labs for Last 24 Hours: Temp Pulse Resp BP Pulse Ox O2 Del Method O2 Flow Rate 97.9 F 77 18 87/48 L 95 Room Air 2 06/12/24 08:00 06/12/24 08:00 06/12/24 08:00 06/12/24 08:00 06/12/24 08:00 06/12/24 08:00 06/12/24 07:36 Laboratory Results - last 24 hr 06/11/24 16:19: POC Glucose 82 06/11/24 20:45: POC Glucose 78 06/11/24 23:28: POC Glucose 87 06/12/24 05:23: WBC 7.2 D, RBC 2.42 L, Hgb 7.7 L, Hct 25.8 L, MCV 106.7 H, MCH 31.9 H, MCHC 29.9 L, RDW 20.7 H, Plt Count 339, MPV 8.0, Neut % (Auto) 86.5 H, Lymph % (Auto) 5.4 L, [place] % (Auto) 5.5, Eos % (Auto) 2.3, Baso % (Auto) 0.4, Neut # (Auto) 6.3, Lymph # (Auto) 0.4 L, [place] # (Auto) 0.4, Eos # (Auto) 0.2, Baso # (Auto) 0.0, Total Counted 100, Neutrophils % (Manual) 87 H, Band Neutrophils % 4.0, Lymphocytes % (Manual) 3 L, Atypical Lymphs % 1.0, Monocytes % (Manual) 4, Eosinophils % (Manual) 1, Platelet Estimate Normal, Anisocytosis 2+, Macrocytosis 2+, Sodium 131 L, Potassium 4.0, Chloride 109 H, Carbon Dioxide 19 L, Anion Gap 7.0, BUN 11 D, Creatinine 0.60 D, Estimated Creat Clear 57, Estimated GFR 100, Est GFR ( Amer) 121 D, Glucose 73 L, Calcium 8.0 L, Magnesium 1.8 D, Total Bilirubin 0.1 L, AST 17, ALT 16, Alkaline Phosphatase 97, Total Protein 3.9 L, Albumin 1.9 L, Globulin 2.0, Albumin/Globulin Ratio 1.0 L I & O for Last 24 hours: Intake & Output 06/09/24 06/10/24 06/11/24 06/12/24 23:59 23:59 23:59 23:59 Intake Total 1961.500 / 2133.500 2290.000 / 2290.000 2089 460 / 460 Output Total 0 / 0 300 / 300 275 / 275 480 / 480 Balance 1961.500 / 2133.500 1989.000 / 5937.954 7331 / 1814 Weight 66.361 kg 66.361 kg 66.36 kg 66.36 kg Constitutional Constitutional: no acute distress, average body habitus, chronically ill appearing and cooperative *Routine HEENT Exam Head: Present normocephalic Eye: Present EOMI and PERRL ENT: Present mucous membranes moist *Routine Neck Exam Neck: Present supple; Absent lymphadenopathy *Routine Respiratory Exam Respiratory: Present CTA bilaterally; Absent rhonchi, wheezes or crackles *Routine Cardiovascular Exam Cardiovascular: Present RRR *Routine Abdominal Exam Abdominal: Present soft, normoactive bowel sounds and tenderness (diffuse, mild); Absent distended or rebound *Routine Rectal Exam Patient deferred: visual exam *Routine Exam Patient deferred: external exam *Routine Extremities Exam Extremities: Present edema (1+ in BLE); Absent cyanosis or clubbing *Routine Skin Exam Skin: Present intact, pallor and warm; Absent rash Comments: Bruising on shins and feet from falls at various stages of healing *Routine Neurological Exam Neurological: Present alert, oriented X3 and moving all extremities; Absent altered mental status Routine Psychiatric Exam Psychiatric: Present cooperative and depressed; Absent good insight Results Data Completed and Pending Labs on day of discharge: Labs from last 24 hours 06/12/24 06/11/24 06/11/24 05:23 23:28 20:45 WBC 7.2 D RBC 2.42 L Hgb 7.7 L Hct 25.8 L MCV 106.7 H MCH 31.9 H MCHC 29.9 L RDW 20.7 H Plt Count 339 MPV 8.0 Neut % (Auto) 86.5 H Lymph % (Auto) 5.4 L [place] % (Auto) 5.5 Eos % (Auto) 2.3 Baso % (Auto) 0.4 Neut # (Auto) 6.3 Lymph # (Auto) 0.4 L [place] # (Auto) 0.4 Eos # (Auto) 0.2 Baso # (Auto) 0.0 Total Counted 100 Neutrophils % (Manual) 87 H Band Neutrophils % 4.0 Lymphocytes % (Manual) 3 L Atypical Lymphs % 1.0 Monocytes % (Manual) 4 Eosinophils % (Manual) 1 Platelet Estimate Normal Anisocytosis 2+ Macrocytosis 2+ Sodium 131 L Potassium 4.0 Chloride 109 H Carbon Dioxide 19 L Anion Gap 7.0 BUN 11 D Creatinine 0.60 D Estimated Creat Clear 57 Estimated GFR 100 Est GFR ( Amer) 121 D Glucose 73 L POC Glucose 87 78 Calcium 8.0 L Magnesium 1.8 D Total Bilirubin 0.1 L AST 17 ALT 16 Alkaline Phosphatase 97 Total Protein 3.9 L Albumin 1.9 L Globulin 2.0 Albumin/Globulin Ratio 1.0 L 06/11/24 16:19 WBC RBC Hgb Hct MCV MCH MCHC RDW Plt Count MPV Neut % (Auto) Lymph % (Auto) [place] % (Auto) Eos % (Auto) Baso % (Auto) Neut # (Auto) Lymph # (Auto) [place] # (Auto) Eos # (Auto) Baso # (Auto) Total Counted Neutrophils % (Manual) Band Neutrophils % Lymphocytes % (Manual) Atypical Lymphs % Monocytes % (Manual) Eosinophils % (Manual) Platelet Estimate Anisocytosis Macrocytosis Sodium Potassium Chloride Carbon Dioxide Anion Gap BUN Creatinine Estimated Creat Clear Estimated GFR Est GFR ( Amer) Glucose POC Glucose 82 Calcium Magnesium Total Bilirubin AST ALT Alkaline Phosphatase Total Protein Albumin Globulin Albumin/Globulin Ratio Preliminary micro results at discharge 06/09/24 03:35 Urine Culture - Preliminary Urine,Clean Catch Gram Negative Rods Gram Negative Rods#2 06/08/24 18:00 Blood Culture - Preliminary Blood NO GROWTH AFTER 48 HOURS 06/08/24 17:45 Blood Culture - Preliminary Blood NO GROWTH AFTER 48 HOURS DS: Diagnosis Discharge Diagnosis (1) C. difficile colitis: Status: Acute Code(s): A04.72 - Enterocolitis due to Clostridium difficile, not specified as recurrent (2) ANCELMO (acute kidney injury): Status: Resolved Code(s): N17.9 - Acute kidney failure, unspecified (3) Hyponatremia: Status: Resolved Code(s): E87.1 - Hypo-osmolality and hyponatremia (4) Hypertension: Status: Acute Code(s): I10 - Essential (primary) hypertension Qualifiers: Hypertension type: unspecified Qualified Code(s): I10 - Essential (primary) hypertension (5) Hyperlipidemia: Status: Acute Code(s): E78.5 - Hyperlipidemia, unspecified Qualifiers: Hyperlipidemia type: unspecified Qualified Code(s): E78.5 - Hyperlipidemia, unspecified (6) CAD (coronary artery disease): Status: Acute Code(s): I25.10 - Atherosclerotic heart disease of [place] coronary artery without angina pectoris Qualifiers: Associated angina: without angina Coronary Disease-Associated Artery/Lesion type: [place] artery [place] vs. transplanted heart: [place] heart Qualified Code(s): I25.10 - Atherosclerotic heart disease of [place] coronary artery without angina pectoris (7) Frequent falls: Status: Acute Code(s): R29.6 - Repeated falls (8) Generalized weakness: Status: Acute Code(s): R53.1 - Weakness (9) Alcohol abuse: Status: Acute Code(s): F10.10 - Alcohol abuse, uncomplicated (10) Hypoalbuminemia: Status: Acute Code(s): E88.09 - Other disorders of plasma-protein metabolism, not elsewhere classified (11) Hypoalbuminemia due to protein-calorie malnutrition: Status: Acute Code(s): E88.09 - Other disorders of plasma-protein metabolism, not elsewhere classified; E46 - Unspecified protein-calorie malnutrition Meds Home Medications and Allergies Home Medications ?Medication ?Instructions ?Recorded ?Confirmed ?Type duloxetine 60 mg capsule,delayed 60 mg PO BID Depression 06/13/23 06/08/24 History release metoprolol tartrate 50 mg tablet 50 mg PO BID 06/13/23 06/08/24 History ibuprofen 600 mg tablet 600 mg PO TIDP PRN Joint pain 12/14/23 06/09/24 History cefdinir 300 mg capsule 300 mg PO BID 2 days #4 caps 06/12/24 Rx midodrine 5 mg tablet 10 mg (2 x 5 mg) PO TID 14 days 06/12/24 Rx #84 tabs multivitamin with folic acid 400 1 tab PO 1700 30 days #30 tabs 06/12/24 Rx mcg tablet (Tab-A-Cliff) vancomycin 50 mg/mL oral solution 125 mg (2.5 mL) PO QID 10 days #0 06/12/24 Rx (Firvanq) mL New Prescriptions to Start Prescriptions: Gomez Bernal James multivitamin with folic acid [Tab-A-Cliff] Gomez Ferrara Allergies Allergy/AdvReac Type Severity Reaction Status Date / Time Iodinated Contrast Media Allergy Intermediate Hives Verified 06/08/24 18:02 [Iodinated Contrast Media - Oral and] Sulfa (Sulfonamide Allergy Unknown Verified 06/08/24 18:02 Antibiotics) allergy reaction Discharge Plan Disposition Patient Disposition: Home, Self-Care Condition: Fair Discharge Order Discharge Orders: Discharge Order (Routine); Ordered 06/12/24 Ordered By: Gomez Ferrara Follow up Plan Follow up with: Saran Sagastume MD [Primary Care Provider] - Enter time for follow up (Please call for your follow up appt. ) Prescriptions/Medication Reconciliation: New multivitamin with folic acid [Tab-A-Cliff] 400 mcg Tablet 1 tab PO 1700 30 Days Qty: 30 0RF vancomycin [Firvanq] 50 mg/mL Recon Soln 125 mg PO QID 10 Days Qty: 0 0RF midodrine 5 mg Tablet 10 mg PO TID 14 Days Qty: 84 0RF cefdinir 300 mg capsule 300 mg PO BID 2 Days Qty: 4 0RF Continued metoprolol tartrate 50 mg tablet 50 mg PO BID ibuprofen 600 mg tablet 600 mg PO TIDP PRN (Reason: Joint pain) duloxetine 60 mg capsule,delayed release(DR/EC) 60 mg PO BID Problem Reconciliation Problems Reviewed?: Yes Patient Discharge Instructions ACTIVITY: Ambulate as tolerated DIET: continue same diet and advance to your usual diet Patient Instructions: DI for Hyponatremia, DI for Clostridioides difficile Infection, DI for Acute Kidney Injury Print Language: Japanese Providers Primary Care Provider: Saran Sagastume Admit Provider: Gomez Ferrara Attending Provider: Gomez Ferrara
--- NOTE | 2024-06-12 11:45 | CT_ITS ---
FINAL REPORT TECHNIQUE: Noncontrast CT exam of the abdomen and pelvis. This study was performed with techniques to keep radiation doses as low as reasonably achievable (ALARA). Individualized dose reduction techniques using automated exposure control or adjustment of mA and/or kV according to the patient''s size were employed. CLINICAL HISTORY: eval for megacolon COMPARISON: 12/06/2023 FINDINGS: Abdomen: There are small bilateral effusions and moderate atelectasis. Postoperative changes are seen from gastric bypass. Patient is status post right nephrectomy. Liver, spleen, pancreas and adrenal glands have a normal CT appearance in their limited unenhanced state. The left kidney show no stone disease or obstruction. No obvious renal mass is present. No ureteral stones are present. Pelvis: No bowel obstruction is identified. There is no evidence of toxic megacolon. There is minimal sigmoid diverticulosis without evidence of diverticulitis. Pelvic bowel loops are otherwise unremarkable. The appendix is normal. Patient is status post hysterectomy. No distal ureteral stones are seen. Bladder is unremarkable. No fluid collection or adenopathy is seen. IMPRESSION: No acute findings. Reviewed, Interpreted and Dictated by Augusto Coe MD Transcribed by Nelli Melo Authenticated and . [facility]
[2024-06-12 16:00] VITALS: BP 110/60; PULSE 78; RESP 20; TEMP 36.8; O2SAT 94
[2024-06-12] MEDS: MULTIVITAMIN TABLET 1 EACH PO (16:49)
--- NOTE | 2024-06-13 13:35 | CARE MANAGER ---
Spoke with patient regarding recent discharge. Patient stated that she is having nausea, so I suggested that she may want to call her PCP. She stated that she does have a f/u appt scheduled with Dr. Sagastume.
== END 2024-06-12 18:04 | disposition home or self-care (01) | DRG 683 ==
LOC: ER 18:00 → 2ND 21:09
PROVIDERS: Nurse Practitioner Acute Care; Admitting Provider Internal Medicine Adolescent Medicine; Emergency Provider Student in an Organized Health Care Education/Training Program; PCP Internal Medicine Adolescent Medicine; Visit Provider Internal Medicine Adolescent Medicine
DX: N17.9 Acute kidney failure, unspecified (principal); A04.72 Enterocolitis due to Clostridium difficile, not specified as recurrent; C83.00 Small cell B-cell lymphoma, unspecified site; E87.1 Hypo-osmolality and hyponatremia; C83.50 Lymphoblastic (diffuse) lymphoma, unspecified site; I10 Essential (primary) hypertension; E78.5 Hyperlipidemia, unspecified; I25.10 Atherosclerotic heart disease of native coronary artery without angina pectoris; R29.6 Repeated falls; D64.9 Anemia, unspecified; E87.6 Hypokalemia; F10.20 Alcohol dependence, uncomplicated
CPT/HCPCS: 36415; 70450; 71045; 71250; 74176; 80048; 80053; 80320; 81001; 82306; 82533; 82550; 82607; 82728; 82746; 82803; 82962; 83036; 83540; 83550; 83605; 83735; 83880; 84100; 84443; 84484; 85007; 85025; 85027; 85610; 86140; 87040; 87086; 87088; 87186; 87507; 87581; 87632; 87635; 87798; 93005; 97162; 97530; 99221; 99291; G0480; J0696; J1650; J3420; J3475; J3480; J7042; J7120

== ENCOUNTER 2024-08-10 16:15 | Emergency (ER) | payer BC, MEDICARE, SELFPAY ==
[2024-08-10] VITALS (14 sets, daily range): BP systolic 99–164; BP diastolic 50–111; PULSE 55–93; RESP 18–22; TEMP 36.7; O2SAT 88–100; BMI 23.3
--- NOTE | 2024-08-10 16:24 | HMH.EDGENADL ---
Discharge Plan Disposition Chief Complaint: Abdominal Pain Prescriptions Prescriptions: No Action metoprolol tartrate 50 mg tablet 50 mg PO BID ibuprofen 600 mg tablet 600 mg PO TIDP PRN (Reason: Joint pain) duloxetine 60 mg capsule,delayed release(DR/EC) 60 mg PO BID multivitamin with folic acid [Tab-A-Cliff] 400 mcg Tablet 1 tab PO 1700 30 Days Qty: 30 0RF vancomycin [Firvanq] 50 mg/mL Recon Soln 125 mg PO QID 10 Days Qty: 0 0RF midodrine 5 mg Tablet 10 mg PO TID 14 Days Qty: 84 0RF cefdinir 300 mg capsule 300 mg PO BID 2 Days Qty: 4 0RF Referrals Follow up/Referrals: Saran Sagastume MD [Primary Care Provider] - See instructions Instructions Patient Instructions: DI for Acute Abdominal Pain Print Language Print Language: Czech Discharge ED Provider: Zayra Azevedo General Adult HPI General Chief complaint: Abdominal Pain Stated complaint: abd pain Time Seen by Provider: 08/10/24 16:21 History of Present Illness HPI narrative: Booker Aiken is a 69 y/o female past medical history significant for renal cell carcinoma status post nephrectomy, CAD, HTN, HLD, lymphoma, alcohol abuse who presents emergency room tonight after being seen at her primary care physician's office today for epigastric abdominal pain. Related Data Home Medications ?Medication ?Instructions ?Recorded ?Confirmed duloxetine 60 mg capsule,delayed 60 mg PO BID Depression 06/13/23 08/10/24 release metoprolol tartrate 50 mg tablet 50 mg PO BID 06/13/23 08/10/24 ibuprofen 600 mg tablet 600 mg PO TIDP PRN Joint pain 12/14/23 08/10/24 Previous Rx's ?Medication ?Instructions ?Recorded cefdinir 300 mg capsule 300 mg PO BID 2 days #4 caps 06/12/24 midodrine 5 mg tablet 10 mg (2 x 5 mg) PO TID 14 days 06/12/24 #84 tabs multivitamin with folic acid 400 1 tab PO 1700 30 days #30 tabs 06/12/24 mcg tablet (Tab-A-Cliff) vancomycin 50 mg/mL oral solution 125 mg (2.5 mL) PO QID 10 days #0 06/12/24 (Firvanq) mL Allergies Allergy/AdvReac Type Severity Reaction Status Date / Time Iodinated Contrast Media Allergy Intermediate Hives Verified 08/10/24 16:34 [Iodinated Contrast Media - Oral and] Sulfa (Sulfonamide Allergy Unknown Verified 08/10/24 16:34 Antibiotics) allergy reaction [facility] Disclaimer: The information contained in this section may have been updated after the patient was seen, as this information can be updated by other users. Medical History Anemia Arthritis Blood in left ear canal Chronic eustachian tube dysfunction History of chemotherapy History of hypothyroidism History of thyroid disease Hypertension Lymphoma Spontaneous rupture of tympanic membrane of left ear concurrent with and due to acute suppurative otitis media Surgical History History of tonsillectomy Family History Other Diabetes Social History Smoking Status: Former smoker tobacco type: cigarettes packs per day: 1 second hand exposure: Yes alcohol intake: former substance use type: denies use current occupational status: retired Travel in the last 8 weeks: None household members: spouse housing: house current occupational exposures/hazards: No caffeine: No ROS Obtained: Yes All systems reviewed & no additional complaints except as documented Physical Exam General General appearance: alert Respiratory Respiratory exam: Present normal lung sounds bilaterally; Absent respiratory distress Cardiovascular Cardiovascular exam: Present regular rate and normal rhythm Abdominal Exam Abdominal exam: Present soft and tenderness; Absent guarding, rebound or rigidity Abdominal tenderness: Present RUQ and epigastrium Extremities Exam Extremities exam: Present normal inspection and full ROM Back Exam Back exam: Present full ROM Neurological Exam Neurological exam: Present alert Psychiatric Psychiatric exam: Present normal mood Skin Skin exam: Present warm and dry Medical Decision Making Medical Records Screening: Per USPSTF and CDC recommendations, given the prevalence of disease in our region, it is our hospital?s policy to screen for HIV and viral Hepatitis for all patients aged 18 and over and those with ongoing risk factors. Johnny Inquiry Pt receiving controlled substance: No Vital Signs: 08/10/24 16:16 08/10/24 16:23 08/10/24 16:30 Temperature 98.0 F Temperature Source Oral Pulse Rate 73 71 Pulse Rate [Left Radial] 71 Respiratory Rate 18 Blood Pressure 124/64 122/66 Blood Pressure [Right Arm] 124/69 Blood Pressure Mean 84 84 Blood Pressure Mean [Right Arm] 87 Blood Pressure Source [Right Arm] Automatic Cuff Blood Pressure Position [Right Arm] Sitting 02 Sat by Pulse Oximetry 100 100 97 Oxygen Delivery Method Room Air Room Air Room Air 08/10/24 17:00 08/10/24 17:06 08/10/24 17:30 Temperature Temperature Source Pulse Rate 67 69 69 Pulse Rate [Left Radial] Respiratory Rate 22 18 18 Blood Pressure 125/58 L 119/60 109/67 L Blood Pressure [Right Arm] Blood Pressure Mean 90 98 82 Blood Pressure Mean [Right Arm] Blood Pressure Source [Right Arm] Blood Pressure Position [Right Arm] 02 Sat by Pulse Oximetry 99 100 98 Oxygen Delivery Method 08/10/24 18:30 08/10/24 20:34 08/10/24 21:05 Temperature Temperature Source Pulse Rate 67 67 70 Pulse Rate [Left Radial] Respiratory Rate 18 Blood Pressure 120/60 114/66 153/111 H Blood Pressure [Right Arm] Blood Pressure Mean Blood Pressure Mean [Right Arm] Blood Pressure Source [Right Arm] Blood Pressure Position [Right Arm] 02 Sat by Pulse Oximetry 99 100 97 Oxygen Delivery Method Room Air 08/10/24 21:31 08/10/24 22:01 08/10/24 22:26 Temperature Temperature Source Pulse Rate 55 L 62 88 Pulse Rate [Left Radial] Respiratory Rate Blood Pressure 138/71 164/68 H 137/64 Blood Pressure [Right Arm] Blood Pressure Mean Blood Pressure Mean [Right Arm] Blood Pressure Source [Right Arm] Blood Pressure Position [Right Arm] 02 Sat by Pulse Oximetry 98 88 L 100 Oxygen Delivery Method 08/10/24 23:00 08/10/24 23:30 08/11/24 00:00 Temperature Temperature Source Pulse Rate 93 H 64 79 Pulse Rate [Left Radial] Respiratory Rate Blood Pressure 99/71 L 119/50 L 115/52 L Blood Pressure [Right Arm] Blood Pressure Mean Blood Pressure Mean [Right Arm] Blood Pressure Source [Right Arm] Blood Pressure Position [Right Arm] 02 Sat by Pulse Oximetry 100 99 74 L Oxygen Delivery Method Lab Data Lab Results 08/10/24 16:27: WBC 11.3 H, RBC 3.62 L, Hgb 8.6 L, Hct 28.6 L, MCV 79.0 L, MCH 23.9 L, MCHC 30.3 L, RDW 17.9 H, Plt Count 564 H, MPV 7.4, Neut % (Auto) 88.7 H, Lymph % (Auto) 6.6 L, [place] % (Auto) 3.8, Eos % (Auto) 0.6, Baso % (Auto) 0.3, Neut # (Auto) 10.0 H, Lymph # (Auto) 0.8, [place] # (Auto) 0.4, Eos # (Auto) 0.1, Baso # (Auto) 0.0, Total Counted 100, Neutrophils % (Manual) 86 H, Lymphocytes % (Manual) 8 L, Monocytes % (Manual) 4, Eosinophils % (Manual) 2, Platelet Estimate Normal, Poikilocytosis 2+, Anisocytosis 1+, Microcytosis 1+, Spherocytes 1+, Ovalocytes 1+, Stomatocytes 1+, Lipase 125 08/10/24 16:33: Sodium 133 L, Potassium 3.7, Chloride 102, Carbon Dioxide 24, Anion Gap 10.7, BUN 15, Creatinine 0.90, Estimated Creat Clear 55, Estimated GFR 62, Est GFR ( Amer) 76, Glucose 102 H, Calcium 10.3 H, Total Bilirubin 0.7, AST 31, ALT 17, Alkaline Phosphatase 70, Total Protein 6.9 D, Albumin 4.1, Globulin 2.8, Albumin/Globulin Ratio 1.5 08/10/24 21:07: Urine Color Yellow, Urine Appearance Clear, Urine pH 8.0, Ur Specific [employer] 1.010, Urine Protein Trace, Urine Glucose (UA) Negative, Urine Ketones Negative, Urine Blood Negative, Urine Nitrate Negative, Urine Bilirubin Negative, Urine Urobilinogen 0.2, Ur Leukocyte Esterase 1+ A, Urine RBC Occasional, Urine WBC 5-10, Ur Squamous Epith Cells 10-20, Urine Bacteria 1+ 08/10/24 16:27 08/10/24 16:33 Orders (Tests/Meds): ED MEDICATIONS Generic Name Dose Route Start Last Admin Trade Name Freq PRN Reason Stop Dose Admin Sodium Chloride 10 ml 08/10/24 18:14 08/10/24 18:30 Sodium Chloride 0.9% 10ml Syr (Rad Only) IV 09/09/24 18:13 10 ml NEEDED PRN Administration Maintain IV Site Discontinued Medications Generic Name Dose Route Start Last Admin Trade Name Sanjuq PRN Reason Stop Dose Admin Diphenhydramine HCl 50 mg 08/10/24 17:18 08/10/24 17:33 Diphenhydramine 50mg/Ml Vial IV 08/10/24 17:19 50 mg ONCE ONE Administration Sodium Chloride 1,000 mls @ 999 mls/hr 08/10/24 16:45 08/10/24 16:45 Sod Chlor 0.9% 1000ml Bag IV 08/10/24 17:45 999 mls/hr .Q1H1M LINO Administration Iopamidol 75 ml 08/10/24 18:14 08/10/24 18:30 Iopamidol-370 (76%);100ml Bottle IV 08/10/24 18:15 75 ml ONCE ONE Administration Morphine Sulfate 2 mg 08/10/24 16:32 08/10/24 16:46 Morphine 2mg/Ml Syringe IV 08/10/24 16:33 2 mg ONCE ONE Administration Morphine Sulfate 4 mg 08/10/24 20:10 08/10/24 20:26 Morphine 4mg/Ml Syringe IV 08/10/24 20:11 4 mg ONCE ONE Administration Ondansetron HCl 4 mg 08/10/24 16:32 08/10/24 16:45 Ondansetron 4mg/2ml Vial IV 08/10/24 16:33 4 mg ONCE ONE Administration ORDERS Category Date Time Status CT abdomen pelvis w con Stat Cat Scan 08/10/24 17:18 Completed POCUS Point of Care (ER Only) Stat Exams 08/10/24 16:42 Completed XR chest portable Stat Exams 08/10/24 16:32 Completed Complete Blood Count Auto Diff Stat Lab 08/10/24 16:27 Completed Comprehensive Metabolic Panel Stat Lab 08/10/24 16:33 Completed HIV (1&2) Antibody Rapid Stat Lab 08/10/24 16:27 Received Hep C Ab with Reflex to RNA Stat Lab 08/10/24 16:27 Received Lactate Venous Stat Lab 08/10/24 21:10 Ordered Lipase Stat Lab 08/10/24 16:27 Completed Urinalysis and Microscopic Stat Lab 08/10/24 21:07 Completed Urine Culture Stat Micro 08/10/24 21:07 Received Medical Decision Narrative: Booker Aiken is a 69 y/o female presenting from clinic with epigastric abdominal pain. Patient is an extremely poor historian. After discussion with patient's PCP who sent her to the emergency department, she is primarily concerned with patient's history of alcohol abuse and pancreatitis with new onset epigastric abdominal tenderness. Patient also explains she had up to 4 episodes of vomiting over the past 48 hours. Differential diagnosis includes but is not limited to, acute pancreatitis, pneumonia, hepatitis, ACS, gastroparesis, constipation, among others. Patient's laboratory evaluation significant for leukocytosis, anemia not requiring transfusion, normal lipase. Patient CT abdomen/pelvis performed and personally reviewed by me which was significant for distended stomach, Zay-en-Y bypass, pyloric soft tissue mass. No SBO. Patient requiring frequent rounds of narcotic pain medication secondary to her significant epigastric pain. Patient not tolerating oral intake well secondary to pain. Patient's case was discussed with the hospitalist at [facility] who stated gastroenterology is not currently available to evaluate this patient in the [facility] surgeons would not manage her secondary to her Zay-en-Y and nephrectomy history. Patient's case was then discussed with who discussed patient's case with surgery oncology and general surgery. The specialist did not feel she needed surgical intervention at this time and would require endoscopy and further GI intervention. remains on divert and declined patient transfer. [facility] was then contacted as it was discovered that the patient's Zay-en-Y was performed at [facility]. After discussion with multiple surgeons at [facility] and [facility], they have declined the patient transfer as they do not have GI or surgery oncology. At this time, patient's care was signed out to oncoming provider, Dr. Caruso for continued attempts at transferring the patient for definitive management. Critical Care Critical Care Time Critical Care Time: No
--- NOTE | 2024-08-10 16:29 | PC.NURSE ---
DR NATHAN AT BEDSIDE
--- NOTE | 2024-08-10 16:32 | XR_ITS ---
PROCEDURE INFORMATION: Exam: XR Chest Exam date and time: 08/10/2024 4:35 PM Age: 69 years old Clinical indication: Pain; Other: Epigastric; Additional info: Epigastric pain TECHNIQUE: Imaging protocol: Radiologic exam of the chest. Views: 1 view. COMPARISON: CT CHEST WO CON 06/08/2024 7:11 PM FINDINGS: Tubes, catheters and devices: There is a left chest implanted port, catheter tip projects over the region of the cavoatrial junction. Lungs: Streaky opacities in both lungs consistent with scarring. Stable left lung calcified granuloma. Pleural spaces: No large effusion or pneumothorax. Heart/Mediastinum: Stable cardiac and mediastinal contours. Bones/joints: Right humeral surgical hardware is noted. The patient is status post median sternotomy. IMPRESSION: No dense parenchymal consolidation, pleural effusion, or pneumothorax.
--- NOTE | 2024-08-10 16:39 | PC.NURSE ---
portable xray at bedside
[2024-08-10 16:43] LABS: Basophils % 0.3 % (0.1-2.0); Eosinophils # 0.1 K/mm3 (0.0-0.4); Eosinophils % 0.6 % (0.1-12.0); Hematocrit 28.6 % (37.0-47.0); Hemoglobin 8.6 g/dL (12.2-16.2); Lymphocytes # 0.8 K/mm3 (0.7-4.5); Lymphocytes % 6.6 % (10-50); Mean Corpuscular HGB Conc 30.3 g/dL (31.8-35.4); Mean Corpuscular Hemoglobin 23.9 pg (27.0-31.2); Mean Platelet Volume 7.4 fl (7.4-10.4); Monocytes # 0.4 K/mm3 (0.1-1.0); Monocytes % 3.8 % (1.7-9.3); Neutrophils % 88.7 % (37.0-80.0); Platelet Count 564 K/mm3 (142-424); Red Blood Count 3.62 M/mm3 (4.20-5.40); Red Cell Distribution Width 17.9 % (11.5-17.5); White Blood Count 11.3 K/mm3 (4.8-10.8)
--- NOTE | 2024-08-10 16:44 | ECG_ITS ---
APPROVED REPORT Exam: Resting ECG HR:65 bpm ECG Measurements Heart Rate 65 AXES QRSd 99 QRS 59 QT 459 T 62 QTc 470 Conclusion SUPRAVENTRICULAR RHYTHM ABNORMAL RHYTHM ECG UNCONFIRMED REPORT Electronically signed by : Zayra Azevedo, 08/10/2024 17:10:17
[2024-08-10] MEDS: 0.9 % SODIUM CHLORIDE 1000ML 1,000 ML 999 ML IV (16:45)
[2024-08-10] MEDS: ONDANSETRON 4MG/2ML VIAL 4 MG IV (16:45)
[2024-08-10] MEDS: MORPHINE 2MG/ML SYRINGE 2 MG IV (16:46)
[2024-08-10 16:48] LABS: Lipase 125 U/L (23-300)
[2024-08-10 16:49] LABS: MANUAL DIFFERENTIAL MANUAL DIFFERENTIAL (MANUAL DIFF)
--- NOTE | 2024-08-10 16:58 | PC.NURSE ---
mary ann richter at bedside with ultrasound machine
[2024-08-10 17:17] LABS: Eosinophils % 2 % (0-3); Lymphocytes % 8 % (10-50); Monocytes % 4 % (2-9); Neutrophils % 86 % (42-76); Total Cells Counted 100
[2024-08-10 17:18] LABS: Anisocytosis 1+; Microcytosis 1+; Ovalocytes 1+; Poikilocytosis 2+; Stomatocytes 1+
--- NOTE | 2024-08-10 17:18 | CT_ITS ---
PROCEDURE INFORMATION: Exam: CT Abdomen And Pelvis With Contrast Exam date and time: 08/10/2024 6:08 PM Age: 69 years old Clinical indication: Abdominal pain; Additional info: Epigastric pain, ETOH abuse, pancreatitis TECHNIQUE: Imaging protocol: Computed tomography of the abdomen and pelvis with contrast. Radiation optimization: All CT scans at this facility use at least one of these dose optimization techniques: automated exposure control; mA and/or kV adjustment per patient size (includes targeted exams where dose is matched to clinical indication); or iterative reconstruction. Contrast material: ISOVUE; Contrast volume: 70 ml; Contrast route: IV; COMPARISON: 1. CT ABDOMEN PELVIS WO CON 06/12/2024 12:[address] ABDOMEN PELVIS WO/W CON 12/06/2023 9:[address] ABDOMEN PELVIS WO CON 08/02/2023 9:04 AM FINDINGS: Lungs: Calcified granuloma at the medial left lung base. Scattered areas of bronchial wall thickening which are likely chronic inflammatory. A few areas of subpleural reticulation are noted, nonspecific. Liver: Normal. Gallbladder and biliary ducts: The patient is status post cholecystectomy. There is dilation of the intrahepatic biliary ducts most likely reflecting post cholecystectomy effect. There is dilation of the intrahepatic biliary ducts most likely reflecting post cholecystectomy effect. Pancreas: Normal. Spleen: There are multiple calcifications in the spleen most likely reflects small granulomas. Adrenal glands: Mild thickening of the left adrenal gland is a stable finding. Kidneys and ureters: Absent right kidney. Stomach and bowel: There is moderate gastric wall thickening with a defect noted in the gastric mucosa (image 35 series 3). There is significant fluid distension of the remnant stomach. There is an additional small defect in the gastric mucosa adjacent to the antrum (image 38 series 3). Prior Zay-en-Y gastric bypass. There is nodular soft tissue thickening in the region of the pyloric sphincter (image 42 series 3). There are scattered colonic diverticula. There are scattered colonic diverticula. Appendix: No evidence of appendicitis. Intraperitoneal space: There is a small volume of free fluid in the pelvis. Vasculature: There is a stable dissection extending from above the level of the study to the left common iliac artery. There is atherosclerotic disease of the visualized aorta and its major branch vessels. Lymph nodes: No lymphadenopathy. Urinary bladder: Unremarkable as visualized. Reproductive: The patient has undergone prior hysterectomy. Bones/joints: There is diffuse degenerative disease of the visualized osseous structures. The patient is status post median sternotomy. Soft tissues: Unremarkable. IMPRESSION: Status post Zay-en-Y gastric bypass with a significantly distended bypassed stomach with areas of ulceration of the mucosa as well as suspected soft tissue mass at the pyloric sphincter. No evidence for perforation at the time of imaging.
[2024-08-10 17:19] LABS: Platelet Estimate Normal; Spherocytes 1+
[2024-08-10] MEDS: diphenhydrAMINE 50MG/ML VIAL 50 MG IV (17:33)
--- NOTE | 2024-08-10 17:36 | PC.NURSE ---
Dr. Azevedo s/w Dr. Kim (ortho)
[2024-08-10 17:57] LABS: Albumin Level 4.1 g/dl (3.5-5.0); Chloride 102 mmol/L (98-107); Sodium 133 mmol/L (136-145)
[2024-08-10 17:58] LABS: Potassium 3.7 mmoL/L (3.5-5.1)
[2024-08-10 18:00] LABS: Alanine Aminotransferase 17 U/L (12-78); Alkaline Phosphatase 70 U/L (38-126); Anion Gap 10.7 mEq/L (5-15); Aspartate Amino Transferase 31 U/L (14-36); Bilirubin,Total 0.7 mg/dl (0.2-1.3); Blood Urea Nitrogen 15 mg/dl (7-17); Carbon Dioxide 24 mmol/L (22.0-30.0); Creatinine Clearance Estimated 55 mL/min (50-200); Estimated Glomerular Filt Rate 62 ml/min (>60); GFR (African American) 76 ML/MIN (>60)
--- NOTE | 2024-08-10 18:00 | PC.NURSE ---
Pt called out to nurse's station stating she needed to go. We asked if there was anything we can do to assist her, as we are only waiting on her blood work before the ct scan can be taken. States, I guess I'll wait . Pt stated It's just so cold in here and my nose is running I just don't want to be here . I let pt know I unfortunately could not control the temperature in the ER, I offered multiple blankets. Pt accepted and given a 3rd warm blanket.
[2024-08-10 18:01] LABS: Calcium 10.3 mg/dl (8.4-10.2); Glucose 102 mg/dl (74-100); Total Protein,Serum 6.9 g/dl (6.3-8.2)
[2024-08-10 18:02] LABS: Albumin/Globulin Ratio 1.5 (1.1-1.8); Globulin 2.8 g/dL (1.3-3.2)
--- NOTE | 2024-08-10 18:06 | PC.NURSE ---
Radiology at bedside to take pt to ct scan.
--- NOTE | 2024-08-10 18:08 | PC.NURSE ---
PT TO CT
--- NOTE | 2024-08-10 18:19 | PC.NURSE ---
pt returned from radiology
[2024-08-10] MEDS: SODIUM CHLORIDE 0.9% 10ML SYR (RAD ONLY) 10 ML IV (18:30)
[2024-08-10] MEDS: IOPAMIDOL-370 (76%);100ML BOTTLE 75 ML IV (18:30)
--- NOTE | 2024-08-10 19:23 | PC.NURSE ---
Called [facility] for possible transfer and called radiology to [facility] and collect a disc
--- NOTE | 2024-08-10 19:33 | PC.NURSE ---
pt sitting up at bedside, reports feeling better, denies abd pain, states she wants to go home, explained we was awaiting CT results, verbalized understanding, denies any needs
[2024-08-10] MEDS: MORPHINE 4MG/ML SYRINGE 4 MG IV (20:26)
--- NOTE | 2024-08-10 20:53 | PC.NURSE ---
[facility] called in regards to a patient, transferred to Dr Azevedo
--- NOTE | 2024-08-10 21:00 | PC.NURSE ---
Pt updated on the need of transfer, denies any needs
[2024-08-10 21:11] LABS: Microscopic, Urine URINE MICROSCOPIC (MICROSCOPIC)
[2024-08-10 21:18] LABS: Appearance,Urine CLEAR (Clear); Blood, Urine Negative (Negative); Color,Urine YELLOW (Yellow); Glucose,Urine (UA) Negative (Negative); Ketones,Urine Negative (Negative); Leukocyte Esterase,Urine 1+ (Negative); Nitrate,Urine Negative (Negative); Protein,Urine TRACE (Negative); Urobilinogen,Urine 0.2 EU/dl (0.2)
[2024-08-10 21:30] LABS: Bilirubin,Urine Negative (Negative)
[2024-08-10 21:37] LABS: Bacteria,Urine 1+ /lpf; RBC,Urine Occasional #/hpf (0-3)
--- NOTE | 2024-08-10 21:50 | PC.NURSE ---
pt up and ambulated to bathroom without difficulty, denies any further needs
--- NOTE | 2024-08-10 22:44 | PC.NURSE ---
Contacted [facility] in regards to transfer, they'll reach out to the hospitalist and contact us back.
--- NOTE | 2024-08-10 23:08 | PC.NURSE ---
pt continues to await transfer, denies any needs
[2024-08-11] VITALS: BP 115/52; PULSE 79; O2SAT 74
--- NOTE | 2024-08-11 00:45 | PC.NURSE ---
Called [facility] for possible transfer, reports they have a wait list
--- NOTE | 2024-08-11 00:50 | PC.NURSE ---
[facility] for possible transfer, Dr Caruso on phone waiting to speak with provider
--- NOTE | 2024-08-11 00:54 | PC.NURSE ---
speaking with [facility] at this time for continuity of care via GI.
[2024-08-11 01:00] VITALS: BP 140/97; PULSE 90; O2SAT 98
[2024-08-11] MEDS: HYDROMORPHONE 2MG/ML SYRINGE 0.5 MG IV (01:14)
--- NOTE | 2024-08-11 01:19 | PC.NURSE ---
Attempted to call pts per her request at [phone], no answer
[2024-08-11 01:28] VITALS: BP 140/77; PULSE 78; RESP 18; TEMP 36.9; O2SAT 98
[2024-08-11 07:22] LABS: HIV (1&2) Antibody Rapid NONREACTIVE (NONREACTIVE)
[2024-08-12 09:08] LABS: HCV Ab Non Reactive (Non Reactive)
== END 2024-08-11 01:30 | disposition other institution (70) ==
PROVIDERS: Emergency Provider Student in an Organized Health Care Education/Training Program; PCP Internal Medicine Adolescent Medicine
DX: R10.13 Epigastric pain (principal); R11.10 Vomiting, unspecified; D72.829 Elevated white blood cell count, unspecified; D64.9 Anemia, unspecified; I25.10 Atherosclerotic heart disease of native coronary artery without angina pectoris; I10 Essential (primary) hypertension; E78.5 Hyperlipidemia, unspecified; C85.90 Non-Hodgkin lymphoma, unspecified, unspecified site; Z87.891 Personal history of nicotine dependence
CPT/HCPCS: 71045; 74177; 80053; 81001; 83690; 85007; 85025; 85027; 86803; 87086; 87389; 93005; 96361; 96374; 96375; 96376; 99285; J1170; J1200; J2270; J2405; J7030; Q9967

== ENCOUNTER → 2024-09-03 09:17 | Outpatient (REF) | payer BC, MEDICARE, SELFPAY ==
[2024-09-04 15:19] LABS: C difficile Toxins AB, EIA Negative (Negative)
== END ==
LOC: LAB 09:17
PROVIDERS: Nurse Practitioner Family; Visit Provider Internal Medicine Gastroenterology
DX: K52.9 Noninfective gastroenteritis and colitis, unspecified (principal); Z86.19 Personal history of other infectious and parasitic diseases
CPT/HCPCS: 87324

== ENCOUNTER 2024-09-24 10:05 | Emergency (ER) | payer BC, MEDICARE, SELFPAY ==
[2024-09-24] VITALS (9 sets, daily range): BP systolic 105–120; BP diastolic 52–87; PULSE 72–100; RESP 18–22; TEMP 37.1; O2SAT 68–100; BMI 24.9
--- NOTE | 2024-09-24 | ECG_ITS ---
APPROVED REPORT Exam: Resting ECG HR:90 bpm ECG Measurements Heart Rate 90 AXES IA 149 P 55 QRSd 86 QRS 53 QT 402 T 74 QTc 450 Conclusion Sinus rhythm Electronically signed by : GUIDO SAHA, 09/25/2024 15:02:18
--- NOTE | 2024-09-24 10:10 | PC.NURSE ---
dr drake at bedside
--- NOTE | 2024-09-24 10:28 | CT_ITS ---
PROCEDURE INFORMATION: Exam: CTA Abdomen and Pelvis With Contrast Exam date and time: 09/24/2024 12:47 PM Age: 69 years old Clinical indication: Abdominal pain; Epigastric; Additional info: Epigast pain, h/o ao dissection and pancreatitis TECHNIQUE: Imaging protocol: Computed tomographic angiography of the abdomen and pelvis with contrast. Exam focused on the arteries. 3D rendering (Not supervised by radiologist): MIP and/or 3D reconstructed images were created by the technologist. Radiation optimization: All CT scans at this facility use at least one of these dose optimization techniques: automated exposure control; mA and/or kV adjustment per patient size (includes targeted exams where dose is matched to clinical indication); or iterative reconstruction. Contrast material: ISO 370; Contrast volume: 80 ml; Contrast route: INTRAVENOUS (IV); COMPARISON: CT ANGIO ABDOMEN PELVIS 03/29/2023 7:15 PM FINDINGS: Aorta: Stable appearance of chronic abdominal aortic dissection extending from the thoracic aorta into the abdominal aorta and through the level of the bifurcation. Both the true and false lumens are patent with no evidence of intramural thrombus. Celiac trunk and mesenteric arteries: All arise from the true lumen and patent with no evidence of aneurysm or significant stenosis. Renal arteries: Right main renal artery is surgically absent. The aortic dissection flap extends into the proximal left main renal artery, which is unchanged from prior exam. The left main renal artery remains patent with no significant stenosis. Right iliac arteries: No aneurysm, occlusion, or significant stenosis. Left iliac arteries: Aortic dissection flap extends into the proximal left common iliac artery and terminates proximal to the bifurcation, unchanged from prior exam. No aneurysm, occlusion, or significant stenosis. Liver: Diffuse reactive periportal edema throughout the liver with a focal area of hypoenhancement in the left hepatic lobe immediately adjacent to the intraperitoneal abscess that also reflects reactive edema with questionable early intra-hepatic extension of the abscess. Gallbladder and biliary ducts: Gallbladder is surgically absent. Biliary ectasia, within normal limits for status post cholecystectomy. Pancreas: Unremarkable. Spleen: Unremarkable. Adrenal glands: Grossly stable appearance of nodular thickening in the left adrenal gland. Kidneys and ureters: Few small foci of cortical renal scarring in the left kidney. No evidence of renal infarct. Stable appearance of post-operative changes related to prior right nephrectomy. Stomach and bowel: The stomach is moderately distended with acute inflammatory changes surrounding the gastric antrum with her 2 focal defects in the gastric mucosa and gas-containing fluid collection extending from the gastric antrum into the intraperitoneal space concerning for gastric perforation and abscess formation. Acute inflammatory changes in the proximal duodenum compatible with acute peptic ulcer disease. No evidence of duodenal wall perforation. Grossly stable appearance of post-surgical changes related to prior bariatric surgery. No evidence of small bowel obstruction. Colonic diverticulosis without evidence of acute diverticulitis. Appendix: No evidence of appendicitis. Intraperitoneal space: The fluid collection adjacent to the gastric antrum is surrounded by significant inflammatory changes and measures approximately 3 x 3 x 4 cm. Lymph nodes: Unremarkable. Urinary bladder: Unremarkable. Reproductive: Status post hysterectomy. Bones/joints: Unchanged appearance of multiple chronic compression fracture deformities in the lumbar spine status post cement kyphoplasty. No evidence of acute osseous abnormality. Soft tissues: Unremarkable. IMPRESSION: 1. Perforated gastric ulcer with a focal fluid collection along to the gastric antrum concerning for intraperitoneal abscess. 2. Questionable early intra-hepatic extension of the intraperitoneal abscess into the adjacent left lobe of the liver. 3. Moderately distended stomach with severe edema at the gastroduodenal junction concerning for gastric outlet obstruction. 4. Acute inflammatory changes in the proximal duodenum compatible with acute peptic ulcer disease. No evidence of duodenal wall perforation. 5. Chronic ancillary findings detailed above are unchanged from prior exam. 6. Concurrent chest CTA reported separately.
--- NOTE | 2024-09-24 10:28 | CT_ITS ---
PROCEDURE INFORMATION: Exam: CTA Chest With Contrast Exam date and time: 09/24/2024 12:47 PM Age: 69 years old Clinical indication: Pain; Chest pressure; Additional info: Epigast pain, h/o ao dissection and pancreatitis TECHNIQUE: Imaging protocol: Computed tomographic angiography of the chest with contrast. Exam focused on the arteries. 3D rendering (Not supervised by radiologist): MIP and/or 3D reconstructed images were created by the technologist. Radiation optimization: All CT scans at this facility use at least one of these dose optimization techniques: automated exposure control; mA and/or kV adjustment per patient size (includes targeted exams where dose is matched to clinical indication); or iterative reconstruction. Contrast material: ISO 370; Contrast volume: 80 ml; Contrast route: INTRAVENOUS (IV); COMPARISON: 1. CT ANGIO CHEST PE PROTOCOL 05/13/2023 11:[address] CHEST WO CON 06/08/2024 7:11 PM FINDINGS: Pulmonary arteries: No pulmonary emboli. Great vessels off aortic arch: Visualized portions are patent. Aorta: Grossly stable appearance post-surgical changes related to prior ascending aortic dissection repair when compared with most recent available prior chest CTA performed on 05/13/2023. Dissection flap in the aortic arch that partially extends into the proximal brachiocephalic and left subclavian arteries is grossly unchanged from prior CTA. The true lumen in the aortic arch and descending thoracic aorta is patent and similar in size to prior CTA. The false lumen contains a new intramural thrombus since the prior CTA, which appears to cross a fenestration in the proximal dissection flap at the level of the aortic arch (axial series 5, image 36) the proximal and mid descending aorta are poorly opacified with increased opacification in the distal descending aorta through a small (2-3 mm) fenestration in the dissection flap at the level of T10 (axial series 5, image 83). The false lumen as it enters the abdomen is patent. The dimensions of the lumen and caliber of the thoracic aorta is not significantly changed from prior exam. Lungs: Bibasal subsegmental atelectasis/scarring. No evidence of airspace infiltrate or congestive pulmonary edema. Calcified pulmonary granuloma in the left lower lobe consistent with chronic sequelae of prior granulomatous disease, unchanged. Pleural spaces: No pneumothorax. No pleural effusion. Heart: No cardiomegaly. No pericardial effusion. Lymph nodes: Unremarkable. Bones/joints: Stable appearances paramedian sternotomy. No evidence of acute osseous abnormality. Soft tissues: Unremarkable. IMPRESSION: 1. Chronic thoracic aortic dissection with grossly stable appearance of prior surgical repair of the ascending aorta and a near completely occlusive intramural thrombus in the false lumen of the thoracic aorta that is new since most recent available prior chest CTA performed on 04/23/2023, as described in more detail above. Urgent Vascular Surgery consult is warranted. 2. Concurrent CTA abdomen/pelvis reported separately.
--- NOTE | 2024-09-24 10:33 | ED_ITS ---
Discharge Plan Disposition Patient Disposition: Xfer Short-Term Hosp Prescriptions Prescriptions: No Action ibuprofen 600 mg tablet 600 mg PO TIDP PRN (Reason: Joint pain) ropinirole 0.25 mg tablet 1 mg PO Patient Comments: TAKE 1 TABLET BY MOUTH AT BEDTIME FOR RESTLESS LEGS FOR 30 DAYS bumetanide 1 mg tablet 1 mg PO escitalopram oxalate 5 mg tablet 5 mg PO Eliquis 5 mg tablet 5 mg PO duloxetine 60 mg capsule,delayed release(DR/EC) 60 mg PO BID multivitamin with folic acid [Tab-A-Cliff] 400 mcg Tablet 1 tab PO 1700 30 Days Qty: 30 0RF Referrals Follow up/Referrals: Saran Sagastume MD [Primary Care Provider] - See instructions Clinical Impressions Clinical Impression: Gastric perforation, Aortic dissection Instructions Patient Instructions: DI for Acute Abdominal Pain Print Language Print Language: Norwegian Discharge ED Provider: Kiko Christina General Adult HPI General Chief complaint: Abdominal Pain Stated complaint: abd pain Time Seen by Provider: 09/24/24 10:23 Mode of Arrival: Wheelchair Source of Information: Patient Limitations: No Limitations Description of Symptoms (Recalled from ER Triage Doc. by RN): Patient reports vomiting, diarrhea, and pain in her gut. States it feels like she has been punched in the gut. Complaint of upper abdomen pain that radiates to her back. History of Present Illness HPI narrative: Please note that above description of symptoms, in this electronic medical record under categorization of recalled from ER triage doctor by RN are reflective of an initial nursing assessment, however, is not reflective of my full history and physical exam that was personally taken and clarified. Consequentially, this preceding description of symptoms, which may include the patient's categorized chief complaint in the EMR, do not reflect my personal clinical impression, and the ultimate description of history of present illness and patient stated complaints should be deferred to this section of the note. Unless stated otherwise or congruent with this section of the note, additional signs, symptoms, or incongruence should be interpreted as inaccurate with my clinical impression. Related Data Home Medications ?Medication ?Instructions ?Recorded ?Confirmed duloxetine 60 mg capsule,delayed 60 mg PO BID Depression 06/13/23 08/30/24 release ibuprofen 600 mg tablet 600 mg PO TIDP PRN Joint pain 12/14/23 08/30/24 apixaban 5 mg tablet (Eliquis) 5 mg PO 08/30/24 08/30/24 bumetanide 1 mg tablet 1 mg PO 08/30/24 08/30/24 escitalopram oxalate 5 mg tablet 5 mg PO 08/30/24 08/30/24 ropinirole 0.25 mg tablet 1 mg PO 08/30/24 08/30/24 Previous Rx's ?Medication ?Instructions ?Recorded multivitamin with folic acid 400 1 tab PO 1700 30 days #30 tabs 06/12/24 mcg tablet (Tab-A-Cliff) Allergies Allergy/AdvReac Type Severity Reaction Status Date / Time Iodinated Contrast Media Allergy Intermediate Hives Verified 08/30/24 14:15 [Iodinated Contrast Media - Oral and] Sulfa (Sulfonamide Allergy Unknown Verified 08/30/24 14:15 Antibiotics) allergy reaction PFSH [facility] Disclaimer: The information contained in this section may have been updated after the patient was seen, as this information can be updated by other users. Medical History Blood in left ear canal Chronic eustachian tube dysfunction Spontaneous rupture of tympanic membrane of left ear concurrent with and due to acute suppurative otitis media History of thyroid disease History of hypothyroidism History of chemotherapy Arthritis Anemia Hypertension Lymphoma Surgical History History of tonsillectomy Family History Other Diabetes Social History Smoking Status: Never smoker second hand exposure: Yes alcohol intake: former substance use type: denies use current occupational status: retired Travel in the last 8 weeks: None household members: spouse housing: house current occupational exposures/hazards: No caffeine: No Other Medical History Have you received the Flu Vaccine for this season: No Have you received the Pneumonia Vaccine: Yes ROS Obtained: Yes All systems reviewed & no additional complaints except as documented Physical Exam General General appearance: alert and in distress (Mild, and, hyperventilating) Head Head exam: atraumatic and normocephalic Eye Eye exam: Present normal appearance, PERRL and EOMI Neck Neck exam: Present normal inspection, full ROM and trachea midline Respiratory Respiratory exam: Present normal lung sounds bilaterally; Absent respiratory distress, wheezes, stridor, accessory muscle use or prolonged expiratory phase Cardiovascular Cardiovascular exam: Present regular rate, normal rhythm, normal heart sounds and other (Pulses equal symmetric in upper and lower extremities) Abdominal Exam Abdominal exam: Present soft and tenderness; Absent distention, guarding, rebound, rigidity or pulsatile mass Abdominal tenderness: Present epigastrium and moderate Extremities Exam Extremities exam: Absent edema Neurological Exam Neurological exam: Present alert, oriented X3 and CN II-XII intact; Absent motor sensory deficit Skin Skin exam: Present warm and dry; Absent diaphoresis or erythema Medical Decision Making Medical Records Medical records reviewed: Yes I reviewed the patient's medical records. Screening: Per USPSTF and CDC recommendations, given the prevalence of disease in our region, it is our hospital?s policy to screen for HIV and viral Hepatitis for all patients aged 18 and over and those with ongoing risk factors. Johnny Inquiry Pt receiving controlled substance: No Johnny was queried for this patient: No Vital Signs: 09/24/24 10:07 09/24/24 10:30 09/24/24 11:00 Temperature 98.8 F Temperature Source Oral Pulse Rate 100 H 93 H Pulse Rate [Radial] 100 H Respiratory Rate 22 Blood Pressure 105/87 L Blood Pressure [Right Arm] 105/87 L Blood Pressure Mean Blood Pressure Mean [Right Arm] 93 Blood Pressure Source [Right Arm] Automatic Cuff Blood Pressure Position [Right Arm] Sitting 02 Sat by Pulse Oximetry 100 100 100 Oxygen Delivery Method Room Air Room Air Room Air 09/24/24 11:59 09/24/24 12:30 09/24/24 13:00 Temperature Temperature Source Pulse Rate 72 81 82 Pulse Rate [Radial] Respiratory Rate Blood Pressure 113/58 L 116/63 116/59 L Blood Pressure [Right Arm] Blood Pressure Mean 91 81 84 Blood Pressure Mean [Right Arm] Blood Pressure Source [Right Arm] Blood Pressure Position [Right Arm] 02 Sat by Pulse Oximetry 68 L 100 100 Oxygen Delivery Method 09/24/24 13:30 09/24/24 14:00 Temperature Temperature Source Pulse Rate 79 84 Pulse Rate [Radial] Respiratory Rate Blood Pressure 119/69 120/52 L Blood Pressure [Right Arm] Blood Pressure Mean 78 74 Blood Pressure Mean [Right Arm] Blood Pressure Source [Right Arm] Blood Pressure Position [Right Arm] 02 Sat by Pulse Oximetry 100 100 Oxygen Delivery Method Lab Data Lab Results 09/24/24 10:37: WBC 13.7 H, RBC 4.61, Hgb 11.2 L, Hct 34.8 L, MCV 75.5 L, MCH 24.4 L, MCHC 32.3, RDW 20.3 H, Plt Count 499 H, MPV 7.6, Neut % (Auto) 89.6 H, L ymph % (Auto) 5.2 L, [place] % (Auto) 3.9, Eos % (Auto) 0.9, Baso % (Auto) 0.2, N eut # (Auto) 12.3 H, Lymph # (Auto) 0.7, [place] # (Auto) 0.5, Eos # (Auto) 0.1, Baso # (Auto) 0.0, Total Counted 100, Neutrophils % (Manual) 84 H, Lymphocytes % (Manual) 13, Monocytes % (Manual) 3, Platelet Estimate Slight increase, Hypochromasia 1+, PT 10.9, INR 0.97, APTT 20.2 L, Sodium 138, Potassium 3.9, Chloride 106, Carbon Dioxide 16 L, Anion Gap 19.9 H, BUN 14, Creatinine 1.20 H, Estimated Creat Clear 47, Estimated GFR 45 L, Est GFR ( Amer) 54 L, G lucose 125 H, Calcium 10.1, Magnesium 1.9, Total Bilirubin 0.7, AST 29, ALT 22, Alkaline Phosphatase 90, Troponin I < 0.01, NT-Pro-B Natriuret Pep 3240 H, Total Protein 7.7, Albumin 4.4, Globulin 3.3 H, Albumin/Globulin Ratio 1.3, Triglycerides 147, Cholesterol 209 H, LDL Cholesterol Direct 116.37, VLDL Cholesterol 29, HDL Cholesterol 50, Cholesterol/HDL Ratio 4.2 H, Lipase 97 09/24/24 10:41: Lactate 2.8 H, HIV 1&2 Antibody Rapid Preliminary reactive 09/24/24 12:00: Urine Color Yellow, Urine Appearance Clear, Urine pH 6.0, Ur Specific [place] >= 1.030, Urine Protein 2+ A, Urine Glucose (UA) Negative, Urine Ketones 1+, Urine Blood Negative, Urine Nitrate Negative, Urine Bilirubin 2+ A, Urine Urobilinogen 0.2, Ur Leukocyte Esterase Trace, Urine RBC None, Urine WBC Occasional, Ur Squamous Epith Cells Occasional, Urine Bacteria Trace 09/24/24 13:22: Troponin I < 0.01 09/24/24 10:37 09/24/24 10:37 Orders (Tests/Meds): ED MEDICATIONS Generic Name Dose Route Start Last Admin Trade Name Freesthela PRN Reason Stop Dose Admin Sodium Chloride 1,640 mls @ 820 mls/hr 09/24/24 14:23 09/24/24 14:33 Sod Chlor 0.9% 1000ml Bag 30 ml/kg infuse over 2 hr (1640 ml) 09/24/24 16:22 820 mls/hr IV Administration .Q2H ONE Sodium Chloride 10 ml 09/24/24 11:53 09/24/24 11:55 Sodium Chloride 0.9% 10ml Syr (Rad Only) IV 10/24/24 11:52 10 ml NEEDED PRN Administration Maintain IV Site Discontinued Medications Generic Name Dose Route Start Last Admin Trade Name Freesthela PRN Reason Stop Dose Admin Diphenhydramine HCl 50 mg 09/24/24 10:28 09/24/24 10:42 Diphenhydramine 50mg/Ml Vial IV 09/24/24 10:29 50 mg ONCE ONE Administration Cefepime HCl 2 gm/ Sodium 100 mls @ 200 mls/hr 09/24/24 14:21 Chloride IV 09/24/24 14:50 ONCE ONE Metronidazole 500 mg in 100 mls @ 100 mls/hr 09/24/24 14:21 09/24/24 14:33 Flagyl 500mg/100ml Ivpb IV 09/24/24 15:20 100 mls/hr ONCE ONE Administration Iopamidol 80 ml 09/24/24 11:53 09/24/24 11:55 Iopamidol-370 (76%);100ml Bottle IV 09/24/24 11:54 80 ml ONCE ONE Administration Ketorolac Tromethamine 15 mg 09/24/24 10:28 09/24/24 10:42 Ketorolac 30mg/Ml Vial IV 09/24/24 10:29 15 mg ONCE ONE Administration Methylprednisolone Sodium Succinate 125 mg 09/24/24 10:28 09/24/24 11:00 Methylprednisolone Sod Succ 125mg Vial IV 09/24/24 10:29 125 mg ONCE ONE Administration Morphine Sulfate 4 mg 09/24/24 10:36 09/24/24 10:42 Morphine 4mg/Ml Syringe IV 09/24/24 10:37 4 mg ONCE ONE Administration Morphine Sulfate 4 mg 09/24/24 14:26 09/24/24 14:33 Morphine 4mg/Ml Syringe IV 09/24/24 14:27 4 mg ONCE ONE Administration Ondansetron HCl 4 mg 09/24/24 10:36 09/24/24 10:42 Ondansetron 4mg/2ml Vial IV 09/24/24 10:37 4 mg ONCE ONE Administration Sodium Chloride 50 ml 09/24/24 11:53 09/24/24 11:55 0.9 % Sodium Chloride 50 Ml Vial IV 09/24/24 11:54 50 ml ONCE ONE Administration ORDERS Category Date Time Status CT angio abdomen pelvis Stat Cat Scan 09/24/24 10:28 Completed CTA Chest [CT angio chest - dissection] Stat Cat Scan 09/24/24 10:28 Completed Complete Blood Count Auto Diff Stat Lab 09/24/24 10:37 Completed Comprehensive Metabolic Panel Stat Lab 09/24/24 10:37 Completed HIV (1&2) Antibody Rapid Stat Lab 09/24/24 10:41 Completed Hep C Ab with Reflex to RNA Stat Lab 09/24/24 10:41 Received Lactic Acid Follow Up (RFLX 1) Stat Lab 09/24/24 14:45 Ordered Lactic Acid Stat Lab 09/24/24 10:41 Completed Lipase Stat Lab 09/24/24 10:37 Completed Lipid Panel Stat Lab 09/24/24 10:37 Completed Magnesium Stat Lab 09/24/24 10:37 Completed NT Pro Brain Natriuretic Pep. Stat Lab 09/24/24 10:37 Completed PT INR [Prothrombin Time INR] Stat Lab 09/24/24 10:37 Completed PTT [Activated Partial Thrombo Time] Stat Lab 09/24/24 10:37 Completed Troponin I Q3H Lab 09/24/24 13:22 Completed Troponin I Q3H Lab 09/24/24 16:30 Ordered Troponin I Stat Lab 09/24/24 10:37 Completed Urinalysis and Microscopic Stat Lab 09/24/24 12:00 Completed Blood Culture Stat Micro 09/24/24 14:30 Received Medical Decision Narrative: 69-year-old female history of hypertension, hyperlipidemia, thoracic aortic dissection status postrepair, pancreatitis, renal cell carcinoma status post right nephrectomy, lymphoma currently in remission, presenting with epigastric pain. Patient states for the past couple days, she has had crescendo abdominal pain is epigastric, radiates to her back. Associated with nausea, nonbloody, nonbilious vomiting, as well as diarrhea that is nonbloody, not mucousy. No syncope, overt chest pain, neurologic deficits. Pain is moderate in intensity, nothing particular makes it better or worse. History was obtained via conversation with patient. On arrival, patient hemodynamically stable, alert, oriented x4, appropriate, GCS 15, moving all extremities spontaneously, pupils equal and reactive to light. Full physical exam performed and significant for mild distress secondary to pain. Hyperventilating, cardiac exam within normal limits with no murmurs gallops or rubs, pulses equal and symmetric in upper and lower extremities. Lungs are clear to auscultation bilaterally anterior and posteriorly. Abdomen is soft, nondistended, but tender in the epigastrium with moderate tenderness. No evidence of peritonitis. No overlying skin changes, bruising, or flank tenderness. Differential includes PUD, gastritis, enteritis, gastroenteritis, pancreatitis, SBO, colitis, diverticulitis, nephrolithiasis, UTI, , cholecystitis, choledocholithiasis, appendicitis, hepatitis, torsion, aortic dissection, mesenteric ischemia among others. Patient placed on continuous cardiac monitoring and continuous pulse ox with initial blood pressure 105/87, heart rate 100, saturation 100% on room air. Independent interpretation of EKG shows sinus rhythm with sinus arrhythmia. Ventricular rate 90 bpm. ND 149, QRS 86, QTc 450. Normal axis. No acute ischemic change. Patient was given Toradol, morphine, Zofran as well as diphenhydramine and methylprednisolone for reported contrast allergy for symptomatic management and correction of underlying abnormalities. Workup independently interpreted and significant for white count nearly 14,000 with neutrophilia. Thrombocytosis. Chemistry with mild ANCELMO, otherwise nonactionable. Lactate elevated 2.8. On independent interpretation of imaging, patient has thrombosis partially of previously repaired aortic graft. Patent true lumen throughout. Patient also has significantly distended stomach with what appears to be inflammatory mass versus abscess near the antrum of the stomach concerning for abscess with localized perforation given foci of gas. See radiology read for full review of final results. Patient given cefepime and Flagyl. Sepsis bolus initiated. NG tube was placed for gastric distention. On reevaluation, patient resting comfortably, states she actually feels much better and is asymptomatic at this time. Tissue perfusion reassessment performed within 3 hours, patient mentating, following commands, good capillary refill and hemodynamically stable. No signs of decompensation. Given patient presentation, workup, history, this most likely represents acute thrombus of aortic graft as well as localized peritonitis in the setting of gastric perforation. [facility] contacted and case was discussed at length, graciously excepted transfer. Because patient high risk for clinical decompensation, deemed appropriate for transfer and inpatient admission. Results were relayed to patient who voiced understanding and patient was agreeable to inpatient admission and management. Patient was admitted to the [facility] for further definitive management, under Dr Ariza [address] Vendor disclaimer Much of this encounter note is an electronic web offset press feeder spoken language to printed text. Electronic web offset press feeder of the spoken language may permit errors. Although I have reviewed the note, some errors may still exist. Critical Care Critical Care Time Critical Care Time: Yes (vascular, GI) Attestation: On 09/24/24, the high probability of a clinically significant, sudden or life threatening deterioration of the following system(s) required my full and direct attention, intervention and personal management. The time I documented below is in addition to time spent performing reported procedures but includes the following listed in this critical care notation. Total Time Total Critical Care Time: 45
[2024-09-24] MEDS: MORPHINE 4MG/ML SYRINGE 4 MG IV ×2 (10:42→14:33)
[2024-09-24] MEDS: KETOROLAC 30MG/ML VIAL 15 MG IV (10:42)
[2024-09-24] MEDS: ONDANSETRON 4MG/2ML VIAL 4 MG IV (10:42)
[2024-09-24] MEDS: diphenhydrAMINE 50MG/ML VIAL 50 MG IV (10:42)
[2024-09-24 10:45] LABS: Basophils % 0.2 % (0.1-2.0); Eosinophils # 0.1 K/mm3 (0.0-0.4); Eosinophils % 0.9 % (0.1-12.0); Hematocrit 34.8 % (37.0-47.0); Hemoglobin 11.2 g/dL (12.2-16.2); Lymphocytes # 0.7 K/mm3 (0.7-4.5); Lymphocytes % 5.2 % (10-50); Mean Corpuscular HGB Conc 32.3 g/dL (31.8-35.4); Mean Corpuscular Hemoglobin 24.4 pg (27.0-31.2); Mean Corpuscular Volume 75.5 fl (81-99); Mean Platelet Volume 7.6 fl (7.4-10.4); Monocytes # 0.5 K/mm3 (0.1-1.0); Monocytes % 3.9 % (1.7-9.3); Neutrophils # 12.3 K/mm3 (1.8-7.8); Neutrophils % 89.6 % (37.0-80.0); Platelet Count 499 K/mm3 (142-424); Red Blood Count 4.61 M/mm3 (4.20-5.40); Red Cell Distribution Width 20.3 % (11.5-17.5); White Blood Count 13.7 K/mm3 (4.8-10.8)
[2024-09-24 10:49] LABS: Albumin Level 4.4 g/dl (3.5-5.0)
[2024-09-24 10:50] LABS: Chloride 106 mmol/L (98-107); Potassium 3.9 mmoL/L (3.5-5.1); Sodium 138 mmol/L (136-145)
[2024-09-24 10:52] LABS: Alanine Aminotransferase 22 U/L (12-78); Albumin/Globulin Ratio 1.3 (1.1-1.8); Alkaline Phosphatase 90 U/L (38-126); Anion Gap 19.9 mEq/L (5-15); Aspartate Amino Transferase 29 U/L (14-36); Bilirubin,Total 0.7 mg/dl (0.2-1.3); Blood Urea Nitrogen 14 mg/dl (7-17); Carbon Dioxide 16 mmol/L (22.0-30.0); Creatinine Clearance Estimated 47 mL/min (50-200); Estimated Glomerular Filt Rate 45 ml/min (>60); GFR (African American) 54 ML/MIN (>60); Globulin 3.3 g/dL (1.3-3.2); Glucose 125 mg/dl (74-100); Lipase 97 U/L (23-300); Total Protein,Serum 7.7 g/dl (6.3-8.2)
[2024-09-24 10:53] LABS: Calcium 10.1 mg/dl (8.4-10.2); Chol/HDL Ratio 4.2 (1-3.5); Cholesterol 209 mg/dl (140-200); HDL Cholesterol 50 mg/dl (40-60); Magnesium 1.9 mg/dl (1.6-2.3); Triglycerides 147 mg/dl (30-150); VLDL Cholesterol 29 mg/dL (0-40)
[2024-09-24 11:00] LABS: Lactic Acid 2.8 mmol/L (0.7-2.1)
[2024-09-24] MEDS: METHYLPREDNISOLONE SOD SUCC 125MG VIAL 125 MG IV (11:00)
[2024-09-24 11:04] LABS: Direct LDL Cholesterol 116.37 mg/dL (100-129)
[2024-09-24 11:06] LABS: NT Pro Brain Natriuretic Pep. 3240 pg/mL (0-125)
[2024-09-24 11:09] LABS: MANUAL DIFFERENTIAL MANUAL DIFFERENTIAL (MANUAL DIFF)
[2024-09-24 11:10] LABS: Activated Partial Thrombo Time 20.2 seconds (22.8-30.6); INR 0.97 (0.9-1.1); Prothrombin Time 10.9 seconds (10.1-12.5)
[2024-09-24 11:16] LABS: Troponin I < 0.01 ng/ml (0.00-0.034)
[2024-09-24 11:47] LABS: Lymphocytes % 13 % (10-50); Monocytes % 3 % (2-9); Neutrophils % 84 % (42-76); Platelet Estimate Slight Increase; Total Cells Counted 100
[2024-09-24 11:48] LABS: Hypochromasia 1+
[2024-09-24] MEDS: IOPAMIDOL-370 (76%);100ML BOTTLE 80 ML IV (11:55)
[2024-09-24] MEDS: 0.9 % SODIUM CHLORIDE 50 ML VIAL IV (11:55)
[2024-09-24] MEDS: SODIUM CHLORIDE 0.9% 10ML SYR (RAD ONLY) 10 ML IV (11:55)
[2024-09-24 12:03] LABS: Microscopic, Urine URINE MICROSCOPIC (MICROSCOPIC)
--- NOTE | 2024-09-24 12:03 | PC.NURSE ---
Pt stated the bed was hurting her back and requested to sit in a chair in the room. Pt vitals still being monitored from chair
[2024-09-24 12:13] LABS: Appearance,Urine CLEAR (Clear); Blood, Urine Negative (Negative); Color,Urine YELLOW (Yellow); Glucose,Urine (UA) Negative (Negative); Ketones,Urine 1+ (Negative); Leukocyte Esterase,Urine TRACE (Negative); Nitrate,Urine Negative (Negative); Protein,Urine 2+ (Negative); Specific Gravity, Urine >= 1.030 (1.005-1.030); Urobilinogen,Urine 0.2 EU/dl (0.2)
[2024-09-24 12:15] LABS: Bilirubin,Urine 2+ (Negative)
[2024-09-24 12:35] LABS: Bacteria,Urine Trace /lpf; Squamous Epithelial Cell,Urine Occasional #/hpf (0-5); WBC,Urine Occasional #/hpf (0-3)
--- NOTE | 2024-09-24 14:02 | PC.NURSE ---
Called [facility] per Dr Christina to speak with them about gettting this pt transferred
--- NOTE | 2024-09-24 14:02 | PC.NURSE ---
called back and is speaking with Dr Christina at this time
[2024-09-24 14:05] LABS: Troponin I < 0.01 ng/ml (0.00-0.034)
--- NOTE | 2024-09-24 14:14 | PC.NURSE ---
DR SAHA AT BEDSIDE TO UPDATE PT
--- NOTE | 2024-09-24 14:14 | PC.NURSE ---
Called [facility] to speak with them since this where the previous surgery was done. [facility] has me on hold and is trying to get a hold of the physician
--- NOTE | 2024-09-24 14:19 | PC.NURSE ---
[facility] advised they spoke with the surgeon that did the operation, advised he was aware and had [facility] get a hold of a general surgeon and call us back to speak with Dr Christina
[2024-09-24] MEDS: 0.9 % SODIUM CHLORIDE 1000ML 1,640 ML 820 ML IV (14:33)
[2024-09-24] MEDS: METRONIDAZ/SOD CHL 500 MG/100 ML PIGGYBACK 100 MG IV (14:33)
[2024-09-24 14:45] LABS: Reflex Lactic Add Lactic Reflex
--- NOTE | 2024-09-24 15:03 | PC.NURSE ---
[facility] has called back and is speaking with Dr Christina
--- NOTE | 2024-09-24 15:08 | PC.NURSE ---
Called [facility] back for Dr Christina to speak with them again for the reason that this pt had bariatric surgery there and that [facility] didnt do that at there facility
[2024-09-24] MEDS: CEFEPIME HCL 2 GM in 0.9 % SODIUM CHLORIDE 100 ML IV (15:43)
--- NOTE | 2024-09-24 15:49 | PC.NURSE ---
Called EMS about transferring this pt advised they would be up here shortly
--- NOTE | 2024-09-24 15:49 | PC.NURSE ---
this RN at approximately 1430 attempted x2 to insert ng tube. Pt did not tolerate and was unable to insert ng tube. provider notified.
[2024-09-25 09:28] LABS: HCV Ab Non Reactive (Non Reactive); HIV Screen 4th Generation wRfx Non Reactive (Non Reactive)
== END 2024-09-24 16:20 | disposition short-term general hospital (02) ==
PROVIDERS: Emergency Provider Emergency Medicine; PCP Internal Medicine Adolescent Medicine
DX: I71.00 Dissection of unspecified site of aorta (principal); K25.5 Chronic or unspecified gastric ulcer with perforation; R10.10 Upper abdominal pain, unspecified; R11.10 Vomiting, unspecified; R19.7 Diarrhea, unspecified
CPT/HCPCS: 71275; 74174; 80053; 80061; 81001; 83605; 83690; 83735; 83880; 84484; 85007; 85025; 85027; 85610; 85730; 86703; 86803; 87040; 87389; 93005; 96361; 96365; 96366; 96374; 96375; 99291; G0432; J1200; J1885; J2270; J2405; J2919; J7030; Q9967

== ENCOUNTER 2024-11-23 10:43 | Outpatient (CLI) | payer BC, MEDICARE, SELFPAY ==
[2024-11-23 10:54] VITALS: BMI 24.5
[2024-11-23] MEDS: SODIUM CHLORIDE 0.9% 10ML FLUSH SYRINGE 10 ML IV (11:20)
[2024-11-23 11:33] LABS: Basophils # 0.1 K/mm3 (0-0.2); Basophils % 0.6 % (0.1-2.0); Eosinophils # 0.2 K/mm3 (0.0-0.4); Eosinophils % 2.1 % (0.1-12.0); Hematocrit 27.7 % (37.0-47.0); Hemoglobin 8.7 g/dL (12.2-16.2); Lymphocytes # 0.7 K/mm3 (0.7-4.5); Lymphocytes % 8.5 % (10-50); Mean Corpuscular HGB Conc 31.4 g/dL (31.8-35.4); Mean Corpuscular Hemoglobin 25.1 pg (27.0-31.2); Mean Corpuscular Volume 79.8 fl (81-99); Mean Platelet Volume 10.4 fl (7.4-10.4); Monocytes # 0.5 K/mm3 (0.1-1.0); Monocytes % 5.6 % (1.7-9.3); Neutrophils # 6.7 K/mm3 (1.8-7.8); Neutrophils % 82.8 % (37.0-80.0); Platelet Count 326 K/mm3 (142-424); Red Blood Count 3.47 M/mm3 (4.20-5.40); Red Cell Distribution Width 17.9 % (11.5-17.5); White Blood Count 8.1 K/mm3 (4.8-10.8)
[2024-11-23 11:35] LABS: Chloride 112 mmol/L (98-107)
[2024-11-23 11:36] LABS: Albumin Level 3.5 g/dl (3.5-5.0); Potassium 3.3 mmoL/L (3.5-5.1); Sodium 138 mmol/L (136-145)
[2024-11-23 11:38] LABS: Blood Urea Nitrogen 6 mg/dl (7-17); Creatinine Clearance Estimated 56 mL/min (50-200); Estimated Glomerular Filt Rate 72 ml/min (>60); GFR (African American) 87 ML/MIN (>60)
[2024-11-23 11:39] LABS: Alanine Aminotransferase 16 U/L (12-78); Albumin/Globulin Ratio 1.5 (1.1-1.8); Alkaline Phosphatase 93 U/L (38-126); Anion Gap 12.3 mEq/L (5-15); Aspartate Amino Transferase 20 U/L (14-36); Bilirubin,Total 0.4 mg/dl (0.2-1.3); Calcium 9.3 mg/dl (8.4-10.2); Carbon Dioxide 17 mmol/L (22.0-30.0); Globulin 2.4 g/dL (1.3-3.2); Glucose 86 mg/dl (74-100); Total Protein,Serum 5.9 g/dl (6.3-8.2)
--- NOTE | 2024-11-23 11:57 | CA_ITS ---
FINAL REPORT CLINICAL HISTORY: Cancer , bilateral LE edema without pain COMPARISON: None FINDINGS: DUPLEX VENOUS SONOGRAPHY OF THE BILATERAL LOWER EXTREMITIES Multiple transverse and longitudinal scans were performed of the femoropopliteal deep venous systems, with augmentation and compression maneuvers. HISTORY: Edema FINDINGS: Normal phasic flow was noted in the visualized deep venous systems. No intraluminal increased echogenicity is noted to suggest thrombus. There is normal compression and augmentation of the venous structures. No abnormal venous collaterals are seen. IMPRESSION: No evidence of deep venous thrombosis of the bilateral lower extremities. Reviewed, Interpreted and Dictated by Monique Shelton MD Transcribed by Kelsi Parrish Authenticated and [facility]
[2024-11-23 14:17] LABS: Iron 29 ug/dL (37-170)
[2024-11-23 14:26] LABS: Total Iron Binding Capacity 304 ug/dL (265-497)
[2024-11-23 14:54] LABS: Ferritin 21.4 ng/ml (11.1-264)
== END 2024-11-23 11:20 | disposition home or self-care (01) ==
LOC: INF 10:46
PROVIDERS: PCP Internal Medicine Adolescent Medicine; Visit Provider Internal Medicine Medical Oncology
DX: K25.5 Chronic or unspecified gastric ulcer with perforation (principal); C16.9 Malignant neoplasm of stomach, unspecified
CPT/HCPCS: 36591; 80053; 82728; 83540; 83550; 85025; 93970; J1642

== ENCOUNTER 2024-12-07 10:40 | Outpatient (CLI) | payer BC, MEDICARE, SELFPAY ==
[2024-12-07 11:00] VITALS: BP 145/69; PULSE 69; RESP 18; TEMP 37.2; O2SAT 100
[2024-12-07] MEDS: SODIUM CHLORIDE 0.9% 50ML BAG 50 ML IV (11:04)
[2024-12-07] MEDS: IRON SUCROSE COMPLEX 200 MG in 0.9 % SODIUM CHLORIDE 100 ML 220 MG IV (11:04)
[2024-12-07] MEDS: SODIUM CHLORIDE 0.9% 10ML FLUSH SYRINGE 10 ML IV (11:59)
[2024-12-07 12:00] VITALS: BP 148/72; PULSE 63; RESP 18; O2SAT 100
== END 2024-12-07 12:00 | disposition home or self-care (01) ==
LOC: INF 10:42
PROVIDERS: PCP Internal Medicine Adolescent Medicine; Visit Provider Internal Medicine Medical Oncology
DX: D50.9 Iron deficiency anemia, unspecified (principal)
CPT/HCPCS: 96365; J1642; J1756

== ENCOUNTER 2024-12-11 09:10 | Outpatient (CLI) | payer BC, MEDICARE, SELFPAY ==
[2024-12-11] VITALS (12 sets, daily range): BP systolic 135–176; BP diastolic 56–99; PULSE 69–84; RESP 18; O2SAT 99–100
[2024-12-11 09:55] LABS: Basophils % 0.7 % (0.1-2.0); Eosinophils # 0.2 K/mm3 (0.0-0.4); Eosinophils % 2.7 % (0.1-12.0); Hematocrit 30.4 % (37.0-47.0); Hemoglobin 9.6 g/dL (12.2-16.2); Lymphocytes # 0.5 K/mm3 (0.7-4.5); Lymphocytes % 8.6 % (10-50); Mean Corpuscular HGB Conc 31.6 g/dL (31.8-35.4); Mean Corpuscular Hemoglobin 24.9 pg (27.0-31.2); Mean Platelet Volume 10.7 fl (7.4-10.4); Monocytes # 0.4 K/mm3 (0.1-1.0); Monocytes % 7.8 % (1.7-9.3); Neutrophils # 4.4 K/mm3 (1.8-7.8); Neutrophils % 79.8 % (37.0-80.0); Platelet Count 294 K/mm3 (142-424); Red Blood Count 3.85 M/mm3 (4.20-5.40); Red Cell Distribution Width 17.5 % (11.5-17.5); White Blood Count 5.5 K/mm3 (4.8-10.8)
[2024-12-11 10:08] LABS: Alanine Aminotransferase 21 U/L (12-78); Albumin/Globulin Ratio 1.7 (1.1-1.8); Alkaline Phosphatase 92 U/L (38-126); Anion Gap 14.6 mEq/L (5-15); Aspartate Amino Transferase 32 U/L (14-36); Bilirubin,Total 0.4 mg/dl (0.2-1.3); Blood Urea Nitrogen 9 mg/dl (7-17); Calcium 9.4 mg/dl (8.4-10.2); Carbon Dioxide 19 mmol/L (22.0-30.0); Chloride 109 mmol/L (98-107); Estimated Glomerular Filt Rate 72 ml/min (>60); GFR (African American) 87 ML/MIN (>60); Globulin 2.3 g/dL (1.3-3.2); Glucose 78 mg/dl (74-100); Potassium 3.6 mmoL/L (3.5-5.1); Sodium 139 mmol/L (136-145); Total Protein,Serum 6.3 g/dl (6.3-8.2)
[2024-12-11] MEDS: SODIUM CHLORIDE 0.9% 50ML BAG 50 ML IV (10:42)
[2024-12-11] MEDS: CALCIUM GLUCONATE 1,000 MG, MAGNESIUM SULFATE 1 GM in DEXTROSE 5 % IN WATER 100 ML 224 MG IV ×2 (10:42→14:30)
[2024-12-11] MEDS: DEXAMETHASONE 4MG TABLET 12 MG PO (10:43)
[2024-12-11] MEDS: POTASSIUM CHLORIDE 20MEQ TAB 40 MEQ PO (10:43)
[2024-12-11] MEDS: MONTELUKAST SODIUM 10MG TAB 10 MG PO (10:43)
[2024-12-11] MEDS: ONDANSETRON 4MG ODT 16 MG SL (10:43)
[2024-12-11] MEDS: FAMOTIDINE 20MG TABLET 20 MG PO (10:44)
[2024-12-11] MEDS: diphenhydrAMINE 25MG CAPSULE 25 MG PO (10:44)
[2024-12-11] MEDS: DEXTROSE 5% IV (11:30)
[2024-12-11] MEDS: WATER IV (11:30)
[2024-12-11] MEDS: OXALIPLATIN IV (11:30)
[2024-12-11] MEDS: PROCHLORPERAZINE 10MG/2ML VIAL 10 MG IV (13:15)
[2024-12-11] MEDS: SODIUM CHLORIDE 0.9% 10ML FLUSH SYRINGE 10 ML IV (14:26)
== END 2024-12-11 14:30 | disposition home or self-care (01) ==
LOC: INF 09:12
PROVIDERS: PCP Internal Medicine Adolescent Medicine; Visit Provider Internal Medicine Medical Oncology
DX: K25.5 Chronic or unspecified gastric ulcer with perforation (principal)
CPT/HCPCS: 80053; 85025; 96413; 96415; J0780; J1642; J7060; J8540; J9263; Q0162

== ENCOUNTER 2024-12-12 08:21 | Outpatient (CLI) | payer BC, MEDICARE, SELFPAY ==
[2024-12-12 08:45] VITALS: BP 145/83; PULSE 88; RESP 16
[2024-12-12] MEDS: SODIUM CHLORIDE 0.9% 50ML BAG 50 ML IV (08:45)
[2024-12-12] MEDS: IRON SUCROSE COMPLEX 200 MG in 0.9 % SODIUM CHLORIDE 100 ML 220 MG IV (08:45)
[2024-12-12 09:15] VITALS: BP 152/74; PULSE 85; RESP 17
--- NOTE | 2024-12-12 11:25 | PC.NURSE ---
0845 - PT STATED THAT HER FEEDING TUBE WAS BOTHERING HER AND FELT LIKE IT WAS PULLING. RAISED SHIRT UP TO FIND THAT IT HAD BEEN DISLODGED AND 1 STITCH WAS GONE, WITH 1 STILL PRESENT. DRIED DRAINAGE NOTED AROUND SITE BUT NO NEW DRAINAGE OR BLOOD NOTED. CLEANED AREA WITH NS AND COVERED WITH VASELINE GAUZE, 4X4'S, AND TAPED INTO PLACE. 0855 - NOTIFIED DR MOSLEY OF JEJUNOSTOMY BECOMING DISLODGED AND ACTIONS TAKEN. ONCOLOGY NURSE NAVIGATOR, PARMINDER GARCIA, AGREED TO LET SURGEON, DR VILLANUEVA KNOW.
== END 2024-12-12 09:35 | disposition home or self-care (01) ==
LOC: INF 08:25
PROVIDERS: PCP Internal Medicine Adolescent Medicine; Visit Provider Internal Medicine Medical Oncology
DX: Z51.11 Encounter for antineoplastic chemotherapy (principal); C16.9 Malignant neoplasm of stomach, unspecified; Z79.899 Other long term (current) drug therapy
CPT/HCPCS: 96365; J1642; J1756

== ENCOUNTER 2024-12-13 11:45 | Inpatient (IN) | payer BC, MEDICARE, SELFPAY ==
[2024-12-13] VITALS (17 sets, daily range): BP systolic 95–169; BP diastolic 51–99; PULSE 69–92; RESP 16–26; TEMP 36.4–37; O2SAT 95–100; BMI 22.4; BMI 22.2
--- NOTE | 2024-12-13 12:12 | ED_ITS ---
Discharge Plan Disposition Patient Disposition: Admitted Condition: Serious Clinical Impressions Clinical Impression: Sepsis without septic shock, Acute proctitis Discharge ED Provider: Kiko Christina General Adult HPI <ROSA ISELA Sandra - Last Filed: 12/13/24 22:10> General Chief complaint: Nausea/Vomiting/Diarrhea Stated complaint: blurry vision, nausea Time Seen by Provider: 12/13/24 12:11 Mode of Arrival: Wheelchair Source of Information: Patient Limitations: No Limitations Description of Symptoms (Recalled from ER Triage Doc. by RN): pt states she has been sick since last night. pt c/o N/V/D, weakness, and MADRID. pt has difficulty with her memory since starting her topical chemo capecitabine. pt has nonhodgkins lymphoma. pt reports epigasteric pain that is aching and 8/10. pt denies chest pain. History of Present Illness HPI narrative: Patient presents for evaluation of nausea vomiting diarrhea since last night along with acute confusion today. Patient has a past medical history of lymphoma in remission currently and more recently diagnosis of gastric perforation due to gastric cancer that has been Nathaly resected at the [facility] in the last 30 days. Postoperatively she was managed with a feeding tube however that has now been discontinued as patient is back on a regular diet. She is recently initiated chemotherapy and received her first dose of chemotherapy approximately 1 week ago. Patient has felt poorly since with a somewhat functional decline in her oral intake. However the last 24 hours she has had increasing nausea vomiting diarrhea and been unable to tolerate any oral intake. She denies any fever chills hemoptysis hematochezia melena hematemesis hematuria or chest pain shortness of breath Related Data Home Medications ?Medication ?Instructions ?Recorded ?Confirmed ibuprofen 600 mg tablet 600 mg PO TIDP PRN Joint pain 12/14/23 12/12/24 bumetanide 1 mg tablet 1 mg PO DAILY 08/30/24 12/12/24 ropinirole 0.25 mg tablet 1 mg PO HS 08/30/24 12/12/24 multivitamin with folic acid 400 1 tab PO DAILY 12/12/24 12/12/24 mcg tablet ([facility]) Previous Rx's ?Medication ?Instructions ?Recorded paroxetine HCl 20 mg tablet (Paxil) 20 mg PO DAILY #30 tabs 11/23/24 Allergies Allergy/AdvReac Type Severity Reaction Status Date / Time Iodinated Contrast Media Allergy Intermediate Hives Verified 12/06/24 09:11 (Iodinated Contrast Media - Oral and) Sulfa (Sulfonamide Allergy Unknown Verified 12/06/24 09:11 Antibiotics) allergy reaction [facility] <ROSA ISELA Sandra - Last Filed: 12/13/24 22:10> [facility] Disclaimer: The information contained in this section may have been updated after the patient was seen, as this information can be updated by other users. Medical History Blood in left ear canal Chronic eustachian tube dysfunction Spontaneous rupture of tympanic membrane of left ear concurrent with and due to acute suppurative otitis media History of thyroid disease History of hypothyroidism History of chemotherapy Arthritis Anemia Hypertension Lymphoma Surgical History History of tonsillectomy Family History Other Diabetes Social History Smoking Status: Former smoker tobacco type: cigarettes packs per day: 1 second hand exposure: Yes alcohol intake: former substance use type: denies use current occupational status: retired Travel in the last 8 weeks: None household members: spouse housing: house current occupational exposures/hazards: No caffeine: No Have you lived/traveled outside [place] in past 30 days?: No Contact w/someone who lives/traveled outside [place] past 30 days?: No Exposure to someone with infectious disease in past 14 days?: No Do you have a fever (greater than 100.4 F or 38 C)?: No Have you tested positive for COVID-19: No Exposed to someone with COVID-19 in past 14 days?: No Do you have a sore throat?: No Do you have a cough?: No Do you have any weakness?: Yes Do you have any diarrhea?: No Are you experiencing any unusual bleeding?: No Do you have any muscle aches/pain?: No Do you have any abdominal pain?: No Are you experiencing loss of taste or smell?: No Other Medical History Have you received the Flu Vaccine for this season: No Have you received the Pneumonia Vaccine: Yes <ROSA ISELA Sandra - Last Filed: 12/13/24 22:10> ROS Obtained: Yes Systems reviewed as appropriate & no additional complaints except as documented Physical Exam <ROSA ISELA Sandra - Last Filed: 12/13/24 22:10> General General appearance: alert and in no apparent distress Respiratory Respiratory exam: Present normal lung sounds bilaterally Cardiovascular Cardiovascular exam: Present regular rate Neurological Exam Neurological exam: Present alert, CN II-XII intact and normal gait; Absent oriented X3 ( patient is oriented only to self but not place and circumstance currently) or motor sensory deficit Medical Decision Making <ROSA ISELA Sandra - Last Filed: 12/13/24 22:10> Medical Records Medical records reviewed: Yes I reviewed the patient's medical records. Screening: Per USPSTF and CDC recommendations, given the prevalence of disease in our region, it is our hospital?s policy to screen for HIV and viral Hepatitis for all patients aged 18 and over and those with ongoing risk factors. Johnny Inquiry Pt receiving controlled substance: No Vital Signs: 12/13/24 12:01 12/13/24 12:10 12/13/24 13:45 Temperature 97.7 F Temperature Source Oral Pulse Rate 92 H 75 Pulse Rate [Left] 85 Respiratory Rate 22 Blood Pressure 128/69 120/63 Blood Pressure [Right Arm] 100/59 L Blood Pressure Mean [Right Arm] 72 Blood Pressure Source Blood Pressure Source [Right Arm] Automatic Cuff Blood Pressure Position Blood Pressure Position [Right Arm] Sitting 02 Sat by Pulse Oximetry 99 97 Oxygen Delivery Method Room Air 12/13/24 14:00 12/13/24 14:32 12/13/24 15:01 Temperature Temperature Source Pulse Rate 82 86 78 Pulse Rate [Left] Respiratory Rate Blood Pressure 121/51 L 95/73 L 130/67 Blood Pressure [Right Arm] Blood Pressure Mean [Right Arm] Blood Pressure Source Blood Pressure Source [Right Arm] Blood Pressure Position Blood Pressure Position [Right Arm] 02 Sat by Pulse Oximetry 100 100 99 Oxygen Delivery Method Room Air Room Air Room Air 12/13/24 15:30 12/13/24 16:10 12/13/24 16:31 Temperature Temperature Source Pulse Rate 75 75 79 Pulse Rate [Left] Respiratory Rate Blood Pressure 147/67 H 156/71 H 152/74 H Blood Pressure [Right Arm] Blood Pressure Mean [Right Arm] Blood Pressure Source Blood Pressure Source [Right Arm] Blood Pressure Position Blood Pressure Position [Right Arm] 02 Sat by Pulse Oximetry 100 100 97 Oxygen Delivery Method Room Air 12/13/24 17:00 12/13/24 17:30 12/13/24 18:01 Temperature Temperature Source Pulse Rate 71 75 77 Pulse Rate [Left] Respiratory Rate Blood Pressure 159/70 H 160/99 H 169/84 H Blood Pressure [Right Arm] Blood Pressure Mean [Right Arm] Blood Pressure Source Blood Pressure Source [Right Arm] Blood Pressure Position Blood Pressure Position [Right Arm] 02 Sat by Pulse Oximetry 96 95 98 Oxygen Delivery Method Nasal Cannula Nasal Cannula Nasal Cannula 12/13/24 18:30 12/13/24 18:58 12/13/24 19:00 Temperature 98.6 F Temperature Source Oral Pulse Rate 72 88 Pulse Rate [Left] Respiratory Rate 16 Blood Pressure 154/65 H 126/74 Blood Pressure [Right Arm] Blood Pressure Mean [Right Arm] Blood Pressure Source Automatic Cuff Blood Pressure Source [Right Arm] Blood Pressure Position Sitting Blood Pressure Position [Right Arm] 02 Sat by Pulse Oximetry 100 Oxygen Delivery Method Nasal Cannula Room Air Room Air Lab Data Lab results reviewed: Yes I reviewed the patient's lab results. Lab Results 12/13/24 12:31: WBC 18.9 H D, RBC 4.01 L, Hgb 10.0 L, Hct 30.7 L, MCV 76.6 L, M CH 24.9 L, MCHC 32.6, RDW 17.9 H, Plt Count 262, MPV 11.5 H, Neut % (Auto) 92.9 H, Lymph % (Auto) 1.7 L, [place] % (Auto) 4.2, Eos % (Auto) 0.0 L, Baso % (Auto) 0.2, Neut # (Auto) 17.6 H, Lymph # (Auto) 0.3 L, [place] # (Auto) 0.8, Eos # (Auto) 0.0, Baso # (Auto) 0.0, Total Counted 100, Neutrophils % (Manual) 94 H, L ymphocytes % (Manual) 3 L, Monocytes % (Manual) 3, Platelet Estimate Normal, Hypochromasia 1+, PT 11.1, INR 1.01, Sodium 131 L, Potassium 3.2 L, Chloride 104, Carbon Dioxide 16 L, Anion Gap 14.2, BUN 15 D, Creatinine 0.80, Estimated Creat Clear 53, Estimated GFR 72, Est GFR ( Amer) 87, Glucose 113 H, Calcium 9.2, Magnesium 1.8, Total Bilirubin 0.8, AST 28, ALT 24, Alkaline Phosphatase 85, Troponin I 0.02, NT-Pro-B Natriuret Pep 7360 H, Total Protein 6.1 L, Albumin 3.7, Globulin 2.4, Albumin/Globulin Ratio 1.5, Procalcitonin 1.42, Plasma/Serum Alcohol < 10, Chlamy pneumoniae PCR Not detected, Adenovirus (PCR) Not detected, B. pertussis DNA (PCR) Not detected, Coronavirus OC43 (PCR) Not detected, Coronavirus HKU1 (PCR) Not detected, Coronavirus 229E (PCR) Not detected, SARS-CoV-2 (PCR) Not detected, Coronavirus NL63 (PCR) Not detected, Human Metapneumovir PCR Not detected, Influenza A (H1) PCR Not detected, Influ A (H1N1/09) PCR Not detected, Influenza A (H3) PCR Not detected, Influenza Type A (PCR) Not detected, Influenza Type B (PCR) Not detected, M. pneumoniae (PCR) Not detected, Parainfluenza 1 (PCR) Not detected, Parainfluenza 2 (PCR) Not detected, Parainfluenza 3 (PCR) Not detected, Parainfluenza 4 (PCR) Not detected, RSV (PCR) Not detected, Entero/Rhino (PCR) Not detected 12/13/24 13:15: VBG pH 7.59 H, VBG pCO2 18.2 L, VBG pO2 45.0 H, VBG HCO3 16.9 L, VBG Total CO2 17.5 L, VBG O2 Saturation 87.7 H, VBG Base Excess -4.9 L, VBG Lactic Acid 2.3 H 12/13/24 15:27: Ammonia < 9 L 12/13/24 17:12: Urine Opiates Screen Negative, Urine Methadone Screen Negative, Ur Barbituates Screen Negative, Ur Phencyclidine Scrn Negative, Ur Amphetamines Screen Negative, U Benzodiazepines Scrn Negative, Urine Cocaine Screen Negative, U Marijuana (THC) Screen Negative 12/13/24 12:31 12/13/24 12:31 Orders (Tests/Meds): ED MEDICATIONS Generic Name Dose Route Start Last Admin Trade Name Gretta PRN Reason Stop Dose Admin Lactated Ringer's 1,000 mls @ 100 mls/hr 12/13/24 17:45 12/13/24 22:00 Lactated Ringer's 1000 Ml Bag IV 01/12/25 17:44 100 mls/hr .Q10H LINO Administration Lorazepam 0.5 mg 12/13/24 22:06 12/13/24 22:14 Lorazepam 0.5mg Tablet PO 12/13/24 22:07 0.5 mg ONCE ONE Administration Miscellaneous 1 each 12/13/24 15:30 12/13/24 17:32 Vancomycin Consult Request NOTAPPLIC 01/12/25 15:29 Not Given CONSULT PHARMACY LINO Multivitamins 1 each 12/14/24 09:00 Multivitamin Tablet PO 01/13/25 08:59 DAILY LINO Paroxetine HCl 20 mg 12/14/24 09:00 Paroxetine 20mg Tablet PO 01/13/25 08:59 DAILY LINO Ropinirole HCl 1 mg 12/13/24 21:00 12/13/24 21:59 Ropinirole Hcl 0.25 Mg Tablet PO 01/12/25 20:59 1 mg HS LINO Administration Vancomycin HCl 125 mg 12/13/24 21:00 12/13/24 21:59 Vancomycin Hcl 50mg/Ml 150ml Kit PO 12/23/24 17:01 125 mg QID LINO Administration Discontinued Medications Generic Name Dose Route Start Last Admin Trade Name Gretta PRN Reason Stop Dose Admin Diphenhydramine HCl 50 mg 12/13/24 15:14 12/13/24 15:58 Diphenhydramine 50mg/Ml Vial IV 12/13/24 15:15 50 mg ONCE ONE Administration Lactated Ringer's 1,000 mls @ 999 mls/hr 12/13/24 13:40 12/13/24 14:00 Lactated Ringer's 1000 Ml Bag IV 12/13/24 14:40 999 mls/hr .Q1H1M ONE Administration Piperacillin Sod/Tazobactam 50 mls @ 100 mls/hr 12/13/24 15:22 12/13/24 17:03 Sod 3.375 gm/ Sodium Chloride IV 12/13/24 15:51 100 mls/hr ONCE ONE Administration Vancomycin/PEG/NADA/Lysine/Water 1.25 gm in 250 mls @ 125 mls/hr 12/13/24 15:30 12/13/24 17:16 Vancomycin 1.25gm/250ml (Peg) Premix IV 12/13/24 17:29 125 mls/hr ONCE ONE Administration Iopamidol 60 ml 12/13/24 16:59 12/13/24 17:02 Iopamidol-370 (76%);100ml Bottle IV 12/13/24 17:00 60 ml ONCE ONE Administration Iopamidol 80 ml 12/13/24 17:03 12/13/24 17:03 Iopamidol-370 (76%);100ml Bottle IV 12/13/24 17:04 80 ml ONCE ONE Administration Methylprednisolone Sodium Succinate 125 mg 12/13/24 15:14 12/13/24 15:58 Methylprednisolone Sod Succ 125mg Vial IV 12/13/24 15:15 125 mg ONCE ONE Administration Ondansetron HCl 4 mg 12/13/24 12:35 12/13/24 13:03 Ondansetron 4mg/2ml Vial IV 12/13/24 12:36 4 mg ONCE ONE Administration Sodium Chloride 50 ml 12/13/24 16:59 12/13/24 17:01 0.9 % Sodium Chloride 50 Ml Vial IV 12/13/24 17:00 50 ml ONCE ONE Administration Sodium Chloride 10 ml 12/13/24 16:59 12/13/24 17:02 Sodium Chloride 0.9% 10ml Syr (Rad Only) IV 12/13/24 17:00 10 ml ONCE ONE Administration ORDERS Category Date Time Status CT abdomen pelvis wo con Stat Cat Scan 12/13/24 12:[address] angio abdomen pelvis Stat Cat Scan 12/13/24 15:[address] angio chest - dissection Stat Cat Scan 12/13/24 15:[address] angio head Stat Cat Scan 12/13/24 15:[address] angio neck Stat Cat Scan 12/13/24 15:[address] chest wo con Stat Cat Scan 12/13/24 12:[address] head/brain wo con Stat Cat Scan 12/13/24 12:36 Completed Ammonia Stat Lab 12/13/24 15:27 Completed BNP [NT Pro Brain Natriuretic Pep.] Stat Lab 12/13/24 12:31 Completed CBC w/Auto Diff [Complete Blood Count Auto Diff] Stat Lab 12/13/24 12:31 Completed CMP [Comprehensive Metabolic Panel] Stat Lab 12/13/24 12:31 Completed Complete Blood Count Auto Diff AMLAB Lab 12/14/24 06:00 Ordered Comprehensive Metabolic Panel AMLAB Lab 12/14/24 06:00 Ordered Diarrhea 23 Panel, PCR Stat Lab 12/13/24 17:40 Ordered Drug Screen,Urine Stat Lab 12/13/24 17:12 Completed Ethyl Alcohol Stat Lab 12/13/24 12:31 Completed Full Resp Panel w/COVID ([facility]) Routine Lab 12/13/24 12:31 Completed INR [Prothrombin Time INR] Stat Lab 12/13/24 12:31 Completed Lactic Acid Follow Up (RFLX 1) Stat Lab 12/13/24 19:30 Completed Magnesium AMLAB Lab 12/14/24 06:00 Ordered Magnesium Stat Lab 12/13/24 12:31 Completed Procalcitonin Stat Lab 12/13/24 12:31 Completed Trop I [Troponin I] Stat Lab 12/13/24 12:31 Completed Blood Culture Stat Micro 12/13/24 13:13 Received VBG [Venous Blood Gas] Stat RT 12/13/24 13:15 Completed Medical Decision Narrative: In summary patient is a 69-year-old female who presents to the emergency department for evaluation of nausea vomiting diarrhea abdominal pain and acute confusion. Patient is hypotensive on arrival at 100/59 but with a heart rate of 85 normal sinus rhythm on bedside monitor with a O2 sat of 99% breathing 20 times a minute upon arrival, afebrile at 97.7. Physical exam reveals an unwell appearing 69-year-old female who does not appear to be acute distress. Breath sounds are clear and equal bilaterally to the bases with adventitious sounds. Heart sounds are normal. There is no dependent edema noted. Examination abdomen reveals it to be exquisitely tender however soft no rebound no guarding no rigidity indicating pain out of proportion to exam. Bowel sounds are hyperactive.. Differential diagnosis includes bowel obstruction versus gastroenteritis versus bowel perforation versus bowel ischemia etc. Initial workup will be conducted with hematologic labs CT scan abdomen pelvis VBG blood cultures. Initial interventions include sepsis bolus for now and antiemetics. Initial workup reviewed by me shows a significantly elevated white count with a white count of 18.9 hemoglobin Mattock rate of 10 and 30.7 respectively with an absolute neutrophil count of 17.6, INR is 1.01, VBG shows a pH of 7.59 which is compensated acidosis with a pCO2 of 18.2 with a venous blood gas lactic acid of 2.3, CMP significant for sodium 131 potassium 3.2 normal creatinine and GFR magnesium of 1.8 ammonia is less than 9 troponin is 0.02 NT proBNP is 7360 procalcitonin is 1.42 urine drug screen is negative full respiratory panel is negative and my informal interpretation prior to radiology read shows thickened bowel loops with fluid but no free air no evidence of obstruction a thickened rectum and sigmoid colon suggestive of proctitis/colitis with a small amount of free pelvic fluid. Upon repeat evaluation did respond to initial resuscitation for sepsis and now has a better blood pressure and heart rate but still tachypneic at 26 but afebrile at 98.3. Given this suggestive that the patient likely has infectious diarrhea possibly C. difficile which she has had last summer although she has been able to provide a stool specimen here. Given this I had interactive discussion with hospital medicine regarding patient CARRERO and findings and patient management and she will be admitted for further evaluation and care. I have started broad-spectrum antibiotics until we are able to obtain a stool specimen. <Kiko Christina MD - Last Filed: 12/13/24 23:08> Vital Signs: 12/13/24 12:01 12/13/24 12:10 12/13/24 13:45 Temperature 97.7 F Temperature Source Oral Pulse Rate 92 H 75 Pulse Rate [Left] 85 Respiratory Rate 22 Blood Pressure 128/69 120/63 Blood Pressure [Right Arm] 100/59 L Blood Pressure Mean [Right Arm] 72 Blood Pressure Source Blood Pressure Source [Right Arm] Automatic Cuff Blood Pressure Position Blood Pressure Position [Right Arm] Sitting 02 Sat by Pulse Oximetry 99 97 Oxygen Delivery Method Room Air 12/13/24 14:00 12/13/24 14:32 12/13/24 15:01 Temperature Temperature Source Pulse Rate 82 86 78 Pulse Rate [Left] Respiratory Rate Blood Pressure 121/51 L 95/73 L 130/67 Blood Pressure [Right Arm] Blood Pressure Mean [Right Arm] Blood Pressure Source Blood Pressure Source [Right Arm] Blood Pressure Position Blood Pressure Position [Right Arm] 02 Sat by Pulse Oximetry 100 100 99 Oxygen Delivery Method Room Air Room Air Room Air 12/13/24 15:30 12/13/24 16:10 12/13/24 16:31 Temperature Temperature Source Pulse Rate 75 75 79 Pulse Rate [Left] Respiratory Rate Blood Pressure 147/67 H 156/71 H 152/74 H Blood Pressure [Right Arm] Blood Pressure Mean [Right Arm] Blood Pressure Source Blood Pressure Source [Right Arm] Blood Pressure Position Blood Pressure Position [Right Arm] 02 Sat by Pulse Oximetry 100 100 97 Oxygen Delivery Method Room Air 12/13/24 17:00 12/13/24 17:30 12/13/24 18:01 Temperature Temperature Source Pulse Rate 71 75 77 Pulse Rate [Left] Respiratory Rate Blood Pressure 159/70 H 160/99 H 169/84 H Blood Pressure [Right Arm] Blood Pressure Mean [Right Arm] Blood Pressure Source Blood Pressure Source [Right Arm] Blood Pressure Position Blood Pressure Position [Right Arm] 02 Sat by Pulse Oximetry 96 95 98 Oxygen Delivery Method Nasal Cannula Nasal Cannula Nasal Cannula 12/13/24 18:30 12/13/24 18:58 12/13/24 19:00 Temperature 98.6 F Temperature Source Oral Pulse Rate 72 88 Pulse Rate [Left] Respiratory Rate 16 Blood Pressure 154/65 H 126/74 Blood Pressure [Right Arm] Blood Pressure Mean [Right Arm] Blood Pressure Source Automatic Cuff Blood Pressure Source [Right Arm] Blood Pressure Position Sitting Blood Pressure Position [Right Arm] 02 Sat by Pulse Oximetry 100 Oxygen Delivery Method Nasal Cannula Room Air Room Air Lab Data Lab Results 12/13/24 12:31: WBC 18.9 H D, RBC 4.01 L, Hgb 10.0 L, Hct 30.7 L, MCV 76.6 L, M CH 24.9 L, MCHC 32.6, RDW 17.9 H, Plt Count 262, MPV 11.5 H, Neut % (Auto) 92.9 H, Lymph % (Auto) 1.7 L, [place] % (Auto) 4.2, Eos % (Auto) 0.0 L, Baso % (Auto) 0.2, Neut # (Auto) 17.6 H, Lymph # (Auto) 0.3 L, [place] # (Auto) 0.8, Eos # (Auto) 0.0, Baso # (Auto) 0.0, Total Counted 100, Neutrophils % (Manual) 94 H, L ymphocytes % (Manual) 3 L, Monocytes % (Manual) 3, Platelet Estimate Normal, Hypochromasia 1+, PT 11.1, INR 1.01, Sodium 131 L, Potassium 3.2 L, Chloride 104, Carbon Dioxide 16 L, Anion Gap 14.2, BUN 15 D, Creatinine 0.80, Estimated Creat Clear 53, Estimated GFR 72, Est GFR ( Amer) 87, Glucose 113 H, Calcium 9.2, Magnesium 1.8, Total Bilirubin 0.8, AST 28, ALT 24, Alkaline Phosphatase 85, Troponin I 0.02, NT-Pro-B Natriuret Pep 7360 H, Total Protein 6.1 L, Albumin 3.7, Globulin 2.4, Albumin/Globulin Ratio 1.5, Procalcitonin 1.42, Plasma/Serum Alcohol < 10, Chlamy pneumoniae PCR Not detected, Adenovirus (PCR) Not detected, B. pertussis DNA (PCR) Not detected, Coronavirus OC43 (PCR) Not detected, Coronavirus HKU1 (PCR) Not detected, Coronavirus 229E (PCR) Not detected, SARS-CoV-2 (PCR) Not detected, Coronavirus NL63 (PCR) Not detected, Human Metapneumovir PCR Not detected, Influenza A (H1) PCR Not detected, Influ A (H1N1/09) PCR Not detected, Influenza A (H3) PCR Not detected, Influenza Type A (PCR) Not detected, Influenza Type B (PCR) Not detected, M. pneumoniae (PCR) Not detected, Parainfluenza 1 (PCR) Not detected, Parainfluenza 2 (PCR) Not detected, Parainfluenza 3 (PCR) Not detected, Parainfluenza 4 (PCR) Not detected, RSV (PCR) Not detected, Entero/Rhino (PCR) Not detected 12/13/24 13:15: VBG pH 7.59 H, VBG pCO2 18.2 L, VBG pO2 45.0 H, VBG HCO3 16.9 L, VBG Total CO2 17.5 L, VBG O2 Saturation 87.7 H, VBG Base Excess -4.9 L, VBG Lactic Acid 2.3 H 12/13/24 15:27: Ammonia < 9 L 12/13/24 17:12: Urine Opiates Screen Negative, Urine Methadone Screen Negative, Ur Barbituates Screen Negative, Ur Phencyclidine Scrn Negative, Ur Amphetamines Screen Negative, U Benzodiazepines Scrn Negative, Urine Cocaine Screen Negative, U Marijuana (THC) Screen Negative Orders (Tests/Meds): ED MEDICATIONS Generic Name Dose Route Start Last Admin Trade Name Gretta PRN Reason Stop Dose Admin Lactated Ringer's 1,000 mls @ 100 mls/hr 12/13/24 17:45 12/13/24 22:00 Lactated Ringer's 1000 Ml Bag IV 01/12/25 17:44 100 mls/hr .Q10H LINO Administration Lorazepam 0.5 mg 12/13/24 22:06 12/13/24 22:14 Lorazepam 0.5mg Tablet PO 12/13/24 22:07 0.5 mg ONCE ONE Administration Miscellaneous 1 each 12/13/24 15:30 12/13/24 17:32 Vancomycin Consult Request NOTAPPLIC 01/12/25 15:29 Not Given CONSULT PHARMACY LINO Multivitamins 1 each 12/14/24 09:00 Multivitamin Tablet PO 01/13/25 08:59 DAILY LINO Paroxetine HCl 20 mg 12/14/24 09:00 Paroxetine 20mg Tablet PO 01/13/25 08:59 DAILY LINO Ropinirole HCl 1 mg 12/13/24 21:00 12/13/24 21:59 Ropinirole Hcl 0.25 Mg Tablet PO 01/12/25 20:59 1 mg HS LINO Administration Vancomycin HCl 125 mg 12/13/24 21:00 12/13/24 21:59 Vancomycin Hcl 50mg/Ml 150ml Kit PO 12/23/24 17:01 125 mg QID LINO Administration Discontinued Medications Generic Name Dose Route Start Last Admin Trade Name Gretta PRN Reason Stop Dose Admin Diphenhydramine HCl 50 mg 12/13/24 15:14 12/13/24 15:58 Diphenhydramine 50mg/Ml Vial IV 12/13/24 15:15 50 mg ONCE ONE Administration Lactated Ringer's 1,000 mls @ 999 mls/hr 12/13/24 13:40 12/13/24 14:00 Lactated Ringer's 1000 Ml Bag IV 12/13/24 14:40 999 mls/hr .Q1H1M ONE Administration Piperacillin Sod/Tazobactam 50 mls @ 100 mls/hr 12/13/24 15:22 12/13/24 17:03 Sod 3.375 gm/ Sodium Chloride IV 12/13/24 15:51 100 mls/hr ONCE ONE Administration Vancomycin/PEG/NADA/Lysine/Water 1.25 gm in 250 mls @ 125 mls/hr 12/13/24 15:30 12/13/24 17:16 Vancomycin 1.25gm/250ml (Peg) Premix IV 12/13/24 17:29 125 mls/hr ONCE ONE Administration Iopamidol 60 ml 12/13/24 16:59 12/13/24 17:02 Iopamidol-370 (76%);100ml Bottle IV 12/13/24 17:00 60 ml ONCE ONE Administration Iopamidol 80 ml 12/13/24 17:03 12/13/24 17:03 Iopamidol-370 (76%);100ml Bottle IV 12/13/24 17:04 80 ml ONCE ONE Administration Methylprednisolone Sodium Succinate 125 mg 12/13/24 15:14 12/13/24 15:58 Methylprednisolone Sod Succ 125mg Vial IV 12/13/24 15:15 125 mg ONCE ONE Administration Ondansetron HCl 4 mg 12/13/24 12:35 12/13/24 13:03 Ondansetron 4mg/2ml Vial IV 12/13/24 12:36 4 mg ONCE ONE Administration Sodium Chloride 50 ml 12/13/24 16:59 12/13/24 17:01 0.9 % Sodium Chloride 50 Ml Vial IV 12/13/24 17:00 50 ml ONCE ONE Administration Sodium Chloride 10 ml 12/13/24 16:59 12/13/24 17:02 Sodium Chloride 0.9% 10ml Syr (Rad Only) IV 12/13/24 17:00 10 ml ONCE ONE Administration ORDERS Category Date Time Status CT abdomen pelvis wo con Stat Cat Scan 12/13/24 12:[address] angio abdomen pelvis Stat Cat Scan 12/13/24 15:[address] angio chest - dissection Stat Cat Scan 12/13/24 15:[address] angio head Stat Cat Scan 12/13/24 15:[address] angio neck Stat Cat Scan 12/13/24 15:[address] chest wo con Stat Cat Scan 12/13/24 12:[address] head/brain wo con Stat Cat Scan 12/13/24 12:36 Completed Ammonia Stat Lab 12/13/24 15:27 Completed BNP [NT Pro Brain Natriuretic Pep.] Stat Lab 12/13/24 12:31 Completed CBC w/Auto Diff [Complete Blood Count Auto Diff] Stat Lab 12/13/24 12:31 Completed CMP [Comprehensive Metabolic Panel] Stat Lab 12/13/24 12:31 Completed Complete Blood Count Auto Diff [facility] Lab 12/14/24 06:00 Ordered Comprehensive Metabolic Panel [facility] Lab 12/14/24 06:00 Ordered Diarrhea 23 Panel, PCR Stat Lab 12/13/24 17:40 Ordered Drug Screen,Urine Stat Lab 12/13/24 17:12 Completed Ethyl Alcohol Stat Lab 12/13/24 12:31 Completed Full Resp Panel w/COVID ([facility]) Routine Lab 12/13/24 12:31 Completed INR [Prothrombin Time INR] Stat Lab 12/13/24 12:31 Completed Lactic Acid Follow Up (RFLX 1) Stat Lab 12/13/24 19:30 Completed Magnesium [facility] Lab 12/14/24 06:00 Ordered Magnesium Stat Lab 12/13/24 12:31 Completed Procalcitonin Stat Lab 12/13/24 12:31 Completed Trop I [Troponin I] Stat Lab 12/13/24 12:31 Completed Blood Culture Stat Micro 12/13/24 13:13 Received VBG [Venous Blood Gas] Stat RT 12/13/24 13:15 Completed Medical Decision Narrative: In summary patient is a 69-year-old female who presents to the emergency department for evaluation of nausea vomiting diarrhea abdominal pain and acute confusion. Patient is hypotensive on arrival at 100/59 but with a heart rate of 85 normal sinus rhythm on bedside monitor with a O2 sat of 99% breathing 20 times a minute upon arrival, afebrile at 97.7. Physical exam reveals an unwell appearing 69-year-old female who does not appear to be acute distress. Breath sounds are clear and equal bilaterally to the bases with adventitious sounds. Heart sounds are normal. There is no dependent edema noted. Examination abdomen reveals it to be exquisitely tender however soft no rebound no guarding no rigidity indicating pain out of proportion to exam. Bowel sounds are hyperactive.. Differential diagnosis includes bowel obstruction versus gastroenteritis versus bowel perforation versus bowel ischemia etc. Initial workup will be conducted with hematologic labs CT scan abdomen pelvis VBG blood cultures. Initial interventions include sepsis bolus for now and antiemetics. Initial workup reviewed by me shows a significantly elevated white count with a white count of 18.9 hemoglobin current of 10 and 30.7 respectively with an absolute neutrophil count of 17.6, INR is 1.01, VBG shows a pH of 7.59 which is compensated acidosis with a pCO2 of 18.2 with a venous blood gas lactic acid of 2.3, CMP significant for sodium 131 potassium 3.2 normal creatinine and GFR magnesium of 1.8 ammonia is less than 9 troponin is 0.02 NT proBNP is 7360 procalcitonin is 1.42 urine drug screen is negative full respiratory panel is negative and my informal interpretation prior to radiology read shows thickened bowel loops with fluid but no free air no evidence of obstruction a thickened rectum and sigmoid colon suggestive of proctitis/colitis with a small amount of free pelvic fluid. Upon repeat evaluation did respond to initial resuscitation for sepsis and now has a better blood pressure and heart rate but still tachypneic at 26 but afebrile at 98.3. Given this suggestive that the patient likely has infectious diarrhea possibly C. difficile which she has had last summer although she has been able to provide a stool specimen here. Given this I had interactive discussion with hospital medicine regarding patient CARRERO and findings and patient management and she will be admitted for further evaluation and care. I have started broad-spectrum antibiotics until we are able to obtain a stool specimen. I was consulted by the ROSA, and we discussed the complexity of the problems being addressed. I approved the treatment and management plan for this patient's care in the Emergency Department, thus performing a substantive portion of the medical decision making. Kiko Christina MD Critical Care <ROSA ISELA Sandra - Last Filed: 12/13/24 22:10> Critical Care Time Critical Care Time: Yes Attestation: On 12/13/24, the high probability of a clinically significant, sudden or life threatening deterioration of the following system(s) required my full and direct attention, intervention and personal management. The time I documented below is in addition to time spent performing reported procedures but includes the following listed in this critical care notation. Total Time Total Critical Care Time: 35
--- NOTE | 2024-12-13 12:36 | CT_ITS ---
FINAL REPORT TECHNIQUE: multiple axial CT images were performed from the foramen magnum to the vertex without enhancement. This study was performed with techniques to keep radiation doses as low as reasonably achievable, (ALARA). Individualized dose reduction techniques using automated exposure control or adjustment of mA and/or kV according to the patient's size were employed. CLINICAL HISTORY: Acute confusion COMPARISON: 06/08/2024 FINDINGS: There is mild atrophy. The ventricles are proportional to the degree of atrophy. There is periventricular white matter change likely related to small vessel disease. There is no evidence of hemorrhage. No masses are identified. No extra-axial fluid is seen. The sinuses are normal. IMPRESSION: Atrophy and chronic changes without acute process. Reviewed, Interpreted and Dictated by Asa Conley MD Transcribed by Nelli Melo Authenticated and [facility]
--- NOTE | 2024-12-13 12:40 | CT_ITS ---
PROCEDURE INFORMATION: Exam: CT Chest Without Contrast; Diagnostic Exam date and time: 12/13/2024 12:53 PM Age: 69 years old Clinical indication: Bronchospasm; Additional info: Acute confusion, active cancer TECHNIQUE: Imaging protocol: Diagnostic computed tomography of the chest without contrast. Radiation optimization: All CT scans at this facility use at least one of these dose optimization techniques: automated exposure control; mA and/or kV adjustment per patient size (includes targeted exams where dose is matched to clinical indication); or iterative reconstruction. COMPARISON: CT ANGIO CHEST 09/24/2024 12:47 PM FINDINGS: Trachea: The trachea is widely patent. Lungs: Subsegmental atelectasis in the right middle lobe and thin linear scar versus subsegmental atelectasis in the left lower lobe. The bronchi leading to the right middle lobe atelectasis appear partially occluded. The remaining bronchi appear patent. There is an old calcified granuloma in the medial left lower lobe. No infiltrates concerning for pneumonia at this time. Pleural spaces: Unremarkable. No pneumothorax. No pleural effusion. Heart: The heart size is stable. No pericardial effusion. There are aortic valve calcifications. Esophagus: Prior gastric/distal esophageal surgery. Lymph nodes: Unremarkable. No enlarged lymph nodes. Vasculature: History of surgical repair of a dissection of the thoracic aorta. The chronic dissection cannot be fully evaluated due to lack of IV contrast but the overall size of the thoracic aorta is stable. Gallbladder and biliary ducts: Cholecystectomy. Bones/joints: Partially imaged ORIF of the right humeral head. Multiple surgical clips over the right upper chest. Stable compression fracture deformities of the lumbar spine. Soft tissues: There is a left chest MediPort with the tubing in good position in the superior vena cava. IMPRESSION: 1. Routine postsurgical changes status post repair of a thoracic aortic dissection. The overall size of the thoracic aorta is stable. 2. Right middle lobe subsegmental atelectasis with opacification of the distal bronchi leading to the subsegmental atelectasis. The remaining bronchi in each lung appears patent. 3. Stable old calcified granuloma in the medial left lower lobe.
--- NOTE | 2024-12-13 12:40 | CT_ITS ---
PROCEDURE INFORMATION: Exam: CT Abdomen And Pelvis Without Contrast Exam date and time: 12/13/2024 12:53 PM Age: 69 years old Clinical indication: Abdominal pain; Generalized; Additional info: Acute confusion, active cancer, intractable vomiti TECHNIQUE: Imaging protocol: Computed tomography of the abdomen and pelvis without contrast. Radiation optimization: All CT scans at this facility use at least one of these dose optimization techniques: automated exposure control; mA and/or kV adjustment per patient size (includes targeted exams where dose is matched to clinical indication); or iterative reconstruction. 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 Liver: The right lobe of the liver is large in the left lobe of the liver is small, possibly representing normal variant Keron's morphology. No focal liver lesion appreciated on noncontrast imaging. Gallbladder and biliary ducts: Cholecystectomy. Pancreas: The pancreas is normal in appearance. No evidence of pancreatic ductal dilatation. Spleen: Small old calcified granulomas in the spleen. Adrenal glands: The adrenal glands are normal in appearance. There is a history of a left adrenal adenoma however this is poorly visualized on the current study. Kidneys and ureters: Status post right nephrectomy. No evidence of left-sided hydronephrosis or left nephroureteral calculi. Stomach and bowel: The small bowel loops are not thickened and are nondilated. Several fluid-filled loops of small bowel and colon. Consider nonspecific enterocolitis. There is colonic diverticulosis but no evidence of diverticulitis. Appendix: No evidence of appendicitis. Intraperitoneal space: Trace pelvic free fluid. Vasculature: The size of the infrarenal abdominal aorta is stable in this patient with a known dissection. Lymph nodes: Unremarkable. No enlarged lymph nodes. Urinary bladder: Unremarkable as visualized. Reproductive: Unremarkable as visualized. Bones/joints: Several old, healed right-sided rib fractures. Stable compression fracture deformities at all levels of the lumbar spine. Previous vertebroplasty at L3 and L5. No acute osseous lesions appreciated. Soft tissues: Unremarkable. IMPRESSION: 1. Nonobstructed fluid-filled loops of small bowel and colon. Consider nonspecific enterocolitis. 2. 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 3. The size of the infrarenal abdominal aorta is stable in this patient with a history of a dissection. 4. Trace pelvic free fluid. No evidence of an intra-abdominal abscess.
[2024-12-13 12:54] LABS: Adenovirus,PCR Not Detected (NotDetected); Bordetella Pertussis Not Detected (NotDetected); Chlamydophila Pneumoniae, PCR Not Detected (NotDetected); Coronavirus 19, PCR Not Detected (NotDetected); Coronavirus 229E Not Detected (NotDetected); Coronavirus NL63 Not Detected (NotDetected); Coronavirus OC43 Not Detected (NotDetected); Coronovirus HKU1,PCR Not Detected (NotDetected); Human Metapneumovirus Not Detected (NotDetected); Influenza A, PCR Not Detected (NotDetected); Influenza AH1, 2009 Not Detected (NotDetected); Influenza AH1, PCR Not Detected (NotDetected); Influenza AH3,PCR Not Detected (NotDetected); Influenza B, PCR Not Detected (NotDetected); Mycoplasma Pneumoniae, PCR Not Detected (NotDetected); Parainfluenza 1, PCR Not Detected (NotDetected); Parainfluenza 2, PCR Not Detected (NotDetected); Parainfluenza 3, PCR Not Detected (NotDetected); Parainfluenza 4, PCR Not Detected (NotDetected); Respiratory Syncytial Virus Not Detected (NotDetected); Rhinovirus/Enterovirus Not Detected (NotDetected)
[2024-12-13 12:59] LABS: Basophils % 0.2 % (0.1-2.0); Hematocrit 30.7 % (37.0-47.0); Lymphocytes # 0.3 K/mm3 (0.7-4.5); Lymphocytes % 1.7 % (10-50); Mean Corpuscular HGB Conc 32.6 g/dL (31.8-35.4); Mean Corpuscular Hemoglobin 24.9 pg (27.0-31.2); Mean Corpuscular Volume 76.6 fl (81-99); Mean Platelet Volume 11.5 fl (7.4-10.4); Monocytes # 0.8 K/mm3 (0.1-1.0); Monocytes % 4.2 % (1.7-9.3); Neutrophils # 17.6 K/mm3 (1.8-7.8); Neutrophils % 92.9 % (37.0-80.0); Platelet Count 262 K/mm3 (142-424); Red Blood Count 4.01 M/mm3 (4.20-5.40); Red Cell Distribution Width 17.9 % (11.5-17.5); White Blood Count 18.9 K/mm3 (4.8-10.8)
[2024-12-13 13:02] LABS: MANUAL DIFFERENTIAL MANUAL DIFFERENTIAL (MANUAL DIFF)
[2024-12-13] MEDS: ONDANSETRON 4MG/2ML VIAL 4 MG IV (13:03)
--- NOTE | 2024-12-13 13:04 | ECG_ITS ---
APPROVED REPORT Exam: Resting ECG HR:83 bpm ECG Measurements Heart Rate 83 AXES PA 166 P 71 QRSd 100 QRS 46 QT 418 T 60 QTc 458 Conclusion SINUS RHYTHM MINIMAL VOLTAGE CRITERIA FOR LVH, CONSIDER NORMAL VARIANT [MEETS CRITERIA IN ONE OF: R(aVL), S(V1), R(V5), R(V5/V6)+S(V1)] NONSPECIFIC T-WAVE ABNORMALITY No STEMI Electronically signed by : JUAN PABLO ELLIOTT, 12/16/2024 06:48:47
[2024-12-13 13:09] LABS: Alanine Aminotransferase 24 U/L (12-78); Albumin Level 3.7 g/dl (3.5-5.0); Albumin/Globulin Ratio 1.5 (1.1-1.8); Alkaline Phosphatase 85 U/L (38-126); Anion Gap 14.2 mEq/L (5-15); Aspartate Amino Transferase 28 U/L (14-36); Bilirubin,Total 0.8 mg/dl (0.2-1.3); Blood Urea Nitrogen 15 mg/dl (7-17); Calcium 9.2 mg/dl (8.4-10.2); Carbon Dioxide 16 mmol/L (22.0-30.0); Chloride 104 mmol/L (98-107); Creatinine Clearance Estimated 53 mL/min (50-200); Estimated Glomerular Filt Rate 72 ml/min (>60); GFR (African American) 87 ML/MIN (>60); Globulin 2.4 g/dL (1.3-3.2); Glucose 113 mg/dl (74-100); Potassium 3.2 mmoL/L (3.5-5.1); Sodium 131 mmol/L (136-145); Total Protein,Serum 6.1 g/dl (6.3-8.2)
[2024-12-13 13:10] LABS: Magnesium 1.8 mg/dl (1.6-2.3)
[2024-12-13 13:16] LABS: INR 1.01 (0.9-1.1); Prothrombin Time 11.1 seconds (9.2-12.1)
[2024-12-13 13:19] LABS: NT Pro Brain Natriuretic Pep. 7360 pg/mL (0-125)
[2024-12-13 13:21] LABS: Troponin I 0.02 ng/ml (0.00-0.034)
[2024-12-13 13:23] LABS: VBG Base Excess -4.9 mmol/L (-2.4-2.3); VBG HCO3 16.9 mmol/L (23-30); VBG Oxygen Saturation 87.7 % (50-70); VBG Total CO2 17.5 mmol/L (23-27)
[2024-12-13 13:26] LABS: Procalcitonin 1.42 ng/mL (0.0-2.0)
[2024-12-13 13:28] LABS: VBG PH 7.59 mmol/L (7.31-7.41)
[2024-12-13 13:29] LABS: Lactate Venous 2.3 mmol/L (0.4-2.0); VBG PCO2 18.2 mmol/L (35-51)
[2024-12-13 13:40] LABS: Lymphocytes % 3 % (10-50); Monocytes % 3 % (2-9); Neutrophils % 94 % (42-76); Total Cells Counted 100
[2024-12-13 13:41] LABS: Hypochromasia 1+; Platelet Estimate Normal
[2024-12-13] MEDS: LACTATED RINGERS 1000ML 1,000 ML 999 ML IV (14:00)
--- NOTE | 2024-12-13 15:15 | CT_ITS ---
PROCEDURE INFORMATION: Exam: CTA Abdomen and Pelvis With Contrast Exam date and time: 12/13/2024 4:48 PM Age: 69 years old Clinical indication: Condition or disease; Other: Disection; Additional info: AMS history of aortic disease TECHNIQUE: Imaging protocol: Computed tomographic angiography of the abdomen and pelvis with contrast. Exam focused on the arteries. 3D rendering (Not supervised by radiologist): MIP and/or 3D reconstructed images were created by the technologist. Radiation optimization: All CT scans at this facility use at least one of these dose optimization techniques: automated exposure control; mA and/or kV adjustment per patient size (includes targeted exams where dose is matched to clinical indication); or iterative reconstruction. Contrast material: ISOVUE; Contrast volume: 80 ml; Contrast route: INTRAVENOUS (IV); COMPARISON: 1. CT ANGIO ABDOMEN PELVIS 09/24/2024 12:[address] ANGIO ABDOMEN PELVIS 03/29/2023 7:[address] ABDOMEN PELVIS WO CON 12/13/2024 12:53 PM FINDINGS: Aorta: Redemonstrated is a dissection extending from the thoracic aorta to the left common iliac artery. Celiac trunk and mesenteric arteries: No occlusion or significant stenosis. Renal arteries: The dissection partially extends into the left renal artery. Right iliac arteries: No occlusion or significant stenosis. Left iliac arteries: See Aorta finding. Liver: No mass. Gallbladder and biliary ducts: The patient is status post cholecystectomy. Pancreas: Unremarkable. No mass. No ductal dilation. Spleen: Unremarkable. No splenomegaly. Adrenal glands: Unremarkable. No mass. Kidneys and ureters: The patient is status post right nephrectomy. Stomach and bowel: Mild fluid distention of small-bowel loops. Postsurgical changes of the gastroesophageal sphincter. There is mucosal hyperenhancement of the sigmoid colon and rectum that may reflect proctocolitis. Appendix: No evidence of appendicitis. Intraperitoneal space: Unremarkable. No free air. No significant fluid collection. Lymph nodes: Unremarkable. No enlarged lymph nodes. Urinary bladder: Hyperdense material in the urinary bladder consistent with contrast. Reproductive: The patient has undergone prior hysterectomy. Bones/joints: Cement material within the L3 and L5 vertebral bodies consistent with prior augmentation. Soft tissues: Unremarkable. IMPRESSION: 1. There is mucosal hyperenhancement of the sigmoid colon and rectum that may reflect proctocolitis. 2. Stable appearance of a dissection extending from the thoracic aorta to the left common iliac artery and partially into the left renal artery.
--- NOTE | 2024-12-13 15:15 | CT_ITS ---
PROCEDURE INFORMATION: Exam: CTA Chest With Contrast Exam date and time: 12/13/2024 4:48 PM Age: 69 years old Clinical indication: Cardiovascular condition or disease; Aortic dissection (thoracic aorta); Thoracoabdominal; Additional info: AMS history of aortic disease TECHNIQUE: Imaging protocol: Computed tomographic angiography of the chest with contrast. Exam focused on the arteries. 3D rendering (Not supervised by radiologist): MIP and/or 3D reconstructed images were created by the technologist. Radiation optimization: All CT scans at this facility use at least one of these dose optimization techniques: automated exposure control; mA and/or kV adjustment per patient size (includes targeted exams where dose is matched to clinical indication); or iterative reconstruction. Contrast material: ISOVUE; Contrast volume: 80 ml; Contrast route: INTRAVENOUS (IV); COMPARISON: 1. CT ANGIO CHEST 09/24/2024 12:[address] ANGIO CHEST 03/29/2023 7:[address] CHEST WO CON 12/13/2024 12:53 PM FINDINGS: Pulmonary arteries: Normal. No pulmonary emboli. Aorta: Stable appearance of a dissection extending from the ascending thoracic aorta to the abdomen/pelvis. Stable appearance of the true lumen. There is atherosclerotic disease of the visualized aorta and its major branch vessels. Lungs: Scattered areas of bronchial wall thickening which are likely chronic inflammatory. A few areas of subpleural reticulation are noted, nonspecific. Calcified granuloma at the left lung base is unchanged. No significant change in atelectasis/scarring from the examination earlier the same day. Pleural spaces: Unremarkable. No pneumothorax. No pleural effusion. Heart: Unremarkable. No cardiomegaly. No pericardial effusion. Coronary arteries: There is mild coronary atherosclerotic disease/calcification although evaluation is limited secondary to the non gated nature of the study. Lymph nodes: Unremarkable. No enlarged lymph nodes. Intraperitoneal space: Please see the dedicated interpretation of abdomen and pelvis for findings in that region. Bones/joints: There is diffuse degenerative disease of the visualized osseous structures. The patient is status post median sternotomy. Soft tissues: Unremarkable. IMPRESSION: 1. Stable appearance of the thoracic aortic dissection extending into the abdomen/pelvis. No acute pathology from the noncontrast CT performed 4 hours prior. 2. Please see the dedicated interpretation of abdomen and pelvis for findings in that region.
--- NOTE | 2024-12-13 15:19 | CT_ITS ---
PROCEDURE INFORMATION: Exam: CTA Neck With Contrast Exam date and time: 12/13/2024 4:44 PM Age: 69 years old Clinical indication: Cognitive deficit; Age-related cognitive decline; Additional info: AMS history of aortic disease TECHNIQUE: Imaging protocol: Computed tomographic angiography of the neck with contrast. Exam focused on the cervical segments of the vasculature. 3D rendering (Not supervised by radiologist): MIP and/or 3D reconstructed images were created by the technologist. Radiation optimization: All CT scans at this facility use at least one of these dose optimization techniques: automated exposure control; mA and/or kV adjustment per patient size (includes targeted exams where dose is matched to clinical indication); or iterative reconstruction. Contrast material: ISOVUE; Contrast volume: 60 ml; Contrast route: INTRAVENOUS (IV); COMPARISON: CT ANGIO HEAD 12/13/2024 4:44 PM FINDINGS: Right common carotid artery: No stenosis. No dissection or occlusion. Right internal carotid artery: No stenosis of the extracranial segment. No dissection or occlusion. Right external carotid artery: No occlusion or stenosis of the origin. Left common carotid artery: No stenosis. No dissection or occlusion. Left internal carotid artery: No stenosis of the extracranial segment. No dissection or occlusion. Left external carotid artery: No occlusion or stenosis of the origin. Right vertebral artery: No stenosis. No dissection or occlusion. Left vertebral artery: No stenosis. No dissection or occlusion. Aorta: Patient has known/chronic dissection of the thoracic aorta is again visualized and without significant interval change when compared to the prior exam. Soft tissues: Normal. No significant soft tissue swelling. Bones/joints: Previous median sternotomy. No acute osseous lesions. IMPRESSION: 1. Normal CT angiogram of the neck. 2. Stable chronic dissection of the thoracic aorta. REFERENCES: NASCET CRITERIA. The degree of stenosis in the cervical segment of the internal carotid artery is based on NASCET criteria. Normal is no stenosis. Mild is less than 50% stenosis. Moderate is 50-69% stenosis. Severe is 70% to 99% stenosis. Total occlusion is no detectable patent lumen.
--- NOTE | 2024-12-13 15:19 | CT_ITS ---
PROCEDURE INFORMATION: Exam: CTA Head With Contrast, Arteriography Exam date and time: 12/13/2024 4:44 PM Age: 69 years old Clinical indication: Cognitive deficit; Age-related cognitive decline; Additional info: AMS history of aortic disease TECHNIQUE: Imaging protocol: Computed tomographic angiography of the head with contrast. Exam focused on the arteries. 3D rendering (Not supervised by radiologist): MIP and/or 3D reconstructed images were created by the technologist. Radiation optimization: All CT scans at this facility use at least one of these dose optimization techniques: automated exposure control; mA and/or kV adjustment per patient size (includes targeted exams where dose is matched to clinical indication); or iterative reconstruction. Contrast material: ISOVUE 370; Contrast volume: 60 ml; Contrast route: INTRAVENOUS (IV); COMPARISON: CT HEAD/BRAIN WO CON 12/13/2024 12:50 PM FINDINGS: ANTERIOR CIRCULATION: Right internal carotid artery: Intracranial segment is patent with no significant stenosis. No aneurysm. Right middle cerebral artery: No occlusion or significant stenosis. No aneurysm. Right anterior cerebral artery: No occlusion or significant stenosis. No aneurysm. Left internal carotid artery: Intracranial segment is patent with no significant stenosis. No aneurysm. Left middle cerebral artery: No occlusion or significant stenosis. No aneurysm. Left anterior cerebral artery: No occlusion or significant stenosis. No aneurysm. POSTERIOR CIRCULATION: Right vertebral artery: No occlusion or significant stenosis. No aneurysm. Left vertebral artery: No occlusion or significant stenosis. No aneurysm. Basilar artery: No occlusion or significant stenosis. No aneurysm. Right posterior cerebral artery: No occlusion or significant stenosis. No aneurysm. Left posterior cerebral artery: No occlusion or significant stenosis. No aneurysm. Brain: No definite mass, mass effect, or midline shift. Minimal cerebral atrophy and white matter microangiopathic chronic ischemia in both hemispheres. Cerebral ventricles: No ventriculomegaly. Bones/joints: Unremarkable. No acute fracture. Soft tissues: Unremarkable. IMPRESSION: 1. Normal CT angiogram of the head. 2. Minor senescent brain changes. No CT evidence of acute brain injury.
[2024-12-13 15:38] LABS: Ethyl Alcohol < 10 mg/dl (0-10)
--- NOTE | 2024-12-13 15:41 | PC.NURSE ---
PT TO ct VIA STRETCHER
[2024-12-13 15:49] LABS: Ammonia < 9 umol/L (9-30)
[2024-12-13] MEDS: diphenhydrAMINE 50MG/ML VIAL 50 MG IV (15:58)
[2024-12-13] MEDS: METHYLPREDNISOLONE SOD SUCC 125MG VIAL 125 MG IV (15:58)
--- NOTE | 2024-12-13 16:11 | PC.NURSE ---
Patient was assisted to the restroom.
[2024-12-13] MEDS: 0.9 % SODIUM CHLORIDE 50 ML VIAL IV (17:01)
[2024-12-13] MEDS: IOPAMIDOL-370 (76%);100ML BOTTLE 60 ML IV (17:02)
[2024-12-13] MEDS: SODIUM CHLORIDE 0.9% 10ML SYR (RAD ONLY) 10 ML IV (17:02)
[2024-12-13] MEDS: PIPERCILLIN/TAZO 3.375 GM in 0.9 % SODIUM CHLORIDE 50 ML IV (17:03)
[2024-12-13] MEDS: IOPAMIDOL-370 (76%);100ML BOTTLE 80 ML IV (17:03)
[2024-12-13] MEDS: VANCOMYCIN/WATER FOR INJ (PEG) 1.25 GM/250 ML PIGGYBACK IV (17:16)
[2024-12-13 17:27] LABS: Reflex Lactic Add Lactic Reflex
--- NOTE | 2024-12-13 17:41 | PC.NURSE ---
HOUSE aware of patient admission
[2024-12-13 17:49] LABS: Barbiturates Screen,Urine Negative ng/ml (<200); Benzodiazepines Screen,Urine Negative ng/ml (<200)
[2024-12-13 17:50] LABS: Amphetamine/Metha Screen,Urine Negative ng/ml (<1000)
[2024-12-13 17:51] LABS: Cannabinoid Screen,Urine Negative ng/ml (<50); Cocaine Screen,Urine Negative ng/ml (<300)
[2024-12-13 17:52] LABS: Methadone Screen,Urine Negative ng/ml (<300); Phencyclidine Screen,Urine Negative ng/ml (<25)
[2024-12-13 17:54] LABS: Opiate Screen,Urine Negative ng/ml (<300)
--- NOTE | 2024-12-13 18:21 | PC.NURSE ---
report called to Jaylene
--- NOTE | 2024-12-13 19:06 | PC.NURSE ---
Patient arrived to floor via wheelchair from ED at 18:57.
[2024-12-13 19:47] LABS: Lactic Acid Follow Up (RFLX 1) 1.3 mmol/L (0.7-2.1)
--- NOTE | 2024-12-13 21:41 | P.HP_ITS ---
History of Present Illness *Admission Date: 12/13/24 *Reason for visit:: Altered mental status, GI complaint *History of present illness: The patient is a 69-year-old female with a complex medical history that includes hypertension, hyperlipidemia, a thoracic aortic dissection (status post repair), pancreatitis, renal cell carcinoma (status post right nephrectomy), and non- Hodgkin?s lymphoma for which she is receiving topical chemotherapy (capecitabine). She arrived complaining of nausea, vomiting, and diarrhea that began the previous night, along with generalized weakness and a severe epigastric pain rated 8 out of 10, described as aching in nature. She also notes difficulty with her memory since starting capecitabine. She denies experiencing any chest pain. Recent laboratory results from December 13, 2024, show an elevated white blood cell count of 18.9 with 92.9% neutrophils, as well as low red blood cell indices (RBC 4.01, hemoglobin 10.0, hematocrit 30.7, and mean corpuscular volume 76.6). The red cell distribution width is 17.9, and platelets measure 262. A venous blood gas indicates a pH of 7.59 (alkalotic), low pCO? of 18.2, low bicarbonate of 16.9, a base excess of -4.9, and elevated lactate of 2.3. Electrolyte disturbances include hyponatremia (Na 131), hypokalemia (K 3.2), chloride 104, and a total CO? of 16, yielding an anion gap of 14.2. The BUN is 15, creatinine 0.80, and glucose 113. Of note, the NT-proBNP is markedly elevated at 7360, trop onin I is 0.02, and procalcitonin is 1.42. Multiple imaging studies reveal no acute intracranial abnormality on CT or CTA of the head, with only minor senescent changes and no signs of hemorrhage or mass effect. The CTA of the neck shows a stable chronic dissection of the thoracic aorta. In the abdomen, there is mucosal hyperenhancement of the sigmoid colon and rectum, which may indicate proctocolitis, and stable extension of a known dissection from the thoracic aorta to the left common iliac artery and partially into the left renal artery. Additional abdominal imaging demonstrates nonobstructed, fluid-filled loops of bowel consistent with possible nonspecific enterocolitis, no evidence of an intra-abdominal abscess, and a stable infrarenal aorta. The patient?s current clinical picture is therefore characterized by gastrointestinal distress (nausea, vomiting, diarrhea), severe epigastric pain, and mild confusion that may be related to her chemotherapy. Despite significant leukocytosis and abnormalities in her acid-base balance, there is no clear acute surgical or intracranial process; however, her chronic aortic dissection and comorbid conditions warrant ongoing close evaluation.The patient?s complex medical background, current symptoms, and lab findings will require further evaluation and management with hospital admission. [facility] Disclaimer: The information contained in this section may have been updated after the patient was seen, as this information can be updated by other users. Medical History Blood in left ear canal Chronic eustachian tube dysfunction Spontaneous rupture of tympanic membrane of left ear concurrent with and due to acute suppurative otitis media History of thyroid disease History of hypothyroidism History of chemotherapy Arthritis Anemia Hypertension Lymphoma Surgical History History of tonsillectomy Family History Other Diabetes Social History (Updated 12/14/24 @ 00:15 by Fátima Goodwin RN) Smoking Status: Former smoker tobacco type: cigarettes packs per day: 1 second hand exposure: Yes alcohol intake: former substance use type: denies use current occupational status: retired Travel in the last 8 weeks: None household members: spouse housing: house current occupational exposures/hazards: No caffeine: No Have you lived/traveled outside [place] in past 30 days?: No Contact w/someone who lives/traveled outside [place] past 30 days?: No Exposure to someone with infectious disease in past 14 days?: No Do you have a fever (greater than 100.4 F or 38 C)?: No Have you tested positive for COVID-19: No Exposed to someone with COVID-19 in past 14 days?: No Do you have a sore throat?: No Do you have a cough?: No Do you have any weakness?: Yes Are you experiencing any nausea/vomitting?: Yes Do you have any diarrhea?: No Are you experiencing any unusual bleeding?: No Do you have any muscle aches/pain?: No Do you have any abdominal pain?: No Are you experiencing loss of taste or smell?: No Other Medical History Have you received the Flu Vaccine for this season: No Have you received the Pneumonia Vaccine: Yes Review of Systems Review of Systems Review of systems (narrative): 14 point review of systems negative except listed in HPI Meds Home Medications and Allergies Home Medications ?Medication ?Instructions ?Recorded ?Confirmed ?Type ropinirole 0.25 mg tablet 0.25 mg PO HS 08/30/24 12/14/24 History paroxetine HCl 20 mg tablet (Paxil) 20 mg PO DAILY #30 tabs 11/23/24 12/14/24 Rx capecitabine 150 mg tablet 150 mg PO BID 12/14/24 12/14/24 History capecitabine 500 mg tablet 1,500 mg PO BID 12/14/24 12/14/24 History New Prescriptions to Start Prescriptions: Allergies Allergy/AdvReac Type Severity Reaction Status Date / Time Iodinated Contrast Media Allergy Intermediate Hives Verified 12/06/24 09:11 (Iodinated Contrast Media - Oral and) Sulfa (Sulfonamide Allergy Unknown Verified 12/06/24 09:11 Antibiotics) allergy reaction Exam Data for Last 24 hours Vital signs and Labs for Last 24 Hours: Temp Pulse Resp BP Pulse Ox O2 Del Method 98.3 F 69 26 H 164/88 H 100 Room Air 12/13/24 20:00 12/13/24 19:22 12/13/24 19:22 12/13/24 19:22 12/13/24 19:22 12/13/24 19:22 Laboratory Results - last 24 hr 12/13/24 12:31: WBC 18.9 H D, RBC 4.01 L, Hgb 10.0 L, Hct 30.7 L, MCV 76.6 L, MCH 24.9 L, MCHC 32.6, RDW 17.9 H, Plt Count 262, MPV 11.5 H, Neut % (Auto) 92.9 H, Lymph % (Auto) 1.7 L, [place] % (Auto) 4.2, Eos % (Auto) 0.0 L, Baso % (Auto) 0.2, Neut # (Auto) 17.6 H, Lymph # (Auto) 0.3 L, [place] # (Auto) 0.8, Eos # (Auto) 0.0, Baso # (Auto) 0.0, Total Counted 100, Neutrophils % (Manual) 94 H, Lymphocytes % (Manual) 3 L, Monocytes % (Manual) 3, Platelet Estimate Normal, Hypochromasia 1+, PT 11.1, INR 1.01, Sodium 131 L, Potassium 3.2 L, Chloride 104, Carbon Dioxide 16 L, Anion Gap 14.2, BUN 15 D, Creatinine 0.80, Estimated Creat Clear 53, Estimated GFR 72, Est GFR ( Amer) 87, Glucose 113 H, C alcium 9.2, Magnesium 1.8, Total Bilirubin 0.8, AST 28, ALT 24, Alkaline Phosphatase 85, Troponin I 0.02, NT-Pro-B Natriuret Pep 7360 H, Total Protein 6.1 L, Albumin 3.7, Globulin 2.4, Albumin/Globulin Ratio 1.5, Procalcitonin 1.42, Plasma/Serum Alcohol < 10, Chlamy pneumoniae PCR Not detected, Adenovirus (PCR) Not detected, B. pertussis DNA (PCR) Not detected, Coronavirus OC43 (PCR) Not detected, Coronavirus HKU1 (PCR) Not detected, Coronavirus 229E (PCR) Not detected, SARS-CoV-2 (PCR) Not detected, Coronavirus NL63 (PCR) Not detected, Human Metapneumovir PCR Not detected, Influenza A (H1) PCR Not detected, Influ A (H1N1/09) PCR Not detected, Influenza A (H3) PCR Not detected, Influenza Type A (PCR) Not detected, Influenza Type B (PCR) Not detected, M. pneumoniae (PCR) Not detected, Parainfluenza 1 (PCR) Not detected, Parainfluenza 2 (PCR) Not detected, Parainfluenza 3 (PCR) Not detected, Parainfluenza 4 (PCR) Not detected, RSV (PCR) Not detected, Entero/Rhino (PCR) Not detected 12/13/24 13:15: VBG pH 7.59 H, VBG pCO2 18.2 L, VBG pO2 45.0 H, VBG HCO3 16.9 L, VBG Total CO2 17.5 L, VBG O2 Saturation 87.7 H, VBG Base Excess -4.9 L, VBG Lactic Acid 2.3 H 12/13/24 15:27: Ammonia < 9 L 12/13/24 17:12: Urine Opiates Screen Negative, Urine Methadone Screen Negative, Ur Barbituates Screen Negative, Ur Phencyclidine Scrn Negative, Ur Amphetamines Screen Negative, U Benzodiazepines Scrn Negative, Urine Cocaine Screen Negative, U Marijuana (THC) Screen Negative 12/13/24 19:30: Lactate 1.3 I & O for Last 24 hours: Intake & Output 12/10/24 12/11/24 12/12/24 12/13/24 23:59 23:59 23:59 23:59 Output Total 0 / 0 Balance 0 / 0 Weight 60.498 kg Constitutional Constitutional: no acute distress *Routine HEENT Exam Head: Present normocephalic Eye: Present EOMI and PERRL ENT: Present mucous membranes moist *Routine Neck Exam Neck: Present supple; Absent lymphadenopathy *Routine Respiratory Exam Respiratory: Present CTA bilaterally *Routine Cardiovascular Exam Cardiovascular: Present RRR *Routine Abdominal Exam Abdominal: Present soft and normoactive bowel sounds; Absent tenderness *Routine Rectal Exam Rectal:: deferred *Routine Genitalia Exam Genitalia:: deferred *Routine Extremities Exam Extremities: Absent cyanosis, clubbing or edema *Routine Skin Exam Skin: Present warm; Absent rash *Routine Neurological Exam Neurological: Present alert and oriented X3 Assessment and Plan *Assessment and plan (1) Acute proctitis: Status: Acute Category: Medical Code(s): K62.89 - Other specified diseases of anus and rectum (2) Sepsis without septic shock: Status: Acute Category: Medical Code(s): A41.9 - Sepsis, unspecified organism (3) Esophageal stricture: Status: Acute Category: Medical Code(s): K22.2 - Esophageal obstruction (4) History of Zay-en-Y gastric bypass: Status: Acute Category: Surgical Code(s): Z98.84 - Bariatric surgery status (5) Nausea & vomiting: Status: Acute Category: Medical Code(s): R11.2 - Nausea with vomiting, unspecified (6) CAD (coronary artery disease): Status: Acute Qualifiers: Associated angina: without angina Coronary Disease-Associated Artery/Lesion type: lummi artery [place] vs. transplanted heart: lummi heart Qualified Code(s): I25.10 - Atherosclerotic heart disease of lummi coronary artery without angina pectoris Category: Medical Code(s): I25.10 - Atherosclerotic heart disease of lummi coronary artery without angina pectoris (7) Malignant lymphoplasmacytic lymphoma: Status: Acute Category: Medical Code(s): C83.00 - Small cell B-cell lymphoma, unspecified site (8) Altered mental status: Status: Resolved Qualifiers: Altered mental status type: disorientation Qualified Code(s): R41.0 - Disorientation, unspecified Category: Medical Code(s): R41.82 - Altered mental status, unspecified Plan Medical Decision Making This 69-year-old female, who has a complicated medical history including hypertension, hyperlipidemia, chronic thoracic aortic dissection (status post repair), pancreatitis, renal cell carcinoma (status post nephrectomy), and non- Hodgkin?s lymphoma (on topical capecitabine), presents with acute gastrointestinal distress (nausea, vomiting, diarrhea), severe epigastric pain, and confusion. Laboratory studies show leukocytosis with neutrophil predominance, mild hypokalemia, hyponatremia, and a mixed respiratory alkalosis/metabolic acidosis with an elevated lactate. Imaging suggests possible proctocolitis or nonspecific enterocolitis, and the chronic aortic dissection appears stable. The new onset confusion may be related to capecitabine, electrolyte disturbances, or overall decompensation. She does not appear septic based on current vitals, but her leukocytosis and elevated procalcitonin warrant vigilance. Given her multiple comorbidities, we will admit her for further d iagnostic evaluation, supportive care, and close monitoring to address her possible gastrointestinal infection or inflammation, manage electrolyte imbalances, evaluate her confusion, and ensure her chronic thoracic aortic dissection remains stable. Gastrointestinal Symptoms (Nausea, Vomiting, Diarrhea, Epigastric Pain) * The patient reports severe epigastric pain (8/10), nausea, vomiting, and diarrhea since last night. Imaging findings of mucosal hyperenhancement of the sigmoid colon and rectum raise concern for proctocolitis or nonspecific enterocolitis. * Begin IV fluid resuscitation for potential volume depletion. * Provide antiemetics * Obtain or review a stool panel (checking for pathogens like C. difficile, if not done). * Consider empiric antibiotic therapy if there is suspicion of bacterial enterocolitis or the patient shows signs of sepsis or clinical deterioration. * Pain control with non-NSAID analgesics (e.g., acetaminophen, consider opioids short-term if severe). Confusion / Possible Capecitabine Toxicity * Patient has memory difficulties and confusion, potentially related to capecitabine or acute metabolic derangements. * Evaluate for metabolic causes of altered mentation (electrolyte corrections, hydration, check ammonia if indicated). * Consult Oncology regarding the risk-benefit of continuing capecitabine, given her acute symptoms and mental status changes if they continue to persist and no other cause identified * Provide supportive care and reorienting measures; reassess mental status regularly. Electrolyte Imbalances (Hyponatremia, Hypokalemia) and Mixed Alkalosis/Acidosis * Laboratory results show Na 131, K 3.2, VBG with alkalotic pH, low pCO?, low HCO?, and lactate of 2.3. * Correct hypokalemia with IV or oral potassium supplementation as needed. * Monitor serum sodium closely; correct gradually to avoid rapid shifts. * Repeat acid-base and lactate measurements to track improvements or deteriorations. * Continue to assess for ongoing GI losses contributing to these derangements. Thoracic Aortic Dissection (Chronic) * Imaging shows a stable chronic dissection, extending into the left common iliac artery and partially into the left renal artery, with no acute changes. * Continue home antihypertensives if stable. * Repeat imaging as clinically indicated if new symptoms arise. Renal Status (CKD Stage 3, History of Right Nephrectomy) * Baseline creatinine around 1.7?2.0, currently 0.80, which could be lab variability or improved from hydration. BUN is 15, within normal limits. * Avoid nephrotoxic agents and ensure adequate hydration to support renal perfusion. * Check daily renal function (BMP or CMP) to watch for changes, especially given potential fluid shifts. Non-Hodgkin?s Lymphoma / Recent Chemotherapy * Underlying lymphoma with topical capecitabine therapy, which might contribute to GI side effects and bone marrow suppression. * Oncology evaluation for potential drug-related toxicity vs. continuation. * Monitor blood counts for further drops in WBCs, RBCs, or platelets. * Assess need for additional supportive measures (e.g., transfusions, growth factors) if indicated. Anemia and Leukocytosis * Patient has microcytic anemia (Hgb 10.0, MCV 76.6) and leukocytosis (WBC 18.9, 92.9% neutrophils), possibly inflammatory or infectious in nature. * Investigate for GI blood loss (though patient denies hematochezia or melena). * Possible iron studies (ferritin, iron, TIBC) if chronic anemia is suspected. * Trend WBC to see if it normalizes with hydration and supportive care or if it rises, suggesting possible bacterial infection. Pain Management * Epigastric pain is severe. She also has multiple comorbidities, including CKD and a need for cautious blood pressure management. * Acetaminophen as first-line. * Use opioids judiciously if pain remains uncontrolled. * Avoid NSAIDs due to CKD, recent GI complaints, and potential for bleeding risks. Disposition * Given her acute GI issues, potential infection/inflammation, altered mental status, and complex aortic pathology, she requires inpatient admission for close monitoring. * Plan for continued IV fluids, serial labs, and monitoring of hemodynamics, renal function, and mental status. * Discharge planning will depend on clinical improvement, resolution or significant improvement of GI symptoms, and stabilization of her mental status. * VTE prophylaxis SCDs * GI prophylaxis with Protonix Rounded on patient after nurse practitioner. Personally examined and interviewed patient. Agree with exam findings and care plan as documented.
[2024-12-13] MEDS: ROPINIROLE HCL 0.25 MG TABLET 1 MG PO (21:59)
[2024-12-13] MEDS: VANCOMYCIN HCL 50MG/ML 150ML KIT 125 MG PO (21:59)
[2024-12-13] MEDS: LACTATED RINGERS 1000ML 1,000 ML 100 ML IV (22:00)
[2024-12-13 22:05] LABS: Microscopic, Urine URINE MICROSCOPIC (MICROSCOPIC)
[2024-12-13 22:09] LABS: Appearance,Urine CLEAR (Clear); Bilirubin,Urine Negative (Negative); Blood, Urine Negative (Negative); Color,Urine YELLOW (Yellow); Glucose,Urine (UA) Negative (Negative); Ketones,Urine Negative (Negative); Leukocyte Esterase,Urine Negative (Negative); Nitrate,Urine Negative (Negative); PH,Urine 7.5 (5.0-8.5); Protein,Urine TRACE (Negative); Urobilinogen,Urine 0.2 EU/dl (0.2)
[2024-12-13] MEDS: LORazepam 0.5MG TABLET 0.5 MG PO (22:14)
[2024-12-13 22:16] LABS: Bacteria,Urine Trace /lpf
[2024-12-14] VITALS (13 sets, daily range): BP systolic 147–168; BP diastolic 82–96; PULSE 70–95; RESP 16–32; TEMP 36.4–36.8; O2SAT 95–100; BMI 23.3
--- NOTE | 2024-12-14 04:44 | PC.NURSE ---
Patient is alert to name and birthday. Patient was unsure of why or where she was earlier in shift, patient can now state she is at [facility], but when trying to remember why, patient needs assistance. Patient did request something to help her sleep, given med per jan. Patient states multiple times I want to be normal, I wish my brain would work. Patient has called out several times in the night to ask multiple questions on where she is, why she is here, and what time it is in the day, this RN along with techs have answered all questions appropriately. Patient requested a paper to write down information so she could remember what is going on, this RN gave a paper with information. Port accessed to left chest with LR running at 100mls/hr. Patient has not complained of any nausea or vomiting. Patient has been assisted to the bedside, UA obtained, but no bowel movement throughout the night. Price JOHNSTON is aware of confusion throughout the night. Pt has gotten emotional 1 time, this RN and techs at bedside to comfort patient. Bed alarm is on. Room air. Patient is very anxious when staff in the room, will breath 25-30 times per minute, but rest once left in room alone, SAFETY OFFICER aware. NSR on tele. Call light in reach.
[2024-12-14 06:32] LABS: Basophils % 0.1 % (0.1-2.0); Hematocrit 29.5 % (37.0-47.0); Hemoglobin 9.8 g/dL (12.2-16.2); Lymphocytes # 0.4 K/mm3 (0.7-4.5); Lymphocytes % 3.1 % (10-50); Mean Corpuscular HGB Conc 33.2 g/dL (31.8-35.4); Mean Corpuscular Hemoglobin 24.9 pg (27.0-31.2); Mean Corpuscular Volume 74.9 fl (81-99); Mean Platelet Volume 11.1 fl (7.4-10.4); Monocytes # 0.3 K/mm3 (0.1-1.0); Monocytes % 2.3 % (1.7-9.3); Neutrophils # 11.2 K/mm3 (1.8-7.8); Neutrophils % 93.4 % (37.0-80.0); Platelet Count 245 K/mm3 (142-424); Red Blood Count 3.94 M/mm3 (4.20-5.40)
[2024-12-14 06:39] LABS: MANUAL DIFFERENTIAL MANUAL DIFFERENTIAL (MANUAL DIFF)
[2024-12-14 06:47] LABS: Alanine Aminotransferase 17 U/L (12-78); Albumin Level 3.4 g/dl (3.5-5.0); Albumin/Globulin Ratio 1.5 (1.1-1.8); Alkaline Phosphatase 77 U/L (38-126); Anion Gap 14.2 mEq/L (5-15); Aspartate Amino Transferase 26 U/L (14-36); Bilirubin,Total 0.5 mg/dl (0.2-1.3); Blood Urea Nitrogen 15 mg/dl (7-17); Calcium 9.2 mg/dl (8.4-10.2); Carbon Dioxide 16 mmol/L (22.0-30.0); Chloride 108 mmol/L (98-107); Creatinine Clearance Estimated 55 mL/min (50-200); Estimated Glomerular Filt Rate 72 ml/min (>60); GFR (African American) 87 ML/MIN (>60); Globulin 2.3 g/dL (1.3-3.2); Glucose 105 mg/dl (74-100); Potassium 3.2 mmoL/L (3.5-5.1); Sodium 135 mmol/L (136-145); Total Protein,Serum 5.7 g/dl (6.3-8.2)
[2024-12-14] MEDS: LACTATED RINGERS 1000ML 1,000 ML 100 ML IV (07:36)
[2024-12-14 07:55] LABS: Lactate Venous 1.3 mmol/L (0.4-2.0); VBG Base Excess -5.8 mmol/L (-2.4-2.3); VBG Oxygen Saturation 48.4 % (50-70); VBG PCO2 21.1 mmol/L (35-51); VBG PH 7.52 mmol/L (7.31-7.41); VBG Total CO2 17.6 mmol/L (23-27)
--- NOTE | 2024-12-14 08:13 | HMH.PHAINT1 ---
Pharmacy Intervention Comments: HOME MEDICATION LIST VERIFIED USING LIST FROM OUTPATIENT PHARMACY AND ONCOLOGY OFFICE. PT UNABLE TO VERIFY
[2024-12-14 08:57] LABS: Hypochromasia 1+; Lymphocytes % 2 % (10-50); Monocytes % 1 % (2-9); Neutrophils % 97 % (42-76); Platelet Estimate Normal; Total Cells Counted 100
[2024-12-14] MEDS: POTASSIUM CHLORIDE 20MEQ TAB 40 MEQ PO ×2 (09:07→11:53)
[2024-12-14] MEDS: SODIUM BICARBONATE 650MG TABLET 650 MG PO (09:07)
[2024-12-14] MEDS: PARoxetine 20MG TABLET 20 MG PO (09:07)
[2024-12-14] MEDS: VANCOMYCIN HCL 50MG/ML 150ML KIT 125 MG PO ×4 (09:07→21:02)
--- NOTE | 2024-12-14 09:28 | PC.NURSE ---
Attempted to collect stool sample. Unsuccessful due to contamination with urine.
--- NOTE | 2024-12-14 10:55 | P.PN_ITS ---
Subjective *Date: 12/14/24 *Time: 18:00 Interval history: Patient feeling somewhat better today. More oriented. Knows who she is and where she is. Improved from admission. Afebrile. No nausea or vomiting. Still having some loose stools. Sample obtained this afternoon. Stable on room air. Medical Exam Vital signs and Labs for Last 24 Hours: Vital Signs Temp Pulse Pulse Resp BP BP Pulse Ox 12/14/24 08:00 98.2 F 12/14/24 06:49 12/14/24 06:00 70 26 H 161/92 H 100 12/14/24 05:11 97.5 F L 12/14/24 04:56 12/14/24 04:00 12/14/24 04:00 76 24 159/85 H 100 12/14/24 04:00 80 12/14/24 03:00 12/14/24 02:00 74 32 H 152/87 H 100 12/14/24 00:54 12/14/24 00:00 70 12/14/24 00:00 70 23 150/83 H 99 12/14/24 00:00 97.5 F L 12/13/24 23:00 12/13/24 22:00 73 16 163/88 H 100 12/13/24 21:00 12/13/24 20:00 75 12/13/24 20:00 83 18 150/82 H 100 12/13/24 20:00 98.3 F 12/13/24 19:22 97.6 F 69 26 H 164/88 H 100 12/13/24 19:00 12/13/24 18:58 98.6 F 88 16 126/74 12/13/24 18:30 72 154/65 H 100 12/13/24 18:02 12/13/24 18:01 77 169/84 H 98 12/13/24 17:30 75 160/99 H 95 12/13/24 17:00 71 159/70 H 96 12/13/24 16:31 79 152/74 H 97 12/13/24 16:10 75 156/71 H 100 12/13/24 15:30 75 147/67 H 100 12/13/24 15:01 78 130/67 99 12/13/24 14:32 86 95/73 L 100 12/13/24 14:00 82 121/51 L 100 12/13/24 13:45 75 120/63 97 12/13/24 12:10 92 H 128/69 12/13/24 12:01 97.7 F 85 22 100/59 L 99 O2 Del Method 12/14/24 08:00 12/14/24 06:49 Room Air 12/14/24 06:00 Room Air 12/14/24 05:11 12/14/24 04:56 Room Air 12/14/24 04:00 Room Air 12/14/24 04:00 Room Air 12/14/24 04:00 12/14/24 03:00 Room Air 12/14/24 02:00 Room Air 12/14/24 00:54 Room Air 12/14/24 00:00 12/14/24 00:00 Room Air 12/14/24 00:00 12/13/24 23:00 Room Air 12/13/24 22:00 Room Air 12/13/24 21:00 Room Air 12/13/24 20:00 12/13/24 20:00 Room Air 12/13/24 20:00 12/13/24 19:22 Room Air 12/13/24 19:00 Room Air 12/13/24 18:58 Room Air 12/13/24 18:30 Nasal Cannula 12/13/24 18:02 Room Air 12/13/24 18:01 Nasal Cannula 12/13/24 17:30 Nasal Cannula 12/13/24 17:00 Nasal Cannula 12/13/24 16:31 12/13/24 16:10 12/13/24 15:30 Room Air 12/13/24 15:01 Room Air 12/13/24 14:32 Room Air 12/13/24 14:00 Room Air 12/13/24 13:45 12/13/24 12:10 12/13/24 12:01 Room Air Intake and Output 12/13/24 12/14/24 12/14/24 23:59 07:59 15:59 Intake Total 890 / 1210 320 / 1210 Output Total 0 / 0 0 / 0 Balance 0 / 0 890 / 1210 320 / 1210 Intake: Intake, Oral Amount 320 / 320 Intake, Total IV Amount 890 / 890 Lactated Ringers 1000ML 1,000 640 / 640 ml @ 100 mls/hr IV .Q10H LINO Rx #:[id number] Vancomycin/Water For Inj (Peg) 250 / 250 1.25 gm In 250 ml @ 125 mls/hr IV ONCE ONE Rx#:[id number] Output: Output, Urine Amount 0 / 0 0 / 0 Other: Number of Unmeasured Voids 1 1 Number of Bowel Movements 1 Weight 60.498 kg 63.412 kg Patient Weight 12/14/24 23:59 Weight 63.412 kg Laboratory Results - last 24 hr 12/13/24 12:31: WBC 18.9 H D, RBC 4.01 L, Hgb 10.0 L, Hct 30.7 L, MCV 76.6 L, MCH 24.9 L, MCHC 32.6, RDW 17.9 H, Plt Count 262, MPV 11.5 H, Neut % (Auto) 92.9 H, Lymph % (Auto) 1.7 L, Snyder % (Auto) 4.2, Eos % (Auto) 0.0 L, Baso % (Auto) 0.2, Neut # (Auto) 17.6 H, Lymph # (Auto) 0.3 L, Snyder # (Auto) 0.8, Eos # (Auto) 0.0, Baso # (Auto) 0.0, Total Counted 100, Neutrophils % (Manual) 94 H, Lymphocytes % (Manual) 3 L, Monocytes % (Manual) 3, Platelet Estimate Normal, Hypochromasia 1+, PT 11.1, INR 1.01, Sodium 131 L, Potassium 3.2 L, Chloride 104, Carbon Dioxide 16 L, Anion Gap 14.2, BUN 15 D, Creatinine 0.80, Estimated Creat Clear 53, Estimated GFR 72, Est GFR ( Amer) 87, Glucose 113 H, Calcium 9.2, Magnesium 1.8, Total Bilirubin 0.8, AST 28, ALT 24, Alkaline Phosphatase 85, Troponin I 0.02, NT-Pro-B Natriuret Pep 7360 H, Total Protein 6.1 L, Albumin 3.7, Globulin 2.4, Albumin/Globulin Ratio 1.5, Procalcitonin 1.42, Plasma/Serum Alcohol < 10, Chlamy pneumoniae PCR Not detected, Adenovirus (PCR) Not detected, B. pertussis DNA (PCR) Not detected, Coronavirus OC43 (PCR) Not detected, Coronavirus HKU1 (PCR) Not detected, Coronavirus 229E (PCR) Not detected, SARS-CoV-2 (PCR) Not detected, Coronavirus NL63 (PCR) Not detected, Human Metapneumovir PCR Not detected, Influenza A (H1) PCR Not detected, Influ A (H1N1/09) PCR Not detected, Influenza A (H3) PCR Not detected, Influenza Type A (PCR) Not detected, Influenza Type B (PCR) Not detected, M. pneumoniae (PCR) Not detected, Parainfluenza 1 (PCR) Not detected, Parainfluenza 2 (PCR) Not detected, Parainfluenza 3 (PCR) Not detected, Parainfluenza 4 (PCR) Not detected, RSV (PCR) Not detected, Entero/Rhino (PCR) Not detected 12/13/24 13:15: VBG pH 7.59 H, VBG pCO2 18.2 L, VBG pO2 45.0 H, VBG HCO3 16.9 L, VBG Total CO2 17.5 L, VBG O2 Saturation 87.7 H, VBG Base Excess -4.9 L, VBG Lactic Acid 2.3 H 12/13/24 15:27: Ammonia < 9 L 12/13/24 17:12: Urine Opiates Screen Negative, Urine Methadone Screen Negative, Ur Barbituates Screen Negative, Ur Phencyclidine Scrn Negative, Ur Amphetamines Screen Negative, U Benzodiazepines Scrn Negative, Urine Cocaine Screen Negative, U Marijuana (THC) Screen Negative 12/13/24 19:30: Lactate 1.3 12/13/24 22:00: Urine Color Yellow, Urine Appearance Clear, Urine pH 7.5, Ur Specific [place] 1.010, Urine Protein Trace, Urine Glucose (UA) Negative, Urine Ketones Negative, Urine Blood Negative, Urine Nitrate Negative, Urine Bilirubin Negative, Urine Urobilinogen 0.2, Ur Leukocyte Esterase Negative, Urine WBC 3-5, Ur Squamous Epith Cells 3-5, Urine Bacteria Trace 12/14/24 05:55: WBC 12.0 H D, RBC 3.94 L, Hgb 9.8 L, Hct 29.5 L, MCV 74.9 L, MCH 24.9 L, MCHC 33.2, RDW 18.0 H, Plt Count 245, MPV 11.1 H, Neut % (Auto) 93.4 H, Lymph % (Auto) 3.1 L, Snyder % (Auto) 2.3, Eos % (Auto) 0.0 L, Baso % (Auto) 0.1, Neut # (Auto) 11.2 H, Lymph # (Auto) 0.4 L, Snyder # (Auto) 0.3, Eos # (Auto) 0.0, Baso # (Auto) 0.0, Total Counted 100, Neutrophils % (Manual) 97 H, Lymphocytes % (Manual) 2 L, Monocytes % (Manual) 1 L, Platelet Estimate Normal, Hypochromasia 1+, Sodium 135 L, Potassium 3.2 L, Chloride 108 H, Carbon Dioxide 16 L, Anion Gap 14.2, BUN 15, Creatinine 0.80, Estimated Creat Clear 55, Estimated GFR 72, Est GFR ( Amer) 87, Glucose 105 H, Calcium 9.2, Magnesium 2.0 D, Total Bilirubin 0.5, AST 26, ALT 17 D, Alkaline Phosphatase 77, Total Protein 5.7 L, Albumin 3.4 L, Globulin 2.3, Albumin/Globulin Ratio 1.5 12/14/24 07:42: VBG pH 7.52 H, VBG pCO2 21.1 L, VBG pO2 25.0 L, VBG HCO3 17.0 L, VBG Total CO2 17.6 L, VBG O2 Saturation 48.4 L, VBG Base Excess -5.8 L, VBG Lactic Acid 1.3 I & O for Labs for Last 24 Hours: Intake & Output 12/11/24 12/12/24 12/13/24 12/14/24 23:59 23:59 23:59 23:59 Intake Total 1210 / 1210 Output Total 0 / 0 0 / 0 Balance 0 / 0 1210 / 1210 Weight 60.498 kg 63.412 kg Constitutional: Present no acute distress, average body habitus, chronically ill appearing and disheveled Head: Present atraumatic ENT: Present normal exam Respiratory: Present rhonchi and normal respiratory effort; Absent wheezes or crackles Cardiac: Present Reg Rate and Rhythm and Audible Murmur GI: Present soft, tenderness (Nonfocal) and hyperactive bowel sounds; Absent distention Rectal (female): Present deferred (female): Present deferred Extremities: Present normal inspection, full ROM, tenderness and edema (Trace bilateral lower extremity) Skin: Present intact; Absent erythema Neuro: Present Grossly Intact, alert, awake, oriented x 3 and moves all ext remities Assessment and Plan *Assessment and plan (1) C. difficile colitis: Status: Acute Category: Medical Code(s): A04.72 - Enterocolitis due to Clostridium difficile, not specified as recurrent (2) Acute proctitis: Status: Acute Category: Medical Code(s): K62.89 - Other specified diseases of anus and rectum (3) Sepsis without septic shock: Status: Acute Category: Medical Code(s): A41.9 - Sepsis, unspecified organism (4) Esophageal stricture: Status: Acute Category: Medical Code(s): K22.2 - Esophageal obstruction (5) History of Zay-en-Y gastric bypass: Status: Acute Category: Surgical Code(s): Z98.84 - Bariatric surgery status (6) Nausea & vomiting: Status: Acute Category: Medical Code(s): R11.2 - Nausea with vomiting, unspecified (7) CAD (coronary artery disease): Status: Acute Qualifiers: Coronary Disease-Associated Artery/Lesion type: [place] artery [place] vs. transplanted heart: [place] heart Associated angina: without angina Qualified Code(s): I25.10 - Atherosclerotic heart disease of [place] coronary artery without angina pectoris Category: Medical Code(s): I25.10 - Atherosclerotic heart disease of [place] coronary artery without angina pectoris (8) Malignant lymphoplasmacytic lymphoma: Status: Acute Category: Medical Code(s): C83.00 - Small cell B-cell lymphoma, unspecified site (9) Altered mental status: Status: Resolved Qualifiers: Altered mental status type: disorientation Qualified Code(s): R41.0 - Disorientation, unspecified Category: Medical Code(s): R41.82 - Altered mental status, unspecified Plan Ms. Aiken is a 69-year-old female, who has a complicated medical history including hypertension, hyperlipidemia, chronic thoracic aortic dissection (st atus post repair), pancreatitis, renal cell carcinoma (status post nephrectomy), and non-Hodgkin?s lymphoma (on topical capecitabine), presents with acute gastrointestinal distress (nausea, vomiting, diarrhea), severe epigastric pain, and confusion. Laboratory studies show leukocytosis with neutrophil predominance, mild hypokalemia, hyponatremia, and a mixed respiratory alkalosis/metabolic acidosis with an elevated lactate. Imaging suggests possible proctocolitis or nonspecific enterocolitis, and the chronic aortic dissection appears stable. The new onset confusion may be related to capecitabine, electrolyte disturbances, or overall decompensation. She does not appear septic based on current vitals, but her leukocytosis and elevated procalcitonin warrant vigilance. Given her multiple comorbidities, we will admit her for further diagnostic evaluation, supportive care, and close monitoring to address her possible gastrointestinal infection or inflammation, manage electrolyte imbalances, evaluate her confusion, and ensure her chronic thoracic aortic dissection remains stable. Stool panel returned positive for C. difficile. Continues to require patient management. Problems addressed as follows: C. difficile colitis Nausea vomiting and diarrhea Mixed acid-base disorder with metabolic acidosis and respiratory alkalosis -Diarrhea panel positive for C. difficile and E. coli. Continue p.o. vancomycin 125 mg 4 times a day. -pH improved somewhat at 7.52 on VBG today. Bicarb still low at 16, CO2 low at 21 due to respiratory compensation. Suspect secondary to diarrhea -Advance diet. More alert today. -White count improved to 12, repeat CBC, CMP, magnesium ordered for the morning -Kidney function remained stable with BUN 15, creatinine 0.8 -Discontinue IV fluids Metabolic encephalopathy -Mentation improved today, alert and oriented x 3. Suspect secondary to illness versus medication side effect from chemotherapy. Monitor for continued improvement. Continue with day night routine to decrease risk for delirium or confusion Thoracic Aortic Dissection (Chronic) -Stable. CT reviewed showing stable dissection, no active signs of bleeding -Blood pressure closely. Resume antihypertensives if necessary to keep blood pressure less than 160 systolic CKD 3 History of right nephrectomy -Kidney function normal with BUN 15, creatinine 0.8. Monitor daily. Caution with nephrotoxins Non-Hodgkin?s Lymphoma / Recent Chemotherapy -Just started capecitabine on 12/11. May have contributed to GI symptoms. Will hold at this time. Recommend deferring until C. difficile resolves. Anemia -Hemoglobin 10, appears stable. Transfusion threshold hemoglobin less than 7. Mood disorder: Continue Paxil 20 mg daily Restless leg: Continue ropinirole 0.25 mg nightly Full code Holding anticoagulation with anemia and marilu diarrhea with concern for inflammation of colon Regular diet
[2024-12-14 13:14] LABS: Adenovirus F 40/41, stool Not Detected (NotDetected); Astrovirus Not Detected (NotDetected); Campylobacter Not Detected (NotDetected); Cryptosporidium Not Detected (NotDetected); Cyclospora Cayetanesis Not Detected (NotDetected); Entamoeba histolytica Not Detected (NotDetected); Enteroaggregative E coli Not Detected (NotDetected); Enteropathogenic E coli Not Detected (NotDetected); Giardia lamblia Not Detected (NotDetected); Norovirus Not Detected (NotDetected); Plesimonas Shigalloides, PCR Not Detected (NotDetected); Rotavirus A Not Detected (NotDetected); Salmonella, PCR Not Detected (NotDetected); Sapovirus Not Detected (NotDetected); Shiga-like toxin E coli Not Detected (NotDetected); Shigella Enterovasive E coli Not Detected (NotDetected); Vibrio Cholerae Not Detected (NotDetected); Vibrio, PCR Not Detected (NotDetected); Yersinia Entercolitica, PCR Not Detected (NotDetected)
--- NOTE | 2024-12-14 16:03 | PC.NURSE ---
called lab for an update on stool sample that was sent earlier today. lab stated we should have results about 1800 tonight
[2024-12-14] MEDS: MULTIVITAMIN TABLET 1 EACH PO (17:18)
[2024-12-14 17:55] LABS: Clostridium Difficile A/B, PCR Detected (NotDetected)
[2024-12-14 17:56] LABS: Enterotoxigenic E coli Detected (NotDetected)
--- NOTE | 2024-12-14 18:07 | PC.NURSE ---
PT HAS DONE WELL TODAY. VSS. SHE HAS BEEN ALERT AND ORIENTED X4 TODAY. SHE REPORTS THAT SHE FEELS MUCH BETTER. SHE HAS BEEN AMBULATING IN ROOM INDEPENDENTLY. SHE IS EAGER TO GO HOME.
[2024-12-14] MEDS: ROPINIROLE HCL 0.25 MG TABLET PO (21:00)
[2024-12-15] VITALS: PULSE 70; TEMP 36.1
[2024-12-15 02:00] VITALS: BP 158/76; PULSE 68; RESP 18; O2SAT 97
--- NOTE | 2024-12-15 02:02 | PC.NURSE ---
Pt states she hasnt been sleeping good tonight because she has a headache. Notified [facility]
[2024-12-15] MEDS: ACETAMINOPHEN 325MG TAB 650 MG PO (02:20)
[2024-12-15 04:00] VITALS: BP 129/72; PULSE 60; PULSE 62; RESP 16; TEMP 36.5; O2SAT 95; BMI 22.9
--- NOTE | 2024-12-15 05:16 | PC.NURSE ---
pt has had no other complaints t/o the night. Headache has resolved. Pt reports diarrhea is better than it was. Pt is A&OX4. Remains on RA. NSR on tele. Tolerates ambulation well.
[2024-12-15 06:00] VITALS: BP 148/80; PULSE 64; RESP 18; O2SAT 97
[2024-12-15 07:19] LABS: Basophils % 0.3 % (0.1-2.0); Eosinophils # 0.2 K/mm3 (0.0-0.4); Eosinophils % 1.9 % (0.1-12.0); Hematocrit 30.4 % (37.0-47.0); Hemoglobin 9.5 g/dL (12.2-16.2); Lymphocytes # 0.7 K/mm3 (0.7-4.5); Lymphocytes % 7.6 % (10-50); Mean Corpuscular HGB Conc 31.3 g/dL (31.8-35.4); Mean Corpuscular Hemoglobin 24.7 pg (27.0-31.2); Mean Platelet Volume 12.9 fl (7.4-10.4); Monocytes # 0.3 K/mm3 (0.1-1.0); Monocytes % 3.6 % (1.7-9.3); Neutrophils # 7.7 K/mm3 (1.8-7.8); Neutrophils % 86.2 % (37.0-80.0); Platelet Count 296 K/mm3 (142-424); Red Blood Count 3.85 M/mm3 (4.20-5.40); Red Cell Distribution Width 18.6 % (11.5-17.5)
[2024-12-15 07:28] LABS: Alanine Aminotransferase 15 U/L (12-78); Albumin Level 3.2 g/dl (3.5-5.0); Albumin/Globulin Ratio 1.5 (1.1-1.8); Alkaline Phosphatase 68 U/L (38-126); Anion Gap 10.3 mEq/L (5-15); Aspartate Amino Transferase 24 U/L (14-36); Blood Urea Nitrogen 9 mg/dl (7-17); Calcium 9.1 mg/dl (8.4-10.2); Carbon Dioxide 18 mmol/L (22.0-30.0); Chloride 112 mmol/L (98-107); Creatinine Clearance Estimated 54 mL/min (50-200); Estimated Glomerular Filt Rate 83 ml/min (>60); GFR (African American) 101 ML/MIN (>60); Globulin 2.2 g/dL (1.3-3.2); Glucose 78 mg/dl (74-100); Magnesium 2.1 mg/dl (1.6-2.3); Potassium 3.3 mmoL/L (3.5-5.1); Sodium 137 mmol/L (136-145); Total Protein,Serum 5.4 g/dl (6.3-8.2)
[2024-12-15 07:29] LABS: Bilirubin,Total 0.1 mg/dl (0.2-1.3)
--- NOTE | 2024-12-15 07:56 | P.DS_ITS ---
General Admission date:: 12/13/24 Discharge date: 12/15/24 HPI HPI HPI: The patient is a 69-year-old female with a complex medical history that includes hypertension, hyperlipidemia, a thoracic aortic dissection (status post repair), pancreatitis, renal cell carcinoma (status post right nephrectomy), and non- Hodgkin?s lymphoma for which she is receiving topical chemotherapy (capecitabine). She arrived complaining of nausea, vomiting, and diarrhea that began the previous night, along with generalized weakness and a severe epigastric pain rated 8 out of 10, described as aching in nature. She also notes difficulty with her memory since starting capecitabine. She denies experiencing any chest pain. Recent laboratory results from December 13, 2024, show an elevated white blood cell count of 18.9 with 92.9% neutrophils, as well as low red blood cell indices (RBC 4.01, hemoglobin 10.0, hematocrit 30.7, and mean corpuscular volume 76.6). The red cell distribution width is 17.9, and platelets measure 262. A venous blood gas indicates a pH of 7.59 (alkalotic), low pCO? of 18.2, low bicarbonate of 16.9, a base excess of -4.9, and elevated lactate of 2.3. Electrolyte disturbances include hyponatremia (Na 131), hypokalemia (K 3.2), chloride 104, and a total CO? of 16, yielding an anion gap of 14.2. The BUN is 15, creatinine 0.80, and glucose 113. Of note, the NT-proBNP is markedly elevated at 7360, tro ponin I is 0.02, and procalcitonin is 1.42. Multiple imaging studies reveal no acute intracranial abnormality on CT or CTA of the head, with only minor senescent changes and no signs of hemorrhage or mass effect. The CTA of the neck shows a stable chronic dissection of the thoracic aorta. In the abdomen, there is mucosal hyperenhancement of the sigmoid colon and rectum, which may indicate proctocolitis, and stable extension of a known dissection from the thoracic aorta to the left common iliac artery and partially into the left renal artery. Additional abdominal imaging demonstrates nonobstructed, fluid-filled loops of bowel consistent with possible nonspecific enterocolitis, no evidence of an intra-abdominal abscess, and a stable infrarenal aorta. The patient?s current clinical picture is therefore characterized by gastrointestinal distress (nausea, vomiting, diarrhea), severe epigastric pain, and mild confusion that may be related to her chemotherapy. Despite significant leukocytosis and abnormalities in her acid-base balance, there is no clear acute surgical or intracranial process; however, her chronic aortic dissection and comorbid conditions warrant ongoing close evaluation.The patient?s complex medical background, current symptoms, and lab findings will require further evaluation and management with hospital admission. Hospital Course Hospital Course Hospital Course: Ms. Aiken is a 69-year-old female, who has a complicated medical history including hypertension, hyperlipidemia, chronic thoracic aortic dissection (status post repair), pancreatitis, renal cell carcinoma (status post nephrectomy), and non-Hodgkin?s lymphoma (on topical capecitabine), presents with acute gastrointestinal distress (nausea, vomiting, diarrhea), severe epigastric pain, and confusion. Laboratory studies show leukocytosis with neutrophil predominance, mild hypokalemia, hyponatremia, and a mixed respiratory alkalosis/metabolic acidosis with an elevated lactate. Imaging suggests possible proctocolitis or nonspecific enterocolitis, and the chronic aortic dissection appears stable. The new onset confusion may be related to capecitabine, electrolyte disturbances, or overall decompensation. She does not appear septic based on current vitals, but her leukocytosis and elevated procalcitonin warrant vigilance. Given her multiple comorbidities, we will admit her for further diagnostic evaluation, supportive care, and close monitoring to address her possible gastrointestinal infection or inflammation, manage electrolyte imbalances, evaluate her confusion, and ensure her chronic thoracic aortic dissection remains stable. Stool panel returned positive for C. difficile. Tolerating p.o. vancomycin. Stable for discharge home. Continue treatment as an outpatient. Follow-up with PCP in the coming weeks. Problems addressed as follows: C. difficile colitis Nausea vomiting and diarrhea Mixed acid-base disorder with metabolic acidosis and respiratory alkalosis -Diarrhea panel positive for C. difficile and E. coli. Empirically initiated on IV and p.o. antibiotics. Blood cultures remain negative by discharge. pH showing improvement with her respiratory alkalosis. Bicarb improving, at 18 on morning of discharge. Tolerating p.o. intake. Diarrhea starting to improve. White count normalized to 9. Complete 10 days total of vancomycin p.o. 125 mg 4 times a day. Metabolic encephalopathy: Mentation improved back to baseline with treatment for her metabolic disturbances and infection. Alert and oriented x 3 on day of discharge. Thoracic Aortic Dissection (Chronic) -Stable. CT reviewed showing stable dissection, no active signs of bleeding, Resume antihypertensives at discharge CKD 3/History of right nephrectomy: Kidney function normal with BUN 9 and creatinine 0.7 on day of discharge. Non-Hodgkin?s Lymphoma / Recent Chemotherapy: Just started capecitabine on 12/11. May have contributed to GI symptoms. Will hold at this time. Recommend deferring until C. difficile resolves. Anemia: Hemoglobin stable at baseline between 9.5 and 10. No indication for transfusion. Mood disorder: Continue Paxil 20 mg daily Restless leg: Continue ropinirole 0.25 mg nightly Total time spent on discharge 32 minutes in counseling, documentation, chart review, and direct care with patient. Exam Data for Last 24 hours Vital signs and Labs for Last 24 Hours: Temp Pulse Resp BP Pulse Ox O2 Del Method 97.7 F 64 18 148/80 H 97 Room Air 12/15/24 04:00 12/15/24 06:00 12/15/24 06:00 12/15/24 06:00 12/15/24 06:00 12/15/24 06:46 Laboratory Results - last 24 hr 12/13/24 13:05: Stl Aeromonas (PCR) Not detected, Stl C. cayetanensis PCR Not detected, Stool Rotavirus (PCR) Not detected, Stl Adenov F 40/41 PCR Not detected, Stool Astrovirus (PCR) Not detected, Stool Campylobacter PCR Not detected, Stl C.difficile Tox PCR Detected A, Stool Cryptosporidium PCR Not detected, Stl E.coli Shiga Tox PCR Not detected, Stool E coli O157 PCR Not detected, Stl Enterotoxigenic E PCR Detected A, Stool EPEC (PCR) Not detected, Stool EAEC (PCR) Not detected, Stl E. histolytica PCR Not detected, Stool Giardia Lamblia PCR Not detected, Stool Salmonella PCR Not detected, Stool Sapovirus (PCR) Not detected, Stl P. shigelloides PCR Not detected, Stl Shigella/EIEC PCR Not detected, St Y.enterocolitica PCR Not detected, Stool Vibrio (PCR) Not detected, Stl Vibrio cholerae PCR Not detected, Stl Norovirus GI/GII PCR Not detected 12/14/24 05:55: Total Counted 100, Neutrophils % (Manual) 97 H, Lymphocytes % (Manual) 2 L, Monocytes % (Manual) 1 L, Platelet Estimate Normal, Hypochromasia 1+ 12/15/24 06:14: WBC 9.0, RBC 3.85 L, Hgb 9.5 L, Hct 30.4 L, MCV 79.0 L, MCH 24.7 L, MCHC 31.3 L, RDW 18.6 H, Plt Count 296, MPV 12.9 H, Neut % (Auto) 86.2 H, Lymph % (Auto) 7.6 L, [place] % (Auto) 3.6, Eos % (Auto) 1.9, Baso % (Auto) 0.3, Neut # (Auto) 7.7, Lymph # (Auto) 0.7, [place] # (Auto) 0.3, Eos # (Auto) 0.2, Baso # (Auto) 0.0, Sodium 137, Potassium 3.3 L, Chloride 112 H, Carbon Dioxide 18 L, Anion Gap 10.3, BUN 9 D, Creatinine 0.70, Estimated Creat Clear 54, Estimated GFR 83, Est GFR ( Amer) 101, Glucose 78, Calcium 9.1, Magnesium 2.1, Total Bilirubin 0.1 L, AST 24, ALT 15, Alkaline Phosphatase 68, Total Protein 5.4 L, Albumin 3.2 L, Globulin 2.2, Albumin/Globulin Ratio 1.5 I & O for Last 24 hours: Intake & Output 12/12/24 12/13/24 12/14/24 12/15/24 23:59 23:59 23:59 23:59 Intake Total 3124 / 3124 Output Total 0 / 0 0 / 0 Balance 0 / 0 3124 / 3124 Weight 60.498 kg 63.412 kg 62.46 kg Microbiology Reports for the Last 24 Hours: Microbiology 12/13/24 13:13 Blood Blood Culture - Preliminary NO GROWTH AFTER 24 HOURS 12/13/24 13:09 Blood Blood Culture - Preliminary NO GROWTH AFTER 24 HOURS Constitutional Constitutional: no acute distress, average body habitus, chronically ill appearing and cooperative *Routine HEENT Exam Head: Present normocephalic Eye: Present EOMI and PERRL ENT: Present mucous membranes moist *Routine Neck Exam Neck: Present supple; Absent lymphadenopathy *Routine Respiratory Exam Respiratory: Present CTA bilaterally; Absent rhonchi, wheezes or crackles *Routine Cardiovascular Exam Cardiovascular: Present RRR *Routine Abdominal Exam Abdominal: Present soft and normoactive bowel sounds; Absent tenderness (diffuse, mild), distended or rebound *Routine Rectal Exam Patient deferred: visual exam *Routine Exam Patient deferred: external exam *Routine Extremities Exam Extremities: Present edema (1+ in BLE); Absent cyanosis or clubbing *Routine Skin Exam Skin: Present intact and warm; Absent pallor or rash *Routine Neurological Exam Neurological: Present alert, oriented X3 and moving all extremities; Absent altered mental status Routine Psychiatric Exam Psychiatric: Present cooperative and depressed; Absent good insight Results Data Completed and Pending Labs on day of discharge: Labs from last 24 hours 12/15/24 12/14/24 12/13/24 06:14 05:55 13:05 WBC 9.0 RBC 3.85 L Hgb 9.5 L Hct 30.4 L MCV 79.0 L MCH 24.7 L MCHC 31.3 L RDW 18.6 H Plt Count 296 MPV 12.9 H Neut % (Auto) 86.2 H Lymph % (Auto) 7.6 L [place] % (Auto) 3.6 Eos % (Auto) 1.9 Baso % (Auto) 0.3 Neut # (Auto) 7.7 Lymph # (Auto) 0.7 [place] # (Auto) 0.3 Eos # (Auto) 0.2 Baso # (Auto) 0.0 Total Counted 100 Neutrophils % (Manual) 97 H Lymphocytes % (Manual) 2 L Monocytes % (Manual) 1 L Platelet Estimate Normal Hypochromasia 1+ Sodium 137 Potassium 3.3 L Chloride 112 H Carbon Dioxide 18 L Anion Gap 10.3 BUN 9 D Creatinine 0.70 Estimated Creat Clear 54 Estimated GFR 83 Est GFR ( Amer) 101 Glucose 78 Calcium 9.1 Magnesium 2.1 Total Bilirubin 0.1 L AST 24 ALT 15 Alkaline Phosphatase 68 Total Protein 5.4 L Albumin 3.2 L Globulin 2.2 Albumin/Globulin Ratio 1.5 Stl Aeromonas (PCR) Not detected Stl C. cayetanensis PCR Not detected Stool Rotavirus (PCR) Not detected Stl Adenov F 40/41 PCR Not detected Stool Astrovirus (PCR) Not detected Stool Campylobacter PCR Not detected Stl C.difficile Tox PCR Detected A Stool Cryptosporidium PCR Not detected Stl E.coli Shiga Tox PCR Not detected Stool E coli O157 PCR Not detected Stl Enterotoxigenic E PCR Detected A Stool EPEC (PCR) Not detected Stool EAEC (PCR) Not detected Stl E. histolytica PCR Not detected Stool Giardia Lamblia PCR Not detected Stool Salmonella PCR Not detected Stool Sapovirus (PCR) Not detected Stl P. shigelloides PCR Not detected Stl Shigella/EIEC PCR Not detected St Y.enterocolitica PCR Not detected Stool Vibrio (PCR) Not detected Stl Vibrio cholerae PCR Not detected Stl Norovirus GI/GII PCR Not detected Preliminary micro results at discharge 12/13/24 13:13 Blood Culture - Preliminary Blood NO GROWTH AFTER 24 HOURS 12/13/24 13:09 Blood Culture - Preliminary Blood NO GROWTH AFTER 24 HOURS DS: Diagnosis Discharge Diagnosis (1) C. difficile colitis: Status: Acute Code(s): A04.72 - Enterocolitis due to Clostridium difficile, not specified as recurrent (2) Acute proctitis: Status: Acute Code(s): K62.89 - Other specified diseases of anus and rectum (3) Sepsis without septic shock: Status: Acute Code(s): A41.9 - Sepsis, unspecified organism (4) Esophageal stricture: Status: Acute Code(s): K22.2 - Esophageal obstruction (5) History of Zay-en-Y gastric bypass: Status: Acute Code(s): Z98.84 - Bariatric surgery status (6) Nausea & vomiting: Status: Acute Code(s): R11.2 - Nausea with vomiting, unspecified (7) CAD (coronary artery disease): Status: Acute Code(s): I25.10 - Atherosclerotic heart disease of [place] coronary artery without angina pectoris Qualifiers: Associated angina: without angina Coronary Disease-Associated Artery/Lesion type: [place] artery [place] vs. 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 - Small cell B-cell lymphoma, unspecified site (9) Altered mental status: Status: Resolved Code(s): R41.82 - Altered mental status, unspecified Qualifiers: Altered mental status type: disorientation Qualified Code(s): R41.0 - Disorientation, unspecified Meds Home Medications and Allergies Home Medications ?Medication ?Instructions ?Recorded ?Confirmed ?Type ropinirole 0.25 mg tablet 0.25 mg PO HS 08/30/24 12/14/24 History paroxetine HCl 20 mg tablet (Paxil) 20 mg PO DAILY #30 tabs 11/23/24 12/14/24 Rx capecitabine 150 mg tablet 150 mg PO BID 12/14/24 12/14/24 History capecitabine 500 mg tablet 1,500 mg PO BID 12/14/24 12/14/24 History vancomycin 50 mg/mL oral solution 125 mg (2.5 mL) PO QID 8 days #0 mL 12/15/24 Rx (Firvanq) New Prescriptions to Start Prescriptions: Allergies Allergy/AdvReac Type Severity Reaction Status Date / Time Iodinated Contrast Media Allergy Intermediate Hives Verified 12/06/24 09:11 (Iodinated Contrast Media - Oral and) Sulfa (Sulfonamide Allergy Unknown Verified 12/06/24 09:11 Antibiotics) allergy reaction Discharge Plan Disposition Patient Disposition: Home, Self-Care Condition: Good Discharge Order Discharge Orders: Discharge Order (Routine); Ordered 12/15/24 Ordered By: Gomez Ferrara Follow up Plan Follow up with: Saran Sagastume MD [Primary Care Provider] - Enter time for follow up (Please call office on Tuesday morning for follow up appointment.) Prescriptions/Medication Reconciliation: New vancomycin [Firvanq] 50 mg/mL Recon Soln 125 mg PO QID 8 Days Qty: 0 0RF Continued ropinirole 0.25 mg tablet 0.25 mg PO HS Patient Comments: TAKE 1 TABLET BY MOUTH AT BEDTIME FOR RESTLESS LEGS FOR 30 DAYS paroxetine HCl [Paxil] 20 mg tablet 20 mg PO DAILY Qty: 30 5RF Held capecitabine 500 mg tablet 1,500 mg PO BID Hold Instructions: Pending resolution of C. difficile and following up with oncologist capecitabine 150 mg tablet 150 mg PO BID Hold Instructions: Pending resolution of C. difficile and following up with oncologist Problem Reconciliation Problems Reviewed?: Yes Patient Discharge Instructions ACTIVITY: Continue current activity DIET: continue same diet Patient Instructions: DI for Sepsis -- Adult, DI for Clostridioides difficile Infection, DI for Proctitis Print Language: Thai Providers Primary Care Provider: Saran Sagastume Admit Provider: Gomez Ferrara Attending Provider: Gomez Ferrara
[2024-12-15 08:00] VITALS: BP 164/92; PULSE 75; PULSE 90; RESP 18; TEMP 36.6; O2SAT 97
[2024-12-15] MEDS: PARoxetine 20MG TABLET 20 MG PO (08:48)
[2024-12-15] MEDS: VANCOMYCIN HCL 50MG/ML 150ML KIT 125 MG PO (09:00)
[2024-12-15 10:00] VITALS: BP 160/86; PULSE 60; RESP 20; O2SAT 98
--- NOTE | 2024-12-18 10:29 | SW/DCPLANNER ---
Phoned patient x2. First call left a message and the second time patient was driving and she couldnt talk. Patient was on her way to the Dr. Med[facility]
== END 2024-12-15 11:30 | disposition home or self-care (01) | DRG 371 ==
LOC: ER 17:40 → 2ND 17:50
PROVIDERS: Physician Assistant; Admitting Provider Internal Medicine Adolescent Medicine; Emergency Provider Emergency Medicine; PCP Internal Medicine Adolescent Medicine; Visit Provider Internal Medicine Adolescent Medicine
DX: A04.72 Enterocolitis due to Clostridium difficile, not specified as recurrent (principal); G93.41 Metabolic encephalopathy; I71.019 Dissection of thoracic aorta, unspecified; E87.1 Hypo-osmolality and hyponatremia; E87.4 Mixed disorder of acid-base balance; E87.3 Alkalosis; C85.90 Non-Hodgkin lymphoma, unspecified, unspecified site; C79.00 Secondary malignant neoplasm of unspecified kidney and renal pelvis; A04.1 Enterotoxigenic Escherichia coli infection; E03.9 Hypothyroidism, unspecified; I12.9 Hypertensive chronic kidney disease with stage 1 through stage 4 chronic kidney disease, or unspecified chronic kidney disease; N18.30 Chronic kidney disease, stage 3 unspecified; I25.10 Atherosclerotic heart disease of native coronary artery without angina pectoris; E78.5 Hyperlipidemia, unspecified; R41.82 Altered mental status, unspecified; D64.9 Anemia, unspecified; E87.6 Hypokalemia; F39 Unspecified mood [affective] disorder; G25.81 Restless legs syndrome; Z79.631 Long term (current) use of antimetabolite agent; Z90.49 Acquired absence of other specified parts of digestive tract; Z87.891 Personal history of nicotine dependence; Z98.84 Bariatric surgery status; Z79.01 Long term (current) use of anticoagulants; Z79.899 Other long term (current) drug therapy; Z90.5 Acquired absence of kidney
CPT/HCPCS: 36415; 70450; 70496; 70498; 71250; 71275; 74174; 74176; 80053; 80307; 80320; 81001; 82140; 82803; 83605; 83735; 83880; 84145; 84484; 85007; 85025; 85610; 87040; 87507; 87633; 93005; 99291; J1200; J1642; J2405; J2543; J2919; J3372; J7120; Q9967

== ENCOUNTER 2024-12-17 09:01 | Outpatient (CLI) | payer MEDICARE, BC, SELFPAY ==
[2024-12-17] MEDS: IRON SUCROSE COMPLEX 200 MG in 0.9 % SODIUM CHLORIDE 100 ML 220 MG IV (09:20)
[2024-12-17] MEDS: SODIUM CHLORIDE 0.9% 50ML BAG 50 ML IV (09:21)
[2024-12-17 09:26] VITALS: BP 174/77; PULSE 89; RESP 18; O2SAT 99
[2024-12-17] MEDS: SODIUM CHLORIDE 0.9% 10ML FLUSH SYRINGE 10 ML IV (10:05)
[2024-12-17 10:10] VITALS: BP 179/77; PULSE 86; RESP 18; O2SAT 99
== END 2024-12-17 10:10 | disposition home or self-care (01) ==
PROVIDERS: PCP Internal Medicine Adolescent Medicine; Visit Provider Internal Medicine Medical Oncology
DX: D50.9 Iron deficiency anemia, unspecified (principal)
CPT/HCPCS: 96365; J1642; J1756

== ENCOUNTER 2024-12-18 11:52 | Outpatient (CLI) | payer MEDICARE, BC, SELFPAY ==
--- NOTE | 2024-12-18 12:06 | PC.NURSE ---
[id number]-emir boyle collected labs via venipuncture stick with butterfly needle in left ac;pt d/c home.
[2024-12-18 12:14] LABS: MANUAL DIFFERENTIAL MANUAL DIFFERENTIAL (MANUAL DIFF)
[2024-12-18 12:29] LABS: Albumin Level 4.2 g/dl (3.5-5.0); Chloride 108 mmol/L (98-107); Potassium 3.2 mmoL/L (3.5-5.1); Sodium 138 mmol/L (136-145)
[2024-12-18 12:31] LABS: Blood Urea Nitrogen 5 mg/dl (7-17); Estimated Glomerular Filt Rate 72 ml/min (>60); GFR (African American) 87 ML/MIN (>60)
[2024-12-18 12:32] LABS: Alanine Aminotransferase 17 U/L (12-78); Albumin/Globulin Ratio 1.6 (1.1-1.8); Alkaline Phosphatase 75 U/L (38-126); Anion Gap 13.2 mEq/L (5-15); Aspartate Amino Transferase 30 U/L (14-36); Bilirubin,Total 0.5 mg/dl (0.2-1.3); Calcium 9.6 mg/dl (8.4-10.2); Carbon Dioxide 20 mmol/L (22.0-30.0); Globulin 2.6 g/dL (1.3-3.2); Glucose 90 mg/dl (74-100); Total Protein,Serum 6.8 g/dl (6.3-8.2)
[2024-12-18 12:40] LABS: Hematocrit 37.1 % (37.0-47.0); Hemoglobin 11.7 g/dL (12.2-16.2); Red Blood Count 4.74 M/mm3 (4.20-5.40); White Blood Count 3.7 K/mm3 (4.8-10.8)
[2024-12-18 12:41] LABS: Basophils % 0.8 % (0.1-2.0); Eosinophils % 5.9 % (0.1-12.0); Lymphocytes % 11.8 % (10-50); Mean Corpuscular HGB Conc 31.5 g/dL (31.8-35.4); Mean Corpuscular Hemoglobin 24.7 pg (27.0-31.2); Mean Corpuscular Volume 78.3 fl (81-99); Monocytes % 10.5 % (1.7-9.3); Neutrophils % 70.2 % (37.0-80.0); Platelet Count 268 K/mm3 (142-424); Red Cell Distribution Width 18.1 % (11.5-17.5)
[2024-12-18 12:42] LABS: Eosinophils # 0.2 K/mm3 (0.0-0.4); Lymphocytes # 0.4 K/mm3 (0.7-4.5); Monocytes # 0.4 K/mm3 (0.1-1.0); Neutrophils # 2.6 K/mm3 (1.8-7.8)
[2024-12-18 13:03] LABS: Thyroid Stimulating Hormone 1.56 uIU/mL (0.465-4.68)
[2024-12-18 13:23] LABS: Vitamin B12 304 pg/mL (239-931)
[2024-12-18 13:44] LABS: Eosinophils % 1 % (0-3); Lymphocytes % 10 % (10-50); Monocytes % 4 % (2-9); Neutrophils % 85 % (42-76); Total Cells Counted 100
[2024-12-18 13:45] LABS: Hypochromasia 1+; Platelet Estimate Normal
== END 2024-12-18 12:10 | disposition home or self-care (01) ==
LOC: INF 11:53
PROVIDERS: PCP Internal Medicine Adolescent Medicine; Visit Provider Internal Medicine Medical Oncology
DX: C16.9 Malignant neoplasm of stomach, unspecified (principal)
CPT/HCPCS: 36591; 80053; 82607; 84443; 85007; 85014; 85018; 85025; 85048; 85049

== ENCOUNTER 2024-12-27 09:57 | Outpatient (CLI) | payer MEDICARE, BC, SELFPAY ==
[2024-12-27 10:02] VITALS: BMI 21.8
[2024-12-27 10:24] LABS: Basophils # 0.1 K/mm3 (0-0.2); Basophils % 2.8 % (0.1-2.0); Eosinophils # 0.1 K/mm3 (0.0-0.4); Hematocrit 33.2 % (37.0-47.0); Hemoglobin 10.5 g/dL (12.2-16.2); Lymphocytes # 0.6 K/mm3 (0.7-4.5); Lymphocytes % 21.7 % (10-50); Mean Corpuscular HGB Conc 31.6 g/dL (31.8-35.4); Mean Corpuscular Hemoglobin 25.2 pg (27.0-31.2); Mean Corpuscular Volume 79.8 fl (81-99); Mean Platelet Volume 11.9 fl (7.4-10.4); Monocytes # 0.5 K/mm3 (0.1-1.0); Monocytes % 16.7 % (1.7-9.3); Neutrophils # 1.5 K/mm3 (1.8-7.8); Neutrophils % 53.8 % (37.0-80.0); Platelet Count 319 K/mm3 (142-424); Red Blood Count 4.16 M/mm3 (4.20-5.40); Red Cell Distribution Width 20.3 % (11.5-17.5); White Blood Count 2.8 K/mm3 (4.8-10.8)
[2024-12-27 10:32] LABS: Alanine Aminotransferase 25 U/L (12-78); Albumin Level 3.9 g/dl (3.5-5.0); Albumin/Globulin Ratio 1.7 (1.1-1.8); Alkaline Phosphatase 88 U/L (38-126); Anion Gap 13.1 mEq/L (5-15); Aspartate Amino Transferase 32 U/L (14-36); Bilirubin,Total 0.3 mg/dl (0.2-1.3); Blood Urea Nitrogen 9 mg/dl (7-17); Calcium 9.7 mg/dl (8.4-10.2); Carbon Dioxide 22 mmol/L (22.0-30.0); Chloride 107 mmol/L (98-107); Creatinine Clearance Estimated 50 mL/min (50-200); Estimated Glomerular Filt Rate 83 ml/min (>60); GFR (African American) 101 ML/MIN (>60); Globulin 2.3 g/dL (1.3-3.2); Glucose 76 mg/dl (74-100); Potassium 4.1 mmoL/L (3.5-5.1); Sodium 138 mmol/L (136-145); Total Protein,Serum 6.2 g/dl (6.3-8.2)
[2024-12-27 11:03] VITALS: BP 138/71; PULSE 76; RESP 18; TEMP 36.4; O2SAT 99
[2024-12-27] MEDS: SODIUM CHLORIDE 0.9% 10ML FLUSH SYRINGE 10 ML IV (11:03)
[2024-12-27] MEDS: IRON SUCROSE COMPLEX 200 MG in 0.9 % SODIUM CHLORIDE 100 ML 220 MG IV (11:03)
[2024-12-27 11:40] VITALS: BP 131/78; PULSE 77; RESP 18; O2SAT 99
== END 2024-12-27 11:40 | disposition home or self-care (01) ==
LOC: INF 09:58
PROVIDERS: PCP Internal Medicine Adolescent Medicine; Visit Provider Internal Medicine Medical Oncology
DX: D50.9 Iron deficiency anemia, unspecified (principal); C16.9 Malignant neoplasm of stomach, unspecified
CPT/HCPCS: 80053; 85025; 96365; J1642; J1756

== ENCOUNTER 2024-12-31 10:18 | Outpatient (CLI) | payer MEDICARE, BC, SELFPAY ==
[2024-12-31] MEDS: IRON SUCROSE COMPLEX 200 MG in 0.9 % SODIUM CHLORIDE 100 ML 220 MG IV (10:29)
[2024-12-31] MEDS: SODIUM CHLORIDE 0.9% 50ML BAG 50 ML IV (10:29)
[2024-12-31] MEDS: SODIUM CHLORIDE 0.9% 10ML FLUSH SYRINGE 10 ML IV (10:29)
[2024-12-31 10:35] VITALS: BP 139/78; PULSE 84; RESP 18; TEMP 36.8; O2SAT 99
[2024-12-31 11:05] VITALS: BP 134/69; PULSE 82; O2SAT 99
== END 2024-12-31 11:15 | disposition home or self-care (01) ==
LOC: INF 10:18
PROVIDERS: PCP Internal Medicine Adolescent Medicine; Visit Provider Internal Medicine Medical Oncology
DX: C16.9 Malignant neoplasm of stomach, unspecified (principal)
CPT/HCPCS: 96365; J1756

== ENCOUNTER 2025-01-15 08:55 | Outpatient (CLI) | payer BC, MEDICARE, SELFPAY ==
[2025-01-15 09:01] VITALS: BMI 21.8
[2025-01-15 09:20] LABS: Basophils # 0.1 K/mm3 (0-0.2); Basophils % 1.5 % (0.1-2.0); Eosinophils # 0.2 K/mm3 (0.0-0.4); Eosinophils % 5.6 % (0.1-12.0); Hematocrit 34.1 % (37.0-47.0); Hemoglobin 11.2 g/dL (12.2-16.2); Lymphocytes # 0.5 K/mm3 (0.7-4.5); Lymphocytes % 11.7 % (10-50); Mean Corpuscular HGB Conc 32.8 g/dL (31.8-35.4); Mean Corpuscular Hemoglobin 27.3 pg (27.0-31.2); Mean Platelet Volume 9.7 fl (7.4-10.4); Monocytes # 0.3 K/mm3 (0.1-1.0); Monocytes % 8.1 % (1.7-9.3); Neutrophils # 2.9 K/mm3 (1.8-7.8); Neutrophils % 72.6 % (37.0-80.0); Platelet Count 267 K/mm3 (142-424); Red Blood Count 4.11 M/mm3 (4.20-5.40); Red Cell Distribution Width 23.8 % (11.5-17.5); White Blood Count 3.9 K/mm3 (4.8-10.8)
[2025-01-15 09:31] LABS: Chloride 109 mmol/L (98-107); Sodium 140 mmol/L (136-145)
[2025-01-15 09:32] LABS: Potassium 3.9 mmoL/L (3.5-5.1)
[2025-01-15 09:34] LABS: Alanine Aminotransferase 31 U/L (12-78); Albumin/Globulin Ratio 1.7 (1.1-1.8); Anion Gap 11.9 mEq/L (5-15); Aspartate Amino Transferase 29 U/L (14-36); Blood Urea Nitrogen 16 mg/dl (7-17); Carbon Dioxide 23 mmol/L (22.0-30.0); Creatinine Clearance Estimated 50 mL/min (50-200); Estimated Glomerular Filt Rate 83 ml/min (>60); GFR (African American) 101 ML/MIN (>60); Globulin 2.4 g/dL (1.3-3.2); Total Protein,Serum 6.4 g/dl (6.3-8.2)
[2025-01-15 09:35] LABS: Alkaline Phosphatase 115 U/L (38-126); Bilirubin,Total 0.6 mg/dl (0.2-1.3); Glucose 79 mg/dl (74-100)
[2025-01-15] MEDS: SODIUM CHLORIDE 0.9% 10ML FLUSH SYRINGE 10 ML IV (11:43)
== END 2025-01-15 10:15 | disposition home or self-care (01) ==
LOC: INF 08:55
PROVIDERS: PCP Internal Medicine Adolescent Medicine; Visit Provider Internal Medicine Medical Oncology
DX: C16.9 Malignant neoplasm of stomach, unspecified (principal)
CPT/HCPCS: 36591; 80053; 85025; J1642

== ENCOUNTER 2025-02-05 12:44 | Outpatient (CLI) | payer BC, MEDICARE, SELFPAY ==
--- NOTE | 2025-02-05 12:15 | CT_ITS ---
FINAL REPORT TECHNIQUE: Noncontrast exam This study was performed with techniques to keep radiation doses as low as reasonably achievable, (ALARA). Individualized dose reduction techniques using automated exposure control or adjustment of mA and/or kV according to the patient''s size were employed. CLINICAL HISTORY: fall, injury COMPARISON: 12/13/2024 FINDINGS: There is minimal age-appropriate atrophy. No abnormal density is seen. Ventricles are normal. There is no hemorrhage. No mass effect is seen. Bone windows show no evidence of fracture. IMPRESSION: No acute intracranial findings Reviewed, Interpreted and Dictated by Augusto Coe MD Transcribed by Yajaira Bridges Authenticated and . [facility]
[2025-02-05 13:10] LABS: Basophils % 0.4 % (0.1-2.0); Eosinophils % 0.4 % (0.1-12.0); Hematocrit 35.3 % (37.0-47.0); Hemoglobin 12.1 g/dL (12.2-16.2); Lymphocytes # 0.4 K/mm3 (0.7-4.5); Lymphocytes % 8.6 % (10-50); Mean Corpuscular HGB Conc 34.3 g/dL (31.8-35.4); Mean Corpuscular Hemoglobin 29.3 pg (27.0-31.2); Mean Corpuscular Volume 85.5 fl (81-99); Mean Platelet Volume 9.2 fl (7.4-10.4); Monocytes # 0.4 K/mm3 (0.1-1.0); Monocytes % 7.4 % (1.7-9.3); Neutrophils # 4.2 K/mm3 (1.8-7.8); Neutrophils % 82.8 % (37.0-80.0); Platelet Count 111 K/mm3 (142-424); Red Blood Count 4.13 M/mm3 (4.20-5.40); Red Cell Distribution Width 23.3 % (11.5-17.5); White Blood Count 5.1 K/mm3 (4.8-10.8)
[2025-02-05 14:25] LABS: Ethyl Alcohol < 10 mg/dl (0-10)
[2025-02-05 14:35] LABS: Alanine Aminotransferase 26 U/L (12-78); Albumin Level 4.9 g/dl (3.5-5.0); Alkaline Phosphatase 183 U/L (38-126); Anion Gap 14.1 mEq/L (5-15); Aspartate Amino Transferase 33 U/L (14-36); Bilirubin,Total 1.2 mg/dl (0.2-1.3); Blood Urea Nitrogen 10 mg/dl (7-17); Calcium 9.1 mg/dl (8.4-10.2); Carbon Dioxide 22 mmol/L (22.0-30.0); Chloride 96 mmol/L (98-107); Estimated Glomerular Filt Rate 83 ml/min (>60); GFR (African American) 101 ML/MIN (>60); Globulin 2.4 g/dL (1.3-3.2); Glucose 104 mg/dl (74-100); Potassium 5.1 mmoL/L (3.5-5.1); Sodium 127 mmol/L (136-145); Total Protein,Serum 7.3 g/dl (6.3-8.2)
[2025-02-07 00:31] LABS: RPR W/RFX Titers Nonreactive (Nonreactive)
[2025-02-09 10:10] LABS: Vitamin B1 68.5 nmol/L (66.5-200.0)
== END 2025-02-05 23:59 | disposition home or self-care (01) ==
LOC: RAD 12:44
PROVIDERS: Internal Medicine Medical Oncology; PCP Internal Medicine Adolescent Medicine; Visit Provider Specialist
DX: R41.3 Other amnesia (principal); G93.40 Encephalopathy, unspecified; S06.9XAA Unspecified intracranial injury with loss of consciousness status unknown, initial encounter; C16.9 Malignant neoplasm of stomach, unspecified; F10.11 Alcohol abuse, in remission
CPT/HCPCS: 36415; 70450; 80053; 80320; 84425; 85025; 86592

== ENCOUNTER 2025-02-19 10:28 | Outpatient (CLI) | payer BC, MEDICARE, SELFPAY ==
[2025-02-19] MEDS: SODIUM CHLORIDE 0.9% 10ML FLUSH SYRINGE 10 ML IV (10:51)
--- NOTE | 2025-02-19 11:22 | XR_ITS ---
FINAL REPORT CLINICAL HISTORY: ACUTE RIGHT ANKLE TRAUMATIC PAIN COMPARISON: None FINDINGS: Three views of the right ankle show no evidence of acute displaced fracture or dislocation of the visualized bony architecture. The joint spaces appear normal. Osteopenia is noted. IMPRESSION: Unremarkable exam. Reviewed, Interpreted and Dictated by Augusto Coe MD Transcribed by Yajaira Bridges Authenticated and [facility]
== END 2025-02-19 10:50 | disposition home or self-care (01) ==
PROVIDERS: PCP Internal Medicine Adolescent Medicine; Visit Provider Internal Medicine Medical Oncology
DX: C16.9 Malignant neoplasm of stomach, unspecified (principal)
CPT/HCPCS: 73610; 96523; J1642